=== PATIENT | female | born 1945 | race Caucasian/White ===

== ENCOUNTER → 2020-04-08 | Outpatient (CLI) | payer MEDICARE, OTHER ==
--- NOTE | 2020-04-08 15:13 | XR ---
EXAMINATION TYPE: XR chest 2V DATE OF EXAM: 04/08/2020 COMPARISON: None INDICATION: Wheezing TECHNIQUE: Frontal and lateral views of the chest are obtained. FINDINGS: The heart size is normal. The pulmonary vasculature is normal. The lungs are clear. There is elevation of the right diaphragm IMPRESSION: 1. No acute pulmonary process.
--- NOTE | 2020-04-27 11:04 | MM ---
Reason for exam: screening (asymptomatic). Last mammogram was performed 1 year and 1 month ago. Physical Findings: A clinical breast exam by your physician is recommended on an annual basis and results should be correlated with mammographic findings. MG 3D Screening Mammo W/Cad Bilateral CC and MLO view(s) were taken. Prior study comparison: February 23, 2019, mammogram, performed at [place]. The breast tissue is heterogeneously dense. This may lower the sensitivity of mammography. Stable benign calcifications. There is no discrete abnormality. No significant changes when compared with prior studies. ASSESSMENT: Benign, BI-RAD 2 RECOMMENDATION: Routine screening mammogram of both breasts in 1 year.
== END | disposition home or self-care (01) ==
LOC: RADMAMWWP 14:32
PROVIDERS: ATTEND Family Medicine
DX: Z12.31 Encounter for screening mammogram for malignant neoplasm of breast (principal); R06.2 Wheezing
CPT/HCPCS: 71046; 77063; 77067

== ENCOUNTER → 2020-04-27 | Outpatient (CLI) | payer MEDICARE, OTHER ==
[2020-04-27 09:23] LABS: Basophils % (A) 1 %; Eosinophils # (A) 0.2 k/uL (0-0.7); Eosinophils % (A) 4 %; HCT 35.7 % (34.0-46.0); HGB 11.8 gm/dL (11.4-16.0); Lymphocytes # (A) 1.7 k/uL (1.0-4.8); Lymphocytes % (A) 33 %; MCH 27.6 pg (25.0-35.0); MCHC 32.9 g/dL (31.0-37.0); MCV 83.9 fL (80.0-100.0); Mean Platelet Volume 6.7; Monocytes # (A) 0.5 k/uL (0-1.0); Monocytes % (A) 9 %; Neutrophils # (A) 2.6 k/uL (1.3-7.7); Neutrophils % (A) 51 %; Platelet Count 294 k/uL (150-450); RBC 4.26 m/uL (3.80-5.40); RDW 14.6 % (11.5-15.5); WBC 5.1 k/uL (3.8-10.6)
[2020-04-27 09:48] LABS: T4, Free (Free Thyroxine) 1.33 ng/dL (0.78-2.19)
== END | disposition home or self-care (01) ==
LOC: CPPFTMAIN 07:13
PROVIDERS: ATTEND Family Medicine
DX: R06.2 Wheezing (principal); E78.5 Hyperlipidemia, unspecified; E03.9 Hypothyroidism, unspecified; N18.30 Chronic kidney disease, stage 3 unspecified
CPT/HCPCS: 36415; 80061; 84439; 84443; 85025; 94060; 94726; 94729

== ENCOUNTER 2020-06-01 09:57 | Observation (INO) | payer MEDICARE, OTHER ==
[2020-06-01] MEDS ORDERED: METOCLOPRAMIDE 5 MG/ML 2 ML VIAL IVP STA (10:26)
[2020-06-01] MEDS ORDERED: MECLIZINE 12.5 MG TAB PO STA (10:26)
--- NOTE | 2020-06-01 10:29 | ED ---
General Adult HPI - General Chief complaint: Neuro Symptoms/Deficit Stated complaint: neuro issues Time Seen by Provider: 06/01/20 10:04 Source: patient, family, RN notes reviewed Mode of arrival: wheelchair Limitations: no limitations - History of Present Illness Initial comments: Patient is a pleasant 75-year-old female presenting to the emergency department with dizziness. Patient is on prevagen recently for memory. Patient started that on Saturday. Patient woke up Saturday morning and was sweaty. Patient also felt dizzy like vertigo. Patient states symptoms improved throughout the day yesterday and then are still present this morning. Patient has dizziness described as a spinning sensation. Symptoms worsen with upright position and head movement. Patient does have history of similar symptoms years ago associated with stroke. Patient is also concerned that she is falling towards the left side. No extremity weakness. No speech problems. No confusion. - Related Data Allergies Allergy/AdvReac Type Severity Reaction Status Date / Time Iodinated Contrast Media Allergy Rash/Hives Verified 06/01/20 10:11 Review of Systems ROS Statement: Those systems with pertinent positive or pertinent negative responses have been documented in the HPI. ROS Other: All systems not noted in ROS Statement are negative. Constitutional: Denies: fever Eyes: Denies: eye pain ENT: Denies: ear pain Respiratory: Denies: cough Cardiovascular: Denies: chest pain Endocrine: Denies: fatigue Gastrointestinal: Denies: abdominal pain Genitourinary: Denies: dysuria Musculoskeletal: Denies: back pain Skin: Denies: rash Neurological: Reports: as per HPI, vertigo. Denies: headache, weakness, confusion Past Medical History Past Medical History: CVA/TIA, Hypertension History of Any Multi-Drug Resistant Organisms: None Reported Past Surgical History: Appendectomy, Cholecystectomy, Hysterectomy Additional Past Surgical History / Comment(s): D&C, liver transplant Past Psychological History: No Psychological Hx Reported Smoking Status: Never smoker Past Alcohol Use History: None Reported Past Drug Use History: None Reported General Exam Limitations: no limitations General appearance: alert, in no apparent distress Head exam: Present: normocephalic Eye exam: Present: normal appearance, PERRL, EOMI. Absent: nystagmus ENT exam: Present: normal oropharynx Neck exam: Present: normal inspection Respiratory exam: Present: normal lung sounds bilaterally Cardiovascular Exam: Present: regular rate, normal rhythm GI/Abdominal exam: Present: soft. Absent: tenderness Extremities exam: Present: normal inspection Neurological exam: Present: alert, oriented X3, CN II-XII intact. Absent: motor sensory deficit Expanded Neurological exam: Present: protecting the airway Patient oriented to: Present: person, place, time Speech: Present: fluid speech Cranial nerves: EOM's Intact: Normal, Facial Sensation: Normal Cerebellar function: Finger to Nose: Normal Sensory exam: Upper Extremity Light Touch: Normal, Lower Extremity Light Touch: Normal Motor strength exam: RUE: 5, LUE: 5, RLE: 5, LLE: 5 Eye Response: (4) open spontaneously Motor Response: (6) obeys commands Verbal Response: (5) oriented Psychiatric exam: Present: normal affect, normal mood Skin exam: Present: normal color Course Vital Signs 06/01/20 10:03 Temperature 98.2 F Pulse Rate 67 Respiratory 18 Rate Blood Pressure 143/65 O2 Sat by Pulse 99 Oximetry - Reevaluation(s) Reevaluation #1: 06/01/20 10:27 Patient states she cannot have contrast. Patient states when she received last time her creatinine went to 11 and she needed dialysis. Patient states this is not an option. EKG Findings - EKG Comments: EKG Findings:: Normal sinus rhythm 68. ID 196. QRS 92. QT 402. QTC 427. Left axis. Normal QRS. Nonspecific ST-T. Medical Decision Making - Medical Decision Making Secondary to patient with history of similar symptoms associated with stroke and leaning towards left side I would like patient to be admitted with neurology evaluation. Case was discussed with Dr. garza, covering for Dr. Iqbal who is in agreement and will admit. Neurology will be placed on consult. She was reevaluated and updated. Patient states she is feeling somewhat better with medications. - Lab Data Result diagrams: 06/01/20 10:40 06/01/20 10:40 Lab Results 06/01/20 06/01/20 Range/Units 10:40 10:40 WBC 4.6 (3.8-10.6) k/uL RBC 4.13 (3.80-5.40) m/uL Hgb 11.6 (11.4-16.0) gm/dL Hct 33.9 L (34.0-46.0) % MCV 82.0 (80.0-100.0) fL MCH 28.0 (25.0-35.0) pg MCHC 34.2 (31.0-37.0) g/dL RDW 14.4 (11.5-15.5) % Plt Count 288 (150-450) k/uL MPV 6.9 Neutrophils % 59 % Lymphocytes % 28 % Monocytes % 8 % Eosinophils % 3 % Basophils % 0 % Neutrophils # 2.7 (1.3-7.7) k/uL Lymphocytes # 1.3 (1.0-4.8) k/uL Monocytes # 0.4 (0-1.0) k/uL Eosinophils # 0.1 (0-0.7) k/uL Basophils # 0.0 (0-0.2) k/uL Sodium 134 L (137-145) mmol/L Potassium 5.0 (3.5-5.1) mmol/L Chloride 102 (98-107) mmol/L Carbon Dioxide 25 (22-30) mmol/L Anion Gap 7 mmol/L BUN 27 H (7-17) mg/dL Creatinine 1.25 H (0.52-1.04) mg/dL Est GFR (CKD-EPI)AfAm 49 (>60 ml/min/1.73 sqM) Est GFR (CKD-EPI)NonAf 43 (>60 ml/min/1.73 sqM) Glucose 169 H (74-99) mg/dL Calcium 9.7 (8.4-10.2) mg/dL Total Bilirubin 0.6 (0.2-1.3) mg/dL AST 70 H (14-36) U/L ALT 77 H (4-34) U/L Alkaline Phosphatase 46 (38-126) U/L Total Protein 7.7 (6.3-8.2) g/dL Albumin 4.4 (3.5-5.0) g/dL - Radiology Data Radiology results: report reviewed (Computed tomography scan of the brain shows atrophy and chronic small vessel changes without acute process.), image reviewed (Chest x-ray shows chronic changes without acute process) Disposition Clinical Impression: Vertigo, Ataxia Disposition: ADMITTED IP TO THIS HOSP Is patient prescribed a controlled substance at d/c from ED?: No Referrals: Jamshid Iqbal MD [Primary Care Provider] - 1-2 days Decision Time: 11:19
[2020-06-01 11:03] LABS: Basophils % (A) 0 %; Eosinophils # (A) 0.1 k/uL (0-0.7); Eosinophils % (A) 3 %; HCT 33.9 % (34.0-46.0); HGB 11.6 gm/dL (11.4-16.0); Lymphocytes # (A) 1.3 k/uL (1.0-4.8); Lymphocytes % (A) 28 %; MCHC 34.2 g/dL (31.0-37.0); Mean Platelet Volume 6.9; Monocytes # (A) 0.4 k/uL (0-1.0); Monocytes % (A) 8 %; Neutrophils # (A) 2.7 k/uL (1.3-7.7); Neutrophils % (A) 59 %; Platelet Count 288 k/uL (150-450); RBC 4.13 m/uL (3.80-5.40); RDW 14.4 % (11.5-15.5); WBC 4.6 k/uL (3.8-10.6)
--- NOTE | 2020-06-01 11:03 | XR ---
EXAMINATION TYPE: XR chest 2V DATE OF EXAM: 06/01/2020 COMPARISON: 04/08/2020 HISTORY: 75 year-old female altered mental status, vertigo and syncope. TECHNIQUE: PA and lateral views FINDINGS: Heart normal size. Aorta and pulmonary vasculature within normal limits. Asymmetric elevation right h emidiaphragm. No consolidation or pleural effusion. Mild interstitial prominence is unchanged. IMPRESSION: Chronic changes without acute cardiopulmonary process.
--- NOTE | 2020-06-01 11:04 | CT ---
EXAMINATION TYPE: CT brain wo con for TPA DATE OF EXAM: 06/01/2020 COMPARISON: None HISTORY: vertigo, nausea CT DLP: 1100.[address] of the brain was performed. The ventricles, basal cisterns and sulci overlying the cerebral convexities demonstrate mild enlargem ent. There is no evidence for intracranial hemorrhage or sulcal effacement. There is decreased attenuation about the periventricular white matter and deep white matter of both c erebral hemispheres, compatible with chronic small vessel ischemia. Differential diagnosis does inclu de demyelination. No mass effects are seen.No midline shift. Osseous calvarium is intact. If symptoms persist consider MRI. IMPRESSION: 1. Age related atrophic and chronic small vessel ischemic change without acute intracranial process s een at this time.
[2020-06-01 11:15] LABS: Albumin 4.4 g/dL (3.5-5.0); Calcium 9.7 mg/dL (8.4-10.2); Total Bilirubin 0.6 mg/dL (0.2-1.3); Total Protein 7.7 g/dL (6.3-8.2)
[2020-06-01] MEDS ORDERED: NALOXONE 0.4 MG/ML 1 ML VIAL IV PRN (11:22)
[2020-06-01 11:27] LABS: Prothrombin Time 10.6 sec (9.0-12.0)
--- NOTE | 2020-06-01 13:37 | P.HPIM ---
History of Present Illness This is a pleasant 75 years old female with past medical history of CVA/TIA, liver transplant. She is a patient of Dr. Breen. Also she follows up with her news videographer at [facility] for her liver transplant. Also she has chronic kidney disease secondary to contrast she received during the liver transplant, at that time she needed temporal dialysis when her creatinine went up to 11. Also she developed stroke 2 years after the liver transplant. This time she Presents because of dizziness and vertigo of 2 days' duration, she says that the room is a spinning around her associated with some nausea yesterday but no vomiting. And so numbness. No recent history of upper respiratory tract infection, no chest pain or dyspnea, no change in urine or bowel habits. No fever. She denies smoking, alcohol or illicit drugs Vitals are stable. Labs including CBC and INR were unremarkable. Creatinine is slightly elevated at 1.25 and liver enzymes slightly up with AST 70 and ALT 77. Troponin is negative with less than 0.012. EKG showing normal sinus rhythm at [address]-T changes. QTC 427. CT of the brain showing cerebral atrophy with no acute process per Radiologist. Chest x-ray: No acute process Review of Systems CONSTITUTIONAL: No fever, no malaise, no fatigue. HEENT: No recent visual problems or hearing problems. Denied any sore throat. CARDIOVASCULAR: No orthopnea, PND, no palpitations, no syncope. PULMONARY: No shortness of breath, no cough, no hemoptysis. GASTROINTESTINAL: No diarrhea, no nausea, no vomiting, no abdominal pain. Normoactive bowel sounds. NEUROLOGICAL: No headaches, no weakness, no numbness. HEMATOLOGICAL: Denies any bleeding or petechiae. GENITOURINARY: Denies any burning micturition, frequency, or urgency. MUSCULOSKELETAL/RHEUMATOLOGICAL: Denies any joint pain, swelling, or any muscle pain. ENDOCRINE: Denies any polyuria or polydipsia. Past Medical History Past Medical History: CVA/TIA, Hypertension History of Any Multi-Drug Resistant Organisms: None Reported Past Surgical History: Appendectomy, Cholecystectomy, Hysterectomy Additional Past Surgical History / Comment(s): D&C, liver transplant Past Psychological History: No Psychological Hx Reported Smoking Status: Never smoker Past Alcohol Use History: None Reported Past Drug Use History: None Reported Medications and Allergies Home Medications Medication Instructions Recorded Confirmed Type Acetaminophen Tab [Tylenol Tab] 1,000 mg PO Q6HR PRN 06/01/20 06/01/20 History Atorvastatin [Lipitor] 40 mg PO HS 06/01/20 06/01/20 History Calcium Carbonate/Vitamin D3 1 tab PO DAILY 06/01/20 06/01/20 History [Calcium 500-Vit D3 200 Tablet] Cephalexin [Keflex] 250 mg PO DAILY 06/01/20 06/01/20 History Cholecalciferol [Vitamin D3] 400 unit PO DAILY 06/01/20 06/01/20 History Cinnamon Bark [Cinnamon] 2,000 mg PO DAILY 06/01/20 06/01/20 History Clopidogrel [Plavix] 75 mg PO DAILY 06/01/20 06/01/20 History Cranberry Fruit Extract [Cranberry] 500 mg PO DAILY 06/01/20 06/01/20 History Fenofibrate 54 mg PO DAILY 06/01/20 06/01/20 History Furosemide [Lasix] 20 mg PO DAILY PRN 06/01/20 06/01/20 History Garlique 1 tab PO DAILY 06/01/20 06/01/20 History Glucosamine/Chondr De La Garza A Sod [Osteo 2 tab PO DAILY 06/01/20 06/01/20 History Bi-Flex Caplet] Insulin Glargine [Lantus] 40 unit SQ DAILY 06/01/20 06/01/20 History Insulin Regular, Human [NovoLIN R] See Protocol SQ AC-TID 06/01/20 06/01/20 History Leg Cramps Sl 2 - 3 tab SL DAILY PRN 06/01/20 06/01/20 History Levothyroxine Sodium [Synthroid] 50 mcg PO DAILY 06/01/20 06/01/20 History Lisinopril [Prinivil] 10 mg PO DAILY 06/01/20 06/01/20 History Magnesium Oxide 400 mg PO DAILY 06/01/20 06/01/20 History Henrry Red 1 tab PO DAILY 06/01/20 06/01/20 History Metoprolol Tartrate [Lopressor] 50 mg PO BID 06/01/20 06/01/20 History Multivitamins, Thera [Multivitamin 1 tab PO DAILY 06/01/20 06/01/20 History (formulary)] Mycophenolate Sodium [Mycophenolic 360 mg PO BID 06/01/20 06/01/20 History Acid] Garrochales-3 Fatty Acids [Garrochales-3] 1,000 mg PO DAILY 06/01/20 06/01/20 History Pantoprazole Sodium [Protonix] 40 mg PO DAILY 06/01/20 06/01/20 History Vit C/E/Zn/Coppr/Lutein/Zeaxan 1 cap PO DAILY 06/01/20 06/01/20 History [Preservision Areds 2 Softgel] Vitamin E 1,000 unit PO DAILY 06/01/20 06/01/20 History Zinc Gluconate [Zinc] 50 mg PO DAILY 06/01/20 06/01/20 History cycloSPORINE [cycloSPORINE (GEQ 25 mg PO DAILY 06/01/20 06/01/20 History for SandIMMUNE)] cycloSPORINE [cycloSPORINE (GEQ 50 mg PO HS 06/01/20 06/01/20 History for SandIMMUNE)] sitaGLIPtin [Januvia] 100 mg PO DAILY 06/01/20 06/01/20 History Allergies Allergy/AdvReac Type Severity Reaction Status Date / Time Iodinated Contrast Media Allergy Rash/Hives Verified 06/01/20 11:30 pentazocine [From Talwin] Allergy Vomiting Verified 06/01/20 11:47 Physical Exam Vitals: Vital Signs Temp Pulse Resp BP Pulse Ox 06/01/20 12:54 61 16 120/65 98 06/01/20 10:03 98.2 F 67 18 143/65 99 Intake and Output 05/31/20 06/01/20 06/01/20 22:59 06:59 14:59 Other: Weight 65.771 kg GENERAL: The patient is alert and oriented x3, not in any acute distress. Well developed, well nourished. HEENT: Pupils are round and equally reacting to light. EOMI. No scleral icterus. No conjunctival pallor. Normocephalic, atraumatic. No pharyngeal erythema. No thyromegaly. CARDIOVASCULAR: S1 and S2 present. No murmurs, rubs, or gallops. PULMONARY: Chest is clear to auscultation, no wheezing or crackles. ABDOMEN: Soft, nontender, nondistended, normoactive bowel sounds. No palpable organomegaly. MUSCULOSKELETAL: No joint swelling or deformity. EXTREMITIES: No cyanosis, clubbing, or pedal edema. NEUROLOGICAL: Gross neurological examination did not reveal any focal deficits. SKIN: No rashes. No petechiae Results CBC & Chem 7: 06/01/20 10:40 06/01/20 10:40 Labs: Abnormal Lab Results - Last 24 Hours (Table) 06/01/20 06/01/20 Range/Units 10:40 10:40 Hct 33.9 L (34.0-46.0) % Sodium 134 L (137-145) mmol/L BUN 27 H (7-17) mg/dL Creatinine 1.25 H (0.52-1.04) mg/dL Glucose 169 H (74-99) mg/dL AST 70 H (14-36) U/L ALT 77 H (4-34) U/L Assessment and Plan Assessment: Vertigo, acute Mildly elevated liver enzymes. Chronic kidney disease History of CVA/TIA History of liver transplant Plan: A pleasant 75 years old female who presents with critical. Neurology consult. Continue with meclizine as needed Labs and medication were reviewed.. Continue same treatment. Continue with symptomatic treatment. Resume home medication. Monitor lytes and vitals. DVT and GI prophylaxis. Further recommendations depends on the clinical course of the patient DVT prophylaxis: Subcutaneous heparin GI Prophylaxis: Pepcid PT/OT: Pending Prognosis is guarded
--- NOTE | 2020-06-01 16:54 | P.CNNES ---
History of Present Illness Consult date: 06/01/20 Requesting physician: Neri Robert Reason for Consult: Vertigo, ataxia, evaluate for TIA History of Present Illness: Patient is a 75-year-old female came to the hospital today at 10 AM for dizziness. Patient is recently started on prevagen on Saturday, 3 days ago for memory. Patient took the dose on Saturday and Saturday, and yesterday on Saturday she woke up and was sweaty. She felt dizzy like vertigo. The symptoms improved throughout the day yesterday but when she woke up this morning, was still present. She describes as a spinning sensation. Symptoms worsened with upright position and head movement. She also felt nauseous, and kept on walking to the left and was unsteady on the feet. Patient is also concerned that she is falling towards the left side. No focal weakness, no speech difficulties or visual disturbance. Patient denies any recent upper respiratory infection, cold or head injury. Vital signs on arrival was blood pressure 143/65, pulse rate 67, temperature 98.2. CT head showed age-related atrophic and chronic small vessel ischemic changes without acute intracranial process. On my review, the paranasal sinuses and external auditory canal are clear. Chest x-ray showed chronic changes wi thout acute cardiopulmonary process. EKG shows normal sinus rhythm, nonspecific ST and T-wave abnormality. Patient states that for last 1 year she was having a pressure sensation behind her left eardrum. She would feel crackles all the time. She went to see ENT specialist Dr. Kinsey, who performed hearing test and it was a "flatline" on the left, whereas she states was normal on the right. Tympanostomy tube was placed in his office 2 weeks ago. Patient denies any tinnitus. Denies any h earing loss. Patient denies any use of tobacco, no hypertension. Patient has history of a questionable CVA 7 years ago when she fell, hit her head on the corner of the table. When director fixed income was called, she was confused and not able to answer simple questions. Patient does take Plavix 75 mg daily. Patient also has history of liver transplant due to [facility] on 05/13/2011. She has diabetes for last 24 years. Review of Systems As above in detail. All other review of systems unremarkable. Patient denies headache, problem with the vision, hoarseness, sore throat or dysphagia. He denies any chest pain shortness of breath, wheezing or cough. Denies abdominal pain nausea vomiting and diarrhea. Denies neck or back pain. All other review of systems unremarkable except as above. Past Medical History Past Medical History: CVA/TIA, Hypertension History of Any Multi-Drug Resistant Organisms: None Reported Past Surgical History: Appendectomy, Cholecystectomy, Hysterectomy Additional Past Surgical History / Comment(s): D&C, liver transplant Past Psychological History: No Psychological Hx Reported Smoking Status: Never smoker Past Alcohol Use History: None Reported Past Drug Use History: None Reported Medications and Allergies Home Medications Medication Instructions Recorded Confirmed Type Acetaminophen Tab [Tylenol Tab] 1,000 mg PO Q6HR PRN 06/01/20 06/01/20 History Atorvastatin [Lipitor] 40 mg PO HS 06/01/20 06/01/20 History Calcium Carbonate/Vitamin D3 1 tab PO DAILY 06/01/20 06/01/20 History [Calcium 500-Vit D3 200 Tablet] Cephalexin [Keflex] 250 mg PO DAILY 06/01/20 06/01/20 History Cholecalciferol [Vitamin D3] 400 unit PO DAILY 06/01/20 06/01/20 History Cinnamon Bark [Cinnamon] 2,000 mg PO DAILY 06/01/20 06/01/20 History Clopidogrel [Plavix] 75 mg PO DAILY 06/01/20 06/01/20 History Cranberry Fruit Extract [Cranberry] 500 mg PO DAILY 06/01/20 06/01/20 History Fenofibrate 54 mg PO DAILY 06/01/20 06/01/20 History Furosemide [Lasix] 20 mg PO DAILY PRN 06/01/20 06/01/20 History Garlique 1 tab PO DAILY 06/01/20 06/01/20 History Glucosamine/Chondr De La Garza A Sod [Osteo 2 tab PO DAILY 06/01/20 06/01/20 History Bi-Flex Caplet] Insulin Glargine [Lantus] 40 unit SQ DAILY 06/01/20 06/01/20 History Insulin Regular, Human [NovoLIN R] See Protocol SQ AC-TID 06/01/20 06/01/20 History Leg Cramps Sl 2 - 3 tab SL DAILY PRN 06/01/20 06/01/20 History Levothyroxine Sodium [Synthroid] 50 mcg PO DAILY 06/01/20 06/01/20 History Lisinopril [Prinivil] 10 mg PO DAILY 06/01/20 06/01/20 History Magnesium Oxide 400 mg PO DAILY 06/01/20 06/01/20 History Henrry Red 1 tab PO DAILY 06/01/20 06/01/20 History Metoprolol Tartrate [Lopressor] 50 mg PO BID 06/01/20 06/01/20 History Multivitamins, Thera [Multivitamin 1 tab PO DAILY 06/01/20 06/01/20 History (formulary)] Mycophenolate Sodium [Mycophenolic 360 mg PO BID 06/01/20 06/01/20 History Acid] Barrington-3 Fatty Acids [Barrington-3] 1,000 mg PO DAILY 06/01/20 06/01/20 History Pantoprazole Sodium [Protonix] 40 mg PO DAILY 06/01/20 06/01/20 History Vit C/E/Zn/Coppr/Lutein/Zeaxan 1 cap PO DAILY 06/01/20 06/01/20 History [Preservision Areds 2 Softgel] Vitamin E 1,000 unit PO DAILY 06/01/20 06/01/20 History Zinc Gluconate [Zinc] 50 mg PO DAILY 06/01/20 06/01/20 History cycloSPORINE [cycloSPORINE (GEQ 25 mg PO DAILY 06/01/20 06/01/20 History for SandIMMUNE)] cycloSPORINE [cycloSPORINE (GEQ 50 mg PO HS 06/01/20 06/01/20 History for SandIMMUNE)] sitaGLIPtin [Januvia] 100 mg PO DAILY 06/01/20 06/01/20 History Allergies Allergy/AdvReac Type Severity Reaction Status Date / Time Iodinated Contrast Media Allergy Rash/Hives Verified 06/01/20 11:30 pentazocine [From Talwin] Allergy Vomiting Verified 06/01/20 11:47 Physical Examination - Vital Signs Vital Signs: Vital Signs Temp Pulse Resp BP Pulse Ox 06/01/20 12:54 61 16 120/65 98 06/01/20 10:03 98.2 F 67 18 143/65 99 Intake and Output 05/31/20 06/01/20 06/01/20 22:59 06:59 14:59 Other: Weight 65.771 kg On examination patient is an elderly female, in no acute distress. Patient is alert and awake fully oriented. Speech and language functions are normal. Attention and concentration fund of knowledge is adequate. On cranial examination pupils are round and reactive to light, visual gee are full on confrontation, extraocular muscles are intact with no nystagmus. Face is symmetric, tongue protrudes to the midline. Palatal elevation and sensation normal hearing appears normal for conversation. Shoulder shrug normal, facial sensations normal. Otologic examination revealed somewhat retracted left eardrum. Evidence of recent placement of tympanostomy tube on the left side. The right eardrum appears normal. On muscle strength testing there is no pronator drift and the strength is normal in arms and legs distally and proximally. Reflexes are 1+ to 2, and plantars downgoing. Sensory touch is equal. No ataxia for [id number] or [id number] testing. Tone and bulk of muscles normal. Gait appears normal. No carotid bruit or murmur, peripheral pulses present. Results - Laboratory Findings CBC and BMP: 06/01/20 10:40 06/01/20 10:40 Abnormal Lab Findings: Abnormal Labs 06/01/20 06/01/20 10:40 10:40 Hct 33.9 L Sodium 134 L BUN 27 H Creatinine 1.25 H Glucose 169 H AST 70 H ALT 77 H Assessment and Plan Assessment: * New onset vertigo since yesterday morning, likely due to peripheral vestibular dysfunction. Patient had a one-year history of pressure and fluid behind the left eardrum, for which she underwent placement of tympanostomy tube 2 weeks ago. * History of liver transplant for Bowles. * Diabetes Plan: * Suggest patient follow-up with ENT specialist Dr. Landeros regarding this episode of persistent vertigo. * Antivert as needed. * Suggest Medrol Dosepak if no medical contra indications. * Neurologically clear.
[2020-06-01] MEDS ORDERED: FUROSEMIDE 20 MG TAB PO PRN (17:38)
[2020-06-01] MEDS ORDERED: ACETAMINOPHEN TAB 500 MG TAB PO PRN (17:38)
[2020-06-01] MEDS: SODIUM CHLORIDE 0.9% 1,000 ML IV SCH (19:19)
[2020-06-01] MEDS: MYCOPHENOLATE SODIUM DR 180 MG TABLET.DR PO SCH (20:17)
[2020-06-01] MEDS: METOPROLOL TARTRATE 50 MG TAB PO SCH (20:17)
[2020-06-01] MEDS ORDERED: ATORVASTATIN 40 MG TAB PO SCH (21:00)
[2020-06-01] MEDS ORDERED: cycloSPORINE 25 MG CAP PO SCH (21:00)
[2020-06-01] MEDS ORDERED: MECLIZINE 25 MG TAB PO PRN (21:22)
[2020-06-02] MEDS: SODIUM CHLORIDE 0.9% 1,000 ML IV SCH (00:47)
[2020-06-02 06:39] LABS: Glucose,Whole Blood 133 mg/dL (75-99)
[2020-06-02] MEDS ORDERED: INSULIN DETEMIR (LEVEMIR) 100 UNIT/ML SYR SQ SCH (07:00)
[2020-06-02] MEDS ORDERED: PANTOPRAZOLE 40 MG TABLET PO SCH (07:30)
[2020-06-02 07:59] VITALS: BP 146/73; PULSE 61; RESP 16; TEMP 98.5
--- NOTE | 2020-06-02 08:58 | P.DS ---
Providers Date of admission: 06/01/20 11:22 Attending physician: Markie Johnson MD Consults: 06/01/20 11:22 Consult Physician Urgent Consulting Provider: Yaquelin Davenport Consult Reason/Comments: Vertigo and ataxia, evaluate for TIA Do you want consulting provider notified?: Yes Primary care physician: Jamshid Iqbal MD Hospital Course: Acute vertigo, mostly related to her ear problem increased pressure and fluid behind the left eardrum, she is status post placement of tympanostomy tube [address] Landeros. Follow-up as an outpatient Mildly elevated liver enzymes. Follow-up as an outpatient Chronic kidney disease History of CVA/TIA History of liver transplant Hospital course: This is a pleasant 75 years old female with past medical history of CVA/TIA, liver transplant. She is a patient of Dr. Breen. 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 Also she has chronic kidney disease secondary to contrast she received during the liver tra nsplant, at that time she needed temporal dialysis when her creatinine went up to 11. Also she developed stroke 2 years after the liver transplant. This time she Presents because of dizziness and vertigo of 2 days' duration, she says that the room is a spinning around her associated with some nausea yesterday but no vomiting. Also patient is a status post tympanostomy about [address] Fuller secondary to fluid collection behind her left ear, because of this neurologist evaluated the patient and cleared her for discharge and follow-up with Dr. Fuller in 1-2 weeks and patient agrees. On the day of discharge patient dizziness and vertigo are completely resolved and patient is asymptomatic and she is back to normal states and she wants to go home today Patient denies any other symptoms, no chest pain or dyspnea, no coughing, no change in urine or bowel habits. No fever. Patient was cleared for discharge by neurologist Problems and management plan were discussed with the patient and he verbalized understanding and acceptance Patient was found stable and can be discharged home however he needs follow-up as an outpatient. Patient was instructed to follow up with PCP Dr. roman for within one week and patient agrees. Also patient was instructed to follow up with her ENT doctor Alina in one week and she agrees to call and make appointment further than to wait 6 months as previously recommended, she agrees to call in one week Gen: patient is a AAOx3, no distress CVS: S1-S2, RRR, no murmur Lungs: B/L CTA, no wheezing Abdomen: soft, no distention, no tenderness, positive bowel sounds Extremity: no leg edema or induration Time spent more than 35 minutes Plan - Discharge Summary Discharge Rx Participant: No New Discharge Prescriptions: No Action Orosi-3 Fatty Acids [Orosi-3] 1,000 mg PO DAILY Cinnamon Bark [Cinnamon] 2,000 mg PO DAILY Zinc Gluconate [Zinc] 50 mg PO DAILY Leg Cramps Sl 2 - 3 tab SL DAILY PRN PRN Reason: LEG CRAMPS Glucosamine/Chondr De La Garza A Sod [Osteo Bi-Flex Caplet] 2 tab PO DAILY Cranberry Fruit Extract [Cranberry] 500 mg PO DAILY Multivitamins, Thera [Multivitamin (formulary)] 1 tab PO DAILY Magnesium Oxide 400 mg PO DAILY Cholecalciferol [Vitamin D3] 400 unit PO DAILY Vitamin E 1,000 unit PO DAILY Vit C/E/Zn/Coppr/Lutein/Zeaxan [Preservision Areds 2 Softgel] 1 cap PO DAILY Henrry Red 1 tab PO DAILY Garlique 1 tab PO DAILY Metoprolol Tartrate [Lopressor] 50 mg PO BID Lisinopril [Prinivil] 10 mg PO DAILY Acetaminophen Tab [Tylenol Tab] 1,000 mg PO Q6HR PRN PRN Reason: Pain Pantoprazole Sodium [Protonix] 40 mg PO DAILY Levothyroxine Sodium [Synthroid] 50 mcg PO DAILY Clopidogrel [Plavix] 75 mg PO DAILY sitaGLIPtin [Januvia] 100 mg PO DAILY Insulin Regular, Human [NovoLIN R] See Protocol SQ AC-TID Insulin Glargine [Lantus] 40 unit SQ DAILY Furosemide [Lasix] 20 mg PO DAILY PRN PRN Reason: Edema Cephalexin [Keflex] 250 mg PO DAILY Atorvastatin [Lipitor] 40 mg PO HS Fenofibrate 54 mg PO DAILY Mycophenolate Sodium [Mycophenolic Acid] 360 mg PO BID cycloSPORINE [cycloSPORINE (GEQ for SandIMMUNE)] 50 mg PO HS cycloSPORINE [cycloSPORINE (GEQ for SandIMMUNE)] 25 mg PO DAILY Calcium Carbonate/Vitamin D3 [Calcium 500-Vit D3 200 Tablet] 1 tab PO DAILY Discharge Medication List Acetaminophen Tab [Tylenol Tab] 1,000 mg PO Q6HR PRN 06/01/20 [History] Atorvastatin [Lipitor] 40 mg PO HS 06/01/20 [History] Calcium Carbonate/Vitamin D3 [Calcium 500-Vit D3 200 Tablet] 1 tab PO DAILY 06/01/20 [History] Cephalexin [Keflex] 250 mg PO DAILY 06/01/20 [History] Cholecalciferol [Vitamin D3] 400 unit PO DAILY 06/01/20 [History] Cinnamon Bark [Cinnamon] 2,000 mg PO DAILY 06/01/20 [History] Clopidogrel [Plavix] 75 mg PO DAILY 06/01/20 [History] Cranberry Fruit Extract [Cranberry] 500 mg PO DAILY 06/01/20 [History] Fenofibrate 54 mg PO DAILY 06/01/20 [History] Furosemide [Lasix] 20 mg PO DAILY PRN 06/01/20 [History] Garlique 1 tab PO DAILY 06/01/20 [History] Glucosamine/Chondr De La Garza A Sod [Osteo Bi-Flex Caplet] 2 tab PO DAILY 06/01/20 [History] Insulin Glargine [Lantus] 40 unit SQ DAILY 06/01/20 [History] Insulin Regular, Human [NovoLIN R] See Protocol SQ AC-TID 06/01/20 [History] Leg Cramps Sl 2 - 3 tab SL DAILY PRN 06/01/20 [History] Levothyroxine Sodium [Synthroid] 50 mcg PO DAILY 06/01/20 [History] Lisinopril [Prinivil] 10 mg PO DAILY 06/01/20 [History] Magnesium Oxide 400 mg PO DAILY 06/01/20 [History] Henrry Red 1 tab PO DAILY 06/01/20 [History] Metoprolol Tartrate [Lopressor] 50 mg PO BID 06/01/20 [History] Multivitamins, Thera [Multivitamin (formulary)] 1 tab PO DAILY 06/01/20 [History] Mycophenolate Sodium [Mycophenolic Acid] 360 mg PO BID 06/01/20 [History] Orosi-3 Fatty Acids [Orosi-3] 1,000 mg PO DAILY 06/01/20 [History] Pantoprazole Sodium [Protonix] 40 mg PO DAILY 06/01/20 [History] Vit C/E/Zn/Coppr/Lutein/Zeaxan [Preservision Areds 2 Softgel] 1 cap PO DAILY 06/01/20 [History] Vitamin E 1,000 unit PO DAILY 06/01/20 [History] Zinc Gluconate [Zinc] 50 mg PO DAILY 06/01/20 [History] cycloSPORINE [cycloSPORINE (GEQ for SandIMMUNE)] 25 mg PO DAILY 06/01/20 [History] cycloSPORINE [cycloSPORINE (GEQ for SandIMMUNE)] 50 mg PO HS 06/01/20 [History] sitaGLIPtin [Januvia] 100 mg PO DAILY 06/01/20 [History] Follow up Appointment(s)/Referral(s): Jamshid Iqbal MD [Primary Care Provider] - 1-2 days
[2020-06-02] MEDS ORDERED: CALCIUM CARB-VIT D 500MG-200UN 1 EACH TAB PO SCH (09:00)
[2020-06-02] MEDS ORDERED: CLOPIDOGREL 75 MG TAB PO SCH (09:00)
[2020-06-02] MEDS ORDERED: FENOFIBRATE 54 MG TAB PO SCH (09:00)
[2020-06-02] MEDS ORDERED: lisinopriL 10 MG TAB PO SCH (09:00)
[2020-06-02] MEDS ORDERED: cycloSPORINE 25 MG CAP PO SCH (09:00)
[2020-06-02] MEDS ORDERED: MAGNESIUM OXIDE 400 MG TAB PO SCH (09:00)
[2020-06-02] MEDS: METOPROLOL TARTRATE 50 MG TAB PO SCH (09:24)
[2020-06-02] MEDS: MYCOPHENOLATE SODIUM DR 180 MG TABLET.DR PO SCH (09:24)
== END 2020-06-02 10:07 | disposition home or self-care (01) ==
LOC: EC 09:57 → 3NCARDOBS 11:22
PROVIDERS: ADMIT Internal Medicine; ATTEND Internal Medicine
DX: R42 Dizziness and giddiness (principal); Z96.29 Presence of other otological and audiological implants; R74.8 Abnormal levels of other serum enzymes; N18.9 Chronic kidney disease, unspecified; E11.22 Type 2 diabetes mellitus with diabetic chronic kidney disease; I12.9 Hypertensive chronic kidney disease with stage 1 through stage 4 chronic kidney disease, or unspecified chronic kidney disease; Z86.73 Personal history of transient ischemic attack (TIA), and cerebral infarction without residual deficits; Z94.4 Liver transplant status; R25.2 Cramp and spasm; Z90.49 Acquired absence of other specified parts of digestive tract; Z90.710 Acquired absence of both cervix and uterus; Z79.899 Other long term (current) drug therapy; Z79.02 Long term (current) use of antithrombotics/antiplatelets; Z79.4 Long term (current) use of insulin; Z79.890 Hormone replacement therapy; Z88.8 Allergy status to other drugs, medicaments and biological substances; Z91.041 Radiographic dye allergy status
CPT/HCPCS: 96374; 99285; 36415; 93005; 80053; 84484; 85025; 85610; 85730; 71046; 70450; G0378 ×2; J2765; J7518 ×2; J7515 ×2

== ENCOUNTER → 2020-08-17 | Outpatient (CLI) | payer MEDICARE, OTHER ==
[2020-08-17 16:47] LABS: Basophils # (A) 0.1 k/uL (0-0.2); Basophils % (A) 1 %; Eosinophils # (A) 0.1 k/uL (0-0.7); Eosinophils % (A) 2 %; HCT 34.8 % (34.0-46.0); HGB 11.7 gm/dL (11.4-16.0); Lymphocytes # (A) 1.5 k/uL (1.0-4.8); Lymphocytes % (A) 29 %; MCH 27.2 pg (25.0-35.0); MCHC 33.6 g/dL (31.0-37.0); Monocytes # (A) 0.4 k/uL (0-1.0); Monocytes % (A) 7 %; Neutrophils # (A) 2.9 k/uL (1.3-7.7); Neutrophils % (A) 58 %; Platelet Count 257 k/uL (150-450); RBC 4.29 m/uL (3.80-5.40); RDW 14.4 % (11.5-15.5); WBC 5.1 k/uL (3.8-10.6)
[2020-08-17 18:26] LABS: Creatinine,Urine Random 54.5 mg/dL; Protein/Creatinine Ratio,Urine 0.22
[2020-08-18 02:16] LABS: African American GFR (CKD) 39.4 (60.0-200.0); Albumin 4.8 g/dL (3.80-4.90); Anion Gap 10.3 mmol/L (4.00-12.00); Calcium 9.5 mg/dL (8.7-10.3); Carbon Dioxide 25.7 mmol/L (21.6-31.8); Phosphorus 3.8 mg/dL (2.4-5.1); Potassium 4.7 mmol/L (3.5-5.5)
== END | disposition home or self-care (01) ==
LOC: LABWHC1 15:58
PROVIDERS: ATTEND Internal Medicine Nephrology
DX: N18.30 Chronic kidney disease, stage 3 unspecified (principal)
CPT/HCPCS: 36415; 80069; 82306; 82570; 83970; 84156; 85025

== ENCOUNTER → 2020-10-07 | Outpatient (CLI) | payer MEDICARE, OTHER ==
--- NOTE | 2020-10-07 10:44 | XR ---
EXAMINATION TYPE: XR calcaneus 2V LT DATE OF EXAM: 10/07/2020 COMPARISON: NONE HISTORY: Pain. TECHNIQUE: 2 views left calcaneus. FINDINGS: No acute fracture or dislocation is seen. Bohler's angle is maintained. Some overlying nathalia rial vascular calcification. No calcaneal spurring. IMPRESSION: As above.
--- NOTE | 2020-10-07 13:01 | ECHOF ---
Referral Reason:R01.1 cardiac murmur MEASUREMENTS -------- HEIGHT: 152.4 cm WEIGHT: 65.8 kg BP: RVIDd: 3.0 cm (< 3.3) IVSd: 1.1 cm (0.6 - 1.1) LVIDd: 4.0 cm (3.9 - 5.3) LVPWd: 1.2 cm (0.6 - 1.1) IVSs: 1.3 cm LVIDs: 3.0 cm LVPWs: 1.4 cm LA Diam: 3.3 cm (2.7 - 3.8) LAESV Index (A-L): 25.07 ml/m Ao Diam: 3.2 cm (2.0 - 3.7) AV Cusp: 1.4 cm (1.5 - 2.6) LA Diam: 3.6 cm (2.7 - 3.8) MV EXCURSION: 13.883 mm (> 18.000) MV EF SLOPE: 55 mm/s (70 - 150) EPSS: 0.5 cm MV E Nate: 0.56 m/s MV DecT: 313 ms MV A Nate: 0.92 m/s MV E/A Ratio: 0.61 AV maxP.36 mmHg AV meanP.21 mmHg AR PHT: 632 ms RAP: 5.00 mmHg RVSP: 23.31 mmHg FINDINGS -------- Sinus rhythm. This was a technically good study. LV size, wall thickness and systolic function are normal, with an EF greater than 55%. The left sunday tricular size is normal. The right ventricle is normal in size. Normal LA size by volume 22+/-6 ml/m2. The right atrial size is normal. There is mild aortic regurgitation. There is mild aortic stenosis present. Peak/mean gradient acr oss the Aortic Valve is 22.36mmHg / 13.21mmHg. Mild mitral regurgitation is present. Mild tricuspid regurgitation present. Right ventricular systolic pressure is normal at < 35 mmHg. There is no pulmonic regurgitation present. The aortic root size is normal. There is no pericardial effusion. CONCLUSIONS -------- 1. LV size, wall thickness and systolic function are normal, with an EF greater than 55%. 2. The left ventricular size is normal. 3. The right ventricle is normal in size. 4. Normal LA size by volume 22+/-6 ml/m2. 5. The right atrial size is normal. 6. There is mild aortic regurgitation. 7. There is mild aortic stenosis present. 8. Peak/mean gradient across the Aortic Valve is 22.36mmHg / 13.21mmHg. 9. Mild mitral regurgitation is present. 10. Mild tricuspid regurgitation present. 11. There is no pulmonic regurgitation present. 12. The aortic root size is normal. 13. There is no pericardial effusion. SUBSTITUTE CROSSING GUARD: Alis Velazquez RDCS
== END ==
LOC: RADECHMAIN 07:40
PROVIDERS: ATTEND Family Medicine
DX: I08.3 Combined rheumatic disorders of mitral, aortic and tricuspid valves (principal); I35.0 Nonrheumatic aortic (valve) stenosis; I70.202 Unspecified atherosclerosis of native arteries of extremities, left leg
CPT/HCPCS: 93306

== ENCOUNTER → 2020-11-11 | Outpatient (CLI) | payer MEDICARE, OTHER ==
--- NOTE | 2020-11-16 08:56 | P.ARTDOP ---
Arterial Doppler LOWER EXTREMITY ARTERIAL DOPPLER: DATE OF SERVICE: 11/11/2020 Reason for study: Right heel pain. Doppler waveforms: Multiphasic bilaterally throughout. Pulse volume recording: []. Pressure gradients:none. Ankle-brachial indices:Greater than 1. Toe brachial indices: [] on the right, [] on the left Impression: Normal study.
== END | disposition home or self-care (01) ==
LOC: RADUSWWP 12:35
PROVIDERS: ATTEND Family Medicine
DX: M79.671 Pain in right foot (principal)
CPT/HCPCS: 93922

== ENCOUNTER → 2020-11-29 | Outpatient (CLI) | payer MEDICARE, OTHER ==
[2020-11-29 12:38] LABS: African American GFR (CKD) 46.8 (60.0-200.0); Chol/HDL Ratio 5.3; Non-African American GFR(CKD) 40.4 (60.0-200.0); Uric Acid 4.2 mg/dL (2.9-7.7)
[2020-11-29 16:23] LABS: Hemoglobin A1C 6.5 % (4.0-6.0)
[2020-12-01 09:28] LABS: Lipoprotein A 8 mg/dL (0-30)
== END | disposition home or self-care (01) ==
LOC: LABWHC1 07:16
PROVIDERS: ATTEND Internal Medicine
DX: E11.22 Type 2 diabetes mellitus with diabetic chronic kidney disease (principal); I12.9 Hypertensive chronic kidney disease with stage 1 through stage 4 chronic kidney disease, or unspecified chronic kidney disease; E03.9 Hypothyroidism, unspecified; E78.2 Mixed hyperlipidemia; N18.30 Chronic kidney disease, stage 3 unspecified
CPT/HCPCS: 36415; 80061; 82172; 82306; 82550; 82565; 82947; 83036; 83695; 83721; 84075; 84443; 84450; 84460; 84550

== ENCOUNTER → 2021-02-16 | Outpatient (CLI) | payer MEDICARE, OTHER ==
[2021-02-16 10:04] LABS: Creatinine,Urine Random 69.4 mg/dL; Protein/Creatinine Ratio,Urine 0.202
[2021-02-16 12:09] LABS: Basophils # (A) 0.02 X 10*3/uL (0.00-0.10); Basophils % (A) 0.5 %; Eosinophils # (A) 0.34 X 10*3/uL (0.04-0.35); Eosinophils % (A) 8.4 %; HCT 34.9 % (37.2-46.3); Lymphocytes # (A) 1.14 X 10*3/uL (0.90-5.00); MCH 26.2 pg (27.0-32.0); MCHC 31.5 g/dL (32.0-37.0); MCV 83.1 fL (80.0-97.0); Mean Platelet Volume 9.7 fL (9.5-12.2); Monocytes # (A) 0.42 X 10*3/uL (0.20-1.00); Monocytes % (A) 10.3 %; Neutrophils # (A) 2.14 X 10*3/uL (1.80-7.70); Neutrophils % (A) 52.6 %; Platelet Count 234 X 10*3/uL (140-440); RDW 14.8 % (11.5-14.5); WBC 4.07 X 10*3/uL (4.50-10.00)
[2021-02-16 21:14] LABS: Total Bilirubin 0.9 mg/dL (0.3-1.2); Uric Acid 6.9 mg/dL (2.9-7.7)
[2021-02-16 21:15] LABS: African American GFR (CKD) 57.3 (60.0-200.0); Albumin 4.4 g/dL (3.80-4.90); Anion Gap 13.8 mmol/L (4.00-12.00); BUN/Creat Ratio 21.82 Ratio (12.00-20.00); Bilirubin, Conjugated 0.2 mg/dL (0.20-0.40); Calcium 9.2 mg/dL (8.7-10.3); Carbon Dioxide 20.2 mmol/L (21.6-31.8); Chol/HDL Ratio 6.24; Non-African American GFR(CKD) 49.4 (60.0-200.0); Phosphorus 4.2 mg/dL (2.4-5.1); Potassium 4.9 mmol/L (3.5-5.5)
== END | disposition home or self-care (01) ==
LOC: LABWHC1 07:10
PROVIDERS: ATTEND Internal Medicine
DX: E78.2 Mixed hyperlipidemia (principal); I10 Essential (primary) hypertension; R73.01 Impaired fasting glucose; E03.9 Hypothyroidism, unspecified; R74.8 Abnormal levels of other serum enzymes; N18.30 Chronic kidney disease, stage 3 unspecified
CPT/HCPCS: 36415; 80061; 80069; 82172; 82247; 82306; 82550; 82570; 83721; 83970; 84075; 84156; 84443; 84450; 84460; 84550; 85025

== ENCOUNTER → 2021-04-27 | Outpatient (CLI) | payer MEDICARE, OTHER ==
--- NOTE | 2021-04-27 11:55 | US ---
EXAMINATION TYPE: US carotid duplex BILAT DATE OF EXAM: 04/27/2021 COMPARISON: NONE CLINICAL HISTORY: 76-year-old female Abnormal VAT R94.39. TECHNIQUE: Carotid duplex ultrasound examination. In direct Doppler criteria is utilized. FINDINGS: EXAM MEASUREMENTS: RIGHT: Peak Systolic Velocity (PSV) cm/sec ----- Right CCA: 61.8 ----- Right ICA: 87.9 ----- Right ECA: 87.3 ICA/CCA ratio: 1.4 RIGHT: End Diastole cm/sec ----- Right CCA: 13.7 ----- Right ICA: 24.9 ----- Right ECA: 10.7 LEFT: Peak Systolic Velocity (PSV) cm/sec ----- Left CCA: 65.9 ----- Left ICA: 75.4 ----- Left ECA: 86.7 ICA/CCA ratio: 1.1 LEFT: End Diastole cm/sec ----- Left CCA: 17.2 ----- Left ICA: 20.8 ----- Left ECA: 17.2 VERTEBRALS (direction of flow): Right Vertebral: Antegrade Left Vertebral: Antegrade Rhythm: Normal Delivery Lead notes: Small amount of plaque in bilateral bulbs No elevated velocities IMPRESSION: No hemodynamically significant internal carotid artery stenosis on either side. Criteria for Assigning % of Stenosis / Diameter reduction (Estimation based on the indirect measurements of the internal carotid artery velocities (ICA PSV). 1. Normal (no stenosis)=ICA PSV < 125 cm/s: ratio < 2.0: ICA EDV<40 cm/s. 2. Less than 50% stenosis=ICA PSV < 125 cm/s: ratio < 2.0: ICA EDV<40 cm/s. 3. 50 to 69% stenosis=ICA PSV of 125 to 230 cm/s: ration 2.0 ? 4.0: ICA EDV 40-100 cm/s. 4. Greater than 70% stenosis to near occlusion= ICA PSV > 230 cm/s: ratio > 4.0: ICA EDV > 100 cm/s. 5. Near occlusion= ICA PSV velocities may be low or undetectable: variable ratio and ICA EDV. 6. Total occlusion=unable to detect flow.
== END | disposition home or self-care (01) ==
LOC: RADUSWWP 07:36
PROVIDERS: ATTEND Psychiatry & Neurology Neurology
DX: I65.23 Occlusion and stenosis of bilateral carotid arteries (principal)
CPT/HCPCS: 93880

== ENCOUNTER → 2021-04-27 | Outpatient (CLI) | payer MEDICARE, OTHER ==
--- NOTE | 2021-04-28 11:33 | MM ---
Reason for exam: screening (asymptomatic). Last mammogram was performed 1 year and 1 month ago. History: Patient is postmenopausal and history of other cancer. Family history of breast cancer in paternal aunt and breast cancer in paternal grandmother. Physical Findings: A clinical breast exam by your physician is recommended on an annual basis and results should be correlated with mammographic findings. MG 3D Screening Mammo W/Cad Bilateral CC and MLO view(s) were taken. Prior study comparison: April 08, 2020, bilateral MG 3d screening mammo w/cad. February 23, 2019, mammogram, performed at [place]. The breast tissue is heterogeneously dense. This may lower the sensitivity of mammography. Finding #1: There is a 4 mm equal density (isodense) mass in the central position of the left breast. Finding #2: There are typically benign calcifications in both breasts. ASSESSMENT: Incomplete: need additional imaging evaluation, BI-RAD 0 RECOMMENDATION: Special view mammogram of the left breast. If lesion persists on supplemental views, image directed ultrasound is recommended. [facility] will attempt to contact patient to return for supplemental views and ultrasound if indicated.
== END | disposition home or self-care (01) ==
LOC: RADMAMWWP 07:34
PROVIDERS: ATTEND Family Medicine
DX: Z12.31 Encounter for screening mammogram for malignant neoplasm of breast (principal); Z80.3 Family history of malignant neoplasm of breast; Z78.0 Asymptomatic menopausal state
CPT/HCPCS: 77063; 77067

== ENCOUNTER → 2021-05-01 | Outpatient (CLI) | payer MEDICARE, OTHER ==
--- NOTE | 2021-05-02 13:31 | MM ---
Reason for exam: additional evaluation requested from abnormal screening. Last mammogram was performed less than 1 month ago. History: Patient is postmenopausal and history of other cancer. Family history of breast cancer in paternal aunt and breast cancer in paternal grandmother. Took estrogen beginning at age 46. Physical Findings: Nurse did not find any significant physical abnormalities on exam. MG 3D Work Up W/Cad LT Spot compression CC, spot compression MLO, and LM view(s) were taken of the left breast. Prior study comparison: April 27, 2021, bilateral MG 3d screening mammo w/cad. April 08, 2020, bilateral MG 3d screening mammo w/cad. There is no discrete abnormality. These results were verbally communicated with the patient and result sheet given to the patient on 05/01/21. ASSESSMENT: Benign, BI-RAD 2 RECOMMENDATION: Return to routine screening mammogram schedule for both breasts.
== END | disposition home or self-care (01) ==
LOC: RADMAMWWP 07:00
PROVIDERS: ATTEND Family Medicine
DX: R92.8 Other abnormal and inconclusive findings on diagnostic imaging of breast (principal); Z78.0 Asymptomatic menopausal state; Z80.3 Family history of malignant neoplasm of breast
CPT/HCPCS: 77065; G0279; 77061

== ENCOUNTER 2021-06-07 10:29 | Inpatient (IN) | payer MEDICARE, OTHER ==
[2021-06-07] MEDS ORDERED: ALBUTEROL HFA INHALER INHALATION STA (11:26)
[2021-06-07 12:10] LABS: Basophils % (A) 0 %; Eosinophils % (A) 0 %; HGB 10.5 gm/dL (11.4-16.0); Lymphocytes # (A) 0.5 k/uL (1.0-4.8); Lymphocytes % (A) 11 %; MCH 26.5 pg (25.0-35.0); MCHC 33.8 g/dL (31.0-37.0); MCV 78.5 fL (80.0-100.0); Mean Platelet Volume 7.2; Monocytes # (A) 0.1 k/uL (0-1.0); Monocytes % (A) 3 %; Neutrophils # (A) 3.8 k/uL (1.3-7.7); Neutrophils % (A) 85 %; Platelet Count 261 k/uL (150-450); Poikilocytosis Slight; RBC 3.94 m/uL (3.80-5.40); RDW 15.4 % (11.5-15.5); WBC 4.5 k/uL (3.8-10.6)
[2021-06-07 12:19] LABS: Partial Thromboplastin Time 25.7 sec (22.0-30.0)
--- NOTE | 2021-06-07 12:33 | XR ---
EXAMINATION TYPE: XR chest 2V DATE OF EXAM: 06/07/2021 COMPARISON: 06/01/2020 HISTORY: 76 year-old female shortness of breath, difficulty breathing TECHNIQUE: PA and lateral views FINDINGS: Heart normal size. Atherosclerotic arch calcifications. Interstitial prominence appears slightly more pronounced from prior exam. Asymmetric elevation right hemidiaphragm. No consolidation or pleural ef fusion. IMPRESSION: 1. Interstitial prominence has increased. Consider bronchitis, interstitial pneumonitis, or atypical pneumonias. 2. Continued asymmetric elevation right hemidiaphragm. If concern for hemidiaphragmatic paralysis, a fluoroscopic sniff test could be performed.
[2021-06-07 12:35] LABS: ALT 36 U/L (4-34); AST 83 U/L (14-36); African American GFR (CKD) >90 (>60 ml/min/1.73 sqM); Albumin 3.6 g/dL (3.5-5.0); Alkaline Phosphatase 101 U/L (38-126); Anion Gap 15 mmol/L; Blood Urea Nitrogen 18 mg/dL (7-17); Calcium 8.7 mg/dL (8.4-10.2); Carbon Dioxide 17 mmol/L (22-30); Chloride 103 mmol/L (98-107); Glucose 183 mg/dL (74-99); Magnesium 1.2 mg/dL (1.6-2.3); Non-African American GFR(CKD) 84 (>60 ml/min/1.73 sqM); Potassium 4.7 mmol/L (3.5-5.1); Sodium 135 mmol/L (137-145); Total Protein 6.7 g/dL (6.3-8.2)
[2021-06-07] MEDS ORDERED: NALOXONE 0.4 MG/ML 1 ML VIAL IV PRN (14:08)
--- NOTE | 2021-06-07 14:08 | ED ---
General Adult HPI - General Chief complaint: Shortness of Breath Stated complaint: sob/covid+ Time Seen by Provider: 06/07/21 11:05 Source: patient, family, RN notes reviewed Mode of arrival: wheelchair Limitations: no limitations - History of Present Illness Initial comments: This a 76-year-old female presents emergency from chief complaint of COVID-19. Patient states she recently tested positive at symptoms for proximal one week. Patient states is progressively getting worse she was seen at the [facility] urgent care who gave her antibiotics for pneumonia. Patient states symptoms worsened today increasing shortness of breath. Patient denies any GI symptoms. Patient states her symptoms are exertional. - Related Data Home Medications Medication Instructions Recorded Confirmed Acetaminophen Tab [Tylenol] 1,000 mg PO BID PRN 06/01/20 06/07/21 Calcium Carbonate/Vitamin D3 1 tab PO DAILY 06/01/20 06/07/21 [Calcium 500-Vit D3 5 Mcg (200 Iu)] Cephalexin [Keflex] 250 mg PO DAILY 06/01/20 06/07/21 Clopidogrel [Plavix] 75 mg PO DAILY 06/01/20 06/07/21 Furosemide [Lasix] 20 mg PO DAILY PRN 06/01/20 06/07/21 Glucosamine/Chondr De La Garza A Sod [Osteo 2 tab PO DAILY 06/01/20 06/07/21 Bi-Flex Caplet] Insulin Glargine [Lantus Vial] 40 unit SQ DAILY 06/01/20 06/07/21 Levothyroxine Sodium [Synthroid] 50 mcg PO DAILY 06/01/20 06/07/21 Lisinopril [Prinivil] 10 mg PO DAILY 06/01/20 06/07/21 Magnesium Oxide 400 mg PO DAILY 06/01/20 06/07/21 Metoprolol Tartrate [Lopressor] 50 mg PO BID 06/01/20 06/07/21 Multivitamins, Thera [Multivitamin 1 tab PO DAILY 06/01/20 06/07/21 (formulary)] Mycophenolate Sodium [Mycophenolic 360 mg PO BID 06/01/20 06/07/21 Acid] Pantoprazole Sodium [Protonix] 40 mg PO AC-BRKFST 06/01/20 06/07/21 Vit C/E/Zn/Coppr/Lutein/Zeaxan 1 cap PO DAILY 06/01/20 06/07/21 [Preservision Areds 2 Softgel] Zinc Gluconate [Zinc] 50 mg PO DAILY 06/01/20 06/07/21 cycloSPORINE [SandIMMUNE] 25 mg PO DAILY 06/01/20 06/07/21 cycloSPORINE [SandIMMUNE] 50 mg PO HS 06/01/20 06/07/21 sitaGLIPtin [Januvia] 100 mg PO DAILY 06/01/20 06/07/21 Amoxic-Pot Clav 875-125Mg 1 tab PO BID 06/07/21 06/07/21 [Augmentin 875-125] Amoxicillin 2,000 mg PO ONCE PRN 06/07/21 06/07/21 Famotidine [Pepcid] 20 mg PO BID 06/07/21 06/07/21 Fluoride (Sodium) [Sodium Fluoride 1 applic DENTAL BID 06/07/21 06/07/21 5000 Plus] Insulin Regular, Human [Novolin R See Protocol SQ AC-TID 06/07/21 06/07/21 Flexpen] Meclizine [Antivert] 25 mg PO BID 06/07/21 06/07/21 [place]-3 Acid Ethyl Esters [Lovaza] 2 gm PO BID 06/07/21 06/07/21 Rosuvastatin [Crestor] 10 mg PO HS 06/07/21 06/07/21 Allergies Allergy/AdvReac Type Severity Reaction Status Date / Time Iodinated Contrast Media Allergy Rash/Hives Verified 06/07/21 12:08 pioglitazone [From Actos] Allergy Rash/Hives Verified 06/07/21 12:08 pentazocine [From Talwin] AdvReac Vomiting Verified 06/07/21 12:08 Review of Systems ROS Statement: Those systems with pertinent positive or pertinent negative responses have been documented in the HPI. ROS Other: All systems not noted in ROS Statement are negative. Past Medical History Past Medical History: CVA/TIA, Hypertension History of Any Multi-Drug Resistant Organisms: None Reported Past Surgical History: Appendectomy, Cholecystectomy, Hysterectomy Additional Past Surgical History / Comment(s): D&C, liver transplant Past Psychological History: No Psychological Hx Reported Smoking Status: Never smoker Past Alcohol Use History: None Reported Past Drug Use History: None Reported General Exam Limitations: no limitations General appearance: alert, in no apparent distress Head exam: Present: atraumatic, normocephalic, normal inspection Eye exam: Present: normal appearance, PERRL, EOMI. Absent: scleral icterus, con junctival injection, periorbital swelling ENT exam: Present: normal exam, mucous membranes moist Neck exam: Present: normal inspection. Absent: tenderness, meningismus, lymphadenopathy Respiratory exam: Present: decreased breath sounds. Absent: normal lung sounds bilaterally, respiratory distress, wheezes, rales, rhonchi, stridor Cardiovascular Exam: Present: normal rhythm, tachycardia, normal heart sounds. Absent: systolic murmur, diastolic murmur, rubs, gallop, clicks GI/Abdominal exam: Present: soft, normal bowel sounds. Absent: distended, tenderness, guarding, rebound, rigid Course Vital Signs 06/07/21 06/07/21 06/07/21 10:58 11:17 12:02 Temperature 97.8 F Pulse Rate 89 80 Respiratory 20 22 18 Rate Blood Pressure 122/73 164/78 O2 Sat by Pulse 92 L 98 Oximetry 06/07/21 13:00 Temperature Pulse Rate 86 Respiratory 34 H Rate Blood Pressure 152/77 O2 Sat by Pulse 96 Oximetry EKG Findings - EKG Comments: EKG Findings:: EKG performed at length: 1154 sinus rhythm rate of 92 pr 154 qrs 84 qt / qtc 358/442 Medical Decision Making - Medical Decision Making Patient tested positive for COVID-19 outpatient patient has evidence of pn eumonia patient had hypoxia resting and with exertion dropped down to 83%. Patient will be admitted for COVID-19 pneumonia, hypoxia. - Lab Data Result diagrams: 06/07/21 11:46 06/07/21 11:46 Lab Results 06/07/21 06/07/21 06/07/21 Range/Units 11:46 11:46 11:46 WBC 4.5 (3.8-10.6) k/uL RBC 3.94 (3.80-5.40) m/uL Hgb 10.5 L (11.4-16.0) gm/dL Hct 31.0 L (34.0-46.0) % MCV 78.5 L (80.0-100.0) fL MCH 26.5 (25.0-35.0) pg MCHC 33.8 (31.0-37.0) g/dL RDW 15.4 (11.5-15.5) % Plt Count 261 (150-450) k/uL MPV 7.2 Neutrophils % 85 % Lymphocytes % 11 % Monocytes % 3 % Eosinophils % 0 % Basophils % 0 % Neutrophils # 3.8 (1.3-7.7) k/uL Lymphocytes # 0.5 L (1.0-4.8) k/uL Monocytes # 0.1 (0-1.0) k/uL Eosinophils # 0.0 (0-0.7) k/uL Basophils # 0.0 (0-0.2) k/uL Poikilocytosis Slight PT 11.0 (9.0-12.0) sec INR 1.0 (<1.2) APTT 25.7 (22.0-30.0) sec Sodium 135 L (137-145) mmol/L Potassium 4.7 (3.5-5.1) mmol/L Chloride 103 (98-107) mmol/L Carbon Dioxide 17 L (22-30) mmol/L Anion Gap 15 mmol/L BUN 18 H (7-17) mg/dL Creatinine 0.71 (0.52-1.04) mg/dL Est GFR (CKD-EPI)AfAm >90 (>60 ml/min/1.73 sqM) Est GFR (CKD-EPI)NonAf 84 (>60 ml/min/1.73 sqM) Glucose 183 H (74-99) mg/dL Calcium 8.7 (8.4-10.2) mg/dL Magnesium 1.2 L (1.6-2.3) mg/dL Total Bilirubin 1.0 (0.2-1.3) mg/dL AST 83 H (14-36) U/L ALT 36 H (4-34) U/L Alkaline Phosphatase 101 (38-126) U/L Troponin I (0.000-0.034) ng/mL NT-Pro-B Natriuret Pep pg/mL Total Protein 6.7 (6.3-8.2) g/dL Albumin 3.6 (3.5-5.0) g/dL 06/07/21 06/07/21 Range/Units 11:46 11:46 WBC (3.8-10.6) k/uL RBC (3.80-5.40) m/uL Hgb (11.4-16.0) gm/dL Hct (34.0-46.0) % MCV (80.0-100.0) fL MCH (25.0-35.0) pg MCHC (31.0-37.0) g/dL RDW (11.5-15.5) % Plt Count (150-450) k/uL MPV Neutrophils % % Lymphocytes % % Monocytes % % Eosinophils % % Basophils % % Neutrophils # (1.3-7.7) k/uL Lymphocytes # (1.0-4.8) k/uL Monocytes # (0-1.0) k/uL Eosinophils # (0-0.7) k/uL Basophils # (0-0.2) k/uL Poikilocytosis PT (9.0-12.0) sec INR (<1.2) APTT (22.0-30.0) sec Sodium (137-145) mmol/L Potassium (3.5-5.1) mmol/L Chloride (98-107) mmol/L Carbon Dioxide (22-30) mmol/L Anion Gap mmol/L BUN (7-17) mg/dL Creatinine (0.52-1.04) mg/dL Est GFR (CKD-EPI)AfAm (>60 ml/min/1.73 sqM) Est GFR (CKD-EPI)NonAf (>60 ml/min/1.73 sqM) Glucose (74-99) mg/dL Calcium (8.4-10.2) mg/dL Magnesium (1.6-2.3) mg/dL Total Bilirubin (0.2-1.3) mg/dL AST (14-36) U/L ALT (4-34) U/L Alkaline Phosphatase (38-126) U/L Troponin I 0.018 (0.000-0.034) ng/mL NT-Pro-B Natriuret Pep 1860 pg/mL Total Protein (6.3-8.2) g/dL Albumin (3.5-5.0) g/dL Disposition Clinical Impression: Hypoxia, COVID-19 Disposition: ADMITTED IP TO THIS HOSP Condition: Serious Referrals: Monica Page III, MD [Primary Care Provider] - 1-2 days
--- NOTE | 2021-06-07 15:02 | P.HPIM ---
History of Present Illness This is a pleasant 76 results female with past medical history of hypothyroidism, liver transplant, CVA/TIA, hypertension, diabetes mellitus, hyperlipidemia Patient presents because of difficulty breathing for about a week associated with cough and yellowish phlegm but no chest pain. She had diarrhea like 3 times this morning. She has diarrhea for 3 days. No abdominal pain or vomiting. She went to urgent care last Saturday about 3 days ago and they were diagnosed her with pneumonia, next day her Covid test came back positive she denies history of smoking, alcohol or illicit drugs. She does not have history of COPD. She is not on home oxygen She is hypoxic at 83% on room air and tachypneic with a breathing rate 30-40, ta chycardic 122. She is afebrile at 97.8. Labs unremarkable including CBC, INR, BMP. Liver enzymes slightly elevated with AST 83 and ALT 36. Bilirubin is normal 1.0. Chest x-ray: Bilateral infiltrate with interstitial prominence has increased Review of Systems CONSTITUTIONAL: No fever, no malaise, no fatigue. HEENT: No recent visual problems or hearing problems. Denied any sore throat. CARDIOVASCULAR: No orthopnea, PND, no palpitations, no syncope. PULMONARY: No used wall tenderness, no hemoptysis. GASTROINTESTINAL: No diarrhea, no nausea, no vomiting, no abdominal pain. Normoactive bowel sounds. NEUROLOGICAL: No headaches, no weakness, no numbness. HEMATOLOGICAL: Denies any bleeding or petechiae. GENITOURINARY: Denies any burning micturition, frequency, or urgency. MUSCULOSKELETAL/RHEUMATOLOGICAL: Denies any joint pain, swelling, or any muscle pain. ENDOCRINE: Denies any polyuria or polydipsia. Past Medical History Past Medical History: CVA/TIA, Hypertension History of Any Multi-Drug Resistant Organisms: None Reported Past Surgical History: Appendectomy, Cholecystectomy, Hysterectomy Additional Past Surgical History / Comment(s): D&C, liver transplant Past Psychological History: No Psychological Hx Reported Smoking Status: Never smoker Past Alcohol Use History: None Reported Past Drug Use History: None Reported Medications and Allergies Home Medications Medication Instructions Recorded Confirmed Type Acetaminophen Tab [Tylenol] 1,000 mg PO BID PRN 06/01/20 06/07/21 History Calcium Carbonate/Vitamin D3 1 tab PO DAILY 06/01/20 06/07/21 History [Calcium 500-Vit D3 5 Mcg (200 Iu)] Cephalexin [Keflex] 250 mg PO DAILY 06/01/20 06/07/21 History Clopidogrel [Plavix] 75 mg PO DAILY 06/01/20 06/07/21 History Furosemide [Lasix] 20 mg PO DAILY PRN 06/01/20 06/07/21 History Glucosamine/Chondr De [place] A Sod [Osteo 2 tab PO DAILY 06/01/20 06/07/21 History Bi-Flex Caplet] Insulin Glargine [Lantus Vial] 40 unit SQ DAILY 06/01/20 06/07/21 History Levothyroxine Sodium [Synthroid] 50 mcg PO DAILY 06/01/20 06/07/21 History Lisinopril [Prinivil] 10 mg PO DAILY 06/01/20 06/07/21 History Magnesium Oxide 400 mg PO DAILY 06/01/20 06/07/21 History Metoprolol Tartrate [Lopressor] 50 mg PO BID 06/01/20 06/07/21 History Multivitamins, Thera [Multivitamin 1 tab PO DAILY 06/01/20 06/07/21 History (formulary)] Mycophenolate Sodium [Mycophenolic 360 mg PO BID 06/01/20 06/07/21 History Acid] Pantoprazole Sodium [Protonix] 40 mg PO AC-BRKFST 06/01/20 06/07/21 History Vit C/E/Zn/Coppr/Lutein/Zeaxan 1 cap PO DAILY 06/01/20 06/07/21 History [Preservision Areds 2 Softgel] Zinc Gluconate [Zinc] 50 mg PO DAILY 06/01/20 06/07/21 History cycloSPORINE [SandIMMUNE] 25 mg PO DAILY 06/01/20 06/07/21 History cycloSPORINE [SandIMMUNE] 50 mg PO HS 06/01/20 06/07/21 History sitaGLIPtin [Januvia] 100 mg PO DAILY 06/01/20 06/07/21 History Amoxic-Pot Clav 875-125Mg 1 tab PO BID 06/07/21 06/07/21 History [Augmentin 875-125] Amoxicillin 2,000 mg PO ONCE PRN 06/07/21 06/07/21 History Famotidine [Pepcid] 20 mg PO BID 06/07/21 06/07/21 History Fluoride (Sodium) [Sodium Fluoride 1 applic DENTAL BID 06/07/21 06/07/21 History 5000 Plus] Insulin Regular, Human [Novolin R See Protocol SQ AC-TID 06/07/21 06/07/21 History Flexpen] Meclizine [Antivert] 25 mg PO BID 06/07/21 06/07/21 History [place]-3 Acid Ethyl Esters [Lovaza] 2 gm PO BID 06/07/21 06/07/21 History Rosuvastatin [Crestor] 10 mg PO HS 06/07/21 06/07/21 History Allergies Allergy/AdvReac Type Severity Reaction Status Date / Time Iodinated Contrast Media Allergy Rash/Hives Verified 06/07/21 12:08 pioglitazone [From Actos] Allergy Rash/Hives Verified 06/07/21 12:08 pentazocine [From Talwin] AdvReac Vomiting Verified 06/07/21 12:08 Physical Exam Vitals: Vital Signs Temp Pulse Resp BP Pulse Ox 06/07/21 13:50 122 H 40 H 83 L 06/07/21 13:45 30 H 92 L 06/07/21 13:00 86 34 H 152/77 96 06/07/21 12:02 80 18 164/78 98 06/07/21 11:17 22 06/07/21 10:58 97.8 F 89 20 122/73 92 L Intake and Output 06/06/21 06/07/21 06/07/21 22:59 06:59 14:59 Other: Weight 64.864 kg GENERAL: The patient is alert and oriented x3, not in any acute distress. Well developed, well nourished. HEENT: Pupils are round and equally reacting to light. EOMI. No scleral icterus. No conjunctival pallor. Normocephalic, atraumatic. No pharyngeal erythema. No thyromegaly. CARDIOVASCULAR: S1 and S2 present. No murmurs, rubs, or gallops. PULMONARY: Chest is clear to auscultation, no wheezing or crackles. ABDOMEN: Soft, nontender, nondistended, normoactive bowel sounds. No palpable organomegaly. MUSCULOSKELETAL: No joint swelling or deformity. EXTREMITIES: No cyanosis, clubbing, or pedal edema. NEUROLOGICAL: Gross neurological examination did not reveal any focal deficits. SKIN: No rashes. No petechiae Results CBC & Chem 7: 06/07/21 11:46 06/07/21 11:46 Labs: Abnormal Lab Results - Last 24 Hours (Table) 06/07/21 06/07/21 Range/Units 11:46 11:46 Hgb 10.5 L (11.4-16.0) gm/dL Hct 31.0 L (34.0-46.0) % MCV 78.5 L (80.0-100.0) fL Lymphocytes # 0.5 L (1.0-4.8) k/uL Sodium 135 L (137-145) mmol/L Carbon Dioxide 17 L (22-30) mmol/L BUN 18 H (7-17) mg/dL Glucose 183 H (74-99) mg/dL Magnesium 1.2 L (1.6-2.3) mg/dL AST 83 H (14-36) U/L ALT 36 H (4-34) U/L Assessment and Plan Assessment: Bilateral acute covid pneumonia Acute hypoxic respiratory failure Possible viral gastroenteritis secondary to Covid with mildly elevated liver enzymes Hypothyroidism History of liver transplant Hypertension History of CVA/TIA Hyperlipidemia Diabetes mellitus, on insulin Plan: This is a pleasant 76 years old female who presents with covid pneumonia Continue with dexamethasone Continue with vitamin C, D and zinc Pulmonary consult Labs and medication were reviewed.. Continue same treatment. Continue with symptomatic treatment. Resume home medication. Monitor lytes and vitals. DVT and GI prophylaxis. Further recommendations depends on the clinical course of the patient DVT prophylaxis: Subcutaneous Lovenox GI Prophylaxis: Pepcid Prognosis is guarded
[2021-06-07] MEDS: DEXAMETHASONE SOD PHOSPHATE 10 MG/ML 1 ML VIAL IVP SCH (16:04)
[2021-06-07] MEDS: ACETAMINOPHEN TAB 500 MG TAB PO PRN (16:10)
[2021-06-07] MEDS: METOPROLOL TARTRATE 50 MG TAB PO SCH (21:09)
[2021-06-07] MEDS: MECLIZINE 25 MG TAB PO SCH (21:09)
[2021-06-07] MEDS: FAMOTIDINE 20 MG TAB PO SCH (21:09)
[2021-06-07] MEDS: cycloSPORINE 25 MG CAP PO SCH (21:20)
[2021-06-07] MEDS: MYCOPHENOLATE SODIUM DR 180 MG TABLET.DR PO SCH (21:22)
[2021-06-07] MEDS: NON FORMULARY DRUG (Rosuvastatin 10 MG Tablet) PO SCH (21:25)
[2021-06-08] MEDS: LEVOTHYROXINE 50 MCG TAB PO SCH (06:09)
[2021-06-08 07:26] LABS: Glucose,Whole Blood 230 mg/dL (75-99)
[2021-06-08] MEDS ORDERED: FAMOTIDINE 20 MG TAB PO SCH (09:00)
[2021-06-08] MEDS: ENOXAPARIN 40 MG/0.4 ML SYRINGE SQ SCH (09:50)
[2021-06-08] MEDS: ZINC SULFATE 220 MG CAP PO SCH (09:51)
[2021-06-08] MEDS: MYCOPHENOLATE SODIUM DR 180 MG TABLET.DR PO SCH ×2 (09:51→21:33)
[2021-06-08] MEDS: METOPROLOL TARTRATE 50 MG TAB PO SCH ×2 (09:51→21:32)
[2021-06-08] MEDS: cycloSPORINE 25 MG CAP PO SCH ×2 (09:51→21:33)
[2021-06-08] MEDS: CHOLECALCIFEROL 25 MCG (1000 IU) TABLET PO SCH (09:52)
[2021-06-08] MEDS: MECLIZINE 25 MG TAB PO SCH ×2 (09:52→21:33)
[2021-06-08] MEDS: CLOPIDOGREL 75 MG TAB PO SCH (09:52)
[2021-06-08] MEDS: FAMOTIDINE 20 MG TAB PO SCH ×2 (09:52→21:33)
[2021-06-08] MEDS: lisinopriL 10 MG TAB PO SCH (09:53)
[2021-06-08] MEDS: CALCIUM CARB-VIT D 500 MG-5 MCG TAB PO SCH (09:53)
[2021-06-08] MEDS ORDERED: INSULIN REGULAR 100 UNIT/ML VIAL (IM/SQ) SQ ONE (09:58)
[2021-06-08] MEDS: DEXAMETHASONE SOD PHOSPHATE 10 MG/ML 1 ML VIAL IVP SCH (10:19)
[2021-06-08] MEDS ORDERED: INSULIN ASPART (NovoLOG) 100 UNIT/ML VIAL SQ ONE (10:20)
--- NOTE | 2021-06-08 11:32 | P.PN ---
Subjective This is a pleasant 76 results female with past medical history of hypothyroidism, liver transplant, CVA/TIA, hypertension, diabetes mellitus, hyperlipidemia Patient presents because of difficulty breathing for about a week associated with cough and yellowish phlegm but no chest pain. She had diarrhea like 3 times this morning. She has diarrhea for 3 days. No abdominal pain or vomiting. She went to urgent care last Saturday about 3 days ago and they were diagnosed her with pneumonia, next day her Covid test came back positive she denies history of smoking, alcohol or illicit drugs. She does not have history of COPD. She is not on home oxygen She is hypoxic at 83% on room air and tachypneic with a breathing rate 30-40, tachycardic 122. She is afebrile at 97.8. Labs unremarkable including CBC, INR, BMP. Liver enzymes slightly elevated with AST 83 and ALT 36. Bilirubin is normal 1.0. Chest x-ray: Bilateral infiltrate with interstitial prominence has increased 06/08/2021 Patient today is awake, she is slightly tachypneic while sitting in bed. No significant dyspnea. No significant coughing. She denies chest pain. She denies diarrhea. She is saturating low 90s on 4 L oxygen via nasal cannula which is similar to yesterday. Fever on admission 100.0. Sided yesterday. labs from today are still pending. Sugar this morning to 30 patient is on insulin sliding scale She remains on dexamethasone, and multiple vitamins. Objective - Vital Signs Vital signs: Vital Signs Temp 98.3 F 06/08/21 10:00 Pulse 60 06/08/21 10:00 Resp 18 06/08/21 10:00 BP 159/73 06/08/21 10:00 Pulse Ox 94 L 06/08/21 10:00 Intake & Output 06/07/21 06/08/21 06/08/21 18:59 06:59 18:59 Weight 64.864 kg Other: # Voids 1 - Exam GENERAL: The patient is alert and oriented x3, not in any acute distress. Well developed, well nourished. HEENT: Pupils are round and equally reacting to light. EOMI. No scleral icterus. No conjunctival pallor. Normocephalic, atraumatic. No pharyngeal erythema. No thyromegaly. CARDIOVASCULAR: S1 and S2 present. No murmurs, rubs, or gallops. PULMONARY: Chest is clear to auscultation, no wheezing or crackles. ABDOMEN: Soft, nontender, nondistended, normoactive bowel sounds. No palpable organomegaly. MUSCULOSKELETAL: No joint swelling or deformity. EXTREMITIES: No cyanosis, clubbing, or pedal edema. NEUROLOGICAL: Gross neurological examination did not reveal any focal deficits. SKIN: No rashes. No petechiae - Labs CBC & Chem 7: 06/07/21 11:46 06/07/21 11:46 Labs: Abnormal Lab Results - Last 24 Hours (Table) 06/07/21 06/07/21 06/08/21 Range/Units 11:46 11:46 05:57 Hgb 10.5 L (11.4-16.0) gm/dL Hct 31.0 L (34.0-46.0) % MCV 78.5 L (80.0-100.0) fL Lymphocytes # 0.5 L (1.0-4.8) k/uL D-Dimer 1.20 H (<0.60) mg/L FEU Sodium 135 L (137-145) mmol/L Carbon Dioxide 17 L (22-30) mmol/L BUN 18 H (7-17) mg/dL Glucose 183 H (74-99) mg/dL POC Glucose (mg/dL) (75-99) mg/dL Magnesium 1.2 L (1.6-2.3) mg/dL AST 83 H (14-36) U/L ALT 36 H (4-34) U/L 06/08/21 Range/Units 07:12 Hgb (11.4-16.0) gm/dL Hct (34.0-46.0) % MCV (80.0-100.0) fL Lymphocytes # (1.0-4.8) k/uL D-Dimer (<0.60) mg/L FEU Sodium (137-145) mmol/L Carbon Dioxide (22-30) mmol/L BUN (7-17) mg/dL Glucose (74-99) mg/dL POC Glucose (mg/dL) 230 H (75-99) mg/dL Magnesium (1.6-2.3) mg/dL AST (14-36) U/L ALT (4-34) U/L Assessment and Plan Assessment: Bilateral acute covid pneumonia Acute hypoxic respiratory failure Possible viral gastroenteritis secondary to Covid with mildly elevated liver enzymes Hypothyroidism History of liver transplant Hypertension History of CVA/TIA Hyperlipidemia Diabetes mellitus, on insulin Plan: This is a pleasant 76 years old female who presents with covid pneumonia Continue with dexamethasone. And insulin sliding scale Continue with vitamin C, D and zinc Pulmonary consult Labs and medication were reviewed.. Continue same treatment. Continue with symptomatic treatment. Resume home medication. Monitor lytes and vitals. DVT and GI prophylaxis. Further recommendations depends on the clinical course of the patient DVT prophylaxis: Subcutaneous Lovenox GI Prophylaxis: Pepcid Prognosis is guarded
[2021-06-08 11:34] LABS: Basophils # (A) 0.02 X 10*3/uL (0.00-0.10); Basophils % (A) 0.6 %; Eosinophils # (A) 0 X 10*3/uL (0.04-0.35); Eosinophils % (A) 0 %; HCT 30.2 % (37.2-46.3); HGB 9.8 g/dL (12.0-15.0); Lymphocytes # (A) 0.49 X 10*3/uL (0.90-5.00); Lymphocytes % (A) 15.9 %; MCH 26.1 pg (27.0-32.0); MCHC 32.5 g/dL (32.0-37.0); MCV 80.3 fL (80.0-97.0); Mean Platelet Volume 9.3 fL (9.5-12.2); Monocytes # (A) 0.22 X 10*3/uL (0.20-1.00); Monocytes % (A) 7.1 %; Neutrophils # (A) 2.21 X 10*3/uL (1.80-7.70); Neutrophils % (A) 71.9 %; Platelet Count 240 X 10*3/uL (140-440); RBC 3.76 X 10*6/uL (4.10-5.20); RDW 15.1 % (11.5-14.5); WBC 3.08 X 10*3/uL (4.50-10.00)
[2021-06-08 11:47] LABS: Glucose,Whole Blood 174 mg/dL (75-99)
[2021-06-08] MEDS: INSULIN ASPART (NovoLOG) 100 UNIT/ML VIAL SQ SCH ×3 (12:01→21:34)
--- NOTE | 2021-06-08 13:06 | P.CNPUL ---
History of Present Illness Consult date: 06/08/21 Requesting physician: Markie E Sheet Reason for consult: dyspnea, cough, hypoxemia, pneumonia Chief complaint: Dyspnea, cough, fever History of present illness: 76-year-old white female patient with past medical history of a potential, previous history of CVA 8 years ago without residual deficits, liver transplantation for history of nonalcoholic steatohepatitis (ALCAZAR) in [place], lifetime nonsmoker and nondrinker, who presented to the emergency department on 06/07/2021 with complaints of shortness of breath, fever, and cough. Patient tested positive for COVID 19 one week ago at an urgent care clinic in [place]. She was started on antibiotics for pneumonia the form of doxycycline. However her symptom onset was 2 weeks ago and initially started with fatigue and loss of appetite and progressed to shortness of breath, cough and fever. Patient is not vaccinated for COVID-19 related to patient's history of severe reaction to even oral contrast when she has to have a CT of the abdomen completed. She is on 4 L of oxygen her pulse ox of 90-92%, her chest x-ray in emergency department shows interstitial prominence, asymmetric elevation of the right hemidiaphragm, no consolidation or pleural effusion. Admission blood work shows white blood cell, 4.5, hemoglobin of 10.5, platelet count is 261, lymphocyte count is 0.5, d-dimer is 1.2, INR is 1.0, sodium is 135, potassium is 4.7, CO2 17, BUN is 18, creatinine 0.71, magnesium is 1.2, AST is 83, ALT is 36, alkaline phosphatase is 101, troponin is negative at 0.018, proBNP is 1860. Patient takes cyclosporine and mycophenilate for her history of liver transplant, she was started on Decadron 6 mg daily, she is on prophylactic dose Lovenox and COVID-19 vitamins. She is breathing comfortably, has a dry nonproductive cough, she is afebrile. She had a mild diarrhea and loss of appetite, but no vomiting or nausea. Review of Systems All systems: negative Constitutional: Reports fatigue, Reports fever, Reports weakness, Denies chills Eyes: denies blurred vision, denies pain Ears, nose, mouth and throat: Denies headache, Denies sore throat Cardiovascular: Denies chest pain, Denies shortness of breath Respiratory: Reports cough, Reports dyspnea Gastrointestinal: Reports diarrhea, Denies abdominal pain, Denies nausea, Denies vomiting Genitourinary: Denies dysuria, Denies hematuria Musculoskeletal: Denies myalgias Integumentary: Denies pruritus, Denies rash Neurological: Denies numbness, Denies weakness Psychiatric: Denies anxiety, Denies depression Endocrine: Denies fatigue, Denies weight change Past Medical History Past Medical History: CVA/TIA, Hypertension History of Any Multi-Drug Resistant Organisms: None Reported Past Surgical History: Appendectomy, Cholecystectomy, Hysterectomy Additional Past Surgical History / Comment(s): D&C, liver transplant Past Anesthesia/Blood Transfusion Reactions: No Reported Reaction Past Psychological History: No Psychological Hx Reported Smoking Status: Never smoker Past Alcohol Use History: None Reported Past Drug Use History: None Reported Medications and Allergies Home Medications Medication Instructions Recorded Confirmed Type Acetaminophen Tab [Tylenol] 1,000 mg PO BID PRN 06/01/20 06/07/21 History Calcium Carbonate/Vitamin D3 1 tab PO DAILY 06/01/20 06/07/21 History [Calcium 500-Vit D3 5 Mcg (200 Iu)] Cephalexin [Keflex] 250 mg PO DAILY 06/01/20 06/07/21 History Clopidogrel [Plavix] 75 mg PO DAILY 06/01/20 06/07/21 History Furosemide [Lasix] 20 mg PO DAILY PRN 06/01/20 06/07/21 History Glucosamine/Chondr De [place] A Sod [Osteo 2 tab PO DAILY 06/01/20 06/07/21 History Bi-Flex Caplet] Insulin Glargine [Lantus Vial] 40 unit SQ DAILY 06/01/20 06/07/21 History Levothyroxine Sodium [Synthroid] 50 mcg PO DAILY 06/01/20 06/07/21 History Lisinopril [Prinivil] 10 mg PO DAILY 06/01/20 06/07/21 History Magnesium Oxide 400 mg PO DAILY 06/01/20 06/07/21 History Metoprolol Tartrate [Lopressor] 50 mg PO BID 06/01/20 06/07/21 History Multivitamins, Thera [Multivitamin 1 tab PO DAILY 06/01/20 06/07/21 History (formulary)] Mycophenolate Sodium [Mycophenolic 360 mg PO BID 06/01/20 06/07/21 History Acid] Pantoprazole Sodium [Protonix] 40 mg PO AC-BRKFST 06/01/20 06/07/21 History Vit C/E/Zn/Coppr/Lutein/Zeaxan 1 cap PO DAILY 06/01/20 06/07/21 History [Preservision Areds 2 Softgel] Zinc Gluconate [Zinc] 50 mg PO DAILY 06/01/20 06/07/21 History cycloSPORINE [SandIMMUNE] 25 mg PO DAILY 06/01/20 06/07/21 History cycloSPORINE [SandIMMUNE] 50 mg PO HS 06/01/20 06/07/21 History sitaGLIPtin [Januvia] 100 mg PO DAILY 06/01/20 06/07/21 History Amoxic-Pot Clav 875-125Mg 1 tab PO BID 06/07/21 06/07/21 History [Augmentin 875-125] Amoxicillin 2,000 mg PO ONCE PRN 06/07/21 06/07/21 History Famotidine [Pepcid] 20 mg PO BID 06/07/21 06/07/21 History Fluoride (Sodium) [Sodium Fluoride 1 applic DENTAL BID 06/07/21 06/07/21 History 5000 Plus] Insulin Regular, Human [Novolin R See Protocol SQ AC-TID 06/07/21 06/07/21 History Flexpen] Meclizine [Antivert] 25 mg PO BID 06/07/21 06/07/21 History [place]-3 Acid Ethyl Esters [Lovaza] 2 gm PO BID 06/07/21 06/07/21 History Rosuvastatin [Crestor] 10 mg PO HS 06/07/21 06/07/21 History Allergies Allergy/AdvReac Type Severity Reaction Status Date / Time Iodinated Contrast Media Allergy Rash/Hives Verified 06/07/21 12:08 pioglitazone [From Actos] Allergy Rash/Hives Verified 06/07/21 12:08 pentazocine [From Talwin] AdvReac Vomiting Verified 06/07/21 12:08 Physical Exam Vitals: Vital Signs Temp Pulse Pulse Resp BP BP Pulse Ox 06/08/21 10:00 98.3 F 60 18 159/73 94 L 06/08/21 05:21 98.0 F 74 14 136/60 90 L 06/08/21 01:26 98.1 F 64 15 147/65 92 L 06/07/21 22:24 97.6 F 72 15 141/76 92 L 06/07/21 21:12 96 19 150/76 96 06/07/21 19:32 77 19 151/80 96 06/07/21 16:05 100.2 F H 89 36 H 165/84 97 06/07/21 13:50 122 H 40 H 83 L 06/07/21 13:45 30 H 92 L 06/07/21 13:00 86 34 H 152/77 96 Intake and Output 06/07/21 06/08/21 06/08/21 22:59 06:59 14:59 Other: # Voids 1 GENERAL EXAM: Alert, very pleasant, 76-year-old white female, on 4 L of oxygen with a pulse ox of 90-94% comfortable in no apparent distress. HEAD: Normocephalic/atraumatic. EYES: Normal reaction of pupils, equal size. Conjunctiva pink, sclera white. NOSE: Clear with pink turbinates. THROAT: No erythema or exudates. NECK: No masses, no JVD, no thyroid enlargement, no adenopathy. CHEST: No chest wall deformity. Symmetrical expansion. LUNGS: Equal air entry with mild bibasilar crackles CVS: Regular rate and rhythm, normal S1 and S2, no gallops, no murmurs, no rubs ABDOMEN: Soft, nontender. No hepatosplenomegaly, normal bowel sounds, no guarding or rigidity. EXTREMITIES: No clubbing, no edema, no cyanosis, 2+ pulses and upper and lower extremities. MUSCULOSKELETAL: Muscle strength and tone normal. SPINE: No scoliosis or deformity SKIN: No rashes CENTRAL NERVOUS SYSTEM: Alert and oriented -3. No focal deficits, tone is normal in all 4 extremities. PSYCHIATRIC: Alert and oriented -3. Appropriate affect. Intact judgment and insight. Results - Laboratory Findings CBC and BMP: 06/08/21 05:57 06/07/21 11:46 PT/INR, D-dimer PT 11.0 sec (9.0-12.0) 06/07/21 11:46 INR 1.0 (<1.2) 06/07/21 11:46 D-Dimer 1.20 mg/L FEU (<0.60) H 06/08/21 05:57 Abnormal lab findings: Abnormal Labs 06/07/21 06/07/2106/08/21 11:46 11:46 05:57 WBC 3.08 L RBC 3.76 L Hgb 10.5 L 9.8 L Hct 31.0 L 30.2 L MCV 78.5 L MCH 26.1 L RDW 15.1 H MPV 9.3 L Immature Gran # 0.14 H Lymphocytes # 0.5 L 0.49 L Eosinophils # 0 L D-Dimer Sodium 135 L Carbon Dioxide 17 L BUN 18 H Glucose 183 H POC Glucose (mg/dL) Magnesium 1.2 L AST 83 H ALT 36 H 06/08/21 06/08/21 06/08/21 05:57 07:12 11:40 WBC RBC Hgb Hct MCV MCH RDW MPV Immature Gran # Lymphocytes # Eosinophils # D-Dimer 1.20 H Sodium Carbon Dioxide BUN Glucose POC Glucose (mg/dL) 230 H 174 H Magnesium AST ALT - Diagnostic Findings Chest x-ray: report reviewed, image reviewed Assessment and Plan Plan: Assessment: #1. Acute hypoxic respiratory failure related to COVID-19 pneumonia with onset of symptoms 2 weeks ago, patient is outside the window for Remdesivir, she has not vaccinated #2. History of liver transplant by history of nonalcoholic steatohepatitis, she is on cyclosporine and Mycophenolate #3. Hypertension #4. Diabetes mellitus #5. Hyperlipidemia #6. Previous history of CVA with no residual neurologic deficits #7. Hypothyroidism #8. Lifetime nonsmoker Plan: Continue current medical treatment Continue steroids Continue Lovenox Continue COVID-19 vitamins We'll obtain d-dimer and inflammatory markers We'll obtain lower extremity Dopplers to rule out possibility of DVT Monitor for worsening dyspnea and hypoxia I performed a history & physical examination of the patient and discussed their management with my nurse practitioner, Aisha Bruce. I reviewed the nurse practitioner's note and agree with the documented findings and plan of care. Lung sounds are positive for diffuse crackles throughout the lung gee. The findings and the impression was discussed with the patient. I attest to the documentation by the nurse practitioner. Time with Patient: Greater than 30
[2021-06-08 13:17] LABS: African American GFR (CKD) 96.4 (60.0-200.0); Albumin 3.5 g/dL (3.8-4.9); Albumin/Globulin Ratio 1.34 (1.60-3.17); Anion Gap 15.9 mmol/L (4.00-12.00); BUN/Creat Ratio 25.74 Ratio (12.00-20.00); Bilirubin, Conjugated 0.23 mg/dL (0.20-0.40); Bilirubin,Unconjugated 0.32 mg/dL (0.20-1.00); Blood Urea Nitrogen 18.3 mg/dL (9.0-27.0); C Reactive Protein 7.1 mg/dL (0.00-0.80); Calcium 8.4 mg/dL (8.7-10.3); Carbon Dioxide 16.1 mmol/L (21.6-31.8); Globulin 2.6 g/dL (1.6-3.3); Non-African American GFR(CKD) 83.2 (60.0-200.0); Potassium 4.9 mmol/L (3.5-5.5); Total Bilirubin 0.5 mg/dL (0.30-1.20); Total Protein 6.1 g/dL (6.2-8.2)
[2021-06-08 17:27] LABS: Glucose,Whole Blood 315 mg/dL (75-99)
[2021-06-08] MEDS ORDERED: INSULIN DETEMIR (LEVEMIR) 100 UNIT/ML SYR SQ ONE (19:00)
[2021-06-08 20:48] LABS: Glucose,Whole Blood 306 mg/dL (75-99)
[2021-06-08] MEDS: NON FORMULARY DRUG (Rosuvastatin 10 MG Tablet) PO SCH (23:01)
[2021-06-09] MEDS: LEVOTHYROXINE 50 MCG TAB PO SCH (05:54)
[2021-06-09 06:54] LABS: Glucose,Whole Blood 151 mg/dL (75-99)
[2021-06-09] MEDS ORDERED: INSULIN DETEMIR (LEVEMIR) 100 UNIT/ML SYR SQ SCH (07:00)
--- NOTE | 2021-06-09 08:06 | US ---
EXAMINATION TYPE: US venous doppler duplex LE BI DATE OF EXAM: 06/09/2021 7:29 AM COMPARISON: NONE CLINICAL HISTORY: 76-year-old female elevated d-dimer. SOB, patient on blood thinners SIDE PERFORMED: Bilateral TECHNIQUE: The lower extremity deep venous system is examined utilizing real time linear array sonog josh with graded compression, doppler sonography and color-flow sonography. FINDINGS: VESSELS IMAGED: Common Femoral Vein Deep Femoral Vein Greater Saphenous Vein * Femoral Vein Popliteal Vein Small Saphenous Vein * Proximal Calf Veins (* superficial vessels) Right Leg: Appears negative for DVT Left Leg: Appears negative for DVT IMPRESSION: No evidence for DVT within the bilateral lower extremities imaged from the groin to the upper calf.
[2021-06-09] MEDS: MYCOPHENOLATE SODIUM DR 180 MG TABLET.DR PO SCH ×2 (10:02→20:26)
[2021-06-09] MEDS: cycloSPORINE 25 MG CAP PO SCH ×2 (10:02→20:26)
[2021-06-09] MEDS: DEXAMETHASONE SOD PHOSPHATE 10 MG/ML 1 ML VIAL IVP SCH (10:02)
[2021-06-09] MEDS: FAMOTIDINE 20 MG TAB PO SCH ×2 (10:03→20:26)
[2021-06-09] MEDS: CHOLECALCIFEROL 25 MCG (1000 IU) TABLET PO SCH (10:03)
[2021-06-09] MEDS: MECLIZINE 25 MG TAB PO SCH ×2 (10:03→20:27)
[2021-06-09] MEDS: ZINC SULFATE 220 MG CAP PO SCH (10:03)
[2021-06-09] MEDS: CALCIUM CARB-VIT D 500 MG-5 MCG TAB PO SCH (10:03)
[2021-06-09] MEDS: CLOPIDOGREL 75 MG TAB PO SCH (10:03)
[2021-06-09] MEDS: ENOXAPARIN 40 MG/0.4 ML SYRINGE SQ SCH (10:03)
[2021-06-09] MEDS: lisinopriL 10 MG TAB PO SCH (10:04)
[2021-06-09] MEDS: METOPROLOL TARTRATE 50 MG TAB PO SCH ×2 (10:04→20:27)
[2021-06-09] MEDS: INSULIN DETEMIR (LEVEMIR) 100 UNIT/ML SYR SQ SCH (10:05)
[2021-06-09] MEDS: INSULIN ASPART (NovoLOG) 100 UNIT/ML VIAL SQ SCH ×4 (10:05→20:27)
--- NOTE | 2021-06-09 11:14 | P.PN ---
Subjective Progress Note Date: 06/09/21 Principal diagnosis: COVID 19 76-year-old white female patient with past medical history of a potential, previous history of CVA 8 years ago without residual deficits, liver tr ansplantation for history of nonalcoholic steatohepatitis (ALCAZAR) in [place], lifetime nonsmoker and nondrinker, who presented to the emergency department on 06/07/2021 with complaints of shortness of breath, fever, and cough. Patient tested positive for COVID 19 one week ago at an urgent care clinic in [place]. She was started on antibiotics for pneumonia the form of doxycycline. However her symptom onset was 2 weeks ago and initially started with fatigue and loss of appetite and progressed to shortness of breath, cough and fever. Patient is not vaccinated for COVID-19 related to patient's history of severe reaction to even oral contrast when she has to have a CT of the abdomen comp leted. She is on 4 L of oxygen her pulse ox of 90-92%, her chest x-ray in emergency department shows interstitial prominence, asymmetric elevation of the right hemidiaphragm, no consolidation or pleural effusion. Admission blood work shows white blood cell, 4.5, hemoglobin of 10.5, platelet count is 261, lymphocyte count is 0.5, d-dimer is 1.2, INR is 1.0, sodium is 135, potassium is 4.7, CO2 17, BUN is 18, creatinine 0.71, magnesium is 1.2, AST is 83, ALT is 36, alkaline phosphatase is 101, troponin is negative at 0.018, proBNP is 1860. Patient takes cyclosporine and mycophenilate for her history of liver transplant, she was started on Decadron 6 mg daily, she is on prophylactic dose Lovenox and COVID-19 vitamins. She is breathing comfortably, has a dry nonproductive cough, she is afebrile. She had a mild diarrhea and loss of appetite, but no vomiting or nausea. On 06/09/2021 patient seen in follow-up on medical surgical floor, she is breathing comfortably, she is currently on 3 L of oxygen pulse ox is 90-95%, no acute events overnight, lower extremity Dopplers were negative for DVT in bilateral lower extremities, lung sounds reveal minimal crackles at the bases, no nausea vomiting no diarrhea, no acute events overnight, no fever or chills. Objective - Vital Signs Vital signs: Vital Signs Temp 98.5 F 06/09/21 08:00 Pulse 73 06/09/21 08:00 Resp 18 06/09/21 08:00 BP 115/61 06/09/21 08:00 Pulse Ox 79 L 06/09/21 10:17 - Exam GENERAL EXAM: Alert, very pleasant, 76-year-old white female, on 4 L of oxygen with a pulse ox of 90-94% comfortable in no apparent distress. HEAD: Normocephalic/atraumatic. EYES: Normal reaction of pupils, equal size. Conjunctiva pink, sclera white. NOSE: Clear with pink turbinates. THROAT: No erythema or exudates. NECK: No masses, no JVD, no thyroid enlargement, no adenopathy. CHEST: No chest wall deformity. Symmetrical expansion. LUNGS: Equal air entry with mild bibasilar crackles CVS: Regular rate and rhythm, normal S1 and S2, no gallops, no murmurs, no rubs ABDOMEN: Soft, nontender. No hepatosplenomegaly, normal bowel sounds, no guarding or rigidity. EXTREMITIES: No clubbing, no edema, no cyanosis, 2+ pulses and upper and lower extremities. MUSCULOSKELETAL: Muscle strength and tone normal. SPINE: No scoliosis or deformity SKIN: No rashes CENTRAL NERVOUS SYSTEM: Alert and oriented -3. No focal deficits, tone is normal in all 4 extremities. PSYCHIATRIC: Alert and oriented -3. Appropriate affect. Intact judgment and insight. - Labs CBC & Chem 7: 06/08/21 05:57 06/08/21 05:57 Labs: Abnormal Lab Results - Last 24 Hours (Table) 06/08/21 06/08/21 06/08/21 Range/Units 05:57 05:57 11:40 WBC 3.08 L (4.50-10.00) X 10*3/uL RBC 3.76 L (4.10-5.20) X 10*6/uL Hgb 9.8 L (12.0-15.0) g/dL Hct 30.2 L (37.2-46.3) % MCH 26.1 L (27.0-32.0) pg RDW 15.1 H (11.5-14.5) % MPV 9.3 L (9.5-12.2) fL Immature Gran # 0.14 H (0.00-0.04) X 10*3/uL Lymphocytes # 0.49 L (0.90-5.00) X 10*3/uL Eosinophils # 0 L (0.04-0.35) X 10*3/uL Sodium 132 L (135-145) mmol/L Carbon Dioxide 16.1 L (21.6-31.8) mmol/L Anion Gap 15.90 H (4.00-12.00) mmol/L BUN/Creatinine Ratio 25.74 H (12.00-20.00) Ratio Glucose 236 H (70-110) mg/dL POC Glucose (mg/dL) 174 H (75-99) mg/dL Calcium 8.4 L (8.7-10.3) mg/dL AST 62 H (13-35) U/L Lactate Dehydrogenase 358 H (120-246) U/L C-Reactive Protein 7.10 H (0.00-0.80) mg/dL Total Protein 6.1 L (6.2-8.2) g/dL Albumin 3.5 L (3.8-4.9) g/dL Albumin/Globulin Ratio 1.34 L (1.60-3.17) g/dL 06/08/21 06/08/21 06/09/21 Range/Units 17:25 20:46 06:52 WBC (4.50-10.00) X 10*3/uL RBC (4.10-5.20) X 10*6/uL Hgb (12.0-15.0) g/dL Hct (37.2-46.3) % MCH (27.0-32.0) pg RDW (11.5-14.5) % MPV (9.5-12.2) fL Immature Gran # (0.00-0.04) X 10*3/uL Lymphocytes # (0.90-5.00) X 10*3/uL Eosinophils # (0.04-0.35) X 10*3/uL Sodium (135-145) mmol/L Carbon Dioxide (21.6-31.8) mmol/L Anion Gap (4.00-12.00) mmol/L BUN/Creatinine Ratio (12.00-20.00) Ratio Glucose (70-110) mg/dL POC Glucose (mg/dL) 315 H 306 H 151 H (75-99) mg/dL Calcium (8.7-10.3) mg/dL AST (13-35) U/L Lactate Dehydrogenase (120-246) U/L C-Reactive Protein (0.00-0.80) mg/dL Total Protein (6.2-8.2) g/dL Albumin (3.8-4.9) g/dL Albumin/Globulin Ratio (1.60-3.17) g/dL Assessment and Plan Plan: Assessment: #1. Acute hypoxic respiratory failure related to COVID-19 pneumonia with onset of symptoms 2 weeks ago, patient is outside the window for Remdesivir, she has not vaccinated #2. History of liver transplant by history of nonalcoholic steatohepatitis, she is on cyclosporine and Mycophenolate #3. Hypertension #4. Diabetes mellitus #5. Hyperlipidemia #6. Previous history of CVA with no residual neurologic deficits #7. Hypothyroidism #8. Lifetime nonsmoker Plan: No worsening dyspnea or hypoxia Vital signs have been stable overnight, patient breathing comfortably Continue current medical treatment Continue steroids Continue Lovenox Continue COVID-19 vitamins If remains stable continues to improve may consider discharge home in the next 24 hours I performed a history & physical examination of the patient and discussed their management with my nurse practitioner, Aisha Bruce. I reviewed the nurse practitioner's note and agree with the documented findings and plan of care. Lung sounds are positive for diffuse crackles throughout the lung gee. The findings and the impression was discussed with the patient. I attest to the documentation by the nurse practitioner. Time with Patient: Less than 30
[2021-06-09 11:23] LABS: Glucose,Whole Blood 169 mg/dL (75-99)
[2021-06-09 16:35] LABS: Glucose,Whole Blood 224 mg/dL (75-99)
[2021-06-09 20:18] LABS: Glucose,Whole Blood 281 mg/dL (75-99)
--- NOTE | 2021-06-09 20:32 | P.PN ---
Subjective This is a pleasant 76 results female with past medical history of hypothyroidism, liver transplant, CVA/TIA, hypertension, diabetes mellitus, hyperlipidemia Patient presents because of difficulty breathing for about a week associated with cough and yellowish phlegm but no chest pain. She had diarrhea like 3 times this morning. She has diarrhea for 3 days. No abdominal pain or vomiting. She went to urgent care last Saturday about 3 days ago and they were diagnosed her with pneumonia, next day her Covid test came back positive she denies history of smoking, alcohol or illicit drugs. She does not have history of COPD. She is not on home oxygen She is hypoxic at 83% on room air and tachypneic with a breathing rate 30-40, tachycardic 122. She is afebrile at 97.8. Labs unremarkable including CBC, INR, BMP. Liver enzymes slightly elevated with AST 83 and ALT 36. Bilirubin is normal 1.0. Chest x-ray: Bilateral infiltrate with interstitial prominence has increased 06/08/2021 Patient today is awake, she is slightly tachypneic while sitting in bed. No significant dyspnea. No significant coughing. She denies chest pain. She denies diarrhea. She is saturating low 90s on 4 L oxygen via nasal cannula which is similar to yesterday. Fever on admission 100.0. Sided yesterday. labs from today are still pending. Sugar this morning to 30 patient is on insulin sliding scale She remains on dexamethasone, and multiple vitamins. 06/09/2021 Patient breathing is stable and she is on 4 L/m of oxygen with good oxygen saturation. Rest of vital signs stable, afebrile since admission when she had fever of 100.2. Labs are stable. Leg ultrasound was negative. She remains on dexamethasone vitamin C, D and zinc. Possible discharge in 24-48 hours if she keeps improvement Objective - Vital Signs Vital signs: Vital Signs Temp 98.5 F 06/09/21 17:46 Pulse 64 06/09/21 17:46 Resp 16 06/09/21 17:46 BP 132/72 06/09/21 17:46 Pulse Ox 95 06/09/21 18:06 Intake & Output 06/09/21 06/09/21 06/10/21 06:59 18:59 06:59 Other: # Voids 1 - Exam GENERAL: The patient is alert and oriented x3, not in any acute distress. Well developed, well nourished. HEENT: Pupils are round and equally reacting to light. EOMI. No scleral icterus. No conjunctival pallor. Normocephalic, atraumatic. No pharyngeal erythema. No thyromegaly. CARDIOVASCULAR: S1 and S2 present. No murmurs, rubs, or gallops. PULMONARY: Chest is clear to auscultation, no wheezing or crackles. ABDOMEN: Soft, nontender, nondistended, normoactive bowel sounds. No palpable organomegaly. MUSCULOSKELETAL: No joint swelling or deformity. EXTREMITIES: No cyanosis, clubbing, or pedal edema. NEUROLOGICAL: Gross neurological examination did not reveal any focal deficits. SKIN: No rashes. No petechiae - Labs CBC & Chem 7: 06/08/21 05:57 06/08/21 05:57 Labs: Abnormal Lab Results - Last 24 Hours (Table) 06/08/21 06/09/21 06/09/21 Range/Units 20:46 06:52 11:20 POC Glucose (mg/dL) 306 H 151 H 169 H (75-99) mg/dL 06/09/21 06/09/21 Range/Units 16:27 20:14 POC Glucose (mg/dL) 224 H 281 H (75-99) mg/dL Assessment and Plan Assessment: Bilateral acute covid pneumonia Acute hypoxic respiratory failure Possible viral gastroenteritis secondary to Covid with mildly elevated liver enzymes Hypothyroidism History of liver transplant Hypertension History of CVA/TIA Hyperlipidemia Diabetes mellitus, on insulin Plan: This is a pleasant 76 years old female who presents with covid pneumonia Continue with dexamethasone. And insulin sliding scale Continue with vitamin C, D and zinc Pulmonary consult Labs and medication were reviewed.. Continue same treatment. Continue with symptomatic treatment. Resume home medication. Monitor lytes and vitals. DVT and GI prophylaxis. Further recommendations depends on the clinical course of the patient DVT prophylaxis: Subcutaneous Lovenox GI Prophylaxis: Pepcid Prognosis is guarded
[2021-06-09] MEDS: NON FORMULARY DRUG (Rosuvastatin 10 MG Tablet) PO SCH (20:35)
[2021-06-10] MEDS: LEVOTHYROXINE 50 MCG TAB PO SCH (05:49)
[2021-06-10 07:02] LABS: Glucose,Whole Blood 108 mg/dL (75-99)
[2021-06-10] MEDS: INSULIN ASPART (NovoLOG) 100 UNIT/ML VIAL SQ SCH ×4 (07:40→21:43)
[2021-06-10] MEDS: ENOXAPARIN 40 MG/0.4 ML SYRINGE SQ SCH (08:50)
[2021-06-10] MEDS: MYCOPHENOLATE SODIUM DR 180 MG TABLET.DR PO SCH ×2 (08:50→21:43)
[2021-06-10] MEDS: METOPROLOL TARTRATE 50 MG TAB PO SCH ×2 (08:51→21:42)
[2021-06-10] MEDS: CALCIUM CARB-VIT D 500 MG-5 MCG TAB PO SCH (08:51)
[2021-06-10] MEDS: CLOPIDOGREL 75 MG TAB PO SCH (08:51)
[2021-06-10] MEDS: INSULIN DETEMIR (LEVEMIR) 100 UNIT/ML SYR SQ SCH (08:51)
[2021-06-10] MEDS: MECLIZINE 25 MG TAB PO SCH ×2 (08:51→21:42)
[2021-06-10] MEDS: FAMOTIDINE 20 MG TAB PO SCH ×2 (08:51→21:42)
[2021-06-10] MEDS: ZINC SULFATE 220 MG CAP PO SCH (08:51)
[2021-06-10] MEDS: cycloSPORINE 25 MG CAP PO SCH ×2 (08:51→21:43)
[2021-06-10] MEDS: CHOLECALCIFEROL 25 MCG (1000 IU) TABLET PO SCH (08:51)
[2021-06-10] MEDS: lisinopriL 10 MG TAB PO SCH (08:51)
[2021-06-10] MEDS: DEXAMETHASONE SOD PHOSPHATE 10 MG/ML 1 ML VIAL IVP SCH (08:51)
[2021-06-10 11:45] LABS: Glucose,Whole Blood 136 mg/dL (75-99)
--- NOTE | 2021-06-10 12:20 | P.PN ---
Subjective Progress Note Date: 06/10/21 76-year-old white female patient with past medical history of a potential, previous history of CVA 8 years ago without residual deficits, liver transplantation for history of nonalcoholic steatohepatitis (ALCAZAR) in [place], lifetime nonsmoker and nondrinker, who presented to the emergency department on 06/07/2021 with complaints of shortness of breath, fever, and cough. Patient tested positive for COVID 19 one week ago at an urgent care clinic in [place]. She was started on antibiotics for pneumonia the form of doxycycline. However her symptom onset was 2 weeks ago and initially started with fatigue and loss of appetite and progressed to shortness of breath, cough and fever. Patient is not vaccinated for COVID-19 related to patient's history of severe reaction to even oral contrast when she has to have a CT of the abdomen completed. She is on 4 L of oxygen her pulse ox of 90-92%, her chest x-ray in emergency department shows interstitial prominence, asymmetric elevation of the right hemidiaphragm, no consolidation or pleural effusion. Admission blood work shows white blood cell, 4.5, hemoglobin of 10.5, platelet count is 261, lymphocyte count is 0.5, d-dimer is 1.2, INR is 1.0, sodium is 135, potassium is 4.7, CO2 17, BUN is 18, creatinine 0.71, magnesium is 1.2, AST is 83, ALT is 36, alkaline phosphatase is 101, troponin is negative at 0.018, proBNP is 1860. Patient takes cyclosporine and mycophenilate for her history of liver transplant, she was started on Decadron 6 mg daily, she is on prophylactic dose Lovenox and COVID-19 vitamins. She is breathing comfortably, has a dry nonproductive cough, she is afebrile. She had a mild diarrhea and loss of appetite, but no vomiting or nausea. On 06/09/2021 patient seen in follow-up on medical surgical floor, she is br eathing comfortably, she is currently on 3 L of oxygen pulse ox is 90-95%, no acute events overnight, lower extremity Dopplers were negative for DVT in bilateral lower extremities, lung sounds reveal minimal crackles at the bases, no nausea vomiting no diarrhea, no acute events overnight, no fever or chills. The patient is seen today 06/10/2021 in follow-up on the regular medical floor. She is currently sitting up in chair at the bedside. Awake and alert in no acute distress. She has had increasing shortness of breath. She was 87% O2 saturations on 5 L nasal cannula. She's currently 95% on 6 L nasal cannula. She's been afebrile. Hemodynamically stable. Blood glucose 136. She remains on Decadron, Lovenox, vitamin supplements. Objective - Vital Signs Vital signs: Vital Signs Temp 98.4 F 06/10/21 10:46 Pulse 59 L 06/10/21 10:46 Resp 20 06/10/21 10:46 BP 164/73 06/10/21 10:46 Pulse Ox 95 06/10/21 10:46 Intake & Output 06/09/21 06/10/21 06/10/21 18:59 06:59 18:59 Other: # Voids 1 2 - Exam GENERAL EXAM: Alert, very pleasant 76-year-old female patient, on 6 L nasal cannula, fairly comfortable in no apparent distress. HEAD: Normocephalic. EYES: Normal reaction of pupils, equal size. NOSE: Clear with pink turbinates. THROAT: No erythema or exudates. NECK: No masses, no JVD. CHEST: No chest wall deformity. LUNGS: Equal air entry with coarse crackles in the bilateral bases. CVS: S1 and S2 normal with no audible murmur, regular rhythm. ABDOMEN: No hepatosplenomegaly, normal bowel sounds, no guarding or rigidity. SPINE: No scoliosis or deformity SKIN: No rashes CENTRAL NERVOUS SYSTEM: No focal deficits, tone is normal in all 4 extremities. EXTREMITIES: There is no peripheral edema. No clubbing, no cyanosis. Peripheral pulses are intact. - Labs CBC & Chem 7: 06/08/21 05:57 06/08/21 05:57 Labs: Abnormal Lab Results - Last 24 Hours (Table) 06/09/21 06/09/21 06/10/21 Range/Units 16:27 20:14 07:00 POC Glucose (mg/dL) 224 H 281 H 108 H (75-99) mg/dL 06/10/21 Range/Units 11:44 POC Glucose (mg/dL) 136 H (75-99) mg/dL Assessment and Plan Assessment: 1 Acute hypoxic respiratory failure related to COVID-19 pneumonia with onset of symptoms 2 weeks ago, patient is outside the window for Remdesivir, she has not been vaccinated 2 History of liver transplant by history of nonalcoholic steatohepatitis, she is on cyclosporine and Mycophenolate 3 Hypertension 4 Diabetes mellitus 5 Hyperlipidemia 6 Previous history of CVA with no residual neurologic deficits 7 Hypothyroidism 8 Lifetime nonsmoker Plan: The patient was seen and evaluated by Dr. Taveras Currently on 6 L nasal cannula Titrate the FiO2 as tolerated Chest x-ray and labs in a.m. We'll continue to follow I, the cosigning physician, performed a history & physical examination of the patient. Lungs sounds crackles in the posterior bases. Maintaining good O2 saturations in the 90s on 6 L/m per nasal cannula. I discussed the assessment and plan of care with my nurse practitioner, Angelina Abreu. I attest to the above note as dictated by her.t
[2021-06-10 16:55] LABS: Glucose,Whole Blood 365 mg/dL (75-99)
[2021-06-10 20:31] LABS: Glucose,Whole Blood 249 mg/dL (75-99)
[2021-06-10] MEDS: NON FORMULARY DRUG (Rosuvastatin 10 MG Tablet) PO SCH (21:40)
--- NOTE | 2021-06-10 23:51 | P.PN ---
Subjective This is a pleasant 76 results female with past medical history of hypothyroidism, liver transplant, CVA/TIA, hypertension, diabetes mellitus, hyperlipidemia Patient presents because of difficulty breathing for about a week associated with cough and yellowish phlegm but no chest pain. She had diarrhea like 3 times this morning. She has diarrhea for 3 days. No abdominal pain or vomiting. She went to urgent care last Saturday about 3 days ago and they were diagnosed her with pneumonia, next day her Covid test came back positive she denies history of smoking, alcohol or illicit drugs. She does not have history of COPD. She is not on home oxygen She is hypoxic at 83% on room air and tachypneic with a breathing rate 30-40, tachycardic 122. She is afebrile at 97.8. Labs unremarkable including CBC, INR, BMP. Liver enzymes slightly elevated with AST 83 and ALT 36. Bilirubin is normal 1.0. Chest x-ray: Bilateral infiltrate with interstitial prominence has increased 06/08/2021 Patient today is awake, she is slightly tachypneic while sitting in bed. No significant dyspnea. No significant coughing. She denies chest pain. She denies diarrhea. She is saturating low 90s on 4 L oxygen via nasal cannula which is similar to yesterday. Fever on admission 100.0. Sided yesterday. labs from today are still pending. Sugar this morning to 30 patient is on insulin sliding scale She remains on dexamethasone, and multiple vitamins. 06/09/2021 Patient breathing is stable and she is on 4 L/m of oxygen with good oxygen saturation. Rest of vital signs stable, afebrile since admission when she had fever of 100.2. Labs are stable. Leg ultrasound was negative. She remains on dexamethasone vitamin C, D and zinc. Possible discharge in 24-48 hours if she keeps improvement 06/10/2021 Patient today was L Keita tired although she says she looks the same. Her oxygen requirement went up to 6 L/m so we have to keep monitor the patient in the hospital Blood pressure is slightly elevated while she is on steroids. No more fevers since admission. She remains on dexamethasone and multiple vitamins and Lovenox Objective - Vital Signs Vital signs: Vital Signs Temp 98.3 F 06/10/21 14:00 Pulse 62 06/10/21 14:00 Resp 22 06/10/21 14:00 BP 132/67 11/20/21 14:00 Pulse Ox 90 L 06/10/21 14:00 Intake & Output 06/09/21 06/10/21 06/10/21 18:59 06:59 18:59 Other: # Voids 1 2 - Exam GENERAL: The patient is alert and oriented x3, not in any acute distress. Well developed, well nourished. HEENT: Pupils are round and equally reacting to light. EOMI. No scleral icterus. No conjunctival pallor. Normocephalic, atraumatic. No pharyngeal erythema. No thyromegaly. CARDIOVASCULAR: S1 and S2 present. No murmurs, rubs, or gallops. PULMONARY: Chest is clear to auscultation, no wheezing or crackles. ABDOMEN: Soft, nontender, nondistended, normoactive bowel sounds. No palpable organomegaly. MUSCULOSKELETAL: No joint swelling or deformity. EXTREMITIES: No cyanosis, clubbing, or pedal edema. NEUROLOGICAL: Gross neurological examination did not reveal any focal deficits. SKIN: No rashes. No petechiae - Labs CBC & Chem 7: 06/08/21 05:57 06/08/21 05:57 Labs: Abnormal Lab Results - Last 24 Hours (Table) 06/09/21 06/09/21 06/10/21 Range/Units 16:27 20:14 07:00 POC Glucose (mg/dL) 224 H 281 H 108 H (75-99) mg/dL 06/10/21 Range/Units 11:44 POC Glucose (mg/dL) 136 H (75-99) mg/dL Assessment and Plan Assessment: Bilateral acute covid pneumonia Acute hypoxic respiratory failure Possible viral gastroenteritis secondary to Covid with mildly elevated liver en zymes Hypothyroidism History of liver transplant Hypertension History of CVA/TIA Hyperlipidemia Diabetes mellitus, on insulin Plan: This is a pleasant 76 years old female who presents with covid pneumonia Continue with dexamethasone. And insulin sliding scale Continue with vitamin C, D and zinc Pulmonary consult Labs and medication were reviewed.. Continue same treatment. Continue with symptomatic treatment. Resume home medication. Monitor lytes and vitals. DVT and GI prophylaxis. Further recommendations depends on the clinical course of the patient DVT prophylaxis: Subcutaneous Lovenox GI Prophylaxis: Pepcid Prognosis is guarded
[2021-06-11] MEDS: LEVOTHYROXINE 50 MCG TAB PO SCH (05:53)
[2021-06-11 07:16] LABS: Glucose,Whole Blood 91 mg/dL (75-99)
[2021-06-11] MEDS: ENOXAPARIN 40 MG/0.4 ML SYRINGE SQ SCH (08:05)
[2021-06-11] MEDS: INSULIN ASPART (NovoLOG) 100 UNIT/ML VIAL SQ SCH ×4 (08:05→21:19)
[2021-06-11] MEDS: INSULIN DETEMIR (LEVEMIR) 100 UNIT/ML SYR SQ SCH (08:05)
[2021-06-11] MEDS: lisinopriL 10 MG TAB PO SCH (08:06)
[2021-06-11] MEDS: DEXAMETHASONE SOD PHOSPHATE 10 MG/ML 1 ML VIAL IVP SCH (08:06)
[2021-06-11] MEDS: MYCOPHENOLATE SODIUM DR 180 MG TABLET.DR PO SCH ×2 (08:06→21:19)
[2021-06-11] MEDS: MECLIZINE 25 MG TAB PO SCH ×2 (08:06→21:19)
[2021-06-11] MEDS: CALCIUM CARB-VIT D 500 MG-5 MCG TAB PO SCH (08:06)
[2021-06-11] MEDS: cycloSPORINE 25 MG CAP PO SCH ×2 (08:06→21:19)
[2021-06-11] MEDS: CLOPIDOGREL 75 MG TAB PO SCH (08:06)
[2021-06-11] MEDS: CHOLECALCIFEROL 25 MCG (1000 IU) TABLET PO SCH (08:07)
[2021-06-11] MEDS: ZINC SULFATE 220 MG CAP PO SCH (08:07)
[2021-06-11] MEDS: FAMOTIDINE 20 MG TAB PO SCH ×2 (08:07→21:19)
[2021-06-11] MEDS: METOPROLOL TARTRATE 50 MG TAB PO SCH ×2 (08:07→21:18)
--- NOTE | 2021-06-11 09:45 | XR ---
EXAMINATION TYPE: XR chest 1V portable DATE OF EXAM: 06/11/2021 COMPARISON: 06/07/2021 HISTORY: 76 years Female. STUDY INDICATION GIVEN: CoVID pneumonia . TECHNIQUE: AP chest radiograph IMPRESSION: Bilateral left greater than right interstitial and patchy opacities slightly increased in the interva l. No pneumothorax or large pleural effusion. Stable right hemidiaphragm eventration. Stable cardiomediastinal silhouette. Stable appearing osseous structures.
[2021-06-11 11:50] LABS: Glucose,Whole Blood 188 mg/dL (75-99)
[2021-06-11 12:27] LABS: Basophils # (A) 0.03 X 10*3/uL (0.00-0.10); Basophils % (A) 0.3 %; Eosinophils # (A) 0 X 10*3/uL (0.04-0.35); Eosinophils % (A) 0 %; HCT 30.8 % (37.2-46.3); HGB 10.3 g/dL (12.0-15.0); Lymphocytes # (A) 1.29 X 10*3/uL (0.90-5.00); MCH 26.3 pg (27.0-32.0); MCHC 33.4 g/dL (32.0-37.0); MCV 78.8 fL (80.0-97.0); Mean Platelet Volume 9.1 fL (9.5-12.2); Monocytes # (A) 0.86 X 10*3/uL (0.20-1.00); Monocytes % (A) 7.3 %; Neutrophils # (A) 9.35 X 10*3/uL (1.80-7.70); Neutrophils % (A) 79.4 %; Platelet Count 464 X 10*3/uL (140-440); RBC 3.91 X 10*6/uL (4.10-5.20); RDW 14.8 % (11.5-14.5); WBC 11.76 X 10*3/uL (4.50-10.00)
[2021-06-11 14:43] LABS: C Reactive Protein 2.2 mg/dL (0.00-0.80)
[2021-06-11 15:58] LABS: Albumin 3.7 g/dL (3.8-4.9); Albumin/Globulin Ratio 1.29 (1.60-3.17); Anion Gap 18.6 mmol/L (4.00-12.00); BUN/Creat Ratio 33.88 Ratio (12.00-20.00); Blood Urea Nitrogen 28.7 mg/dL (9.0-27.0); Calcium 8.8 mg/dL (8.7-10.3); Carbon Dioxide 16.9 mmol/L (21.6-31.8); Globulin 2.8 g/dL (1.6-3.3); Non-African American GFR(CKD) 67.3 (60.0-200.0); Potassium 4.2 mmol/L (3.5-5.5); Total Bilirubin 0.6 mg/dL (0.30-1.20); Total Protein 6.5 g/dL (6.2-8.2)
--- NOTE | 2021-06-11 16:10 | P.PN ---
Subjective Progress Note Date: 06/11/21 Principal diagnosis: COVID-19 pneumonia 76-year-old white female patient with past medical history of a potential, previous history of CVA 8 years ago without residual deficits, liver transplantation for history of nonalcoholic steatohepatitis (ALCAZAR) in [place], lifetime nonsmoker and nondrinker, who presented to the emergency department on 06/07/2021 with complaints of shortness of breath, fever, and cough. Patient tested positive for COVID 19 one week ago at an urgent care clinic in [place]. She was started on antibiotics for pneumonia the form of doxycycline. However her symptom onset was 2 weeks ago and initially started with fatigue and loss of appetite and progressed to shortness of breath, cough and fever. Patient is not vaccinated for COVID-19 related to patient's history of severe reaction to even oral contrast when she has to have a CT of the abdomen completed. She is on 4 L of oxygen her pulse ox of 90-92%, her chest x-ray in emergency department shows interstitial prominence, asymmetric elevation of the right hemidiaphragm, no consolidation or pleural effusion. Admission blood work shows white blood cell, 4.5, hemoglobin of 10.5, platelet count is 261, lymphocyte count is 0.5, d-dimer is 1.2, INR is 1.0, sodium is 135, potassium is 4.7, CO2 17, BUN is 18, creatinine 0.71, magnesium is 1.2, AST is 83, ALT is 36, alkaline phosphatase is 101, troponin is negative at 0.018, proBNP is 1860. Patient takes cyclosporine and mycophenilate for her history of liver transplant, she was started on Decadron 6 mg daily, she is on prophylactic dose Lovenox and COVID-19 vitamins. She is breathing comfortably, has a dry nonproductive cough, she is afebrile. She had a mild diarrhea and loss of appetite, but no vomiting or nausea. On 06/09/2021 patient seen in follow-up on medical surgical floor, she is breathing comfortably, she is currently on 3 L of oxygen pulse ox is 90-95%, no acute events overnight, lower extremity Dopplers were negative for DVT in bilateral lower extremities, lung sounds reveal minimal crackles at the bases, no nausea vomiting no diarrhea, no acute events overnight, no fever or chills. The patient is seen today 06/10/2021 in follow-up on the regular medical floor. She is currently sitting up in chair at the bedside. Awake and alert in no acute distress. She has had increasing shortness of breath. She was 87% O2 saturations on 5 L nasal cannula. She's currently 95% on 6 L nasal cannula. She's been afebrile. Hemodynamically stable. Blood glucose 136. She remains on Decadron, Lovenox, vitamin supplements. The patient is seen today 06/11/2021 in follow-up on the regular medical floor. She is currently sitting up at the bedside. Awake and alert in no acute distress. Doing a bit better today compared to yesterday. Her appetite is good. She is on 8 L high flow nasal cannula maintaining O2 saturations in the low 90s. She's been afebrile. Hemodynamically stable. Continues with coarse crackles in the posterior bases. Chest x-ray, but continues to revealed bilateral left greater than right interstitial and patchy opacities. White count 11.7. Hemoglobin 10.3. Lymphocytes 1.29. D-dimer 1.62. Sodium 1:30. Potassium 4.2. Creatinine 0.8. AST 88. ALT 81. LDH 343. C-reactive protein 2.2. She remains on Decadron, Lovenox, vitamin supplements. Objective - Vital Signs Vital signs: Vital Signs Temp 98.0 F 06/11/21 14:00 Pulse 70 06/11/21 14:00 Resp 17 06/11/21 14:00 BP 119/70 06/11/21 14:00 Pulse Ox 90 L 06/11/21 14:00 Intake & Output 06/10/21 06/11/21 06/11/21 18:59 06:59 18:59 Other: # Voids 4 3 # Bowel Movements 2 - Exam GENERAL EXAM: Alert, very pleasant 76-year-old female patient, on 8 L nasal cannula, fairly comfortable in no apparent distress. HEAD: Normocephalic. EYES: Normal reaction of pupils, equal size. NOSE: Clear with pink turbinates. THROAT: No erythema or exudates. NECK: No masses, no JVD. CHEST: No chest wall deformity. LUNGS: Equal air entry with coarse crackles in the bilateral bases. CVS: S1 and S2 normal with no audible murmur, regular rhythm. ABDOMEN: No hepatosplenomegaly, normal bowel sounds, no guarding or rigidity. SPINE: No scoliosis or deformity SKIN: No rashes CENTRAL NERVOUS SYSTEM: No focal deficits, tone is normal in all 4 extremities. EXTREMITIES: There is no peripheral edema. No clubbing, no cyanosis. Peripheral pulses are intact. - Labs CBC & Chem 7: 06/11/21 06:00 06/11/21 06:00 Labs: Abnormal Lab Results - Last 24 Hours (Table) 06/10/21 06/10/21 06/11/21 Range/Units 16:54 20:29 06:00 WBC 11.76 H (4.50-10.00) X 10*3/uL RBC 3.91 L (4.10-5.20) X 10*6/uL Hgb 10.3 L (12.0-15.0) g/dL Hct 30.8 L (37.2-46.3) % MCV 78.8 L (80.0-97.0) fL MCH 26.3 L (27.0-32.0) pg RDW 14.8 H (11.5-14.5) % Plt Count 464 H (140-440) X 10*3/uL MPV 9.1 L (9.5-12.2) fL Immature Gran # 0.23 H (0.00-0.04) X 10*3/uL Neutrophils # 9.35 H (1.80-7.70) X 10*3/uL Eosinophils # 0 L (0.04-0.35) X 10*3/uL D-Dimer (<0.60) mg/L FEU Sodium (135-145) mmol/L Chloride (96-109) mmol/L Carbon Dioxide (21.6-31.8) mmol/L Anion Gap (4.00-12.00) mmol/L BUN (9.0-27.0) mg/dL BUN/Creatinine Ratio (12.00-20.00) Ratio POC Glucose (mg/dL) 365 H 249 H (75-99) mg/dL AST (13-35) U/L ALT (8-44) U/L Lactate Dehydrogenase (120-246) U/L C-Reactive Protein (0.00-0.80) mg/dL Albumin (3.8-4.9) g/dL Albumin/Globulin Ratio (1.60-3.17) g/dL 06/11/21 06/11/21 06/11/21 Range/Units 06:00 06:00 11:49 WBC (4.50-10.00) X 10*3/uL RBC (4.10-5.20) X 10*6/uL Hgb (12.0-15.0) g/dL Hct (37.2-46.3) % MCV (80.0-97.0) fL MCH (27.0-32.0) pg RDW (11.5-14.5) % Plt Count (140-440) X 10*3/uL MPV (9.5-12.2) fL Immature Gran # (0.00-0.04) X 10*3/uL Neutrophils # (1.80-7.70) X 10*3/uL Eosinophils # (0.04-0.35) X 10*3/uL D-Dimer 1.62 H (<0.60) mg/L FEU Sodium 130 L (135-145) mmol/L Chloride 95 L (96-109) mmol/L Carbon Dioxide 16.9 L (21.6-31.8) mmol/L Anion Gap 18.60 H (4.00-12.00) mmol/L BUN 28.7 H (9.0-27.0) mg/dL BUN/Creatinine Ratio 33.88 H (12.00-20.00) Ratio POC Glucose (mg/dL) 188 H (75-99) mg/dL AST 88 H (13-35) U/L ALT 81 H (8-44) U/L Lactate Dehydrogenase 343 H (120-246) U/L C-Reactive Protein 2.20 H (0.00-0.80) mg/dL Albumin 3.7 L (3.8-4.9) g/dL Albumin/Globulin Ratio 1.29 L (1.60-3.17) g/dL Assessment and Plan Assessment: 1 Acute hypoxic respiratory failure related to COVID-19 pneumonia with onset of symptoms 2 weeks ago, patient is outside the window for Remdesivir, she has not been vaccinated 2 History of liver transplant by history of nonalcoholic steatohepatitis, she is on cyclosporine and Mycophenolate 3 Hypertension 4 Diabetes mellitus 5 Hyperlipidemia 6 Previous history of CVA with no residual neurologic deficits 7 Hypothyroidism 8 Lifetime nonsmoker Plan: The patient was seen and evaluated by Dr. Taveras Chest x-ray and labs reviewed Currently on 8 L nasal cannula Titrate the FiO2 as tolerated Increase her activity as tolerated We'll continue to follow I, the cosigning physician, performed a history & physical examination of the patient. Lungs sounds crackles in the posterior bases. Maintaining good O2 saturations in the 90s on 8 L/m per nasal cannula. I discussed the assessment and plan of care with my nurse practitioner, Angelina Abreu. I attest to the above n ote as dictated by her.t
[2021-06-11 17:03] LABS: Glucose,Whole Blood 310 mg/dL (75-99)
--- NOTE | 2021-06-11 20:36 | P.PN ---
Subjective This is a pleasant 76 results female with past medical history of hypothyroidism, liver transplant, CVA/TIA, hypertension, diabetes mellitus, hyperlipidemia Patient presents because of difficulty breathing for about a week associated with cough and yellowish phlegm but no chest pain. She had diarrhea like 3 times this morning. She has diarrhea for 3 days. No abdominal pain or vomiting. She went to urgent care last Saturday about 3 days ago and they were diagnosed her with pneumonia, next day her Covid test came back positive she denies history of smoking, alcohol or illicit drugs. She does not have history of COPD. She is not on home oxygen She is hypoxic at 83% on room air and tachypneic with a breathing rate 30-40, tachycardic 122. She is afebrile at 97.8. Labs unremarkable including CBC, INR, BMP. Liver enzymes slightly elevated with AST 83 and ALT 36. Bilirubin is normal 1.0. Chest x-ray: Bilateral infiltrate with interstitial prominence has increased 06/08/2021 Patient today is awake, she is slightly tachypneic while sitting in bed. No significant dyspnea. No significant coughing. She denies chest pain. She denies diarrhea. She is saturating low 90s on 4 L oxygen via nasal cannula which is similar to yesterday. Fever on admission 100.0. Sided yesterday. labs from today are still pending. Sugar this morning to 30 patient is on insulin sliding scale She remains on dexamethasone, and multiple vitamins. 06/09/2021 Patient breathing is stable and she is on 4 L/m of oxygen with good oxygen saturation. Rest of vital signs stable, afebrile since admission when she had fever of 100.2. Labs are stable. Leg ultrasound was negative. She remains on dexamethasone vitamin C, D and zinc. Possible discharge in 24-48 hours if she keeps improvement 06/10/2021 Patient today was L Keita tired although she says she looks the same. Her oxygen requirement went up to 6 L/m so we have to keep monitor the patient in the hospital Blood pressure is slightly elevated while she is on steroids. No more fevers since admission. She remains on dexamethasone and multiple vitamins and Lovenox 06/11/2021 Patient looks more tired, her breathing looks the same with dyspnea however her oxygen requirements increased to 8 L/m. She has mild lab abnormality like mild increased liver enzymes, mild leukocytosis, mild hyponatremia. Chest x-ray was showing slightly increased infiltrates She remains on dexamethasone, Lovenox and multiple vitamins. D-dimer is a stable 1.2-1.6 Objective - Vital Signs Vital signs: Vital Signs Temp 98.2 F 06/11/21 10:12 Pulse 69 06/11/21 10:12 Resp 18 06/11/21 10:12 BP 121/72 06/11/21 10:12 Pulse Ox 90 L 06/11/21 10:12 Intake & Output 06/10/21 06/11/21 06/11/21 18:59 06:59 18:59 Other: # Voids 4 3 # Bowel Movements 2 - Exam GENERAL: The patient is alert and oriented x3, not in any acute distress. Well developed, well nourished. HEENT: Pupils are round and equally reacting to light. EOMI. No scleral icterus. No conjunctival pallor. Normocephalic, atraumatic. No pharyngeal erythema. No thyromegaly. CARDIOVASCULAR: S1 and S2 present. No murmurs, rubs, or gallops. PULMONARY: Chest is clear to auscultation, no wheezing or crackles. ABDOMEN: Soft, nontender, nondistended, normoactive bowel sounds. No palpable organomegaly. MUSCULOSKELETAL: No joint swelling or deformity. EXTREMITIES: No cyanosis, clubbing, or pedal edema. NEUROLOGICAL: Gross neurological examination did not reveal any focal deficits. SKIN: No rashes. No petechiae - Labs CBC & Chem 7: 06/11/21 06:00 06/11/21 06:00 Labs: Abnormal Lab Results - Last 24 Hours (Table) 06/10/21 06/10/21 06/11/21 Range/Units 16:54 20:29 06:00 WBC 11.76 H (4.50-10.00) X 10*3/uL RBC 3.91 L (4.10-5.20) X 10*6/uL Hgb 10.3 L (12.0-15.0) g/dL Hct 30.8 L (37.2-46.3) % MCV 78.8 L (80.0-97.0) fL MCH 26.3 L (27.0-32.0) pg RDW 14.8 H (11.5-14.5) % Plt Count 464 H (140-440) X 10*3/uL MPV 9.1 L (9.5-12.2) fL Immature Gran # 0.23 H (0.00-0.04) X 10*3/uL Neutrophils # 9.35 H (1.80-7.70) X 10*3/uL Eosinophils # 0 L (0.04-0.35) X 10*3/uL D-Dimer (<0.60) mg/L FEU POC Glucose (mg/dL) 365 H 249 H (75-99) mg/dL Lactate Dehydrogenase (120-246) U/L 06/11/21 06/11/21 06/11/21 Range/Units 06:00 06:00 11:49 WBC (4.50-10.00) X 10*3/uL RBC (4.10-5.20) X 10*6/uL Hgb (12.0-15.0) g/dL Hct (37.2-46.3) % MCV (80.0-97.0) fL MCH (27.0-32.0) pg RDW (11.5-14.5) % Plt Count (140-440) X 10*3/uL MPV (9.5-12.2) fL Immature Gran # (0.00-0.04) X 10*3/uL Neutrophils # (1.80-7.70) X 10*3/uL Eosinophils # (0.04-0.35) X 10*3/uL D-Dimer 1.62 H (<0.60) mg/L FEU POC Glucose (mg/dL) 188 H (75-99) mg/dL Lactate Dehydrogenase 343 H (120-246) U/L Assessment and Plan Assessment: Bilateral acute covid pneumonia Acute hypoxic respiratory failure Possible viral gastroenteritis secondary to Covid with mildly elevated liver enzymes Hypothyroidism History of liver transplant Hypertension History of CVA/TIA Hyperlipidemia Diabetes mellitus, on insulin Plan: This is a pleasant 76 years old female who presents with covid pneumonia Continue with dexamethasone. And insulin sliding scale Continue with vitamin C, D and zinc Pulmonary consult Labs and medication were reviewed.. Continue same treatment. Continue with symptomatic treatment. Resume home medication. Monitor lytes and vitals. DVT and GI prophylaxis. Further recommendations depends on the clinical course of the patient DVT prophylaxis: Subcutaneous Lovenox GI Prophylaxis: Pepcid Prognosis is guarded
[2021-06-11 21:00] LABS: Glucose,Whole Blood 184 mg/dL (75-99)
[2021-06-11] MEDS: NON FORMULARY DRUG (Rosuvastatin 10 MG Tablet) PO SCH (21:19)
[2021-06-12] MEDS: LEVOTHYROXINE 50 MCG TAB PO SCH (05:30)
[2021-06-12 07:43] LABS: Glucose,Whole Blood 106 mg/dL (75-99)
[2021-06-12] MEDS: cycloSPORINE 25 MG CAP PO SCH ×2 (10:48→21:24)
[2021-06-12] MEDS: ENOXAPARIN 40 MG/0.4 ML SYRINGE SQ SCH (10:48)
[2021-06-12] MEDS: DEXAMETHASONE SOD PHOSPHATE 10 MG/ML 1 ML VIAL IVP SCH (10:48)
[2021-06-12] MEDS: ACETAMINOPHEN TAB 500 MG TAB PO PRN ×2 (10:48→21:00)
[2021-06-12] MEDS: CHOLECALCIFEROL 25 MCG (1000 IU) TABLET PO SCH (10:48)
[2021-06-12] MEDS: MYCOPHENOLATE SODIUM DR 180 MG TABLET.DR PO SCH ×2 (10:49→21:25)
[2021-06-12] MEDS: METOPROLOL TARTRATE 50 MG TAB PO SCH ×2 (10:49→21:24)
[2021-06-12] MEDS: MECLIZINE 25 MG TAB PO SCH ×2 (10:49→21:24)
[2021-06-12] MEDS: ZINC SULFATE 220 MG CAP PO SCH (10:49)
[2021-06-12] MEDS: CLOPIDOGREL 75 MG TAB PO SCH (10:49)
[2021-06-12] MEDS: CALCIUM CARB-VIT D 500 MG-5 MCG TAB PO SCH (10:49)
[2021-06-12] MEDS: FAMOTIDINE 20 MG TAB PO SCH ×2 (10:49→21:24)
[2021-06-12] MEDS: lisinopriL 10 MG TAB PO SCH (10:49)
[2021-06-12] MEDS: INSULIN DETEMIR (LEVEMIR) 100 UNIT/ML SYR SQ SCH (10:50)
[2021-06-12] MEDS: INSULIN ASPART (NovoLOG) 100 UNIT/ML VIAL SQ SCH ×4 (10:50→21:24)
[2021-06-12 11:22] LABS: Glucose,Whole Blood 194 mg/dL (75-99)
--- NOTE | 2021-06-12 14:46 | P.PN ---
Subjective Progress Note Date: 06/12/21 Principal diagnosis: COVID 19 76-year-old white female patient with past medical history of a potential, previous history of CVA 8 years ago without residual deficits, liver tr ansplantation for history of nonalcoholic steatohepatitis (ALCAZAR) in [place], lifetime nonsmoker and nondrinker, who presented to the emergency department on 06/07/2021 with complaints of shortness of breath, fever, and cough. Patient tested positive for COVID 19 one week ago at an urgent care clinic in [place]. She was started on antibiotics for pneumonia the form of doxycycline. However her symptom onset was 2 weeks ago and initially started with fatigue and loss of appetite and progressed to shortness of breath, cough and fever. Patient is not vaccinated for COVID-19 related to patient's history of severe reaction to even oral contrast when she has to have a CT of the abdomen comp leted. She is on 4 L of oxygen her pulse ox of 90-92%, her chest x-ray in emergency department shows interstitial prominence, asymmetric elevation of the right hemidiaphragm, no consolidation or pleural effusion. Admission blood work shows white blood cell, 4.5, hemoglobin of 10.5, platelet count is 261, lymphocyte count is 0.5, d-dimer is 1.2, INR is 1.0, sodium is 135, potassium is 4.7, CO2 17, BUN is 18, creatinine 0.71, magnesium is 1.2, AST is 83, ALT is 36, alkaline phosphatase is 101, troponin is negative at 0.018, proBNP is 1860. Patient takes cyclosporine and mycophenilate for her history of liver transplant, she was started on Decadron 6 mg daily, she is on prophylactic dose Lovenox and COVID-19 vitamins. She is breathing comfortably, has a dry nonproductive cough, she is afebrile. She had a mild diarrhea and loss of appetite, but no vomiting or nausea. On 06/09/2021 patient seen in follow-up on medical surgical floor, she is breathing comfortably, she is currently on 3 L of oxygen pulse ox is 90-95%, no acute events overnight, lower extremity Dopplers were negative for DVT in bilateral lower extremities, lung sounds reveal minimal crackles at the bases, no nausea vomiting no diarrhea, no acute events overnight, no fever or chills. On 06/12/2021 patient seen in follow-up on medical surgical floor, she seems to be breathing comfortably, she is sitting by the window, she is currently on 8 L of oxygen however nursing staff reports difficulty keeping the patient's oxygen on her and she frequently takes it off. When she is wearing it her pulse ox is 96-97% on 8 L, afebrile, hemodynamically she has been stable however neurologically patient seems more confused, inattentive, she is only oriented to self, disoriented to place, and time, she thought Primo George was the president. She is having difficulty concentrating, it takes repetition with questioning to get her to pay attention. From pulmonary perspective although she still requiring high concentration oxygen she does not appear to be in any distress, lung sounds reveal bibasilar crackles, no rhonchi or wheezing. She is currently on Decadron 6 mg daily, she is on prophylactic Lovenox, she is on vitamins. Yesterday's chest x-ray was showing bilateral left greater than right interstitial and patchy opacities slightly increased in the interval. Patient has been incontinent, she is wearing a brief, however she will not wear P and's, and last night nursing staff reports she got up unassisted and was ambulating down the [place] without her brief or oxygen. NO focal neurological deficits, howev er patient had a previous history of CVA in the past, will obtain brain CT and consult neurology Objective - Vital Signs Vital signs: Vital Signs Temp 98.4 F 06/12/21 10:00 Pulse 70 06/12/21 10:00 Resp 17 06/12/21 10:00 BP 119/56 06/12/21 10:00 Pulse Ox 97 06/12/21 10:00 Intake & Output 06/11/21 06/12/21 06/12/21 18:59 06:59 18:59 Other: # Voids 3 4 # Bowel Movements 2 - Exam GENERAL EXAM: Alert, but confused, 76-year-old white female, on 8 L of oxygen with a pulse ox of 97% comfortable in no apparent distress. Inattentive, takes several repetitions to get patient to answer questions HEAD: Normocephalic/atraumatic. EYES: Normal reaction of pupils, equal size. Conjunctiva pink, sclera white. NOSE: Clear with pink turbinates. THROAT: No erythema or exudates. NECK: No masses, no JVD, no thyroid enlargement, no adenopathy. CHEST: No chest wall deformity. Symmetrical expansion. LUNGS: Equal air entry with mild bibasilar crackles CVS: Regular rate and rhythm, normal S1 and S2, no gallops, no murmurs, no rubs ABDOMEN: Soft, nontender. No hepatosplenomegaly, normal bowel sounds, no guarding or rigidity. EXTREMITIES: No clubbing, no edema, no cyanosis, 2+ pulses and upper and lower extremities. MUSCULOSKELETAL: Muscle strength and tone normal. SPINE: No scoliosis or deformity SKIN: No rashes CENTRAL NERVOUS SYSTEM: Alert and oriented -1. No focal deficits, tone is normal in all 4 extremities. PSYCHIATRIC: Alert and oriented -1. Appropriate affect. Intact judgment and insight. - Labs CBC & Chem 7: 06/11/21 06:00 06/11/21 06:00 Labs: Abnormal Lab Results - Last 24 Hours (Table) 06/11/21 06/11/21 06/11/21 Range/Units 06:00 17:02 20:58 Sodium 130 L (135-145) mmol/L Chloride 95 L (96-109) mmol/L Carbon Dioxide 16.9 L (21.6-31.8) mmol/L Anion Gap 18.60 H (4.00-12.00) mmol/L BUN 28.7 H (9.0-27.0) mg/dL BUN/Creatinine Ratio 33.88 H (12.00-20.00) Ratio POC Glucose (mg/dL) 310 H 184 H (75-99) mg/dL AST 88 H (13-35) U/L ALT 81 H (8-44) U/L C-Reactive Protein 2.20 H (0.00-0.80) mg/dL Albumin 3.7 L (3.8-4.9) g/dL Albumin/Globulin Ratio 1.29 L (1.60-3.17) g/dL 06/12/21 06/12/21 Range/Units 07:32 11:20 Sodium (135-145) mmol/L Chloride (96-109) mmol/L Carbon Dioxide (21.6-31.8) mmol/L Anion Gap (4.00-12.00) mmol/L BUN (9.0-27.0) mg/dL BUN/Creatinine Ratio (12.00-20.00) Ratio POC Glucose (mg/dL) 106 H 194 H (75-99) mg/dL AST (13-35) U/L ALT (8-44) U/L C-Reactive Protein (0.00-0.80) mg/dL Albumin (3.8-4.9) g/dL Albumin/Globulin Ratio (1.60-3.17) g/dL Assessment and Plan Plan: Assessment: #1. Acute hypoxic respiratory failure related to COVID-19 pneumonia with onset of symptoms 2 weeks ago, patient is outside the window for Remdesivir, she has not vaccinated #2. Altered mental status, confusion, possibly delirium, CT brain is pending, we will consult neurology #3. History of liver transplant by history of nonalcoholic steatohepatitis, she is on cyclosporine and Mycophenolate #4. Hypertension #5. Diabetes mellitus #6. Hyperlipidemia #7. Previous history of CVA with no residual neurologic deficits #8. Hypothyroidism #9. Lifetime nonsmoker Plan: Weaning FiO2 to maintain O2 saturations at or above 90% Patient may need a manager environmental health and safety to keep her oxygen on Seems to be more confused on today's exam, Has a previous history of CVA, will obtain CT of the brain without Consult neurology Continue to follow her clinical course I performed a history & physical examination of the patient and discussed their management with my nurse practitioner, Aisha Bruce. I reviewed the nurse practitioner's note and agree with the documented findings and plan of care. Lung sounds are positive for diffuse crackles throughout the lung gee. The findings and the impression was discussed with the patient. I attest to the documentation by the nurse practitioner. Time with Patient: Less than 30
--- NOTE | 2021-06-12 15:49 | P.CNNES ---
History of Present Illness Consult date: 06/12/21 Requesting physician: Aisha Bruce Reason for Consult: altered mental status History of Present Illness: This is a 76-year-old woman with medical history of stroke without any residual deficit (about 8 years ago), diabetes mellitus, liver transplant for non- alcoholic steatoheaptitis (ALCAZAR), hypertension, hyperlipidemia, hypothyroidism, vertigo status post tympanostomy who presented emergency department on 2020 for shortness of breath fever and cough. Patient was tested for covert 19 a week ago at an urgent clinic in [place]. Neurologist consulted for altered mental status. Per the patient's the nurse he stated that the patient the mentation seems the normal him but he stated that she keeps on taking off her oxygen. During this hospital stay the patient's oxygen was as low as a 80% on 06/10/2021. Today it's 97% and she is on 8 L of nasal cannula. Patient denies of any focal deficit, headaches, any new visual disturbance. Just complaining of cough. Some other workup in the hospital consisted. Most recent vitals his blood pressure of 119/56, heart rate of the 70, temperature of 98.4 Fahrenheit oral, respiratory of 17, pulse ox of 97% at room air. Most recent white blood cell is 11.762 thousand and on initial presentation the patient white blood cell was 4.5 Hemoglobin is 7.3. Patient will see her glucose has been in the range of 100-310 in the last 24 hours. Sodium is 1:30, creatinine is 0.8, calcium is 8.8, AST of 88 and ALT of 81. Magnesium is 1.2 Most recent chest x-ray was reported as bilateral left greater than the right interstitial and patchy opacity slightly increased in the interval. Patient is supposed of lower extremities is negative for DVTs. Review of Systems Review of system: The 12 point system was reviewed and apparent positive and negative per HPI. Past Medical History Past Medical History: CVA/TIA, Hypertension History of Any Multi-Drug Resistant Organisms: None Reported Past Surgical History: Appendectomy, Cholecystectomy, Hysterectomy Additional Past Surgical History / Comment(s): D&C, liver transplant Past Anesthesia/Blood Transfusion Reactions: No Reported Reaction Past Psychological History: No Psychological Hx Reported Smoking Status: Never smoker Past Alcohol Use History: None Reported Past Drug Use History: None Reported Medications and Allergies Home Medications Medication Instructions Recorded Confirmed Type Acetaminophen Tab [Tylenol] 1,000 mg PO BID PRN 06/01/20 06/07/21 History Calcium Carbonate/Vitamin D3 1 tab PO DAILY 06/01/20 06/07/21 History [Calcium 500-Vit D3 5 Mcg (200 Iu)] Cephalexin [Keflex] 250 mg PO DAILY 06/01/20 06/07/21 History Clopidogrel [Plavix] 75 mg PO DAILY 06/01/20 06/07/21 History Furosemide [Lasix] 20 mg PO DAILY PRN 06/01/20 06/07/21 History Glucosamine/Chondr [place] A Sod [Osteo 2 tab PO DAILY 06/01/20 06/07/21 History Bi-Flex Caplet] Insulin Glargine [Lantus Vial] 40 unit SQ DAILY 06/01/20 06/07/21 History Levothyroxine Sodium [Synthroid] 50 mcg PO DAILY 06/01/20 06/07/21 History Lisinopril [Prinivil] 10 mg PO DAILY 06/01/20 06/07/21 History Magnesium Oxide 400 mg PO DAILY 06/01/20 06/07/21 History Metoprolol Tartrate [Lopressor] 50 mg PO BID 06/01/20 06/07/21 History Multivitamins, Thera [Multivitamin 1 tab PO DAILY 06/01/20 06/07/21 History (formulary)] Mycophenolate Sodium [Mycophenolic 360 mg PO BID 06/01/20 06/07/21 History Acid] Pantoprazole Sodium [Protonix] 40 mg PO AC-BRKFST 06/01/20 06/07/21 History Vit C/E/Zn/Coppr/Lutein/Zeaxan 1 cap PO DAILY 06/01/20 06/07/21 History [Preservision Areds 2 Softgel] Zinc Gluconate [Zinc] 50 mg PO DAILY 06/01/20 06/07/21 History cycloSPORINE [SandIMMUNE] 25 mg PO DAILY 06/01/20 06/07/21 History cycloSPORINE [SandIMMUNE] 50 mg PO HS 06/01/20 06/07/21 History sitaGLIPtin [Januvia] 100 mg PO DAILY 06/01/20 06/07/21 History Amoxic-Pot Clav 875-125Mg 1 tab PO BID 06/07/21 06/07/21 History [Augmentin 875-125] Amoxicillin 2,000 mg PO ONCE PRN 06/07/21 06/07/21 History Famotidine [Pepcid] 20 mg PO BID 06/07/21 06/07/21 History Fluoride (Sodium) [Sodium Fluoride 1 applic DENTAL BID 06/07/21 06/07/21 History 5000 Plus] Insulin Regular, Human [Novolin R See Protocol SQ AC-TID 06/07/21 06/07/21 History Flexpen] Meclizine [Antivert] 25 mg PO BID 06/07/21 06/07/21 History [place]-3 Acid Ethyl Esters [Lovaza] 2 gm PO BID 06/07/21 06/07/21 History Rosuvastatin [Crestor] 10 mg PO HS 06/07/21 06/07/21 History Allergies Allergy/AdvReac Type Severity Reaction Status Date / Time Iodinated Contrast Media Allergy Rash/Hives Verified 06/07/21 12:08 pioglitazone [From Actos] Allergy Rash/Hives Verified 06/07/21 12:08 pentazocine [From Talwin] AdvReac Vomiting Verified 06/07/21 12:08 Physical Examination - Vital Signs Vital Signs: Vital Signs Temp Pulse Resp BP Pulse Ox 06/12/21 10:00 98.4 F 70 17 119/56 97 06/12/21 06:19 98.1 F 65 19 150/62 96 06/12/21 01:45 97.8 F 53 L 19 171/73 98 06/11/21 20:58 97.4 F L 58 L 17 152/77 94 L 06/11/21 20:00 70 17 Intake and Output 06/11/21 06/12/21 06/12/21 22:59 06:59 14:59 Other: # Voids 3 4 # Bowel Movements 2 GENERAL: The patient is lying in bed and is not in acute distress. CHEST: The heart rate is regular rate rhythm. No murmurs to auscultation. No carotid bruit bilaterally. LUNG: Clear to auscultation bilaterally no wheezing noted throughout. Not labored breathing. ABDOMEN/GI: Bowel sounds present in all 4 quadrants. No tenderness to palpation throughout. NEUROLOGICAL: Higher mental function: The patient is awake, alert, oriented to self and place. With options she correctly chose the right month but said the year is 19 gio ething. Is able to identify objects (pen, foset, telephone). Patient is following simple commands. No aphasia and no neglect. Cranial nerves: The pupils are round, equal and reactive to light and a ccommodation. Visual gee are full to confrontation throughout. Extraocular movement is intact no nystagmus is noted. Facial sensation is normal to touch throughout. The facial strength is normal throughout. Hearing is moderately decreased bilaterally to hand rub. Tongue is midline and moved [id number] without any difficulty. No dysarthria is noted. Patient had frequent episodes of cough. Shoulder shrug is normal bilaterally. Motor: The strength is 5 over 5 throughout. Normal tone and bulk. Cerebellum: Normal finger to nose bilaterally. Sensation: Sensation is normal to touch throughout. Plantars are mute bilaterally. Results - Laboratory Findings CBC and BMP: 06/11/21 06:00 06/11/21 06:00 Abnormal Lab Findings: Abnormal Labs 06/07/21 06/07/21 06/08/21 11:46 11:46 05:57 WBC 3.08 L RBC 3.76 L Hgb 10.5 L 9.8 L Hct 31.0 L 30.2 L MCV 78.5 L MCH 26.1 L RDW 15.1 H Plt Count MPV 9.3 L Immature Gran # 0.14 H Neutrophils # Lymphocytes # 0.5 L 0.49 L Eosinophils # 0 L D-Dimer Sodium 135 L Chloride Carbon Dioxide 17 L Anion Gap BUN 18 H BUN/Creatinine Ratio Glucose 183 H POC Glucose (mg/dL) Calcium Magnesium 1.2 L AST 83 H ALT 36 H Lactate Dehydrogenase C-Reactive Protein Total Protein Albumin Albumin/Globulin Ratio 06/08/21 06/08/21 06/08/21 05:57 05:57 07:12 WBC RBC Hgb Hct MCV MCH RDW Plt Count MPV Immature Gran # Neutrophils # Lymphocytes # Eosinophils # D-Dimer 1.20 H Sodium 132 L Chloride Carbon Dioxide 16.1 L Anion Gap 15.90 H BUN BUN/Creatinine Ratio 25.74 H Glucose 236 H POC Glucose (mg/dL) 230 H Calcium 8.4 L Magnesium AST 62 H ALT Lactate Dehydrogenase 358 H C-Reactive Protein 7.10 H Total Protein 6.1 L Albumin 3.5 L Albumin/Globulin Ratio 1.34 L 1106/08/21 06/08/21 11:40 17:25 20:46 WBC RBC Hgb Hct MCV MCH RDW Plt Count MPV Immature Gran # Neutrophils # Lymphocytes # Eosinophils # D-Dimer Sodium Chloride Carbon Dioxide Anion Gap BUN BUN/Creatinine Ratio Glucose POC Glucose (mg/dL) 174 H 315 H 306 H Calcium Magnesium AST ALT Lactate Dehydrogenase C-Reactive Protein Total Protein Albumin Albumin/Globulin Ratio 06/09/21 06/09/21 06/09/21 06:52 11:20 16:27 WBC RBC Hgb Hct MCV MCH RDW Plt Count MPV Immature Gran # Neutrophils # Lymphocytes # Eosinophils # D-Dimer Sodium Chloride Carbon Dioxide Anion Gap BUN BUN/Creatinine Ratio Glucose POC Glucose (mg/dL) 151 H 169 H 224 H Calcium Magnesium AST ALT Lactate Dehydrogenase C-Reactive Protein Total Protein Albumin Albumin/Globulin Ratio 06/09/21 06/10/21 06/10/21 20:14 07:00 11:44 WBC RBC Hgb Hct MCV MCH RDW Plt Count MPV Immature Gran # Neutrophils # Lymphocytes # Eosinophils # D-Dimer Sodium Chloride Carbon Dioxide Anion Gap BUN BUN/Creatinine Ratio Glucose POC Glucose (mg/dL) 281 H 108 H 136 H Calcium Magnesium AST ALT Lactate Dehydrogenase C-Reactive Protein Total Protein Albumin Albumin/Globulin Ratio 06/10/21 06/10/21 06/11/21 16:54 20:29 06:00 WBC 11.76 H RBC 3.91 L Hgb 10.3 L Hct 30.8 L MCV 78.8 L MCH 26.3 L RDW 14.8 H Plt Count 464 H MPV 9.1 L Immature Gran # 0.23 H Neutrophils # 9.35 H Lymphocytes # Eosinophils # 0 L D-Dimer Sodium Chloride Carbon Dioxide Anion Gap BUN BUN/Creatinine Ratio Glucose POC Glucose (mg/dL) 365 H 249 H Calcium Magnesium AST ALT Lactate Dehydrogenase C-Reactive Protein Total Protein Albumin Albumin/Globulin Ratio 06/11/21 06/11/21 06/11/21 06:00 06:00 11:49 WBC RBC Hgb Hct MCV MCH RDW Plt Count MPV Immature Gran # Neutrophils # Lymphocytes # Eosinophils # D-Dimer 1.62 H Sodium 130 L Chloride 95 L Carbon Dioxide 16.9 L Anion Gap 18.60 H BUN 28.7 H BUN/Creatinine Ratio 33.88 H Glucose POC Glucose (mg/dL) 188 H Calcium Magnesium AST 88 H ALT 81 H Lactate Dehydrogenase 343 H C-Reactive Protein 2.20 H Total Protein Albumin 3.7 L Albumin/Globulin Ratio 1.29 L 06/11/21 06/11/21 06/12/21 17:02 20:58 07:32 WBC RBC Hgb Hct MCV MCH RDW Plt Count MPV Immature Gran # Neutrophils # Lymphocytes # Eosinophils # D-Dimer Sodium Chloride Carbon Dioxide Anion Gap BUN BUN/Creatinine Ratio Glucose POC Glucose (mg/dL) 310 H 184 H 106 H Calcium Magnesium AST ALT Lactate Dehydrogenase C-Reactive Protein Total Protein Albumin Albumin/Globulin Ratio 06/12/21 11:20 WBC RBC Hgb Hct MCV MCH RDW Plt Count MPV Immature Gran # Neutrophils # Lymphocytes # Eosinophils # D-Dimer Sodium Chloride Carbon Dioxide Anion Gap BUN BUN/Creatinine Ratio Glucose POC Glucose (mg/dL) 194 H Calcium Magnesium AST ALT Lactate Dehydrogenase C-Reactive Protein Total Protein Albumin Albumin/Globulin Ratio Assessment and Plan Assessment: Altered mental status due to multifactorial: Acute hypoxic encephalopathy and component of metabolic encephalopathy (sugar is range of 100-300) with mild elevated LFT's---No focality on examination. Acute hypoxic respiratory failure related to COVID-19 pneumonia is on cylcosporine and Mycophenolate Labile sugar Mild hepatitis History of stroke about 8 years ago without any residual deficit vertigo status post tympanostomy Hypertension Diabetes mellitus Hyperlipidemia Hypothyroidism History of liver transplant for non-alcoholic steatoheaptitis (ALCAZAR) Plan: CT of the brain without contrast is ordered by pulmonary team. If the patient continues to be altered then will get a routine EEG. Ordered vitamin B12, folate and ammonia level. Her last TSH level was on 02/16/2021 and it was 1.170 and a free T4 was 1.33 therefore I would not repeat the test Patient last hemoglobin A1c was 6.5 on 11/29/2020. Placed on every 4 hours neuro checks Pulmonary team is on board Defer the rest of medical management to primary team The plan is discussed with the patient's nurse. Thank you for the consultation. Thien Nascimento MD Neuro-Hospitalist Time with Patient: Greater than 30
--- NOTE | 2021-06-12 17:02 | CT ---
EXAMINATION TYPE: CT brain wo con DATE OF EXAM: 06/12/2021 COMPARISON: 06/01/2020 HISTORY: Weakness CT DLP: 1159.4 mGycm Automated exposure control for dose reduction was used. There is cerebral cortical atrophy. There is no mass effect nor midline shift. There is no evidence o f intracranial hemorrhage. Calvarium is intact. Skull base is intact. There is mucosal thickening in the left mastoid sinuses. IMPRESSION: Cerebral atrophy. No acute intracranial abnormality. Left-sided mastoiditis. No change compared to ol d exam.
[2021-06-12 17:19] LABS: Glucose,Whole Blood 360 mg/dL (75-99)
--- NOTE | 2021-06-12 20:55 | P.PN ---
Subjective This is a pleasant 76 results female with past medical history of hypothyroidism, liver transplant, CVA/TIA, hypertension, diabetes mellitus, hyperlipidemia Patient presents because of difficulty breathing for about a week associated with cough and yellowish phlegm but no chest pain. She had diarrhea like 3 times this morning. She has diarrhea for 3 days. No abdominal pain or vomiting. She went to urgent care last Saturday about 3 days ago and they were diagnosed her with pneumonia, next day her Covid test came back positive she denies history of smoking, alcohol or illicit drugs. She does not have history of COPD. She is not on home oxygen She is hypoxic at 83% on room air and tachypneic with a breathing rate 30-40, tachycardic 122. She is afebrile at 97.8. Labs unremarkable including CBC, INR, BMP. Liver enzymes slightly elevated with AST 83 and ALT 36. Bilirubin is normal 1.0. Chest x-ray: Bilateral infiltrate with interstitial prominence has increased 06/08/2021 Patient today is awake, she is slightly tachypneic while sitting in bed. No significant dyspnea. No significant coughing. She denies chest pain. She denies diarrhea. She is saturating low 90s on 4 L oxygen via nasal cannula which is similar to yesterday. Fever on admission 100.0. Sided yesterday. labs from today are still pending. Sugar this morning to 30 patient is on insulin sliding scale She remains on dexamethasone, and multiple vitamins. 06/09/2021 Patient breathing is stable and she is on 4 L/m of oxygen with good oxygen saturation. Rest of vital signs stable, afebrile since admission when she had fever of 100.2. Labs are stable. Leg ultrasound was negative. She remains on dexamethasone vitamin C, D and zinc. Possible discharge in 24-48 hours if she keeps improvement 06/10/2021 Patient today was L Keita tired although she says she looks the same. Her oxygen requirement went up to 6 L/m so we have to keep monitor the patient in the hospital Blood pressure is slightly elevated while she is on steroids. No more fevers since admission. She remains on dexamethasone and multiple vitamins and Lovenox 06/11/2021 Patient looks more tired, her breathing looks the same with dyspnea however her oxygen requirements increased to 8 L/m. She has mild lab abnormality like mild increased liver enzymes, mild leukocytosis, mild hyponatremia. Chest x-ray was showing slightly increased infiltrates She remains on dexamethasone, Lovenox and multiple vitamins. D-dimer is a stable 1.2-1.6 06/12/2021 Patient today was sensitive, children in bed while oxygen off, she wasn't as questions readily as of yesterday, altered mental status is suspected, CT of the brain is requested as well as nephrology consult Her oxygen requirement went up to 8 L/m. She is afebrile and vitals are stable. She still on dexamethasone, vitamin C, vitamin D and zinc. Also she is on insulin and her Plavix. Objective - Vital Signs Vital signs: Vital Signs Temp 98.4 F 06/12/21 10:00 Pulse 70 06/12/21 10:00 Resp 17 06/12/21 10:00 BP 119/56 06/12/21 10:00 Pulse Ox 97 06/12/21 10:00 Intake & Output 06/11/21 06/12/21 06/12/21 18:59 06:59 18:59 Other: # Voids 3 4 # Bowel Movements 2 - Exam GENERAL: The patient is alert and oriented x3, not in any acute distress. Well developed, well nourished. HEENT: Pupils are round and equally reacting to light. EOMI. No scleral icterus. No conjunctival pallor. Normocephalic, atraumatic. No pharyngeal erythema. No thyromegaly. CARDIOVASCULAR: S1 and S2 present. No murmurs, rubs, or gallops. PULMONARY: Chest is clear to auscultation, no wheezing or crackles. ABDOMEN: Soft, nontender, nondistended, normoactive bowel sounds. No palpable organomegaly. MUSCULOSKELETAL: No joint swelling or deformity. EXTREMITIES: No cyanosis, clubbing, or pedal edema. NEUROLOGICAL: Gross neurological examination did not reveal any focal deficits. SKIN: No rashes. No petechiae - Labs CBC & Chem 7: 06/11/21 06:00 06/11/21 06:00 Labs: Abnormal Lab Results - Last 24 Hours (Table) 06/11/21 06/11/21 06/11/21 Range/Units 06:00 06:00 17:02 WBC 11.76 H (4.50-10.00) X 10*3/uL RBC 3.91 L (4.10-5.20) X 10*6/uL Hgb 10.3 L (12.0-15.0) g/dL Hct 30.8 L (37.2-46.3) % MCV 78.8 L (80.0-97.0) fL MCH 26.3 L (27.0-32.0) pg RDW 14.8 H (11.5-14.5) % Plt Count 464 H (140-440) X 10*3/uL MPV 9.1 L (9.5-12.2) fL Immature Gran # 0.23 H (0.00-0.04) X 10*3/uL Neutrophils # 9.35 H (1.80-7.70) X 10*3/uL Eosinophils # 0 L (0.04-0.35) X 10*3/uL Sodium 130 L (135-145) mmol/L Chloride 95 L (96-109) mmol/L Carbon Dioxide 16.9 L (21.6-31.8) mmol/L Anion Gap 18.60 H (4.00-12.00) mmol/L BUN 28.7 H (9.0-27.0) mg/dL BUN/Creatinine Ratio 33.88 H (12.00-20.00) Ratio POC Glucose (mg/dL) 310 H (75-99) mg/dL AST 88 H (13-35) U/L ALT 81 H (8-44) U/L Lactate Dehydrogenase 343 H (120-246) U/L C-Reactive Protein 2.20 H (0.00-0.80) mg/dL Albumin 3.7 L (3.8-4.9) g/dL Albumin/Globulin Ratio 1.29 L (1.60-3.17) g/dL 06/11/21 06/12/21 06/12/21 Range/Units 20:58 07:32 11:20 WBC (4.50-10.00) X 10*3/uL RBC (4.10-5.20) X 10*6/uL Hgb (12.0-15.0) g/dL Hct (37.2-46.3) % MCV (80.0-97.0) fL MCH (27.0-32.0) pg RDW (11.5-14.5) % Plt Count (140-440) X 10*3/uL MPV (9.5-12.2) fL Immature Gran # (0.00-0.04) X 10*3/uL Neutrophils # (1.80-7.70) X 10*3/uL Eosinophils # (0.04-0.35) X 10*3/uL Sodium (135-145) mmol/L Chloride (96-109) mmol/L Carbon Dioxide (21.6-31.8) mmol/L Anion Gap (4.00-12.00) mmol/L BUN (9.0-27.0) mg/dL BUN/Creatinine Ratio (12.00-20.00) Ratio POC Glucose (mg/dL) 184 H 106 H 194 H (75-99) mg/dL AST (13-35) U/L ALT (8-44) U/L Lactate Dehydrogenase (120-246) U/L C-Reactive Protein (0.00-0.80) mg/dL Albumin (3.8-4.9) g/dL Albumin/Globulin Ratio (1.60-3.17) g/dL Assessment and Plan Assessment: Bilateral acute covid pneumonia Acute hypoxic respiratory failure Altered mental status, metabolic encephalopathy. Ruled out intracranial lesion Possible viral gastroenteritis secondary to Covid with mildly elevated liver enzymes Hypothyroidism History of liver transplant Hypertension History of CVA/TIA Hyperlipidemia Diabetes mellitus, on insulin Plan: This is a pleasant 76 years old female who presents with covid pneumonia Continue with dexamethasone. And insulin sliding scale Continue with vitamin C, D and zinc Pulmonary consult Follow-up CT of the brain and neurology consult Labs and medication were reviewed.. Continue same treatment. Continue with symptomatic treatment. Resume home medication. Monitor lytes and vitals. DVT and GI prophylaxis. Further recommendations depends on the clinical course of the patient DVT prophylaxis: Subcutaneous Lovenox GI Prophylaxis: Pepcid Prognosis is guarded
[2021-06-12 21:02] LABS: Glucose,Whole Blood 318 mg/dL (75-99)
[2021-06-12] MEDS: NON FORMULARY DRUG (Rosuvastatin 10 MG Tablet) PO SCH (21:33)
[2021-06-13] MEDS: LEVOTHYROXINE 50 MCG TAB PO SCH (05:37)
[2021-06-13 07:13] LABS: Glucose,Whole Blood 166 mg/dL (75-99)
[2021-06-13] MEDS: INSULIN DETEMIR (LEVEMIR) 100 UNIT/ML SYR SQ SCH (07:26)
[2021-06-13] MEDS: ENOXAPARIN 40 MG/0.4 ML SYRINGE SQ SCH (07:26)
[2021-06-13] MEDS: CALCIUM CARB-VIT D 500 MG-5 MCG TAB PO SCH (07:26)
[2021-06-13] MEDS: INSULIN ASPART (NovoLOG) 100 UNIT/ML VIAL SQ SCH ×4 (07:26→21:38)
[2021-06-13] MEDS: METOPROLOL TARTRATE 50 MG TAB PO SCH ×2 (07:26→21:39)
[2021-06-13] MEDS: CLOPIDOGREL 75 MG TAB PO SCH (07:26)
[2021-06-13] MEDS: lisinopriL 10 MG TAB PO SCH (07:26)
[2021-06-13] MEDS: ZINC SULFATE 220 MG CAP PO SCH (07:27)
[2021-06-13] MEDS: FAMOTIDINE 20 MG TAB PO SCH ×2 (07:27→21:38)
[2021-06-13] MEDS: MECLIZINE 25 MG TAB PO SCH ×2 (07:27→21:39)
[2021-06-13] MEDS: CHOLECALCIFEROL 25 MCG (1000 IU) TABLET PO SCH (07:27)
[2021-06-13 09:19] LABS: Basophils # (A) 0.01 X 10*3/uL (0.00-0.10); Basophils % (A) 0.1 %; Eosinophils # (A) 0.01 X 10*3/uL (0.04-0.35); Eosinophils % (A) 0.1 %; HCT 35.6 % (37.2-46.3); HGB 11.4 g/dL (12.0-15.0); Lymphocytes # (A) 1.07 X 10*3/uL (0.90-5.00); Lymphocytes % (A) 10.3 %; MCH 25.2 pg (27.0-32.0); MCV 78.6 fL (80.0-97.0); Mean Platelet Volume 9.3 fL (9.5-12.2); Monocytes # (A) 0.79 X 10*3/uL (0.20-1.00); Monocytes % (A) 7.6 %; Neutrophils # (A) 8.35 X 10*3/uL (1.80-7.70); Neutrophils % (A) 80.1 %; Platelet Count 611 X 10*3/uL (140-440); RBC 4.53 X 10*6/uL (4.10-5.20); RDW 14.8 % (11.5-14.5); WBC 10.42 X 10*3/uL (4.50-10.00)
[2021-06-13 09:58] LABS: C Reactive Protein 7.9 mg/dL (0.00-0.80); Folate, Serum 19.7 ng/mL (4.40-31.00); Magnesium 1.8 mg/dL (1.5-2.4)
[2021-06-13] MEDS: MYCOPHENOLATE SODIUM DR 180 MG TABLET.DR PO SCH ×2 (10:03→21:39)
[2021-06-13] MEDS: cycloSPORINE 25 MG CAP PO SCH ×2 (10:03→21:38)
[2021-06-13 10:18] LABS: African American GFR (CKD) 72.5 (60.0-200.0); Albumin 3.8 g/dL (3.8-4.9); Albumin/Globulin Ratio 1.19 (1.60-3.17); Anion Gap 18.8 mmol/L (4.00-12.00); BUN/Creat Ratio 34.11 Ratio (12.00-20.00); Blood Urea Nitrogen 30.7 mg/dL (9.0-27.0); Calcium 9.4 mg/dL (8.7-10.3); Carbon Dioxide 18.2 mmol/L (21.6-31.8); Globulin 3.2 g/dL (1.6-3.3); Non-African American GFR(CKD) 62.5 (60.0-200.0); Potassium 4.8 mmol/L (3.5-5.5); Total Bilirubin 0.8 mg/dL (0.30-1.20)
[2021-06-13 11:40] LABS: Glucose,Whole Blood 141 mg/dL (75-99)
[2021-06-13] MEDS: DEXAMETHASONE SOD PHOSPHATE 10 MG/ML 1 ML VIAL IVP SCH (12:47)
--- NOTE | 2021-06-13 13:08 | P.PN ---
Subjective This is a pleasant 76 results female with past medical history of hypothyroidism, liver transplant, CVA/TIA, hypertension, diabetes mellitus, hyperlipidemia Patient presents because of difficulty breathing for about a week associated with cough and yellowish phlegm but no chest pain. She had diarrhea like 3 times this morning. She has diarrhea for 3 days. No abdominal pain or vomiting. She went to urgent care last Saturday about 3 days ago and they were diagnosed her with pneumonia, next day her Covid test came back positive she denies history of smoking, alcohol or illicit drugs. She does not have history of COPD. She is not on home oxygen She is hypoxic at 83% on room air and tachypneic with a breathing rate 30-40, tachycardic 122. She is afebrile at 97.8. Labs unremarkable including CBC, INR, BMP. Liver enzymes slightly elevated with AST 83 and ALT 36. Bilirubin is normal 1.0. Chest x-ray: Bilateral infiltrate with interstitial prominence has increased 06/08/2021 Patient today is awake, she is slightly tachypneic while sitting in bed. No significant dyspnea. No significant coughing. She denies chest pain. She denies diarrhea. She is saturating low 90s on 4 L oxygen via nasal cannula which is similar to yesterday. Fever on admission 100.0. Sided yesterday. labs from today are still pending. Sugar this morning to 30 patient is on insulin sliding scale She remains on dexamethasone, and multiple vitamins. 06/09/2021 Patient breathing is stable and she is on 4 L/m of oxygen with good oxygen saturation. Rest of vital signs stable, afebrile since admission when she had fever of 100.2. Labs are stable. Leg ultrasound was negative. She remains on dexamethasone vitamin C, D and zinc. Possible discharge in 24-48 hours if she keeps improvement 06/10/2021 Patient today was L Keita tired although she says she looks the same. Her oxygen requirement went up to 6 L/m so we have to keep monitor the patient in the hospital Blood pressure is slightly elevated while she is on steroids. No more fevers since admission. She remains on dexamethasone and multiple vitamins and Lovenox 06/11/2021 Patient looks more tired, her breathing looks the same with dyspnea however her oxygen requirements increased to 8 L/m. She has mild lab abnormality like mild increased liver enzymes, mild leukocytosis, mild hyponatremia. Chest x-ray was showing slightly increased infiltrates She remains on dexamethasone, Lovenox and multiple vitamins. D-dimer is a stable 1.2-1.6 06/12/2021 Patient today was sensitive, children in bed while oxygen off, she wasn't as questions readily as of yesterday, altered mental status is suspected, CT of the brain is requested as well as nephrology consult Her oxygen requirement went up to 8 L/m. She is afebrile and vitals are stable. She still on dexamethasone, vitamin C, vitamin D and zinc. Also she is on insulin and her Plavix. 06/13/2021 Patient still Confused at time, when I talked the patient should've very appropriate and oriented however better on per staff she started taking her oxygen off again. Suggest saturation and requirements went up to 8 L/m again today. She is mildly tachypneic but denies any specific symptoms like no chest pain. No dizziness. No abdominal pain or diarrhea or vomiting. No headache or difficulty moving extremities. She is hemodynamically stable other than the hypoxia. No more fever. Her exam is only mildly elevated but ammonia is negative with less than 9. WBC normal and stable around 10+. Sodium stable 1:30-131. LDH slightly elevated at 366 and subjective 14 7.9. She remains on dexamethasone, vitamin C, D and zinc. Also her sugar is controlled on home dose of Levemir 40 units at bedtime. She is also on Pepcid and Lovenox Objective - Vital Signs Vital signs: Vital Signs Temp 97.9 F 06/13/21 08:00 Pulse 65 06/13/21 08:00 Resp 22 06/13/21 08:00 BP 135/78 06/13/21 08:00 Pulse Ox 91 L 06/13/21 08:00 Intake & Output 06/12/21 06/13/21 06/13/21 18:59 06:59 18:59 Intake Total 160 Balance 160 Intake: Oral 160 Other: Voiding Method Toilet # Voids 1 2 # Bowel Movements 1 - Exam GENERAL: The patient is alert and oriented x3, not in any acute distress. Well developed, well nourished. HEENT: Pupils are round and equally reacting to light. EOMI. No scleral icterus. No conjunctival pallor. Normocephalic, atraumatic. No pharyngeal erythema. No thyromegaly. CARDIOVASCULAR: S1 and S2 present. No murmurs, rubs, or gallops. PULMONARY: Chest is clear to auscultation, no wheezing or crackles. ABDOMEN: Soft, nontender, nondistended, normoactive bowel sounds. No palpable organomegaly. MUSCULOSKELETAL: No joint swelling or deformity. EXTREMITIES: No cyanosis, clubbing, or pedal edema. NEUROLOGICAL: Gross neurological examination did not reveal any focal deficits. SKIN: No rashes. No petechiae - Labs CBC & Chem 7: 06/13/21 06:12 06/13/21 06:12 Labs: Abnormal Lab Results - Last 24 Hours (Table) 06/12/21 06/12/21 06/13/21 Range/Units 17:07 20:57 06:12 WBC (4.50-10.00) X 10*3/uL Hgb (12.0-15.0) g/dL Hct (37.2-46.3) % MCV (80.0-97.0) fL MCH (27.0-32.0) pg RDW (11.5-14.5) % Plt Count (140-440) X 10*3/uL MPV (9.5-12.2) fL Immature Gran # (0.00-0.04) X 10*3/uL Neutrophils # (1.80-7.70) X 10*3/uL Eosinophils # (0.04-0.35) X 10*3/uL Sodium (135-145) mmol/L Chloride (96-109) mmol/L Carbon Dioxide (21.6-31.8) mmol/L Anion Gap (4.00-12.00) mmol/L BUN (9.0-27.0) mg/dL BUN/Creatinine Ratio (12.00-20.00) Ratio Glucose (70-110) mg/dL POC Glucose (mg/dL) 360 H 318 H (75-99) mg/dL AST (13-35) U/L ALT (8-44) U/L Lactate Dehydrogenase (120-246) U/L C-Reactive Protein (0.00-0.80) mg/dL Albumin/Globulin Ratio (1.60-3.17) g/dL Procalcitonin 0.11 H (0.02-0.09) ng/mL 06/13/21 06/13/21 06/13/21 Range/Units 06:12 06:12 07:11 WBC 10.42 H (4.50-10.00) X 10*3/uL Hgb 11.4 L (12.0-15.0) g/dL Hct 35.6 L (37.2-46.3) % MCV 78.6 L (80.0-97.0) fL MCH 25.2 L (27.0-32.0) pg RDW 14.8 H (11.5-14.5) % Plt Count 611 H (140-440) X 10*3/uL MPV 9.3 L (9.5-12.2) fL Immature Gran # 0.19 H (0.00-0.04) X 10*3/uL Neutrophils # 8.35 H (1.80-7.70) X 10*3/uL Eosinophils # 0.01 L (0.04-0.35) X 10*3/uL Sodium 131 L (135-145) mmol/L Chloride 94 L (96-109) mmol/L Carbon Dioxide 18.2 L (21.6-31.8) mmol/L Anion Gap 18.80 H (4.00-12.00) mmol/L BUN 30.7 H (9.0-27.0) mg/dL BUN/Creatinine Ratio 34.11 H (12.00-20.00) Ratio Glucose 158 H (70-110) mg/dL POC Glucose (mg/dL) 166 H (75-99) mg/dL AST 48 H (13-35) U/L ALT 68 H (8-44) U/L Lactate Dehydrogenase 366 H (120-246) U/L C-Reactive Protein 7.90 H (0.00-0.80) mg/dL Albumin/Globulin Ratio 1.19 L (1.60-3.17) g/dL Procalcitonin (0.02-0.09) ng/mL 06/13/21 Range/Units 11:39 WBC (4.50-10.00) X 10*3/uL Hgb (12.0-15.0) g/dL Hct (37.2-46.3) % MCV (80.0-97.0) fL MCH (27.0-32.0) pg RDW (11.5-14.5) % Plt Count (140-440) X 10*3/uL MPV (9.5-12.2) fL Immature Gran # (0.00-0.04) X 10*3/uL Neutrophils # (1.80-7.70) X 10*3/uL Eosinophils # (0.04-0.35) X 10*3/uL Sodium (135-145) mmol/L Chloride (96-109) mmol/L Carbon Dioxide (21.6-31.8) mmol/L Anion Gap (4.00-12.00) mmol/L BUN (9.0-27.0) mg/dL BUN/Creatinine Ratio (12.00-20.00) Ratio Glucose (70-110) mg/dL POC Glucose (mg/dL) 141 H (75-99) mg/dL AST (13-35) U/L ALT (8-44) U/L Lactate Dehydrogenase (120-246) U/L C-Reactive Protein (0.00-0.80) mg/dL Albumin/Globulin Ratio (1.60-3.17) g/dL Procalcitonin (0.02-0.09) ng/mL Assessment and Plan Assessment: Bilateral acute covid pneumonia Acute hypoxic respiratory failure Altered mental status, metabolic encephalopathy. Ruled out intracranial lesion Possible viral gastroenteritis secondary to Covid with mildly elevated liver enzymes Hypothyroidism History of liver transplant Hypertension History of CVA/TIA Hyperlipidemia Diabetes mellitus, on insulin Plan: This is a pleasant 76 years old female who presents with covid pneumonia Continue with dexamethasone. And insulin sliding scale Continue with vitamin C, D and zinc Pulmonary consult Follow-up CT of the brain and neurology consult Labs and medication were reviewed.. Continue same treatment. Continue with symptomatic treatment. Resume home medication. Monitor lytes and vitals. DVT and GI prophylaxis. Further recommendations depends on the clinical course of the patient DVT prophylaxis: Subcutaneous Lovenox GI Prophylaxis: Pepcid Prognosis is guarded
--- NOTE | 2021-06-13 15:41 | P.PN ---
Subjective Progress Note Date: 06/13/21 The patient is seen at bedside and doing better. Per patient nurse, she is confused and pulling her oxygen nasal canuli. Her oxygen is as low as 83% at 5:30am. Upon seeing the patient she was sitting at side of couch and had her oxygen on the floor and was coughing. Objective - Vital Signs Vital signs: Vital Signs Temp 98.0 F 06/13/21 14:00 Pulse 67 06/13/21 14:00 Resp 18 06/13/21 14:00 BP 138/81 06/13/21 14:00 Pulse Ox 91 L 06/13/21 14:00 Intake & Output 06/12/21 06/13/21 06/13/21 18:59 06:59 18:59 Intake Total 160 Balance 160 Intake: Oral 160 Other: Voiding Method Toilet # Voids 1 2 # Bowel Movements 1 - Exam GENERAL: The patient is lying in bed and does not seem in not in acute distress. Respiratory: She kept on coughing. NEUROLOGICAL: Higher mental function: The patient is awake, alert, oriented to self and states she in the hospital but does not which. She could not tell me year. Is able to identify objects (pen, telephone and cup). Patient is following simple commands. No aphasia and no neglect. Cranial nerves: The pupils are round, equal and reactive to light and accommodation. Visual gee are full to confrontation throughout. Extraocular movement is intact no nystagmus is noted. Facial sensation is normal to touch throughout. The facial strength is normal throughout. Hearing is moderately decreased bilaterally to hand rub. Tongue is midline and moved [id number] without any difficulty. No dysarthria is noted. Patient had frequent episodes of cough. Shoulder shrug is normal bilaterally. Motor: The strength is moving all extremities above gravity without focality. Normal tone and bulk. Cerebellum: Normal finger to nose bilaterally. Sensation: Sensation is normal to touch throughout. Plantars are mute bilaterally. WORK-UP: Vitamin B-12 is 900, serum folate is 197. AST is a 48 and ALT 68 Ammonia is less than 9. CT HEAD: Reported as cerebral atrophy. No acute intracranial abnormality. Left-sided massive diabetes mellitus. No change compared to old exam. - Labs CBC & Chem 7: 06/13/21 06:12 06/13/21 06:12 Labs: Abnormal Lab Results - Last 24 Hours (Table) 06/12/21 06/12/21 06/13/21 Range/Units 17:07 20:57 06:12 WBC (4.50-10.00) X 10*3/uL Hgb (12.0-15.0) g/dL Hct (37.2-46.3) % MCV (80.0-97.0) fL MCH (27.0-32.0) pg RDW (11.5-14.5) % Plt Count (140-440) X 10*3/uL MPV (9.5-12.2) fL Immature Gran # (0.00-0.04) X 10*3/uL Neutrophils # (1.80-7.70) X 10*3/uL Eosinophils # (0.04-0.35) X 10*3/uL Sodium (135-145) mmol/L Chloride (96-109) mmol/L Carbon Dioxide (21.6-31.8) mmol/L Anion Gap (4.00-12.00) mmol/L BUN (9.0-27.0) mg/dL BUN/Creatinine Ratio (12.00-20.00) Ratio Glucose (70-110) mg/dL POC Glucose (mg/dL) 360 H 318 H (75-99) mg/dL AST (13-35) U/L ALT (8-44) U/L Lactate Dehydrogenase (120-246) U/L C-Reactive Protein (0.00-0.80) mg/dL Albumin/Globulin Ratio (1.60-3.17) g/dL Procalcitonin 0.11 H (0.02-0.09) ng/mL 06/13/21 06/13/21 06/13/21 Range/Units 06:12 06:12 07:11 WBC 10.42 H (4.50-10.00) X 10*3/uL Hgb 11.4 L (12.0-15.0) g/dL Hct 35.6 L (37.2-46.3) % MCV 78.6 L (80.0-97.0) fL MCH 25.2 L (27.0-32.0) pg RDW 14.8 H (11.5-14.5) % Plt Count 611 H (140-440) X 10*3/uL MPV 9.3 L (9.5-12.2) fL Immature Gran # 0.19 H (0.00-0.04) X 10*3/uL Neutrophils # 8.35 H (1.80-7.70) X 10*3/uL Eosinophils # 0.01 L (0.04-0.35) X 10*3/uL Sodium 131 L (135-145) mmol/L Chloride 94 L (96-109) mmol/L Carbon Dioxide 18.2 L (21.6-31.8) mmol/L Anion Gap 18.80 H (4.00-12.00) mmol/L BUN 30.7 H (9.0-27.0) mg/dL BUN/Creatinine Ratio 34.11 H (12.00-20.00) Ratio Glucose 158 H (70-110) mg/dL POC Glucose (mg/dL) 166 H (75-99) mg/dL AST 48 H (13-35) U/L ALT 68 H (8-44) U/L Lactate Dehydrogenase 366 H (120-246) U/L C-Reactive Protein 7.90 H (0.00-0.80) mg/dL Albumin/Globulin Ratio 1.19 L (1.60-3.17) g/dL Procalcitonin (0.02-0.09) ng/mL 06/13/21 Range/Units 11:39 WBC (4.50-10.00) X 10*3/uL Hgb (12.0-15.0) g/dL Hct (37.2-46.3) % MCV (80.0-97.0) fL MCH (27.0-32.0) pg RDW (11.5-14.5) % Plt Count (140-440) X 10*3/uL MPV (9.5-12.2) fL Immature Gran # (0.00-0.04) X 10*3/uL Neutrophils # (1.80-7.70) X 10*3/uL Eosinophils # (0.04-0.35) X 10*3/uL Sodium (135-145) mmol/L Chloride (96-109) mmol/L Carbon Dioxide (21.6-31.8) mmol/L Anion Gap (4.00-12.00) mmol/L BUN (9.0-27.0) mg/dL BUN/Creatinine Ratio (12.00-20.00) Ratio Glucose (70-110) mg/dL POC Glucose (mg/dL) 141 H (75-99) mg/dL AST (13-35) U/L ALT (8-44) U/L Lactate Dehydrogenase (120-246) U/L C-Reactive Protein (0.00-0.80) mg/dL Albumin/Globulin Ratio (1.60-3.17) g/dL Procalcitonin (0.02-0.09) ng/mL Assessment and Plan Assessment: * Altered mental status due to multifactorial: Acute hypoxic encephalopathy (keeps on taking her oxygen off) and component of metabolic encephalopathy (sugar is range of 100-300) with mild elevated LFT's, hyponatremia and medication effect (on steroids)---No focality on examination. * Acute hypoxic respiratory failure related to COVID-19 pneumonia is on cylcosporine and Mycophenolate and steroids * Labile sugar * Mild hepatitis * History of stroke about 8 years ago without any residual deficit * History of vertigo status post tympanostomy * Hypertension * Diabetes mellitus * Hyperlipidemia * Hypothyroidism * History of liver transplant for non-alcoholic steatoheaptitis (ALCAZAR) Plan: Ordered routine EEG. I'll not start the patient on an antiepileptic drug unless there is epileptiform discharges or seizure on the EEG. Her last TSH level was on 02/16/2021 and it was 1.170 and a free T4 was 1.33 therefore I would not repeat the test Patient last hemoglobin A1c was 6.5 on 11/29/2020. Continue every 4 hours neuro checks Recommend a sitter since patient keep on taking her oxygen off if possible. Pulmonary team is on board Defer the rest of medical management to primary team The plan is discussed with the patient's nurse. Thien Nascimento MD Neuro-Hospitalist Time with Patient: Less than 30
[2021-06-13 15:47] VITALS: BMI 27.0
--- NOTE | 2021-06-13 15:47 | P.PN ---
Subjective Progress Note Date: 06/13/21 Principal diagnosis: COVID 19 76-year-old white female patient with past medical history of a potential, previous history of CVA 8 years ago without residual deficits, liver tr ansplantation for history of nonalcoholic steatohepatitis (ALCAZAR) in [place], lifetime nonsmoker and nondrinker, who presented to the emergency department on 06/07/2021 with complaints of shortness of breath, fever, and cough. Patient tested positive for COVID 19 one week ago at an urgent care clinic in [place]. She was started on antibiotics for pneumonia the form of doxycycline. However her symptom onset was 2 weeks ago and initially started with fatigue and loss of appetite and progressed to shortness of breath, cough and fever. Patient is not vaccinated for COVID-19 related to patient's history of severe reaction to even oral contrast when she has to have a CT of the abdomen comp leted. She is on 4 L of oxygen her pulse ox of 90-92%, her chest x-ray in emergency department shows interstitial prominence, asymmetric elevation of the right hemidiaphragm, no consolidation or pleural effusion. Admission blood work shows white blood cell, 4.5, hemoglobin of 10.5, platelet count is 261, lymphocyte count is 0.5, d-dimer is 1.2, INR is 1.0, sodium is 135, potassium is 4.7, CO2 17, BUN is 18, creatinine 0.71, magnesium is 1.2, AST is 83, ALT is 36, alkaline phosphatase is 101, troponin is negative at 0.018, proBNP is 1860. Patient takes cyclosporine and mycophenilate for her history of liver transplant, she was started on Decadron 6 mg daily, she is on prophylactic dose Lovenox and COVID-19 vitamins. She is breathing comfortably, has a dry nonproductive cough, she is afebrile. She had a mild diarrhea and loss of appetite, but no vomiting or nausea. On 06/09/2021 patient seen in follow-up on medical surgical floor, she is breathing comfortably, she is currently on 3 L of oxygen pulse ox is 90-95%, no acute events overnight, lower extremity Dopplers were negative for DVT in bilateral lower extremities, lung sounds reveal minimal crackles at the bases, no nausea vomiting no diarrhea, no acute events overnight, no fever or chills. On 06/12/2021 patient seen in follow-up on medical surgical floor, she seems to be breathing comfortably, she is sitting by the window, she is currently on 8 L of oxygen however nursing staff reports difficulty keeping the patient's oxygen on her and she frequently takes it off. When she is wearing it her pulse ox is 96-97% on 8 afebrile, hemodynamically she has been stable however neurologically patient seems more confused, inattentive, she is only oriented to self, disoriented to place, and time, she thought Primo George was the president. She is having difficulty concentrating, it takes repetition with questioning to get her to pay attention. From pulmonary perspective although she still requiring high concentration oxygen she does not appear to be in any distress, lung sounds reveal bibasilar crackles, no rhonchi or wheezing. She is currently on Decadron 6 mg daily, she is on prophylactic Lovenox, she is on vitamins. Yesterday's chest x-ray was showing bilateral left greater than right interstitial and patc hy opacities slightly increased in the interval. Patient has been incontinent, she is wearing a brief, however she will not wear P and's, and last night nursing staff reports she got up unassisted and was ambulating down the [place] without her brief or oxygen. NO focal neurological deficits, however patient had a previous history of CVA in the past, will obtain brain CT and consult neurology On 06/13/2021 patient seen in follow-up on the surgical floor, she remains very confused, cannot keep her oxygen on, takes it off, and nursing staff needs to check on her to make sure the oxygen is on. She was attempting to eat the earpieces on the nasal cannula. Brain CT showed no acute intracranial a bnormality. She was seen by neurology please refer to the consultation. She has been moved closer to the desk for closer monitoring. On sounds reveal minimal crackles at the bases, no worsening dyspnea, she is currently on 8 L of oxygen and her pulse ox is 91%. Procalcitonin negative. Blood sugars have been elevated and ranging from 140-318. Patient on sliding scale insulin. Objective - Vital Signs Vital signs: Vital Signs Temp 98.0 F 06/13/21 14:00 Pulse 67 06/13/21 14:00 Resp 18 06/13/21 14:00 BP 138/81 06/13/21 14:00 Pulse Ox 91 L 06/13/21 14:00 Intake & Output 06/12/21 06/13/21 06/13/21 18:59 06:59 18:59 Intake Total 160 Balance 160 Intake: Oral 160 Other: Voiding Method Toilet # Voids 1 2 # Bowel Movements 1 - Exam GENERAL EXAM: Alert, but confused, 76-year-old white female, on 6 L of oxygen with a pulse ox of 91% comfortable in no apparent distress. Inattentive, takes several repetitions to get patient to answer questions HEAD: Normocephalic/atraumatic. EYES: Normal reaction of pupils, equal size. Conjunctiva pink, sclera white. NOSE: Clear with pink turbinates. THROAT: No erythema or exudates. NECK: No masses, no JVD, no thyroid enlargement, no adenopathy. CHEST: No chest wall deformity. Symmetrical expansion. LUNGS: Equal air entry with mild bibasilar crackles CVS: Regular rate and rhythm, normal S1 and S2, no gallops, no murmurs, no rubs ABDOMEN: Soft, nontender. No hepatosplenomegaly, normal bowel sounds, no guarding or rigidity. EXTREMITIES: No clubbing, no edema, no cyanosis, 2+ pulses and upper and lower extremities. MUSCULOSKELETAL: Muscle strength and tone normal. SPINE: No scoliosis or deformity SKIN: No rashes CENTRAL NERVOUS SYSTEM: Alert and oriented -1. No focal deficits, tone is normal in all 4 extremities. PSYCHIATRIC: Alert and oriented -1. Appropriate affect. Intact judgment and insight. - Labs CBC & Chem 7: 06/13/21 06:12 06/13/21 06:12 Labs: Abnormal Lab Results - Last 24 Hours (Table) 06/12/21 06/12/21 06/13/21 Range/Units 17:07 20:57 06:12 WBC (4.50-10.00) X 10*3/uL Hgb (12.0-15.0) g/dL Hct (37.2-46.3) % MCV (80.0-97.0) fL MCH (27.0-32.0) pg RDW (11.5-14.5) % Plt Count (140-440) X 10*3/uL MPV (9.5-12.2) fL Immature Gran # (0.00-0.04) X 10*3/uL Neutrophils # (1.80-7.70) X 10*3/uL Eosinophils # (0.04-0.35) X 10*3/uL Sodium (135-145) mmol/L Chloride (96-109) mmol/L Carbon Dioxide (21.6-31.8) mmol/L Anion Gap (4.00-12.00) mmol/L BUN (9.0-27.0) mg/dL BUN/Creatinine Ratio (12.00-20.00) Ratio Glucose (70-110) mg/dL POC Glucose (mg/dL) 360 H 318 H (75-99) mg/dL AST (13-35) U/L ALT (8-44) U/L Lactate Dehydrogenase (120-246) U/L C-Reactive Protein (0.00-0.80) mg/dL Albumin/Globulin Ratio (1.60-3.17) g/dL Procalcitonin 0.11 H (0.02-0.09) ng/mL 06/13/21 06/13/21 06/13/21 Range/Units 06:12 06:12 07:11 WBC 10.42 H (4.50-10.00) X 10*3/uL Hgb 11.4 L (12.0-15.0) g/dL Hct 35.6 L (37.2-46.3) % MCV 78.6 L (80.0-97.0) fL MCH 25.2 L (27.0-32.0) pg RDW 14.8 H (11.5-14.5) % Plt Count 611 H (140-440) X 10*3/uL MPV 9.3 L (9.5-12.2) fL Immature Gran # 0.19 H (0.00-0.04) X 10*3/uL Neutrophils # 8.35 H (1.80-7.70) X 10*3/uL Eosinophils # 0.01 L (0.04-0.35) X 10*3/uL Sodium 131 L (135-145) mmol/L Chloride 94 L (96-109) mmol/L Carbon Dioxide 18.2 L (21.6-31.8) mmol/L Anion Gap 18.80 H (4.00-12.00) mmol/L BUN 30.7 H (9.0-27.0) mg/dL BUN/Creatinine Ratio 34.11 H (12.00-20.00) Ratio Glucose 158 H (70-110) mg/dL POC Glucose (mg/dL) 166 H (75-99) mg/dL AST 48 H (13-35) U/L ALT 68 H (8-44) U/L Lactate Dehydrogenase 366 H (120-246) U/L C-Reactive Protein 7.90 H (0.00-0.80) mg/dL Albumin/Globulin Ratio 1.19 L (1.60-3.17) g/dL Procalcitonin (0.02-0.09) ng/mL 06/13/21 Range/Units 11:39 WBC (4.50-10.00) X 10*3/uL Hgb (12.0-15.0) g/dL Hct (37.2-46.3) % MCV (80.0-97.0) fL MCH (27.0-32.0) pg RDW (11.5-14.5) % Plt Count (140-440) X 10*3/uL MPV (9.5-12.2) fL Immature Gran # (0.00-0.04) X 10*3/uL Neutrophils # (1.80-7.70) X 10*3/uL Eosinophils # (0.04-0.35) X 10*3/uL Sodium (135-145) mmol/L Chloride (96-109) mmol/L Carbon Dioxide (21.6-31.8) mmol/L Anion Gap (4.00-12.00) mmol/L BUN (9.0-27.0) mg/dL BUN/Creatinine Ratio (12.00-20.00) Ratio Glucose (70-110) mg/dL POC Glucose (mg/dL) 141 H (75-99) mg/dL AST (13-35) U/L ALT (8-44) U/L Lactate Dehydrogenase (120-246) U/L C-Reactive Protein (0.00-0.80) mg/dL Albumin/Globulin Ratio (1.60-3.17) g/dL Procalcitonin (0.02-0.09) ng/mL Assessment and Plan Plan: Assessment: #1. Acute hypoxic respiratory failure related to COVID-19 pneumonia with onset of symptoms 2 weeks ago, patient is outside the window for Remdesivir, she has not vaccinated #2. Altered mental status, confusion, brain CT was negative, related to metabolic and hypoxic encephalopathy, neurology is following #3. History of liver transplant by history of nonalcoholic steatohepatitis, she is on cyclosporine and Mycophenolate #4. Hypertension #5. Diabetes mellitus #6. Hyperlipidemia #7. Previous history of CVA with no residual neurologic deficits #8. Hypothyroidism #9. Lifetime nonsmoker Plan: Continues to be confused Frequently removes oxygen CT brain has been noted Neurology consultation was appreciated May need a fire safety inspector Titrate FiO2 to keep O2 sats saturations at 90% and above Continue Lovenox, we'll switch IV Decadron to oral continue to follow her clinical course I performed a history & physical examination of the patient and discussed their management with my nurse practitioner, Aisha Bruce. I reviewed the nurse practitioner's note and agree with the documented findings and plan of care. Lung sounds are positive for diffuse crackles throughout the lung gee. The findings and the impression was discussed with the patient. I attest to the documentation by the nurse practitioner. Time with Patient: Less than 30
[2021-06-13] MEDS: ACETAMINOPHEN TAB 500 MG TAB PO PRN (16:15)
[2021-06-13 16:47] LABS: Glucose,Whole Blood 199 mg/dL (75-99)
[2021-06-13 20:02] LABS: Glucose,Whole Blood 130 mg/dL (75-99)
[2021-06-13] MEDS: NON FORMULARY DRUG (Rosuvastatin 10 MG Tablet) PO SCH (21:39)
[2021-06-14] MEDS: LEVOTHYROXINE 50 MCG TAB PO SCH (05:44)
[2021-06-14 07:13] LABS: Glucose,Whole Blood 109 mg/dL (75-99)
[2021-06-14] MEDS: INSULIN ASPART (NovoLOG) 100 UNIT/ML VIAL SQ SCH ×4 (07:41→20:10)
[2021-06-14] MEDS: cycloSPORINE 25 MG CAP PO SCH ×2 (07:42→20:10)
[2021-06-14] MEDS: ENOXAPARIN 40 MG/0.4 ML SYRINGE SQ SCH (07:42)
[2021-06-14] MEDS: dexAMETHasone 2 MG TAB PO SCH (07:42)
[2021-06-14] MEDS: INSULIN DETEMIR (LEVEMIR) 100 UNIT/ML SYR SQ SCH (07:42)
[2021-06-14] MEDS: MECLIZINE 25 MG TAB PO SCH ×2 (07:43→20:10)
[2021-06-14] MEDS: lisinopriL 10 MG TAB PO SCH (07:43)
[2021-06-14] MEDS: FAMOTIDINE 20 MG TAB PO SCH ×2 (07:43→20:10)
[2021-06-14] MEDS: CHOLECALCIFEROL 25 MCG (1000 IU) TABLET PO SCH (07:43)
[2021-06-14] MEDS: CALCIUM CARB-VIT D 500 MG-5 MCG TAB PO SCH (07:43)
[2021-06-14] MEDS: METOPROLOL TARTRATE 50 MG TAB PO SCH ×2 (07:43→20:10)
[2021-06-14] MEDS: CLOPIDOGREL 75 MG TAB PO SCH (07:43)
[2021-06-14] MEDS: ZINC SULFATE 220 MG CAP PO SCH (07:43)
[2021-06-14 12:15] LABS: Glucose,Whole Blood 224 mg/dL (75-99)
--- NOTE | 2021-06-14 12:27 | CT ---
EXAMINATION TYPE: CT brain wo con DATE OF EXAM: 06/14/2021 COMPARISON: 06/12/2021 HISTORY: Confusion CT DLP: 1159.[address] of the brain was performed. The ventricles, basal cisterns and sulci overlying the cerebral convexities demonstrate mild enlargem ent. There is no evidence for intracranial hemorrhage or sulcal effacement. There is decreased attenuation about the periventricular white matter and deep white matter of both c erebral hemispheres, compatible with chronic small vessel ischemia. Differential diagnosis does inclu de demyelination. No mass effects are seen.No midline shift. Osseous calvarium is intact. If symptoms persist consider MRI. IMPRESSION: 1. Age related atrophic and chronic small vessel ischemic change without acute intracranial process s een at this time.
[2021-06-14] MEDS: MYCOPHENOLATE SODIUM DR 180 MG TABLET.DR PO SCH ×2 (12:28→21:40)
--- NOTE | 2021-06-14 13:23 | P.PN ---
Subjective Progress Note Date: 06/14/21 The patient's nurse the patient continues to be confused and having staring episode and nonresponding but jerking of extremities. Upon seeing her she was lying on her bed and coughing and felt she was about the same. Today her pulse oxygen was low as 84% Objective - Vital Signs Vital signs: Vital Signs Temp 97.9 F 06/14/21 10:13 Pulse 73 06/14/21 10:13 Resp 19 06/14/21 10:13 BP 136/79 06/14/21 10:13 Pulse Ox 95 06/14/21 10:13 Intake & Output 06/13/21 06/14/21 06/14/21 18:59 06:59 18:59 Intake Total 260 Balance 260 Weight 64.864 kg Intake: Oral 260 Other: Voiding Method Toilet Toilet # Voids 2 - Exam GENERAL: The patient is lying in bed and seems somewhat in respiratory distress. Respiratory: She continues to cough. She is not in labored breathing. NEUROLOGICAL: Higher mental function: The patient is awake, alert, oriented to self. With options she correctly stated she was in the hospital but could not tell me name. She correctly stated the month but said the year is 1999. She is able to name objects correctly (phone, cup and gloves). Patient is following simple commands. No aphasia and no neglect. Cranial nerves: The pupils are round, equal and reactive to light. Visual gee are full to confrontation throughout. Extraocular movement is intact no nystagmus is noted. The facial strength is normal throughout. Hearing is moderately decreased bilaterally to hand rub. Tongue is midline and moved [id number] without any difficulty. No dysarthria is noted. Patient had frequent episodes of cough. Motor: The strength is moving all extremities above gravity without focality. Normal tone and bulk. Cerebellum: Normal finger to nose bilaterally. Sensation: Sensation is normal to touch throughout. Plantars are mute bilaterally. WORK-UP: Vitamin B-12 is 900, serum folate is 19.70. AST is a 48 and ALT 68 Ammonia is less than 9. CT HEAD: Reported as cerebral atrophy. No acute intracranial abnormality. Left-sided massive diabetes mellitus. No change compared to old exam. - Labs CBC & Chem 7: 06/13/21 06:12 06/13/21 06:12 Labs: Abnormal Lab Results - Last 24 Hours (Table) 06/13/21 06/13/21 06/14/21 Range/Units 16:45 20:00 07:01 POC Glucose (mg/dL) 199 H 130 H 109 H (75-99) mg/dL 06/14/21 Range/Units 12:13 POC Glucose (mg/dL) 224 H (75-99) mg/dL Assessment and Plan Assessment: * Altered mental status due to multifactorial: Acute hypoxic encephalopathy (keeps on taking her oxygen off) and component of metabolic encephalopathy (labile sugar, with hyponatremia and medication effect (on steroids)---No focality on examination. * Acute hypoxic respiratory failure related to COVID-19 pneumonia is on cylcospo rine and Mycophenolate and steroids * Labile sugar * Mild hepatitis * History of stroke about 8 years ago without any residual deficit * History of vertigo status post tympanostomy * Hypertension * Diabetes mellitus * Hyperlipidemia * Hypothyroidism * History of liver transplant for non-alcoholic steatoheaptitis (ALCAZAR) Plan: * Ordered routine EEG. But patient could not cooperate for the EEG so the EEG was discontinued. Patient does not have any clinical seizure-like activity and my suspicion for seizures is extremely low. * I got a repeat CT of the head that today and it's reported as age-related atrophy and chronic small vessel ischemic change without acute intracranial process at this time. I personally could not review the CT of the head because there is no images attached to the patient's file that can be reviewed. * I ordered MRI of the brain to rule out any underlying acute ischemic stroke not picked up on CT of the head. My suspicion for stroke is also extremely low. * Her last TSH level was on 02/16/2021 and it was 1.170 and a free T4 was 1.33 therefore I would not repeat the test * Patient last hemoglobin A1c was 6.5 on 11/29/2020. * Continue every 4 hours neuro checks * Recommend a sitter since patient keep on taking her oxygen off if possible. * Pulmonary team is on board * Defer the rest of medical management to primary team The plan is discussed with the patient's nurse. UPDATE: MR the brain is reported as no MRI evidence for recent infarct. Mild diffuse age-related cerebral atrophy and mild to moderate chronic small vessel ischemic changes. Personally reviewed the MRI the brain and I agree there is no acute or subacute ischemia. There is no further neurological workup. Neurology will sign off. Please reconsult if needed. Thien Nascimento MD Neuro-Hospitalist Time with Patient: Less than 30
--- NOTE | 2021-06-14 15:57 | MR ---
EXAMINATION TYPE: MR brain wo con DATE OF EXAM: 06/14/2021 COMPARISON: CT brain from earlier today and older studies HISTORY: AMS, Covid 19, Hypoxia. TECHNIQUE: Multiplanar, multisequence imaging of the brain and brainstem is performed without IV cont rast. FINDINGS: Exam suboptimal as patient unable to hold still. Significant motion artifact on T2 coronal images in particular Diffusion weighted images demonstrate no evidence of a recent infarct or other diffusion abnormality. There is mild ventricular and sulcal prominence. Confluent areas of T2 hyperintensity in the perivent ricular white matter are present. There are some small scattered foci of T2 hyperintensity in the mila p white matter bilaterally. Findings likely combination of products of chronic small vessel ischemic change and transependymal flow of CSF. Midline structures demonstrate normal morphology. The craniocervical junction appears within normal limits. Normal vascular flow voids are present. Dominant left vertebral artery is present. Abnormal f luid signal in the left mastoid air cells is redemonstrated. [id number]-[id number] mucosal thickening in t he inferior left maxillary sinus and mild mucosal thickening in ethmoid sinuses bilaterally. The glob es are intact bilaterally. IMPRESSION: No MRI evidence for a recent infarct. Mild diffuse age-related cerebral atrophy and mild to moderate chronic small vessel ischemic changes thought present.
--- NOTE | 2021-06-14 16:15 | P.PN ---
Subjective Progress Note Date: 06/14/21 Principal diagnosis: COVID-19 pneumonia 76-year-old white female patient with past medical history of a potential, previous history of CVA 8 years ago without residual deficits, liver transplantation for history of nonalcoholic steatohepatitis (ALCAZAR) in [place], lifetime nonsmoker and nondrinker, who presented to the emergency department on 06/07/2021 with complaints of shortness of breath, fever, and cough. Patient tested positive for COVID 19 one week ago at an urgent care clinic in [place]. She was started on antibiotics for pneumonia the form of doxycycline. However her symptom onset was 2 weeks ago and initially started with fatigue and loss of appetite and progressed to shortness of breath, cough and fever. Patient is not vaccinated for COVID-19 related to patient's history of severe reaction to even oral contrast when she has to have a CT of the abdomen completed. She is on 4 L of oxygen her pulse ox of 90-92%, her chest x-ray in emergency department shows interstitial prominence, asymmetric elevation of the right hemidiaphragm, no consolidation or pleural effusion. Admission blood work shows white blood cell, 4.5, hemoglobin of 10.5, platelet count is 261, lymphocyte count is 0.5, d-dimer is 1.2, INR is 1.0, sodium is 135, potassium is 4.7, CO2 17, BUN is 18, creatinine 0.71, magnesium is 1.2, AST is 83, ALT is 36, alkaline phosphatase is 101, troponin is negative at 0.018, proBNP is 1860. Patient takes cyclosporine and mycophenilate for her history of liver transplant, she was started on Decadron 6 mg daily, she is on prophylactic dose Lovenox and COVID-19 vitamins. She is breathing comfortably, has a dry nonproductive cough, she is afebrile. She had a mild diarrhea and loss of appetite, but no vomiting or nausea. On 06/09/2021 patient seen in follow-up on medical surgical floor, she is breathing comfortably, she is currently on 3 L of oxygen pulse ox is 90-95%, no acute events overnight, lower extremity Dopplers were negative for DVT in bilateral lower extremities, lung sounds reveal minimal crackles at the bases, no nausea vomiting no diarrhea, no acute events overnight, no fever or chills. The patient is seen today 06/10/2021 in follow-up on the regular medical floor. She is currently sitting up in chair at the bedside. Awake and alert in no acute distress. She has had increasing shortness of breath. She was 87% O2 saturations on 5 L nasal cannula. She's currently 95% on 6 L nasal cannula. She's been afebrile. Hemodynamically stable. Blood glucose 136. She remains on Decadron, Lovenox, vitamin supplements. The patient is seen today 06/11/2021 in follow-up on the regular medical floor. She is currently sitting up at the bedside. Awake and alert in no acute distress. Doing a bit better today compared to yesterday. Her appetite is good. She is on 8 L high flow nasal cannula maintaining O2 saturations in the low 90s. She's been afebrile. Hemodynamically stable. Continues with coarse crackles in the posterior bases. Chest x-ray, but continues to revealed bilateral left greater than right interstitial and patchy opacities. White count 11.7. Hemoglobin 10.3. Lymphocytes 1.29. D-dimer 1.62. Sodium 1:30. Potassium 4.2. Creatinine 0.8. AST 88. ALT 81. LDH 343. C-reactive protein 2.2. She remains on Decadron, Lovenox, vitamin supplements. The patient is seen today 06/12/2021 in follow-up on the regular medical floor. She is currently sitting up in a chair at the bedside. Awake and alert in no acute distress. She is currently on 8 L high flow nasal cannula to maintain O2 saturations in the low 90s. She is 84% on room air. She has had some altered mental status and confusion. Computed tomography scan of the brain reveals age- related atrophic and chronic small vessel ischemic changes without acute intracranial process. MRI of the brain revealed no evidence of recent infarct. There is mild diffuse age-related cerebral atrophy and mild to moderate chronic small vessel ischemic changes. Glucose 224. She remains on Lovenox, Decadron, vitamin supplements. Objective - Vital Signs Vital signs: Vital Signs Temp 97.9 F 06/14/21 10:13 Pulse 73 06/14/21 10:13 Resp 19 06/14/21 10:13 BP 136/79 06/14/21 10:13 Pulse Ox 95 11/24/21 10:13 Intake & Output 06/13/21 06/14/21 06/14/21 18:59 06:59 18:59 Intake Total 260 Balance 260 Weight 64.864 kg Intake: Oral 260 Other: Voiding Method Toilet Toilet # Voids 2 2 - Exam GENERAL EXAM: Alert, slightly confused 76-year-old female patient, on 8 L nasal cannula, fairly comfortable in no apparent distress. HEAD: Normocephalic. EYES: Normal reaction of pupils, equal size. NOSE: Clear with pink turbinates. THROAT: No erythema or exudates. NECK: No masses, no JVD. CHEST: No chest wall deformity. LUNGS: Equal air entry with coarse crackles in the bilateral bases. CVS: S1 and S2 normal with no audible murmur, regular rhythm. ABDOMEN: No hepatosplenomegaly, normal bowel sounds, no guarding or rigidity. SPINE: No scoliosis or deformity SKIN: No rashes CENTRAL NERVOUS SYSTEM: No focal deficits, tone is normal in all 4 extremities. EXTREMITIES: There is no peripheral edema. No clubbing, no cyanosis. Peripheral pulses are intact. - Labs CBC & Chem 7: 06/13/21 06:12 06/13/21 06:12 Labs: Abnormal Lab Results - Last 24 Hours (Table) 06/13/21 06/13/21 06/14/21 Range/Units 16:45 20:00 07:01 POC Glucose (mg/dL) 199 H 130 H 109 H (75-99) mg/dL 06/14/21 Range/Units 12:13 POC Glucose (mg/dL) 224 H (75-99) mg/dL Assessment and Plan Assessment: 1 Acute hypoxic respiratory failure related to COVID-19 pneumonia with onset of symptoms 2 weeks ago, patient is outside the window for Remdesivir, she has not been vaccinated 2 History of liver transplant by history of nonalcoholic steatohepatitis, she is on cyclosporine and Mycophenolate 3 Hypertension 4 Diabetes mellitus 5 Hyperlipidemia 6 Previous history of CVA with no residual neurologic deficits 7 Hypothyroidism 8 Lifetime nonsmoker 9 Episodes of confusion and altered mental status. CT scans of the brain revealed no acute process. MRI of the brain revealed no acute recent infarct. Plan: The patient was seen and evaluated by Dr. Nascimento Currently on 8 L nasal cannula Titrate the FiO2 as tolerated Follow-up chest x-ray in the a.m. We'll continue to follow I, the cosigning physician, performed a history & physical examination of the patient. Lungs sounds crackles in the posterior bases. Maintaining good O2 saturations in the 90s on 8 L/m per nasal cannula. I discussed the assessment and plan of care with my nurse practitioner, Angelina Abreu. I attest to the above note as dictated by her.t
[2021-06-14 16:48] LABS: Glucose,Whole Blood 258 mg/dL (75-99)
--- NOTE | 2021-06-14 19:13 | P.PN ---
Subjective This is a pleasant 76 results female with past medical history of hypothyroidism, liver transplant, CVA/TIA, hypertension, diabetes mellitus, hyperlipidemia Patient presents because of difficulty breathing for about a week associated with cough and yellowish phlegm but no chest pain. She had diarrhea like 3 times this morning. She has diarrhea for 3 days. No abdominal pain or vomiting. She went to urgent care last Saturday about 3 days ago and they were diagnosed her with pneumonia, next day her Covid test came back positive she denies history of smoking, alcohol or illicit drugs. She does not have history of COPD. She is not on home oxygen She is hypoxic at 83% on room air and tachypneic with a breathing rate 30-40, tachycardic 122. She is afebrile at 97.8. Labs unremarkable including CBC, INR, BMP. Liver enzymes slightly elevated with AST 83 and ALT 36. Bilirubin is normal 1.0. Chest x-ray: Bilateral infiltrate with interstitial prominence has increased 06/08/2021 Patient today is awake, she is slightly tachypneic while sitting in bed. No significant dyspnea. No significant coughing. She denies chest pain. She denies diarrhea. She is saturating low 90s on 4 L oxygen via nasal cannula which is similar to yesterday. Fever on admission 100.0. Sided yesterday. labs from today are still pending. Sugar this morning to 30 patient is on insulin sliding scale She remains on dexamethasone, and multiple vitamins. 06/09/2021 Patient breathing is stable and she is on 4 L/m of oxygen with good oxygen saturation. Rest of vital signs stable, afebrile since admission when she had fever of 100.2. Labs are stable. Leg ultrasound was negative. She remains on dexamethasone vitamin C, D and zinc. Possible discharge in 24-48 hours if she keeps improvement 06/10/2021 Patient today was L Keita tired although she says she looks the same. Her oxygen requirement went up to 6 L/m so we have to keep monitor the patient in the hospital Blood pressure is slightly elevated while she is on steroids. No more fevers since admission. She remains on dexamethasone and multiple vitamins and Lovenox 06/11/2021 Patient looks more tired, her breathing looks the same with dyspnea however her oxygen requirements increased to 8 L/m. She has mild lab abnormality like mild increased liver enzymes, mild leukocytosis, mild hyponatremia. Chest x-ray was showing slightly increased infiltrates She remains on dexamethasone, Lovenox and multiple vitamins. D-dimer is a stable 1.2-1.6 06/12/2021 Patient today was sensitive, children in bed while oxygen off, she wasn't as questions readily as of yesterday, altered mental status is suspected, CT of the brain is requested as well as nephrology consult Her oxygen requirement went up to 8 L/m. She is afebrile and vitals are stable. She still on dexamethasone, vitamin C, vitamin D and zinc. Also she is on insulin and her Plavix. 06/13/2021 Patient still Confused at time, when I talked the patient should've very appropriate and oriented however better on per staff she started taking her oxygen off again. Suggest saturation and requirements went up to 8 L/m again today. She is mildly tachypneic but denies any specific symptoms like no chest pain. No dizziness. No abdominal pain or diarrhea or vomiting. No headache or difficulty moving extremities. She is hemodynamically stable other than the hypoxia. No more fever. Her exam is only mildly elevated but ammonia is negative with less than 9. WBC normal and stable around 10+. Sodium stable 1:30-131. LDH slightly elevated at 366 and subjective 14 7.9. She remains on dexamethasone, vitamin C, D and zinc. Also her sugar is controlled on home dose of Levemir 40 units at bedtime. She is also on Pepcid and Lovenox 06/14/2021 Patient still feels generally weak, no specific complaint. She is awake and alert, she is lethargic. He was not complaining much from dyspnea while she is at rest. She was on 8 L/m of oxygen today but her oxygen saturation was more than 95%-98% MRI of the brain today came back with no infarct. And patient actually looks fully awake and oriented she is just tired Other than that she remains on the same treatment of dexamethasone and vitamins Objective - Vital Signs Vital signs: Vital Signs Temp 97.9 F 06/14/21 10:13 Pulse 73 06/14/21 10:13 Resp 19 06/14/21 10:13 BP 136/79 06/14/21 10:13 Pulse Ox 95 06/14/21 10:13 Intake & Output 11/06/14/21 06/14/21 18:59 06:59 18:59 Intake Total 260 Balance 260 Weight 64.864 kg Intake: Oral 260 Other: Voiding Method Toilet Toilet # Voids 2 2 - Exam GENERAL: The patient is alert and oriented x3, not in any acute distress. Well developed, well nourished. HEENT: Pupils are round and equally reacting to light. EOMI. No scleral icterus. No conjunctival pallor. Normocephalic, atraumatic. No pharyngeal erythema. No thyromegaly. CARDIOVASCULAR: S1 and S2 present. No murmurs, rubs, or gallops. PULMONARY: Chest is clear to auscultation, no wheezing or crackles. ABDOMEN: Soft, nontender, nondistended, normoactive bowel sounds. No palpable organomegaly. MUSCULOSKELETAL: No joint swelling or deformity. EXTREMITIES: No cyanosis, clubbing, or pedal edema. NEUROLOGICAL: Gross neurological examination did not reveal any focal deficits. SKIN: No rashes. No petechiae - Labs CBC & Chem 7: 06/13/21 06:12 06/13/21 06:12 Labs: Abnormal Lab Results - Last 24 Hours (Table) 06/13/21 06/13/21 06/14/21 Range/Units 16:45 20:00 07:01 POC Glucose (mg/dL) 199 H 130 H 109 H (75-99) mg/dL 06/14/21 Range/Units 12:13 POC Glucose (mg/dL) 224 H (75-99) mg/dL Assessment and Plan Assessment: Bilateral acute covid pneumonia Acute hypoxic respiratory failure Possible viral gastroenteritis secondary to Covid with mildly elevated liver enzymes, improved Hypothyroidism History of liver transplant Hypertension History of CVA/TIA Hyperlipidemia Diabetes mellitus, on insulin Plan: This is a pleasant 76 years old female who presents with covid pneumonia Continue with dexamethasone. And insulin sliding scale Continue with vitamin C, D and zinc Pulmonary consult Labs and medication were reviewed.. Continue same treatment. Continue with symptomatic treatment. Resume home medication. Monitor lytes and vitals. DVT and GI prophylaxis. Further recommendations depends on the clinical course of the patient DVT prophylaxis: Subcutaneous Lovenox GI Prophylaxis: Pepcid Prognosis is guarded
[2021-06-14 20:05] LABS: Glucose,Whole Blood 317 mg/dL (75-99)
[2021-06-14] MEDS: NON FORMULARY DRUG (Rosuvastatin 10 MG Tablet) PO SCH (20:08)
[2021-06-15] MEDS: LEVOTHYROXINE 50 MCG TAB PO SCH (05:52)
[2021-06-15 07:26] LABS: Glucose,Whole Blood 93 mg/dL (75-99)
[2021-06-15] MEDS: INSULIN ASPART (NovoLOG) 100 UNIT/ML VIAL SQ SCH ×4 (07:56→21:44)
[2021-06-15] MEDS: CALCIUM CARB-VIT D 500 MG-5 MCG TAB PO SCH (08:00)
[2021-06-15] MEDS: MECLIZINE 25 MG TAB PO SCH ×2 (08:00→21:44)
[2021-06-15] MEDS: cycloSPORINE 25 MG CAP PO SCH ×2 (08:00→21:44)
[2021-06-15] MEDS: ZINC SULFATE 220 MG CAP PO SCH (08:00)
[2021-06-15] MEDS: CLOPIDOGREL 75 MG TAB PO SCH (08:00)
[2021-06-15] MEDS: METOPROLOL TARTRATE 50 MG TAB PO SCH ×2 (08:00→21:44)
[2021-06-15] MEDS: lisinopriL 10 MG TAB PO SCH (08:00)
[2021-06-15] MEDS: FAMOTIDINE 20 MG TAB PO SCH ×2 (08:00→21:44)
[2021-06-15] MEDS: ENOXAPARIN 40 MG/0.4 ML SYRINGE SQ SCH (08:00)
[2021-06-15] MEDS: dexAMETHasone 2 MG TAB PO SCH (08:00)
[2021-06-15] MEDS: CHOLECALCIFEROL 25 MCG (1000 IU) TABLET PO SCH (08:00)
[2021-06-15] MEDS: INSULIN DETEMIR (LEVEMIR) 100 UNIT/ML SYR SQ SCH (08:00)
[2021-06-15] MEDS: MYCOPHENOLATE SODIUM DR 180 MG TABLET.DR PO SCH ×2 (08:00→21:44)
--- NOTE | 2021-06-15 09:01 | XR ---
EXAMINATION TYPE: XR chest 1V portable DATE OF EXAM: 06/15/2021 CLINICAL HISTORY: Difficulty breathing and covid pneumonia progress study. TECHNIQUE: Single AP portable upright view of the chest is obtained. COMPARISON: Chest x-ray from 4 days earlier. FINDINGS: Diminished inspiration with elevated right hemidiaphragm. Worsening bilateral multifocal o pacities greatest in the periphery. Cardiac silhouette size stable and upper limits of normal. Osseou s structures are intact. IMPRESSION: Diminished inspiration with worsening bilateral multifocal opacities greatest in the alex phery suggesting worsening covid-19 infection progression.
[2021-06-15 12:08] LABS: Glucose,Whole Blood 174 mg/dL (75-99)
--- NOTE | 2021-06-15 12:56 | P.PN ---
Subjective This is a pleasant 76 results female with past medical history of hypothyroidism, liver transplant, CVA/TIA, hypertension, diabetes mellitus, hyperlipidemia Patient presents because of difficulty breathing for about a week associated with cough and yellowish phlegm but no chest pain. She had diarrhea like 3 times this morning. She has diarrhea for 3 days. No abdominal pain or vomiting. She went to urgent care last Saturday about 3 days ago and they were diagnosed her with pneumonia, next day her Covid test came back positive she denies history of smoking, alcohol or illicit drugs. She does not have history of COPD. She is not on home oxygen She is hypoxic at 83% on room air and tachypneic with a breathing rate 30-40, tachycardic 122. She is afebrile at 97.8. Labs unremarkable including CBC, INR, BMP. Liver enzymes slightly elevated with AST 83 and ALT 36. Bilirubin is normal 1.0. Chest x-ray: Bilateral infiltrate with interstitial prominence has increased 06/08/2021 Patient today is awake, she is slightly tachypneic while sitting in bed. No significant dyspnea. No significant coughing. She denies chest pain. She denies diarrhea. She is saturating low 90s on 4 L oxygen via nasal cannula which is similar to yesterday. Fever on admission 100.0. Sided yesterday. labs from today are still pending. Sugar this morning to 30 patient is on insulin sliding scale She remains on dexamethasone, and multiple vitamins. 06/09/2021 Patient breathing is stable and she is on 4 L/m of oxygen with good oxygen saturation. Rest of vital signs stable, afebrile since admission when she had fever of 100.2. Labs are stable. Leg ultrasound was negative. She remains on dexamethasone vitamin C, D and zinc. Possible discharge in 24-48 hours if she keeps improvement 06/10/2021 Patient today was L Keita tired although she says she looks the same. Her oxygen requirement went up to 6 L/m so we have to keep monitor the patient in the hospital Blood pressure is slightly elevated while she is on steroids. No more fevers since admission. She remains on dexamethasone and multiple vitamins and Lovenox 06/11/2021 Patient looks more tired, her breathing looks the same with dyspnea however her oxygen requirements increased to 8 L/m. She has mild lab abnormality like mild increased liver enzymes, mild leukocytosis, mild hyponatremia. Chest x-ray was showing slightly increased infiltrates She remains on dexamethasone, Lovenox and multiple vitamins. D-dimer is a stable 1.2-1.6 06/12/2021 Patient today was sensitive, children in bed while oxygen off, she wasn't as questions readily as of yesterday, altered mental status is suspected, CT of the brain is requested as well as nephrology consult Her oxygen requirement went up to 8 L/m. She is afebrile and vitals are stable. She still on dexamethasone, vitamin C, vitamin D and zinc. Also she is on insulin and her Plavix. 06/13/2021 Patient still Confused at time, when I talked the patient should've very appropriate and oriented however better on per staff she started taking her oxygen off again. Suggest saturation and requirements went up to 8 L/m again today. She is mildly tachypneic but denies any specific symptoms like no chest pain. No dizziness. No abdominal pain or diarrhea or vomiting. No headache or difficulty moving extremities. She is hemodynamically stable other than the hypoxia. No more fever. Her exam is only mildly elevated but ammonia is negative with less than 9. WBC normal and stable around 10+. Sodium stable 1:30-131. LDH slightly elevated at 366 and subjective 14 7.9. She remains on dexamethasone, vitamin C, D and zinc. Also her sugar is controlled on home dose of Levemir 40 units at bedtime. She is also on Pepcid and Lovenox 06/14/2021 Patient still feels generally weak, no specific complaint. She is awake and alert, she is lethargic. He was not complaining much from dyspnea while she is at rest. She was on 8 L/m of oxygen today but her oxygen saturation was more than 95%-98% MRI of the brain today came back with no infarct. And patient actually looks fully awake and oriented she is just tired Other than that she remains on the same treatment of dexamethasone and vitamins 06/15/2021 Patient is more up in bed today awake and alert, denies headache or weakness. An MRI of the brain came back negative and I discussed the case with neurology service. Patient looks like does not have any altered mental status she has some mild metabolic encephalopathy probably from hypoxia and her Covid infection but that's improving. Also she is lethargic She is on 6 L oxygen per minute today. Repeat chest x-ray showed worsening bilateral opacity in the peripherally indicating worsening Covid pneumonia. Remains on the same treatment of steroids, multiple vitamins, she is on dexamethasone 6 mg. Repeat labs tomorrow morning Objective - Vital Signs Vital signs: Vital Signs Temp 98.2 F 06/15/21 10:20 Pulse 60 06/15/21 10:20 Resp 22 06/15/21 10:20 BP 144/77 06/15/21 10:20 Pulse Ox 98 06/15/21 10:20 Intake & Output 06/14/21 06/15/21 06/15/21 18:59 06:59 18:59 Other: Voiding Method Toilet # Voids 2 2 - Exam GENERAL: The patient is alert and oriented x3, not in any acute distress. Well developed, well nourished. HEENT: Pupils are round and equally reacting to light. EOMI. No scleral icterus. No conjunctival pallor. Normocephalic, atraumatic. No pharyngeal erythema. No thyromegaly. CARDIOVASCULAR: S1 and S2 present. No murmurs, rubs, or gallops. PULMONARY: Chest is clear to auscultation, no wheezing or crackles. ABDOMEN: Soft, nontender, nondistended, normoactive bowel sounds. No palpable organomegaly. MUSCULOSKELETAL: No joint swelling or deformity. EXTREMITIES: No cyanosis, clubbing, or pedal edema. NEUROLOGICAL: Gross neurological examination did not reveal any focal deficits. SKIN: No rashes. No petechiae - Labs CBC & Chem 7: 06/13/21 06:12 06/13/21 06:12 Labs: Abnormal Lab Results - Last 24 Hours (Table) 06/14/21 06/14/21 06/15/21 Range/Units 16:43 20:04 12:06 POC Glucose (mg/dL) 258 H 317 H 174 H (75-99) mg/dL Assessment and Plan Assessment: Bilateral acute covid pneumonia Acute hypoxic respiratory failure Possible viral gastroenteritis secondary to Covid with mildly elevated liver enzymes, improved Hypothyroidism History of liver transplant Hypertension History of CVA/TIA Hyperlipidemia Diabetes mellitus, on insulin Plan: This is a pleasant 76 years old female who presents with covid pneumonia Continue with dexamethasone. And insulin sliding scale Continue with vitamin C, D and zinc Pulmonary consult Labs and medication were reviewed.. Continue same treatment. Continue with symptomatic treatment. Resume home medication. Monitor lytes and vitals. DVT and GI prophylaxis. Further recommendations depends on the clinical course of the patient DVT prophylaxis: Subcutaneous Lovenox GI Prophylaxis: Pepcid Prognosis is guarded
--- NOTE | 2021-06-15 15:16 | P.PN ---
Subjective Progress Note Date: 06/15/21 Principal diagnosis: COVID-19 pneumonia 76-year-old white female patient with past medical history of a potential, previous history of CVA 8 years ago without residual deficits, liver transplantation for history of nonalcoholic steatohepatitis (ALCAZAR) in [place], lifetime nonsmoker and nondrinker, who presented to the emergency department on 06/07/2021 with complaints of shortness of breath, fever, and cough. Patient tested positive for COVID 19 one week ago at an urgent care clinic in [place]. She was started on antibiotics for pneumonia the form of doxycycline. However her symptom onset was 2 weeks ago and initially started with fatigue and loss of appetite and progressed to shortness of breath, cough and fever. Patient is not vaccinated for COVID-19 related to patient's history of severe reaction to even oral contrast when she has to have a CT of the abdomen completed. She is on 4 L of oxygen her pulse ox of 90-92%, her chest x-ray in emergency department shows interstitial prominence, asymmetric elevation of the right hemidiaphragm, no consolidation or pleural effusion. Admission blood work shows white blood cell, 4.5, hemoglobin of 10.5, platelet count is 261, lymphocyte count is 0.5, d-dimer is 1.2, INR is 1.0, sodium is 135, potassium is 4.7, CO2 17, BUN is 18, creatinine 0.71, magnesium is 1.2, AST is 83, ALT is 36, alkaline phosphatase is 101, troponin is negative at 0.018, proBNP is 1860. Patient takes cyclosporine and mycophenilate for her history of liver transplant, she was started on Decadron 6 mg daily, she is on prophylactic dose Lovenox and COVID-19 vitamins. She is breathing comfortably, has a dry nonproductive cough, she is afebrile. She had a mild diarrhea and loss of appetite, but no vomiting or nausea. On 06/09/2021 patient seen in follow-up on medical surgical floor, she is breathing comfortably, she is currently on 3 L of oxygen pulse ox is 90-95%, no acute events overnight, lower extremity Dopplers were negative for DVT in bilateral lower extremities, lung sounds reveal minimal crackles at the bases, no nausea vomiting no diarrhea, no acute events overnight, no fever or chills. The patient is seen today 06/10/2021 in follow-up on the regular medical floor. She is currently sitting up in chair at the bedside. Awake and alert in no acute distress. She has had increasing shortness of breath. She was 87% O2 saturations on 5 L nasal cannula. She's currently 95% on 6 L nasal cannula. She's been afebrile. Hemodynamically stable. Blood glucose 136. She remains on Decadron, Lovenox, vitamin supplements. The patient is seen today 06/11/2021 in follow-up on the regular medical floor. She is currently sitting up at the bedside. Awake and alert in no acute distress. Doing a bit better today compared to yesterday. Her appetite is good. She is on 8 L high flow nasal cannula maintaining O2 saturations in the low 90s. She's been afebrile. Hemodynamically stable. Continues with coarse crackles in the posterior bases. Chest x-ray, but continues to revealed bilateral left greater than right interstitial and patchy opacities. White count 11.7. Hemoglobin 10.3. Lymphocytes 1.29. D-dimer 1.62. Sodium 1:30. Potassium 4.2. Creatinine 0.8. AST 88. ALT 81. LDH 343. C-reactive protein 2.2. She remains on Decadron, Lovenox, vitamin supplements. The patient is seen today 06/14/2021 in follow-up on the regular medical floor. She is currently sitting up in a chair at the bedside. Awake and alert in no acute distress. She is currently on 8 L high flow nasal cannula to maintain O2 saturations in the low 90s. She is 84% on room air. She has had some altered mental status and confusion. Computed tomography scan of the brain reveals age- related atrophic and chronic small vessel ischemic changes without acute intracranial process. MRI of the brain revealed no evidence of recent infarct. There is mild diffuse age-related cerebral atrophy and mild to moderate chronic small vessel ischemic changes. Glucose 224. She remains on Lovenox, Decadron, vitamin supplements. The patient is seen today 06/15/2021 in follow-up on the regular medical floor. She is currently resting comfortably in bed. Awake and alert in no acute distress. Currently maintaining good O2 saturations in the upper 90s on 6 L high flow nasal cannula. Chest x-ray continues to show bilateral multifocal opacities. She's afebrile. Hemodynamically stable. Glucose 174. She remains on Lovenox, Decadron, vitamin supplements. Objective - Vital Signs Vital signs: Vital Signs Temp 98.1 F 06/15/21 14:00 Pulse 65 06/15/21 14:00 Resp 18 06/15/21 14:00 BP 132/71 06/15/21 14:00 Pulse Ox 98 06/15/21 14:00 Intake & Output 06/14/21 06/15/21 06/15/21 18:59 06:59 18:59 Other: Voiding Method Toilet # Voids 2 2 - Exam GENERAL EXAM: Alert, slightly confused 76-year-old female patient, on 6 L nasal cannula, fairly comfortable in no apparent distress. HEAD: Normocephalic. EYES: Normal reaction of pupils, equal size. NOSE: Clear with pink turbinates. THROAT: No erythema or exudates. NECK: No masses, no JVD. CHEST: No chest wall deformity. LUNGS: Equal air entry with coarse crackles in the bilateral bases. CVS: S1 and S2 normal with no audible murmur, regular rhythm. ABDOMEN: No hepatosplenomegaly, normal bowel sounds, no guarding or rigidity. SPINE: No scoliosis or deformity SKIN: No rashes CENTRAL NERVOUS SYSTEM: No focal deficits, tone is normal in all 4 extremities. EXTREMITIES: There is no peripheral edema. No clubbing, no cyanosis. Peripheral pulses are intact. - Labs CBC & Chem 7: 06/13/21 06:12 06/13/21 06:12 Labs: Abnormal Lab Results - Last 24 Hours (Table) 06/14/21 06/14/21 06/15/21 Range/Units 16:43 20:04 12:06 POC Glucose (mg/dL) 258 H 317 H 174 H (75-99) mg/dL Assessment and Plan Assessment: 1 Acute hypoxic respiratory failure related to COVID-19 pneumonia with onset of symptoms 2 weeks ago, patient is outside the window for Remdesivir, she has not been vaccinated 2 History of liver transplant by history of nonalcoholic steatohepatitis, she is on cyclosporine and Mycophenolate 3 Hypertension 4 Diabetes mellitus 5 Hyperlipidemia 6 Previous history of CVA with no residual neurologic deficits 7 Hypothyroidism 8 Lifetime nonsmoker 9 Episodes of confusion and altered mental status. CT scans of the brain revealed no acute process. MRI of the brain revealed no acute recent infarct. Plan: The patient was seen and evaluated by Dr. Nascimento Chest x-ray reviewed Currently on 6 L nasal cannula Titrate the FiO2 as tolerated We'll continue to follow I, the cosigning physician, performed a history & physical examination of the patient. Lungs sounds crackles in the posterior bases. Maintaining good O2 saturations in the 90s on 6 L/m per nasal cannula. I discussed the assessment and plan of care with my nurse practitioner, Angelina Abreu. I attest to the above note as dictated by her.t
[2021-06-15 16:53] LABS: Glucose,Whole Blood 435 mg/dL (75-99)
[2021-06-15 20:38] LABS: Glucose,Whole Blood 260 mg/dL (75-99)
[2021-06-15] MEDS: NON FORMULARY DRUG (Rosuvastatin 10 MG Tablet) PO SCH (21:43)
[2021-06-16] MEDS: LEVOTHYROXINE 50 MCG TAB PO SCH (05:33)
[2021-06-16 07:15] LABS: Glucose,Whole Blood 76 mg/dL (75-99)
[2021-06-16] MEDS: INSULIN DETEMIR (LEVEMIR) 100 UNIT/ML SYR SQ SCH (07:28)
[2021-06-16] MEDS: INSULIN ASPART (NovoLOG) 100 UNIT/ML VIAL SQ SCH ×4 (07:29→21:41)
[2021-06-16] MEDS: CALCIUM CARB-VIT D 500 MG-5 MCG TAB PO SCH (08:27)
[2021-06-16] MEDS: CLOPIDOGREL 75 MG TAB PO SCH (08:27)
[2021-06-16] MEDS: lisinopriL 10 MG TAB PO SCH (08:27)
[2021-06-16] MEDS: FAMOTIDINE 20 MG TAB PO SCH ×2 (08:27→21:40)
[2021-06-16] MEDS: MECLIZINE 25 MG TAB PO SCH ×2 (08:27→21:41)
[2021-06-16] MEDS: METOPROLOL TARTRATE 50 MG TAB PO SCH ×2 (08:27→21:41)
[2021-06-16] MEDS: ZINC SULFATE 220 MG CAP PO SCH (08:27)
[2021-06-16] MEDS: CHOLECALCIFEROL 25 MCG (1000 IU) TABLET PO SCH (08:27)
[2021-06-16] MEDS: dexAMETHasone 2 MG TAB PO SCH (08:27)
[2021-06-16] MEDS: ENOXAPARIN 40 MG/0.4 ML SYRINGE SQ SCH (08:27)
[2021-06-16] MEDS: MYCOPHENOLATE SODIUM DR 180 MG TABLET.DR PO SCH ×2 (08:28→21:40)
[2021-06-16] MEDS: cycloSPORINE 25 MG CAP PO SCH ×2 (08:29→21:40)
[2021-06-16 09:00] LABS: Basophils # (A) 0.01 X 10*3/uL (0.00-0.10); Basophils % (A) 0.1 %; Eosinophils # (A) 0.03 X 10*3/uL (0.04-0.35); Eosinophils % (A) 0.3 %; HCT 32.5 % (37.2-46.3); HGB 10.3 g/dL (12.0-15.0); Lymphocytes # (A) 1.11 X 10*3/uL (0.90-5.00); Lymphocytes % (A) 10.8 %; MCH 25.1 pg (27.0-32.0); MCHC 31.7 g/dL (32.0-37.0); MCV 79.3 fL (80.0-97.0); Mean Platelet Volume 8.9 fL (9.5-12.2); Monocytes # (A) 1.21 X 10*3/uL (0.20-1.00); Monocytes % (A) 11.7 %; Neutrophils # (A) 7.77 X 10*3/uL (1.80-7.70); Neutrophils % (A) 75.4 %; Platelet Count 602 X 10*3/uL (140-440); RDW 14.6 % (11.5-14.5); WBC 10.31 X 10*3/uL (4.50-10.00)
[2021-06-16 10:59] LABS: African American GFR (CKD) 76.9 (60.0-200.0); Albumin 3.2 g/dL (3.8-4.9); Albumin/Globulin Ratio 1.11 (1.60-3.17); Anion Gap 13.9 mmol/L (10.00-18.00); BUN/Creat Ratio 26.14 Ratio (12.00-20.00); Blood Urea Nitrogen 22.4 mg/dL (9.0-27.0); Calcium 8.9 mg/dL (8.7-10.3); Carbon Dioxide 21.7 mmol/L (20.0-27.5); Globulin 2.9 g/dL (1.6-3.3); Non-African American GFR(CKD) 66.4 (60.0-200.0); Potassium 4.4 mmol/L (3.5-5.5); Total Bilirubin 0.5 mg/dL (0.30-1.20); Total Protein 6.1 g/dL (6.2-8.2)
[2021-06-16 11:58] LABS: Glucose,Whole Blood 193 mg/dL (75-99)
--- NOTE | 2021-06-16 14:07 | P.PN ---
Subjective This is a pleasant 76 results female with past medical history of hypothyroidism, liver transplant, CVA/TIA, hypertension, diabetes mellitus, hyperlipidemia Patient presents because of difficulty breathing for about a week associated with cough and yellowish phlegm but no chest pain. She had diarrhea like 3 times this morning. She has diarrhea for 3 days. No abdominal pain or vomiting. She went to urgent care last Saturday about 3 days ago and they were diagnosed her with pneumonia, next day her Covid test came back positive she denies history of smoking, alcohol or illicit drugs. She does not have history of COPD. She is not on home oxygen She is hypoxic at 83% on room air and tachypneic with a breathing rate 30-40, tachycardic 122. She is afebrile at 97.8. Labs unremarkable including CBC, INR, BMP. Liver enzymes slightly elevated with AST 83 and ALT 36. Bilirubin is normal 1.0. Chest x-ray: Bilateral infiltrate with interstitial prominence has increased 06/08/2021 Patient today is awake, she is slightly tachypneic while sitting in bed. No significant dyspnea. No significant coughing. She denies chest pain. She denies diarrhea. She is saturating low 90s on 4 L oxygen via nasal cannula which is similar to yesterday. Fever on admission 100.0. Sided yesterday. labs from today are still pending. Sugar this morning to 30 patient is on insulin sliding scale She remains on dexamethasone, and multiple vitamins. 06/09/2021 Patient breathing is stable and she is on 4 L/m of oxygen with good oxygen saturation. Rest of vital signs stable, afebrile since admission when she had fever of 100.2. Labs are stable. Leg ultrasound was negative. She remains on dexamethasone vitamin C, D and zinc. Possible discharge in 24-48 hours if she keeps improvement 06/10/2021 Patient today was L Keita tired although she says she looks the same. Her oxygen requirement went up to 6 L/m so we have to keep monitor the patient in the hospital Blood pressure is slightly elevated while she is on steroids. No more fevers since admission. She remains on dexamethasone and multiple vitamins and Lovenox 06/11/2021 Patient looks more tired, her breathing looks the same with dyspnea however her oxygen requirements increased to 8 L/m. She has mild lab abnormality like mild increased liver enzymes, mild leukocytosis, mild hyponatremia. Chest x-ray was showing slightly increased infiltrates She remains on dexamethasone, Lovenox and multiple vitamins. D-dimer is a stable 1.2-1.6 06/12/2021 Patient today was sensitive, children in bed while oxygen off, she wasn't as questions readily as of yesterday, altered mental status is suspected, CT of the brain is requested as well as nephrology consult Her oxygen requirement went up to 8 L/m. She is afebrile and vitals are stable. She still on dexamethasone, vitamin C, vitamin D and zinc. Also she is on insulin and her Plavix. 06/13/2021 Patient still Confused at time, when I talked the patient should've very appropriate and oriented however better on per staff she started taking her oxygen off again. Suggest saturation and requirements went up to 8 L/m again today. She is mildly tachypneic but denies any specific symptoms like no chest pain. No dizziness. No abdominal pain or diarrhea or vomiting. No headache or difficulty moving extremities. She is hemodynamically stable other than the hypoxia. No more fever. Her exam is only mildly elevated but ammonia is negative with less than 9. WBC normal and stable around 10+. Sodium stable 1:30-131. LDH slightly elevated at 366 and subjective 14 7.9. She remains on dexamethasone, vitamin C, D and zinc. Also her sugar is controlled on home dose of Levemir 40 units at bedtime. She is also on Pepcid and Lovenox 06/14/2021 Patient still feels generally weak, no specific complaint. She is awake and alert, she is lethargic. He was not complaining much from dyspnea while she is at rest. She was on 8 L/m of oxygen today but her oxygen saturation was more than 95%-98% MRI of the brain today came back with no infarct. And patient actually looks fully awake and oriented she is just tired Other than that she remains on the same treatment of dexamethasone and vitamins 06/15/2021 Patient is more up in bed today awake and alert, denies headache or weakness. An MRI of the brain came back negative and I discussed the case with neurology service. Patient looks like does not have any altered mental status she has some mild metabolic encephalopathy probably from hypoxia and her Covid infection but that's improving. Also she is lethargic She is on 6 L oxygen per minute today. Repeat chest x-ray showed worsening bilateral opacity in the peripherally indicating worsening Covid pneumonia. Remains on the same treatment of steroids, multiple vitamins, she is on dexamethasone 6 mg. Repeat labs tomorrow morning 06/16/2021 Patient awake and alert, no confusion. Patient is back to her normal mentation. No significant tachypnea or dyspnea but she still on 60 to per minute of oxygen with saturation of 98% Blood pressure is controlled. Afebrile Her WBC is 10 K, sodium 131. Other labs are unremarkable. She still on dexamethasone and multiple vitamins Patient is doing well generally and we might discharge are sewn once her oxygen requirements improved and pulmonary team cleared the patient Objective - Vital Signs Vital signs: Vital Signs Temp 98.1 F 06/16/21 10:04 Pulse 57 L 06/16/21 10:04 Resp 18 06/16/21 10:04 BP 135/74 06/16/21 10:04 Pulse Ox 98 06/16/21 10:04 Intake & Output 06/15/21 06/16/21 06/16/21 18:59 06:59 18:59 Other: Voiding Method Toilet Toilet # Voids 2 1 - Exam GENERAL: The patient is alert and oriented x3, not in any acute distress. Well developed, well nourished. HEENT: Pupils are round and equally reacting to light. EOMI. No scleral icterus. No conjunctival pallor. Normocephalic, atraumatic. No pharyngeal erythema. No thyromegaly. CARDIOVASCULAR: S1 and S2 present. No murmurs, rubs, or gallops. PULMONARY: Chest is clear to auscultation, no wheezing or crackles. ABDOMEN: Soft, nontender, nondistended, normoactive bowel sounds. No palpable organomegaly. MUSCULOSKELETAL: No joint swelling or deformity. EXTREMITIES: No cyanosis, clubbing, or pedal edema. NEUROLOGICAL: Gross neurological examination did not reveal any focal deficits. SKIN: No rashes. No petechiae - Labs CBC & Chem 7: 06/16/21 06:46 06/16/21 06:46 Labs: Abnormal Lab Results - Last 24 Hours (Table) 06/15/21 06/15/21 06/16/21 Range/Units 16:51 20:36 06:46 WBC 10.31 H (4.50-10.00) X 10*3/uL Hgb 10.3 L (12.0-15.0) g/dL Hct 32.5 L (37.2-46.3) % MCV 79.3 L (80.0-97.0) fL MCH 25.1 L (27.0-32.0) pg MCHC 31.7 L (32.0-37.0) g/dL RDW 14.6 H (11.5-14.5) % Plt Count 602 H (140-440) X 10*3/uL MPV 8.9 L (9.5-12.2) fL Immature Gran # 0.18 H (0.00-0.04) X 10*3/uL Neutrophils # 7.77 H (1.80-7.70) X 10*3/uL Monocytes # 1.21 H (0.20-1.00) X 10*3/uL Eosinophils # 0.03 L (0.04-0.35) X 10*3/uL D-Dimer (<0.60) mg/L FEU Sodium (135-145) mmol/L Chloride (96-109) mmol/L BUN/Creatinine Ratio (12.00-20.00) Ratio Glucose (70-110) mg/dL POC Glucose (mg/dL) 435 H 260 H (75-99) mg/dL ALT (8-44) U/L Total Protein (6.2-8.2) g/dL Albumin (3.8-4.9) g/dL Albumin/Globulin Ratio (1.60-3.17) g/dL 06/16/21 06/16/21 06/16/21 Range/Units 06:46 06:46 11:56 WBC (4.50-10.00) X 10*3/uL Hgb (12.0-15.0) g/dL Hct (37.2-46.3) % MCV (80.0-97.0) fL MCH (27.0-32.0) pg MCHC (32.0-37.0) g/dL RDW (11.5-14.5) % Plt Count (140-440) X 10*3/uL MPV (9.5-12.2) fL Immature Gran # (0.00-0.04) X 10*3/uL Neutrophils # (1.80-7.70) X 10*3/uL Monocytes # (0.20-1.00) X 10*3/uL Eosinophils # (0.04-0.35) X 10*3/uL D-Dimer 1.22 H (<0.60) mg/L FEU Sodium 131 L (135-145) mmol/L Chloride 95 L (96-109) mmol/L BUN/Creatinine Ratio 26.14 H (12.00-20.00) Ratio Glucose 69 L (70-110) mg/dL POC Glucose (mg/dL) 193 H (75-99) mg/dL ALT 50 H (8-44) U/L Total Protein 6.1 L (6.2-8.2) g/dL Albumin 3.2 L (3.8-4.9) g/dL Albumin/Globulin Ratio 1.11 L (1.60-3.17) g/dL Assessment and Plan Assessment: Bilateral acute covid pneumonia Acute hypoxic respiratory failure Possible viral gastroenteritis secondary to Covid with mildly elevated liver enzymes, improved Hypothyroidism History of liver transplant Hypertension History of CVA/TIA Hyperlipidemia Diabetes mellitus, on insulin Plan: This is a pleasant 76 years old female who presents with covid pneumonia Continue with dexamethasone. And insulin sliding scale Continue with vitamin C, D and zinc Pulmonary consult Labs and medication were reviewed.. Continue same treatment. Continue with symptomatic treatment. Resume home medication. Monitor lytes and vitals. DVT and GI prophylaxis. Further recommendations depends on the clinical course of the patient DVT prophylaxis: Subcutaneous Lovenox GI Prophylaxis: Pepcid Prognosis is guarded
[2021-06-16 16:53] LABS: Glucose,Whole Blood 363 mg/dL (75-99)
[2021-06-16 17:27] LABS: C Reactive Protein 2.8 mg/dL (0.00-0.80)
--- NOTE | 2021-06-16 19:10 | P.PN ---
Subjective Progress Note Date: 06/16/21 Principal diagnosis: COVID-19 pneumonia 76-year-old white female patient with past medical history of a potential, previous history of CVA 8 years ago without residual deficits, liver transplantation for history of nonalcoholic steatohepatitis (ALCAZAR) in [place], lifetime nonsmoker and nondrinker, who presented to the emergency department on 06/07/2021 with complaints of shortness of breath, fever, and cough. Patient tested positive for COVID 19 one week ago at an urgent care clinic in [place]. She was started on antibiotics for pneumonia the form of doxycycline. However her symptom onset was 2 weeks ago and initially started with fatigue and loss of appetite and progressed to shortness of breath, cough and fever. Patient is not vaccinated for COVID-19 related to patient's history of severe reaction to even oral contrast when she has to have a CT of the abdomen completed. She is on 4 L of oxygen her pulse ox of 90-92%, her chest x-ray in emergency department shows interstitial prominence, asymmetric elevation of the right hemidiaphragm, no consolidation or pleural effusion. Admission blood work shows white blood cell, 4.5, hemoglobin of 10.5, platelet count is 261, lymphocyte count is 0.5, d-dimer is 1.2, INR is 1.0, sodium is 135, potassium is 4.7, CO2 17, BUN is 18, creatinine 0.71, magnesium is 1.2, AST is 83, ALT is 36, alkaline phosphatase is 101, troponin is negative at 0.018, proBNP is 1860. Patient takes cyclosporine and mycophenilate for her history of liver transplant, she was started on Decadron 6 mg daily, she is on prophylactic dose Lovenox and COVID-19 vitamins. She is breathing comfortably, has a dry nonproductive cough, she is afebrile. She had a mild diarrhea and loss of appetite, but no vomiting or nausea. On 06/09/2021 patient seen in follow-up on medical surgical floor, she is breathing comfortably, she is currently on 3 L of oxygen pulse ox is 90-95%, no acute events overnight, lower extremity Dopplers were negative for DVT in bilateral lower extremities, lung sounds reveal minimal crackles at the bases, no nausea vomiting no diarrhea, no acute events overnight, no fever or chills. The patient is seen today 06/10/2021 in follow-up on the regular medical floor. She is currently sitting up in chair at the bedside. Awake and alert in no acute distress. She has had increasing shortness of breath. She was 87% O2 saturations on 5 L nasal cannula. She's currently 95% on 6 L nasal cannula. She's been afebrile. Hemodynamically stable. Blood glucose 136. She remains on Decadron, Lovenox, vitamin supplements. The patient is seen today 06/11/2021 in follow-up on the regular medical floor. She is currently sitting up at the bedside. Awake and alert in no acute distress. Doing a bit better today compared to yesterday. Her appetite is good. She is on 8 L high flow nasal cannula maintaining O2 saturations in the low 90s. She's been afebrile. Hemodynamically stable. Continues with coarse crackles in the posterior bases. Chest x-ray, but continues to revealed bilateral left greater than right interstitial and patchy opacities. White count 11.7. Hemoglobin 10.3. Lymphocytes 1.29. D-dimer 1.62. Sodium 1:30. Potassium 4.2. Creatinine 0.8. AST 88. ALT 81. LDH 343. C-reactive protein 2.2. She remains on Decadron, Lovenox, vitamin supplements. The patient is seen today 06/14/2021 in follow-up on the regular medical floor. She is currently sitting up in a chair at the bedside. Awake and alert in no acute distress. She is currently on 8 L high flow nasal cannula to maintain O2 saturations in the low 90s. She is 84% on room air. She has had some altered mental status and confusion. Computed tomography scan of the brain reveals age- related atrophic and chronic small vessel ischemic changes without acute intracranial process. MRI of the brain revealed no evidence of recent infarct. There is mild diffuse age-related cerebral atrophy and mild to moderate chronic small vessel ischemic changes. Glucose 224. She remains on Lovenox, Decadron, vitamin supplements. The patient is seen today 06/15/2021 in follow-up on the regular medical floor. She is currently resting comfortably in bed. Awake and alert in no acute distress. Currently maintaining good O2 saturations in the upper 90s on 6 L high flow nasal cannula. Chest x-ray continues to show bilateral multifocal opacities. She's afebrile. Hemodynamically stable. Glucose 174. She remains on Lovenox, Decadron, vitamin supplements. The patient is seen today 06/16/2021 in follow-up on the regular medical floor. She is more awake and alert today. More cooperative. Maintaining O2 saturatio ns in the 90s on 4 L/m per nasal cannula. White count 10.3. Hemoglobin 10.3. Leukocytes 1.11. D-dimer 122. Sodium 131. Potassium 4.4. Creatinine 0.9. LDH 189. C-reactive protein 2.8. Pro-calcitonin 0.08. She remains on Lovenox, Decadron, vitamin supplements. Objective - Vital Signs Vital signs: Vital Signs Temp 98.5 F 06/16/21 17:05 Pulse 66 06/16/21 17:05 Resp 17 06/16/21 17:05 BP 124/79 06/16/21 17:05 Pulse Ox 97 06/16/21 17:05 Intake & Output 06/16/21 06/16/21 06/17/21 06:59 18:59 06:59 Intake Total 540 Balance 540 Intake: Oral 540 Other: Voiding Method Toilet Toilet # Voids 1 2 - Exam GENERAL EXAM: Alert, cooperative 76-year-old female patient, on 4 L nasal cannula, fairly comfortable in no apparent distress. HEAD: Normocephalic. EYES: Normal reaction of pupils, equal size. NOSE: Clear with pink turbinates. THROAT: No erythema or exudates. NECK: No masses, no JVD. CHEST: No chest wall deformity. LUNGS: Equal air entry with coarse crackles in the bilateral bases. CVS: S1 and S2 normal with no audible murmur, regular rhythm. ABDOMEN: No hepatosplenomegaly, normal bowel sounds, no guarding or rigidity. SPINE: No scoliosis or deformity SKIN: No rashes CENTRAL NERVOUS SYSTEM: No focal deficits, tone is normal in all 4 extremities. EXTREMITIES: There is no peripheral edema. No clubbing, no cyanosis. P eripheral pulses are intact. - Labs CBC & Chem 7: 06/16/21 06:46 06/16/21 06:46 Labs: Abnormal Lab Results - Last 24 Hours (Table) 06/15/21 06/16/21 06/16/21 Range/Units 20:36 06:46 06:46 WBC 10.31 H (4.50-10.00) X 10*3/uL Hgb 10.3 L (12.0-15.0) g/dL Hct 32.5 L (37.2-46.3) % MCV 79.3 L (80.0-97.0) fL MCH 25.1 L (27.0-32.0) pg MCHC 31.7 L (32.0-37.0) g/dL RDW 14.6 H (11.5-14.5) % Plt Count 602 H (140-440) X 10*3/uL MPV 8.9 L (9.5-12.2) fL Immature Gran # 0.18 H (0.00-0.04) X 10*3/uL Neutrophils # 7.77 H (1.80-7.70) X 10*3/uL Monocytes # 1.21 H (0.20-1.00) X 10*3/uL Eosinophils # 0.03 L (0.04-0.35) X 10*3/uL D-Dimer 1.22 H (<0.60) mg/L FEU Sodium (135-145) mmol/L Chloride (96-109) mmol/L BUN/Creatinine Ratio (12.00-20.00) Ratio Glucose (70-110) mg/dL POC Glucose (mg/dL) 260 H (75-99) mg/dL ALT (8-44) U/L C-Reactive Protein (0.00-0.80) mg/dL Total Protein (6.2-8.2) g/dL Albumin (3.8-4.9) g/dL Albumin/Globulin Ratio (1.60-3.17) g/dL 06/16/21 06/16/21 06/16/21 Range/Units 06:46 11:56 16:49 WBC (4.50-10.00) X 10*3/uL Hgb (12.0-15.0) g/dL Hct (37.2-46.3) % MCV (80.0-97.0) fL MCH (27.0-32.0) pg MCHC (32.0-37.0) g/dL RDW (11.5-14.5) % Plt Count (140-440) X 10*3/uL MPV (9.5-12.2) fL Immature Gran # (0.00-0.04) X 10*3/uL Neutrophils # (1.80-7.70) X 10*3/uL Monocytes # (0.20-1.00) X 10*3/uL Eosinophils # (0.04-0.35) X 10*3/uL D-Dimer (<0.60) mg/L FEU Sodium 131 L (135-145) mmol/L Chloride 95 L (96-109) mmol/L BUN/Creatinine Ratio 26.14 H (12.00-20.00) Ratio Glucose 69 L (70-110) mg/dL POC Glucose (mg/dL) 193 H 363 H (75-99) mg/dL ALT 50 H (8-44) U/L C-Reactive Protein 2.80 H (0.00-0.80) mg/dL Total Protein 6.1 L (6.2-8.2) g/dL Albumin 3.2 L (3.8-4.9) g/dL Albumin/Globulin Ratio 1.11 L (1.60-3.17) g/dL Assessment and Plan Assessment: 1 Acute hypoxic respiratory failure related to COVID-19 pneumonia with onset of symptoms 2 weeks ago, patient is outside the window for Remdesivir, she has not been vaccinated 2 History of liver transplant by history of nonalcoholic steatohepatitis, she is on cyclosporine and Mycophenolate 3 Hypertension 4 Diabetes mellitus 5 Hyperlipidemia 6 Previous history of CVA with no residual neurologic deficits 7 Hypothyroidism 8 Lifetime nonsmoker 9 Episodes of confusion and altered mental status. CT scans of the brain revealed no acute process. MRI of the brain revealed no acute recent infarct. Plan: The patient was seen and evaluated by Dr. Nascimento Currently on 4 L nasal cannula Titrate the FiO2 as tolerated Possibly home in the a.m. with oxygen We'll continue to follow I, the cosigning physician, performed a history & physical examination of the patient. Lungs sounds crackles in the posterior bases. Maintaining good O2 saturations in the 90s on 4 L/m per nasal cannula. I discussed the assessment and plan of care with my nurse practitioner, Angelina Abreu. I attest to the above note as dictated by her.t
[2021-06-16 20:16] LABS: Glucose,Whole Blood 284 mg/dL (75-99)
[2021-06-16] MEDS: NON FORMULARY DRUG (Rosuvastatin 10 MG Tablet) PO SCH (21:39)
[2021-06-17] MEDS: LEVOTHYROXINE 50 MCG TAB PO SCH (06:11)
[2021-06-17 07:12] LABS: Glucose,Whole Blood 148 mg/dL (75-99)
[2021-06-17] MEDS: INSULIN ASPART (NovoLOG) 100 UNIT/ML VIAL SQ SCH ×4 (07:40→21:39)
[2021-06-17] MEDS: INSULIN DETEMIR (LEVEMIR) 100 UNIT/ML SYR SQ SCH (07:40)
[2021-06-17] MEDS: ENOXAPARIN 40 MG/0.4 ML SYRINGE SQ SCH (10:56)
[2021-06-17] MEDS: ZINC SULFATE 220 MG CAP PO SCH (10:56)
[2021-06-17] MEDS: METOPROLOL TARTRATE 50 MG TAB PO SCH ×2 (10:56→19:51)
[2021-06-17] MEDS: lisinopriL 10 MG TAB PO SCH (10:56)
[2021-06-17] MEDS: CALCIUM CARB-VIT D 500 MG-5 MCG TAB PO SCH (10:57)
[2021-06-17] MEDS: CHOLECALCIFEROL 25 MCG (1000 IU) TABLET PO SCH (10:57)
[2021-06-17] MEDS: cycloSPORINE 25 MG CAP PO SCH ×2 (10:57→19:50)
[2021-06-17] MEDS: FAMOTIDINE 20 MG TAB PO SCH ×2 (10:57→19:51)
[2021-06-17] MEDS: MYCOPHENOLATE SODIUM DR 180 MG TABLET.DR PO SCH ×2 (10:57→19:51)
[2021-06-17] MEDS: dexAMETHasone 2 MG TAB PO SCH (10:58)
[2021-06-17] MEDS: CLOPIDOGREL 75 MG TAB PO SCH (10:58)
[2021-06-17] MEDS: MECLIZINE 25 MG TAB PO SCH ×2 (10:59→19:51)
[2021-06-17 11:52] LABS: Glucose,Whole Blood 134 mg/dL (75-99)
[2021-06-17 16:33] LABS: Glucose,Whole Blood 316 mg/dL (75-99)
--- NOTE | 2021-06-17 17:34 | P.PN ---
Subjective Progress Note Date: 06/17/21 Principal diagnosis: COVID 19 76-year-old white female patient with past medical history of a potential, previous history of CVA 8 years ago without residual deficits, liver tr ansplantation for history of nonalcoholic steatohepatitis (ALCAZAR) in [place], lifetime nonsmoker and nondrinker, who presented to the emergency department on 06/07/2021 with complaints of shortness of breath, fever, and cough. Patient tested positive for COVID 19 one week ago at an urgent care clinic in [place]. She was started on antibiotics for pneumonia the form of doxycycline. However her symptom onset was 2 weeks ago and initially started with fatigue and loss of appetite and progressed to shortness of breath, cough and fever. Patient is not vaccinated for COVID-19 related to patient's history of severe reaction to even oral contrast when she has to have a CT of the abdomen comp leted. She is on 4 L of oxygen her pulse ox of 90-92%, her chest x-ray in emergency department shows interstitial prominence, asymmetric elevation of the right hemidiaphragm, no consolidation or pleural effusion. Admission blood work shows white blood cell, 4.5, hemoglobin of 10.5, platelet count is 261, lymphocyte count is 0.5, d-dimer is 1.2, INR is 1.0, sodium is 135, potassium is 4.7, CO2 17, BUN is 18, creatinine 0.71, magnesium is 1.2, AST is 83, ALT is 36, alkaline phosphatase is 101, troponin is negative at 0.018, proBNP is 1860. Patient takes cyclosporine and mycophenilate for her history of liver transplant, she was started on Decadron 6 mg daily, she is on prophylactic dose Lovenox and COVID-19 vitamins. She is breathing comfortably, has a dry nonproductive cough, she is afebrile. She had a mild diarrhea and loss of appetite, but no vomiting or nausea. On 06/09/2021 patient seen in follow-up on medical surgical floor, she is breathing comfortably, she is currently on 3 L of oxygen pulse ox is 90-95%, no acute events overnight, lower extremity Dopplers were negative for DVT in bilateral lower extremities, lung sounds reveal minimal crackles at the bases, no nausea vomiting no diarrhea, no acute events overnight, no fever or chills. On 06/12/2021 patient seen in follow-up on medical surgical floor, she seems to be breathing comfortably, she is sitting by the window, she is currently on 8 L of oxygen however nursing staff reports difficulty keeping the patient's oxygen on her and she frequently takes it off. When she is wearing it her pulse ox is 96-97% on 8 afebrile, hemodynamically she has been stable however neurologically patient seems more confused, inattentive, she is only oriented to self, disoriented to place, and time, she thought Primo George was the president. She is having difficulty concentrating, it takes repetition with questioning to get her to pay attention. From pulmonary perspective although she still requiring high concentration oxygen she does not appear to be in any distress, lung sounds reveal bibasilar crackles, no rhonchi or wheezing. She is currently on Decadron 6 mg daily, she is on prophylactic Lovenox, she is on vitamins. Yesterday's chest x-ray was showing bilateral left greater than right interstitial and patc hy opacities slightly increased in the interval. Patient has been incontinent, she is wearing a brief, however she will not wear P and's, and last night nursing staff reports she got up unassisted and was ambulating down the [place] without her brief or oxygen. NO focal neurological deficits, however patient had a previous history of CVA in the past, will obtain brain CT and consult neurology On 06/13/2021 patient seen in follow-up on the surgical floor, she remains very confused, cannot keep her oxygen on, takes it off, and nursing staff needs to check on her to make sure the oxygen is on. She was attempting to eat the earpieces on the nasal cannula. Brain CT showed no acute intracranial a bnormality. She was seen by neurology please refer to the consultation. She has been moved closer to the desk for closer monitoring. On sounds reveal minimal crackles at the bases, no worsening dyspnea, she is currently on 8 L of oxygen and her pulse ox is 91%. Procalcitonin negative. Blood sugars have been elevated and ranging from 140-318. Patient on sliding scale insulin. On 06/17/2021 patient is seen in follow-up on medical surgical floor, she is currently down to 4 L of oxygen, and her pulse ox was 97%, and FiO2 was subsequently turned out to 3 L, she is feeling better, mentation has improved, she is oriented 3, no worsening dyspnea, no fever or chills, no combines of chest discomfort, lung sounds reveal diminished breath sounds with minimal basilar crackles, no acute events overnight. She remains on Decadron 6 mg daily, prophylactic Lovenox, and COVID-19 vitamins. Her chest x-ray from 06/15/2021 showed diminished inspiration with elevated right hemidiaphragm, and worsened bilateral multifocal opacities greatest in the periphery. Clinically patient has improved. No new labs today, d-dimer is 1.22. White blood cell count is 10.3, hemoglobin is 10.3, potassium is 4.4, chloride is 95, BUN of 22 creatinine 0.9, LDH is improving and is down to 189, and CRP is down to 2.8, pro calcitonin level was negative at 0.08. Objective - Vital Signs Vital signs: Vital Signs Temp 97.9 F 06/17/21 14:42 Pulse 68 06/17/21 14:42 Resp 17 06/17/21 14:42 BP 117/68 06/17/21 14:42 Pulse Ox 83 L 06/17/21 15:29 Intake & Output 06/16/21 06/17/21 06/17/21 18:59 06:59 18:59 Intake Total 540 Balance 540 Intake: Oral 540 Other: Voiding Method Toilet Toilet Toilet # Voids 2 2 - Exam GENERAL EXAM: Alert, 76-year-old white female, on 3 L of oxygen with a pulse ox of 96% comfortable in no apparent distress. Inattentive, takes several repetitions to get patient to answer questions HEAD: Normocephalic/atraumatic. EYES: Normal reaction of pupils, equal size. Conjunctiva pink, sclera white. NOSE: Clear with pink turbinates. THROAT: No erythema or exudates. NECK: No masses, no JVD, no thyroid enlargement, no adenopathy. CHEST: No chest wall deformity. Symmetrical expansion. LUNGS: Equal air entry with mild bibasilar crackles CVS: Regular rate and rhythm, normal S1 and S2, no gallops, no murmurs, no rubs ABDOMEN: Soft, nontender. No hepatosplenomegaly, normal bowel sounds, no guarding or rigidity. EXTREMITIES: No clubbing, no edema, no cyanosis, 2+ pulses and upper and lower extremities. MUSCULOSKELETAL: Muscle strength and tone normal. SPINE: No scoliosis or deformity SKIN: No rashes CENTRAL NERVOUS SYSTEM: Alert and oriented -3. No focal deficits, tone is normal in all 4 extremities. PSYCHIATRIC: Alert and oriented -3. Appropriate affect. Intact judgment and insight. - Labs CBC & Chem 7: 06/16/21 06:46 06/16/21 06:46 Labs: Abnormal Lab Results - Last 24 Hours (Table) 06/16/21 06/17/21 06/17/21 Range/Units 20:14 07:09 11:45 POC Glucose (mg/dL) 284 H 148 H 134 H (75-99) mg/dL 06/17/21 Range/Units 16:31 POC Glucose (mg/dL) 316 H (75-99) mg/dL Assessment and Plan Plan: Assessment: #1. Acute hypoxic respiratory failure related to COVID-19 pneumonia with onset of symptoms 2 weeks ago, patient is outside the window for Remdesivir, she has not vaccinated #2. Altered mental status, confusion, brain CT was negative, related to metabolic and hypoxic encephalopathy, neurology is following. Improving #3. History of liver transplant by history of nonalcoholic steatohepatitis, she is on cyclosporine and Mycophenolate #4. Hypertension #5. Diabetes mellitus #6. Hyperlipidemia #7. Previous history of CVA with no residual neurologic deficits #8. Hypothyroidism #9. Lifetime nonsmoker Plan: Oxygenation has improved, and FiO2 is currently down to 3 L Inflammatory markers are improving Patient awake and alert, oriented 3 Increase activity as tolerated She can be considered for discharge home today or in the morning Obtain home oxygen assessment Taking continue on Decadron for a total of 10 day course COVID-19 vitamins Outpatient follow-up with Dr. Nascimento in the office in 2 weeks I performed a history & physical examination of the patient and discussed their management with my nurse practitioner, Aisha Bruce. I reviewed the nurse practitioner's note and agree with the documented findings and plan of care. Lung sounds are positive for diffuse crackles throughout the lung gee. The findings and the impression was discussed with the patient. I attest to the documentation by the nurse practitioner. Time with Patient: Less than 30
--- NOTE | 2021-06-17 18:56 | P.PN ---
Subjective This is a pleasant 76 results female with past medical history of hypothyroidism, liver transplant, CVA/TIA, hypertension, diabetes mellitus, hyperlipidemia Patient presents because of difficulty breathing for about a week associated with cough and yellowish phlegm but no chest pain. She had diarrhea like 3 times this morning. She has diarrhea for 3 days. No abdominal pain or vomiting. She went to urgent care last Saturday about 3 days ago and they were diagnosed her with pneumonia, next day her Covid test came back positive she denies history of smoking, alcohol or illicit drugs. She does not have history of COPD. She is not on home oxygen She is hypoxic at 83% on room air and tachypneic with a breathing rate 30-40, tachycardic 122. She is afebrile at 97.8. Labs unremarkable including CBC, INR, BMP. Liver enzymes slightly elevated with AST 83 and ALT 36. Bilirubin is normal 1.0. Chest x-ray: Bilateral infiltrate with interstitial prominence has increased 06/08/2021 Patient today is awake, she is slightly tachypneic while sitting in bed. No significant dyspnea. No significant coughing. She denies chest pain. She denies diarrhea. She is saturating low 90s on 4 L oxygen via nasal cannula which is similar to yesterday. Fever on admission 100.0. Sided yesterday. labs from today are still pending. Sugar this morning to 30 patient is on insulin sliding scale She remains on dexamethasone, and multiple vitamins. 06/09/2021 Patient breathing is stable and she is on 4 L/m of oxygen with good oxygen saturation. Rest of vital signs stable, afebrile since admission when she had fever of 100.2. Labs are stable. Leg ultrasound was negative. She remains on dexamethasone vitamin C, D and zinc. Possible discharge in 24-48 hours if she keeps improvement 06/10/2021 Patient today was L Keita tired although she says she looks the same. Her oxygen requirement went up to 6 L/m so we have to keep monitor the patient in the hospital Blood pressure is slightly elevated while she is on steroids. No more fevers since admission. She remains on dexamethasone and multiple vitamins and Lovenox 06/11/2021 Patient looks more tired, her breathing looks the same with dyspnea however her oxygen requirements increased to 8 L/m. She has mild lab abnormality like mild increased liver enzymes, mild leukocytosis, mild hyponatremia. Chest x-ray was showing slightly increased infiltrates She remains on dexamethasone, Lovenox and multiple vitamins. D-dimer is a stable 1.2-1.6 06/12/2021 Patient today was sensitive, children in bed while oxygen off, she wasn't as questions readily as of yesterday, altered mental status is suspected, CT of the brain is requested as well as nephrology consult Her oxygen requirement went up to 8 L/m. She is afebrile and vitals are stable. She still on dexamethasone, vitamin C, vitamin D and zinc. Also she is on insulin and her Plavix. 06/13/2021 Patient still Confused at time, when I talked the patient should've very appropriate and oriented however better on per staff she started taking her oxygen off again. Suggest saturation and requirements went up to 8 L/m again today. She is mildly tachypneic but denies any specific symptoms like no chest pain. No dizziness. No abdominal pain or diarrhea or vomiting. No headache or difficulty moving extremities. She is hemodynamically stable other than the hypoxia. No more fever. Her exam is only mildly elevated but ammonia is negative with less than 9. WBC normal and stable around 10+. Sodium stable 1:30-131. LDH slightly elevated at 366 and subjective 14 7.9. She remains on dexamethasone, vitamin C, D and zinc. Also her sugar is controlled on home dose of Levemir 40 units at bedtime. She is also on Pepcid and Lovenox 06/14/2021 Patient still feels generally weak, no specific complaint. She is awake and alert, she is lethargic. He was not complaining much from dyspnea while she is at rest. She was on 8 L/m of oxygen today but her oxygen saturation was more than 95%-98% MRI of the brain today came back with no infarct. And patient actually looks fully awake and oriented she is just tired Other than that she remains on the same treatment of dexamethasone and vitamins 06/15/2021 Patient is more up in bed today awake and alert, denies headache or weakness. An MRI of the brain came back negative and I discussed the case with neurology service. Patient looks like does not have any altered mental status she has some mild metabolic encephalopathy probably from hypoxia and her Covid infection but that's improving. Also she is lethargic She is on 6 L oxygen per minute today. Repeat chest x-ray showed worsening bilateral opacity in the peripherally indicating worsening Covid pneumonia. Remains on the same treatment of steroids, multiple vitamins, she is on dexamethasone 6 mg. Repeat labs tomorrow morning 06/16/2021 Patient awake and alert, no confusion. Patient is back to her normal mentation. No significant tachypnea or dyspnea but she still on 60 to per minute of oxygen with saturation of 98% Blood pressure is controlled. Afebrile Her WBC is 10 K, sodium 131. Other labs are unremarkable. She still on dexamethasone and multiple vitamins Patient is doing well generally and we might discharge are sewn once her oxygen requirements improved and pulmonary team cleared the patient 06/17/2021 Patient today is doing great, she is fully awake and oriented, she is saturating mid 90s on 4 L oxygen via nasal cannula, later on her oxygen requirement went down to 3 L/m with saturation of 99%. Rest of vital signs stable. No labs today. Patient is doing very well and almost back to normal status. Possible discharge in 24-48 hours Objective - Vital Signs Vital signs: Vital Signs Temp 98.3 F 06/17/21 09:57 Pulse 75 06/17/21 09:57 Resp 17 06/17/21 09:57 BP 128/75 06/17/21 09:57 Pulse Ox 90 L 06/17/21 09:57 Intake & Output 06/16/21 06/17/21 06/17/21 18:59 06:59 18:59 Intake Total 540 Balance 540 Intake: Oral 540 Other: Voiding Method Toilet Toilet Toilet # Voids 2 2 - Exam GENERAL: The patient is alert and oriented x3, not in any acute distress. Well developed, well nourished. HEENT: Pupils are round and equally reacting to light. EOMI. No scleral icterus. No conjunctival pallor. Normocephalic, atraumatic. No pharyngeal erythema. No thyromegaly. CARDIOVASCULAR: S1 and S2 present. No murmurs, rubs, or gallops. PULMONARY: Chest is clear to auscultation, no wheezing or crackles. ABDOMEN: Soft, nontender, nondistended, normoactive bowel sounds. No palpable organomegaly. MUSCULOSKELETAL: No joint swelling or deformity. EXTREMITIES: No cyanosis, clubbing, or pedal edema. NEUROLOGICAL: Gross neurological examination did not reveal any focal deficits. SKIN: No rashes. No petechiae - Labs CBC & Chem 7: 06/16/21 06:46 06/16/21 06:46 Labs: Abnormal Lab Results - Last 24 Hours (Table) 06/16/21 06/16/21 06/16/21 Range/Units 06:46 16:49 20:14 POC Glucose (mg/dL) 363 H 284 H (75-99) mg/dL C-Reactive Protein 2.80 H (0.00-0.80) mg/dL 06/17/21 06/17/21 Range/Units 07:09 11:45 POC Glucose (mg/dL) 148 H 134 H (75-99) mg/dL C-Reactive Protein (0.00-0.80) mg/dL Assessment and Plan Assessment: Bilateral acute covid pneumonia Acute hypoxic respiratory failure Possible viral gastroenteritis secondary to Covid with mildly elevated liver enzymes, improved Hypothyroidism History of liver transplant Hypertension History of CVA/TIA Hyperlipidemia Diabetes mellitus, on insulin Plan: This is a pleasant 76 years old female who presents with covid pneumonia Continue with dexamethasone. And insulin sliding scale Continue with vitamin C, D and zinc Pulmonary consult Labs and medication were reviewed.. Continue same treatment. Continue with symptomatic treatment. Resume home medication. Monitor lytes and vitals. DVT and GI prophylaxis. Further recommendations depends on the clinical course of the patient DVT prophylaxis: Subcutaneous Lovenox GI Prophylaxis: Pepcid Prognosis is guarded
[2021-06-17] MEDS: NON FORMULARY DRUG (Rosuvastatin 10 MG Tablet) PO SCH (19:52)
[2021-06-17 21:33] LABS: Glucose,Whole Blood 232 mg/dL (75-99)
[2021-06-18] MEDS: LEVOTHYROXINE 50 MCG TAB PO SCH (05:46)
[2021-06-18 06:04] VITALS: TEMP 98.5
[2021-06-18 07:06] LABS: Glucose,Whole Blood 118 mg/dL (75-99)
[2021-06-18] MEDS: INSULIN DETEMIR (LEVEMIR) 100 UNIT/ML SYR SQ SCH (07:16)
[2021-06-18] MEDS: INSULIN ASPART (NovoLOG) 100 UNIT/ML VIAL SQ SCH ×2 (07:31→12:24)
[2021-06-18] MEDS: lisinopriL 10 MG TAB PO SCH (09:12)
[2021-06-18] MEDS: ENOXAPARIN 40 MG/0.4 ML SYRINGE SQ SCH (09:12)
[2021-06-18] MEDS: cycloSPORINE 25 MG CAP PO SCH (09:12)
[2021-06-18] MEDS: MYCOPHENOLATE SODIUM DR 180 MG TABLET.DR PO SCH (09:13)
[2021-06-18] MEDS: FAMOTIDINE 20 MG TAB PO SCH (09:13)
[2021-06-18] MEDS: dexAMETHasone 2 MG TAB PO SCH (09:13)
[2021-06-18] MEDS: METOPROLOL TARTRATE 50 MG TAB PO SCH (09:13)
[2021-06-18] MEDS: CHOLECALCIFEROL 25 MCG (1000 IU) TABLET PO SCH (09:13)
[2021-06-18] MEDS: ZINC SULFATE 220 MG CAP PO SCH (09:13)
[2021-06-18] MEDS: CALCIUM CARB-VIT D 500 MG-5 MCG TAB PO SCH (09:14)
[2021-06-18] MEDS: MECLIZINE 25 MG TAB PO SCH (09:14)
[2021-06-18] MEDS: CLOPIDOGREL 75 MG TAB PO SCH (09:15)
[2021-06-18 10:46] VITALS: BP 128/82; PULSE 62; RESP 17
[2021-06-18] MEDS ORDERED: ASCORBIC ACID 500 MG TAB PO SCH (11:45)
[2021-06-18 11:56] LABS: Glucose,Whole Blood 162 mg/dL (75-99)
--- NOTE | 2021-06-18 23:29 | P.DS ---
Providers Date of admission: 06/07/21 14:19 Attending physician: Markie Johnson MD Consults: 06/07/21 14:08 Consult Physician Urgent Consulting Provider: Naye Taveras Consult Reason/Comments: COVID-19 hypoxia Do you want consulting provider notified?: Yes 06/12/21 12:38 Consult Physician Routine Consulting Provider: Thien Nascimento Consult Reason/Comments: altered mental status Do you want consulting provider notified?: Yes Primary care physician: Monica Page Hospital Course: Diagnoses: Bilateral acute covid pneumonia Acute hypoxic respiratory failure Possible viral gastroenteritis secondary to Covid with mildly elevated liver enzymes, improved Hypothyroidism History of liver transplant Hypertension History of CVA/TIA Hyperlipidemia Diabetes mellitus, on insulin Hospital course: This is a pleasant 76 results female with past medical history of hypothyroidism, liver transplant, CVA/TIA, hypertension, diabetes mellitus, hyperlipidemia Patient presents because of difficulty breathing for about a week associated with cough and yellowish phlegm but no chest pain. Patient found to have bilateral Covid pneumonia with hypoxia and she was placed on 4 L/m of oxygen and her requirements went up to 8 L permanents. She has been evaluated by pulmonary team will follow her very closely and she was treated with dexamethasone, vitamin C, vitamin D and zinc as well as Lovenox and Pepcid. With a close monitoring patient showed interval improvement and today she is fully awake oriented she is saturating well 92-93% arthritic oxygen via nasal cannula, she qualifies for home oxygen and it was delivered per staff to home at at bedside. Today she denies any dyspnea, no coughing, no chest pain, no abdominal pain. No change in urine or bowel habits. No fever Patient was so eager to go home today. She was cleared for discharge by pulmonary team Problems and management plan were discussed with the patient and he verbalized understanding and acceptance Patient was found stable and can be discharged home however he needs follow-up as an outpatient. Patient was instructed to follow up with PCP Dr. Page within one week and patient agrees Patient also was instructed to follow up with celery tier Dr. Ruiz in 2 weeks and she agrees to call and make her own appointments Physical exam Gen: patient is a AAOx3, no distress CVS: S1-S2, RRR, no murmur Lungs: B/L CTA, no wheezing Abdomen: soft, no distention, no tenderness, positive bowel sounds Extremity: no leg edema or induration Time spent more than 35 minutes Patient Condition at Discharge: Serious Plan - Discharge Summary Discharge Rx Participant: No New Discharge Prescriptions: New Dexamethasone [Decadron] 6 mg PO DAILY 5 Days #5 tablet Famotidine [Pepcid] 20 mg PO BID #30 tab Cholecalciferol [Vitamin D3 (25 Mcg = 1000 Iu)] 50 mcg PO DAILY #60 tablet Zinc Sulfate [Orazinc] 220 mg PO DAILY #30 cap Continue Glucosamine/Chondr De [place] Garza A Sod [Osteo Bi-Flex Caplet] 2 tab PO DAILY Magnesium Oxide 400 mg PO DAILY Vit C/E/Zn/Coppr/Lutein/Zeaxan [Preservision Areds 2 Softgel] 1 cap PO DAILY Metoprolol Tartrate [Lopressor] 50 mg PO BID Lisinopril [Prinivil] 10 mg PO DAILY Acetaminophen Tab [Tylenol] 1,000 mg PO BID PRN PRN Reason: Pain Pantoprazole Sodium [Protonix] 40 mg PO AC-BRKFST Levothyroxine Sodium [Synthroid] 50 mcg PO DAILY Clopidogrel [Plavix] 75 mg PO DAILY sitaGLIPtin [Januvia] 100 mg PO DAILY Insulin Glargine [Lantus Vial] 40 unit SQ DAILY Mycophenolate Sodium [Mycophenolic Acid] 360 mg PO BID cycloSPORINE [SandIMMUNE] 50 mg PO HS cycloSPORINE [SandIMMUNE] 25 mg PO DAILY Calcium Carbonate/Vitamin D3 [Calcium 500-Vit D3 5 Mcg (200 Iu)] 1 tab PO DAILY Famotidine [Pepcid] 20 mg PO BID Insulin Regular, Human [Novolin R Flexpen] See Protocol SQ AC-TID [place]-3 Acid Ethyl Esters [Lovaza] 2 gm PO BID Fluoride (Sodium) [Sodium Fluoride 5000 Plus] 1 applic DENTAL BID Meclizine [Antivert] 25 mg PO BID Rosuvastatin [Crestor] 10 mg PO HS Discontinued Zinc Gluconate [Zinc] 50 mg PO DAILY Multivitamins, Thera [Multivitamin (formulary)] 1 tab PO DAILY Furosemide [Lasix] 20 mg PO DAILY PRN PRN Reason: swelling Cephalexin [Keflex] 250 mg PO DAILY Amoxic-Pot Clav 875-125Mg [Augmentin 875-125] 1 tab PO BID Amoxicillin 2,000 mg PO ONCE PRN PRN Reason: 1 hour prior to dental appt Discharge Medication List Acetaminophen Tab [Tylenol] 1,000 mg PO BID PRN 06/01/20 [History] Calcium Carbonate/Vitamin D3 [Calcium 500-Vit D3 5 Mcg (200 Iu)] 1 tab PO DAILY 06/01/20 [History] Clopidogrel [Plavix] 75 mg PO DAILY 06/01/20 [History] Glucosamine/Chondr De [place]za A Sod [Osteo Bi-Flex Caplet] 2 tab PO DAILY 06/01/20 [History] Insulin Glargine [Lantus Vial] 40 unit SQ DAILY 06/01/20 [History] Levothyroxine Sodium [Synthroid] 50 mcg PO DAILY 06/01/20 [History] Lisinopril [Prinivil] 10 mg PO DAILY 06/01/20 [History] Magnesium Oxide 400 mg PO DAILY 06/01/20 [History] Metoprolol Tartrate [Lopressor] 50 mg PO BID 06/01/20 [History] Mycophenolate Sodium [Mycophenolic Acid] 360 mg PO BID 06/01/20 [History] Pantoprazole Sodium [Protonix] 40 mg PO AC-BRKFST 06/01/20 [History] Vit C/E/Zn/Coppr/Lutein/Zeaxan [Preservision Areds 2 Softgel] 1 cap PO DAILY 1 08/01/19 [History] cycloSPORINE [SandIMMUNE] 25 mg PO DAILY 06/01/20 [History] cycloSPORINE [SandIMMUNE] 50 mg PO HS 06/01/20 [History] sitaGLIPtin [Januvia] 100 mg PO DAILY 06/01/20 [History] Famotidine [Pepcid] 20 mg PO BID 06/07/21 [History] Fluoride (Sodium) [Sodium Fluoride 5000 Plus] 1 applic DENTAL BID 06/07/21 [History] Insulin Regular, Human [Novolin R Flexpen] See Protocol SQ AC-TID 06/07/21 [History] Meclizine [Antivert] 25 mg PO BID 06/07/21 [History] [place]-3 Acid Ethyl Esters [Lovaza] 2 gm PO BID 06/07/21 [History] Rosuvastatin [Crestor] 10 mg PO HS 06/07/21 [History] Cholecalciferol [Vitamin D3 (25 Mcg = 1000 Iu)] 50 mcg PO DAILY #60 tablet 06/18/21 [Rx] Dexamethasone [Decadron] 6 mg PO DAILY 5 Days #5 tablet 06/18/21 [Rx] Famotidine [Pepcid] 20 mg PO BID #30 tab 06/18/21 [Rx] Zinc Sulfate [Orazinc] 220 mg PO DAILY #30 cap 06/18/21 [Rx] Follow up Appointment(s)/Referral(s): Monica Page III, MD [Primary Care Provider] - 1-2 days (office closed Please call to schedule appointment ) John Nascimento DO [Doctor of Osteopathic Medicine] - 2 Weeks (office closed Please call to scheudle appointment ) Patient Instructions/Handouts: Coronavirus Disease 2019 (COVID-19) Activity/Diet/Wound Care/Special Instructions: Heart healthy low carbohydrate 1600 kcal per day Activity is restricted till you see your doctors Discharge Disposition: HOME SELF-CARE Care Plan Goals (MU): [facility] phone [phone]. Will deliver portable to hospital and concentrator for home. Any questions please call agency.
== END 2021-06-18 14:00 | disposition home or self-care (01) | DRG 177 ==
LOC: EC 10:29 → 4SSUR 14:19
PROVIDERS: ADMIT Internal Medicine; ATTEND Internal Medicine
DX: U07.1 COVID-19 (principal); G93.41 Metabolic encephalopathy; J12.82 Pneumonia due to coronavirus disease 2019; J96.01 Acute respiratory failure with hypoxia; E87.1 Hypo-osmolality and hyponatremia; K75.9 Inflammatory liver disease, unspecified; G93.1 Anoxic brain damage, not elsewhere classified; Z94.4 Liver transplant status; A08.39 Other viral enteritis; E03.9 Hypothyroidism, unspecified; E11.9 Type 2 diabetes mellitus without complications; E78.5 Hyperlipidemia, unspecified; I10 Essential (primary) hypertension; Z79.02 Long term (current) use of antithrombotics/antiplatelets; Z79.4 Long term (current) use of insulin; Z79.84 Long term (current) use of oral hypoglycemic drugs; Z79.890 Hormone replacement therapy; Z79.899 Other long term (current) drug therapy; Z86.73 Personal history of transient ischemic attack (TIA), and cerebral infarction without residual deficits; Z90.710 Acquired absence of both cervix and uterus; Z90.49 Acquired absence of other specified parts of digestive tract; Z88.8 Allergy status to other drugs, medicaments and biological substances; Z91.041 Radiographic dye allergy status
CPT/HCPCS: 36415; 70450; 70551; 71045; 71046; 80048; 80053; 80076; 82140; 82607; 82746; 83615; 83735; 83880; 84145; 84484; 85025; 85379; 85610; 85730; 86140; 93005; 93970; 94640; 94760; 99285

== ENCOUNTER → 2021-07-25 | Outpatient (CLI) | payer MEDICARE, OTHER ==
--- NOTE | 2021-07-25 08:52 | CT ---
EXAMINATION TYPE: CT chest wo con DATE OF EXAM: 07/25/2021 COMPARISON: Chest x-ray July 11, 2021 and older studies. HISTORY: pulmonary fibrosis, history of covid pneumonia [address] DLP: 516.3 mGycm. Automated Exposure Control for Dose Reduction was Utilized. TECHNIQUE: CT scan of the thorax is performed without IV contrast. High-resolution protocol with 1 m m sequences obtained at 10 mm intervals in supine and prone technique. FINDINGS: LUNGS: Elevated right hemidiaphragm redemonstrated. This has been present back through April 08, 2020 chest x-ray. There is bilateral reticulation and intralobular septal thickening seen diffusely b ut greatest in the lower lungs with some areas of groundglass opacity remain present bilaterally. No pleural effusion or pneumothorax seen bilaterally. MEDIASTINUM: Lack of IV contrast and technique are noted to limit evaluation for mediastinal and winsome cially hilar adenopathy. There are no definitive greater than 1 cm mediastinal lymph nodes. No card iomegaly or pericardial effusion is seen. Moderate to severe three-vessel coronary artery calcificati on. Ectatic ascending aorta up to 3.8 cm axial image 16 series 7. OTHER: Cholecystectomy clips. IMPRESSION: Fairly moderate bilateral chronic parenchymal changes now present. Some areas of residual acute infiltrate not excluded. Chronic elevated right hemidiaphragm.
--- NOTE | 2021-07-25 09:03 | FL ---
EXAMINATION TYPE: FL sniff test without CXR DATE OF EXAM: 07/25/2021 COMPARISON: Chest CT today. Chest x-ray July 11, 2021 and older x-rays April 08, 2020. HISTORY: Abnormal x-ray with elevated right hemidiaphragm. Pulmonary fibrosis per order. Recent covid infection in May 2021 TECHNIQUE: Fluoroscopic guidance was provided during sniff test procedure performed by myself. A tot al of 51 seconds of fluoroscopic time was utilized during the procedure and 102 spot images are acqui red. FINDINGS: Elevated right hemidiaphragm is seen. Patient has suboptimal deep inspiration and expirati on. There is overall diminished inferior displacement on inspiration and superior displacement and ex piration of the right hemidiaphragm relative to left side during rapid and deep breathing movements. No paradoxical motion noted. Review of x-rays shows chronic elevated right hemidiaphragm back through April 08, 2020. IMPRESSION: As Above.
== END | disposition home or self-care (01) ==
LOC: RADCTMAIN 08:04
PROVIDERS: ATTEND Internal Medicine Critical Care Medicine
DX: J84.10 Pulmonary fibrosis, unspecified (principal); J98.6 Disorders of diaphragm
CPT/HCPCS: 71250; 76000

== ENCOUNTER → 2021-12-22 | Outpatient (CLI) | payer MEDICARE, OTHER ==
[2021-12-22 09:42] LABS: Creatinine,Urine Random 61.1 mg/dL
[2021-12-22 10:14] LABS: Protein/Creatinine Ratio,Urine 4.894
[2021-12-22 11:30] LABS: Basophils # (A) 0.02 X 10*3/uL (0.00-0.10); Basophils % (A) 0.2 %; Eosinophils # (A) 0 X 10*3/uL (0.04-0.35); Eosinophils % (A) 0 %; HGB 11.9 g/dL (12.0-15.0); Immature Grans, Automated 1.1 %; Lymphocytes # (A) 2.36 X 10*3/uL (0.90-5.00); Lymphocytes % (A) 20.5 %; MCH 26.3 pg (27.0-32.0); MCHC 32.2 g/dL (32.0-37.0); MCV 81.7 fL (80.0-97.0); Mean Platelet Volume 9.9 fL (9.5-12.2); Monocytes # (A) 0.43 X 10*3/uL (0.20-1.00); Monocytes % (A) 3.7 %; NRBC Per 100 WBC 0 /100 WBCS (0.0-0.0); Neutrophils # (A) 8.57 X 10*3/uL (1.80-7.70); Neutrophils % (A) 74.5 %; Platelet Count 390 X 10*3/uL (140-440); RBC 4.53 X 10*6/uL (4.10-5.20); RDW 14.5 % (11.5-14.5); WBC 11.51 X 10*3/uL (4.50-10.00)
[2021-12-22 11:39] LABS: African American GFR (CKD) 51.2 (60.0-200.0); Albumin 4.5 g/dL (3.8-4.9); Albumin/Globulin Ratio 1.25 (1.60-3.17); BUN/Creat Ratio 15.08 Ratio (12.00-20.00); Blood Urea Nitrogen 18.1 mg/dL (9.0-27.0); Calcium 9.4 mg/dL (8.7-10.3); Globulin 3.6 g/dL (1.6-3.3); Non-African American GFR(CKD) 44.2 (60.0-200.0); Potassium 3.7 mmol/L (3.5-5.5); Total Bilirubin 0.9 mg/dL (0.30-1.20); Total Protein 8.1 g/dL (6.2-8.2)
== END | disposition home or self-care (01) ==
LOC: LABWHC1 07:22
PROVIDERS: ATTEND Internal Medicine Nephrology
DX: N18.31 Chronic kidney disease, stage 3a (principal); Z94.4 Liver transplant status
CPT/HCPCS: 36415; 80053; 80158; 82570; 84156; 85025

== ENCOUNTER 2021-12-26 21:18 | Observation (INO) | payer MEDICARE, OTHER ==
[2021-12-26] MEDS ORDERED: ONDANSETRON 4 MG/2 ML VIAL IVP STA (21:42)
--- NOTE | 2021-12-26 21:43 | ED ---
General Adult HPI - General Chief complaint: Syncope Stated complaint: Syncope Time Seen by Provider: 12/26/21 21:33 Source: patient, EMS Mode of arrival: EMS - History of Present Illness Initial comments: Dictation was produced using [employer] dictation software. please excuse any grammatical, word or spelling errors. Chief Complaint: 76-year-old female past medical history diabetes, dyslipidemia and liver transplant presents to the emergency department for episode of dizziness History of Present Illness: Is a 76-year-old female she is been her usual state of health most of the day. They went to a pizza place for dinner. She states she had a wonderful dinner when she got home she all of a sudden felt an episode of dizziness. Denies sensation of the room spinning. States that she has history of vertigo and takes Antivert. Patient has no other symptoms. Denies any shortness of breath, chest pain or abdominal pain. No nausea or vomiting. Patient states that since being in emergency department her symptoms improved greatly. Patient has a history of hypertension. The ROS documented in this emergency department record has been reviewed and confirmed by me. Those systems with pertinent positive or negative responses have been documented in the HPI. All other systems are other negative and/or noncontributory. PHYSICAL EXAM: General Impression: Alert and oriented x3, not in acute distress HEENT: Normocephalic atraumatic, extra-ocular movements intact, pupils equal and reactive to light bilaterally, mucous membranes moist. Cardiovascular: Heart regular rate and rhythm Chest: Able to complete full sentences, no retractions, no tachypnea Abdomen: abdomen soft, non-tender, non-distended, no organomegaly Musculoskeletal: Pulses present and equal in all extremities, no peripheral edema Motor: no focal deficits noted Neurological: CN II-XII grossly intact, no focal motor or sensory deficits noted Skin: Intact with no visualized rashes Psych: Normal affect and mood ED course: 76-year-old female presents emergency department for chief complaint of dizziness. Her dizziness started acutely after dinner. He had pizza. Patient states that since being in emergency department her symptoms significantly improved. She does still feel some lightheadedness. Denies any vertigo. She has no neurologic deficits. Vital signs upon arrival shows blood pressure 203/90, rest of vital signs within acceptable limits. Patient's is at bedside provides a completely different history from what patient provided. reports that he came into the house and found her lying down the floor. He states that she had approximately 15-20 minutes episode of aphasia. EMS was called. Patient was found to be aphasic by EMS. Leonel villalta the bedside reports that patient looks significantly improved. He states that her blood pressure is not usually this high. Review blood pressure is 180/88. Patient reevaluated bedside at 10:50 PM found to be stable medical condition. Patient does not have any focal neurologic deficits. Patient clinical presentation concerning for transient ischemic attack given that reports that patient had an episode of aphasia similar to a previous episode where she received thrombolytics. Computed tomography scan shows no acute processes. Patient given aspirin. She is not having active neurologic symptoms upon reevaluation. Electrolytes replaced with oral replacement. EKG interpretation: Ventricular rate 70, sinus rhythm,. Interval 189, QS 105, QTc 448. No NM prolongation, no QTC prolongation, no ST or T-wave changes noted. EKG compared to 06/07/2021 showing no changes. Overall, this EKG is unremarkable - Related Data Home Medications Medication Instructions Recorded Confirmed Acetaminophen Tab [Tylenol] 1,000 mg PO BID PRN 06/01/20 06/07/21 Calcium Carbonate/Vitamin D3 1 tab PO DAILY 06/01/20 06/07/21 [Calcium 500-Vit D3 5 Mcg (200 Iu)] Clopidogrel [Plavix] 75 mg PO DAILY 06/01/20 06/07/21 Glucosamine/Chondr De La Garza A Sod [Osteo 2 tab PO DAILY 06/01/20 06/07/21 Bi-Flex Caplet] Insulin Glargine [Lantus Vial] 40 unit SQ DAILY 06/01/20 06/07/21 Levothyroxine Sodium [Synthroid] 50 mcg PO DAILY 06/01/20 06/07/21 Lisinopril [Prinivil] 10 mg PO DAILY 06/01/20 06/07/21 Magnesium Oxide 400 mg PO DAILY 06/01/20 06/07/21 Metoprolol Tartrate [Lopressor] 50 mg PO BID 06/01/20 06/07/21 Mycophenolate Sodium [Mycophenolic 360 mg PO BID 06/01/20 06/07/21 Acid] Pantoprazole Sodium [Protonix] 40 mg PO AC-BRKFST 06/01/20 06/07/21 Vit C/E/Zn/Coppr/Lutein/Zeaxan 1 cap PO DAILY 06/01/20 06/07/21 [Preservision Areds 2 Softgel] cycloSPORINE [SandIMMUNE] 25 mg PO DAILY 06/01/20 06/07/21 cycloSPORINE [SandIMMUNE] 50 mg PO HS 06/01/20 06/07/21 sitaGLIPtin [Januvia] 100 mg PO DAILY 06/01/20 06/07/21 Famotidine [Pepcid] 20 mg PO BID 06/07/21 06/07/21 Fluoride (Sodium) [Sodium Fluoride 1 applic DENTAL BID 06/07/21 06/07/21 5000 Plus] Insulin Regular, Human [Novolin R See Protocol SQ AC-TID 06/07/21 06/07/21 Flexpen] Meclizine [Antivert] 25 mg PO BID 06/07/21 06/07/21 [place]-3 Acid Ethyl Esters [Lovaza] 2 gm PO BID 06/07/21 06/07/21 Rosuvastatin [Crestor] 10 mg PO HS 06/07/21 06/07/21 Previous Rx's Medication Instructions Recorded Cholecalciferol [Vitamin D3 (25 50 mcg PO DAILY #60 tablet 06/18/21 Mcg = 1000 Iu)] Dexamethasone [Decadron] 6 mg PO DAILY 5 Days #5 tablet 06/18/21 Famotidine [Pepcid] 20 mg PO BID #30 tab 06/18/21 Zinc Sulfate [Orazinc] 220 mg PO DAILY #30 cap 06/18/21 Allergies Allergy/AdvReac Type Severity Reaction Status Date / Time Iodinated Contrast Media Allergy Rash/Hives Verified 06/07/21 12:08 pioglitazone [From Actos] Allergy Rash/Hives Verified 06/07/21 12:08 pentazocine [From Talwin] AdvReac Vomiting Verified 06/07/21 12:08 Review of Systems ROS Statement: Those systems with pertinent positive or pertinent negative responses have been documented in the HPI. ROS Other: All systems not noted in ROS Statement are negative. Past Medical History Past Medical History: CVA/TIA, Hypertension History of Any Multi-Drug Resistant Organisms: None Reported Past Surgical History: Appendectomy, Cholecystectomy, Hysterectomy Additional Past Surgical History / Comment(s): D&C, liver transplant Past Anesthesia/Blood Transfusion Reactions: No Reported Reaction Past Psychological History: No Psychological Hx Reported Smoking Status: Never smoker Past Alcohol Use History: None Reported Past Drug Use History: None Reported Course Vital Signs 12/26/21 12/26/21 12/26/21 21:23 21:28 22:47 Temperature 98 F Pulse Rate 70 69 69 Respiratory 18 18 18 Rate Blood Pressure 203/90 180/88 O2 Sat by Pulse 96 96 96 Oximetry Medical Decision Making - Lab Data Result diagrams: 12/26/21 21:46 12/26/21 21:46 Lab Results 12/26/21 12/26/21 Range/Units 21:46 21:46 WBC 7.9 (3.8-10.6) k/uL RBC 4.49 (3.80-5.40) m/uL Hgb 11.7 (11.4-16.0) gm/dL Hct 37.1 (34.0-46.0) % MCV 82.8 (80.0-100.0) fL MCH 26.1 (25.0-35.0) pg MCHC 31.5 (31.0-37.0) g/dL RDW 14.6 (11.5-15.5) % Plt Count 281 (150-450) k/uL MPV 7.4 Neutrophils % 53 % Lymphocytes % 36 % Monocytes % 6 % Eosinophils % 1 % Basophils % 1 % Neutrophils # 4.2 (1.3-7.7) k/uL Lymphocytes # 2.9 (1.0-4.8) k/uL Monocytes # 0.5 (0-1.0) k/uL Eosinophils # 0.1 (0-0.7) k/uL Basophils # 0.1 (0-0.2) k/uL Poikilocytosis Slight Sodium 131 L (137-145) mmol/L Potassium 3.2 L (3.5-5.1) mmol/L Chloride 92 L (98-107) mmol/L Carbon Dioxide 29 (22-30) mmol/L Anion Gap 10 mmol/L BUN 18 H (7-17) mg/dL Creatinine 0.86 (0.52-1.04) mg/dL Est GFR (CKD-EPI)AfAm 77 (>60 ml/min/1.73 sqM) Est GFR (CKD-EPI)NonAf 67 (>60 ml/min/1.73 sqM) Glucose 250 H (74-99) mg/dL Calcium 8.8 (8.4-10.2) mg/dL Magnesium 1.1 L (1.6-2.3) mg/dL Total Bilirubin 0.9 (0.2-1.3) mg/dL AST 107 H (14-36) U/L ALT 91 H (4-34) U/L Alkaline Phosphatase 65 (38-126) U/L Total Protein 7.4 (6.3-8.2) g/dL Albumin 4.2 (3.5-5.0) g/dL Disposition Clinical Impression: Altered mental status Disposition: ADMITTED IP TO THIS [facility] Condition: Fair Referrals: Monica Page III, MD [Primary Care Provider] - 1-2 days Decision Time: 22:56
[2021-12-26 21:50] LABS: Basophils # (A) 0.1 k/uL (0-0.2); Basophils % (A) 1 %; Eosinophils # (A) 0.1 k/uL (0-0.7); Eosinophils % (A) 1 %; HCT 37.1 % (34.0-46.0); HGB 11.7 gm/dL (11.4-16.0); Lymphocytes # (A) 2.9 k/uL (1.0-4.8); Lymphocytes % (A) 36 %; MCH 26.1 pg (25.0-35.0); MCHC 31.5 g/dL (31.0-37.0); MCV 82.8 fL (80.0-100.0); Mean Platelet Volume 7.4; Monocytes # (A) 0.5 k/uL (0-1.0); Monocytes % (A) 6 %; Neutrophils # (A) 4.2 k/uL (1.3-7.7); Neutrophils % (A) 53 %; Platelet Count 281 k/uL (150-450); Poikilocytosis Slight; RBC 4.49 m/uL (3.80-5.40); RDW 14.6 % (11.5-15.5); WBC 7.9 k/uL (3.8-10.6)
[2021-12-26 22:01] LABS: Albumin 4.2 g/dL (3.5-5.0); Calcium 8.8 mg/dL (8.4-10.2); Magnesium 1.1 mg/dL (1.6-2.3); Potassium 3.2 mmol/L (3.5-5.1); Total Bilirubin 0.9 mg/dL (0.2-1.3); Total Protein 7.4 g/dL (6.3-8.2)
[2021-12-26] MEDS ORDERED: POTASSIUM CHLORIDE ER 20 MEQ TAB.ER PO STA (22:14)
[2021-12-26] MEDS ORDERED: MAGNESIUM OXIDE 400 MG TAB PO STA (22:14)
[2021-12-26] MEDS ORDERED: ASPIRIN 81 MG PO STA (22:26)
[2021-12-26] MEDS ORDERED: SODIUM CHLORIDE 0.9% 1,000 ML IV STA (22:27)
[2021-12-26] MEDS ORDERED: NALOXONE 0.4 MG/ML 1 ML VIAL IV PRN (22:48)
--- NOTE | 2021-12-26 22:52 | CT ---
EXAMINATION TYPE: CT brain wo con DATE OF EXAM: 12/26/2021 COMPARISON: 06/14/2021 HISTORY: altered mental status CT DLP: 1243.4 mGycm Automated exposure control for dose reduction was used. There is cerebral cortical atrophy. There is no mass effect or midline shift. No sign of intracranial hemorrhage. The calvarium is intact. There is normal aeration of the mastoid sinuses. Skull base is intact. IMPRESSION: Cerebral atrophy. No acute intracranial abnormality. No change.
[2021-12-27] MEDS: SODIUM CHLORIDE 0.9% 1,000 ML IV SCH ×2 (01:03→21:40)
--- NOTE | 2021-12-27 03:18 | P.HPIM ---
History of Present Illness H&P Date: 12/27/21 The patient is 76-year-old female with a PMH of liver transplant, BPPV, type II DM, and history of CVA, with no residual deficits presents to the emergency room after an episode of lightheadedness and confusion. The patient reports that she was in her usual state of health until about 6 PM tonight as she was returning home after having dinner out with her . As she was walking through her dining room, she suddenly became lightheaded and vertiginous and slowly laid down on the ground. The patient's at the bedside reports that she then became confused, not being able to state the year and not knowing where she was. He subsequently activated EMS upon arrival also noted that she was confused, and subsequently brought her to the emergency room. The patient did not lose consciousness, and denied experiencing weakness, numbness, or tingling. She reports that her symptoms gradually improved after arrival at the emergency room. She denied experiencing chest discomfort, shortness of breath, palpitations, nausea, or vomiting. Reports that her oral intake has been at her baseline. Reports that her symptoms are similar to when she previously had CVA. CT brain in the emergency room was unremarkable. EKG revealed sinus rhythm with PVCs and an incomplete right bundle branch block at 70 bpm. Laboratory evaluation was remarkable for a potassium of 3.2, and magnesium 1.1, AST 107, and ALT 91. NIH score 0 in the emergency room. Review of systems: Pertinent positives and negatives as discussed in HPI, a complete review of systems was performed and all other systems are negative. Physical examination: General: non toxic, no distress, appears at stated age, overweight Derm: no unusual rashes/lesions no unusual ecchymoses, warm, dry Head: atraumatic, normocephalic, symmetric Eyes: EOMI, no lid lag, anicteric sclera, pupils equal round reactive to light ENT: Nose and ears atraumatic, no thrush, no pharyngeal erythema Neck: No thyromegaly, no cervical lymphadenopathy, trachea midline, supple Mouth: no lip lesion, mucus membranes moist Cardiovascular: S1S2 reg, no murmur, positive posterior tibial pulse bilateral, no edema, capillary refill less than 2 seconds Lungs: CTA bilateral, no rhonchi, no rales , no accessory muscle use Abdominal: soft, nontender to palpation, no guarding, no appreciable organomegaly, normal bowel sounds Ext: no gross muscle atrophy, muscle strength 5 out of 5 in all 4 extremities grossly, no contractures, Neuro: CN II-XI grossly intact, light touch intact all 4 extremities, finger to nose within normal limits, Psych: Alert, oriented, appropriate affect Assessment/plan Near syncope, confusion, unclear etiology -Cardiac monitoring -Echocardiogram -Neurology consulted for possible TIA -Fall precautions -Obtain orthostatics Hypokalemia, hypomagnesemia -Replace and monitor Chronic conditions: Type II DM, status post liver transplant -Insulin sliding scale blood glucose monitoring -Continue with home meds DVT prophylaxis -Heparin subcu The patient is admitted with an anticipated less than 2 midnight stay for ev aluation of near syncope. CODE STATUS: Full code Discussed with: Patient Anticipated discharge date: In a.m. Anticipated discharge place: Home Past Medical History Past Medical History: CVA/TIA, Hypertension History of Any Multi-Drug Resistant Organisms: None Reported Past Surgical History: Appendectomy, Cholecystectomy, Hysterectomy Additional Past Surgical History / Comment(s): D&C, liver transplant Past Anesthesia/Blood Transfusion Reactions: No Reported Reaction Past Psychological History: No Psychological Hx Reported Smoking Status: Never smoker Past Alcohol Use History: None Reported Past Drug Use History: None Reported - Past Family History Mother Family Medical History: Liver Disease Medications and Allergies Home Medications Medication Instructions Recorded Confirmed Type Acetaminophen Tab [Tylenol] 1,000 mg PO BID PRN 06/01/20 12/26/21 History Calcium Carbonate/Vitamin D3 1 tab PO BID 06/01/20 12/26/21 History [Calcium 500-Vit D3 5 Mcg (200 Iu)] Clopidogrel [Plavix] 75 mg PO DAILY 06/01/20 12/26/21 History Glucosamine/Chondr De La Garza A Sod [Osteo 2 tab PO DAILY 06/01/20 12/26/21 History Bi-Flex Caplet] Insulin Glargine [Lantus Vial] 40 unit SQ DAILY 06/01/20 12/26/21 History Levothyroxine Sodium [Synthroid] 50 mcg PO DAILY 06/01/20 12/26/21 History Lisinopril [Prinivil] 10 mg PO DAILY 06/01/20 12/26/21 History Magnesium Oxide 400 mg PO DAILY 06/01/20 12/26/21 History Metoprolol Tartrate [Lopressor] 50 mg PO BID 06/01/20 12/26/21 History Mycophenolate Sodium [Mycophenolic 360 mg PO BID 06/01/20 12/26/21 History Acid] Pantoprazole Sodium [Protonix] 40 mg PO AC-BRKFST 06/01/20 12/26/21 History Vit C/E/Zn/Coppr/Lutein/Zeaxan 1 cap PO DAILY 06/01/20 12/26/21 History [Preservision Areds 2 Softgel] cycloSPORINE [SandIMMUNE] 25 mg PO DAILY 06/01/20 12/26/21 History cycloSPORINE [SandIMMUNE] 50 mg PO HS 06/01/20 12/26/21 History sitaGLIPtin [Januvia] 100 mg PO DAILY 06/01/20 12/26/21 History Insulin Regular, Human [Novolin R See Protocol SQ AC-TID 06/07/21 12/26/21 History Flexpen] Meclizine [Antivert] 25 mg PO BID 06/07/21 12/26/21 History Amoxicillin 2,000 mg PO ONCE PRN 12/26/21 12/26/21 History Atorvastatin [Lipitor] 40 mg PO HS 12/26/21 12/26/21 History Cephalexin [Keflex] 250 mg PO DAILY 12/26/21 12/26/21 History Fenofibrate [Lofibra] 54 mg PO DAILY 12/26/21 12/26/21 History Furosemide [Lasix] 20 mg PO DAILY PRN 12/26/21 12/26/21 History Multivitamins, Thera [Multivitamin 1 tab PO DAILY 12/26/21 12/26/21 History (formulary)] Zinc Gluconate [Zinc] 50 mg PO DAILY 12/26/21 12/26/21 History Allergies Allergy/AdvReac Type Severity Reaction Status Date / Time Iodinated Contrast Media Allergy Rash/Hives Verified 06/07/21 12:08 pioglitazone [From Actos] Allergy Rash/Hives Verified 06/07/21 12:08 pentazocine [From Talwin] AdvReac Vomiting Verified 06/07/21 12:08 Physical Exam Vitals: Vital Signs Temp Pulse Resp BP Pulse Ox 12/27/21 01:05 67 14 171/85 97 12/26/21 22:47 69 18 180/88 96 12/26/21 21:28 98 F 69 18 96 12/26/21 21:23 70 18 203/90 96 Intake and Output 12/26/21 12/26/21 12/27/21 14:59 22:59 06:59 Other: Weight 68.039 kg Results CBC & Chem 7: 12/26/21 21:46 12/26/21 21:46 Labs: Abnormal Lab Results - Last 24 Hours (Table) 12/26/21 Range/Units 21:46 Sodium 131 L (137-145) mmol/L Potassium 3.2 L (3.5-5.1) mmol/L Chloride 92 L (98-107) mmol/L BUN 18 H (7-17) mg/dL Glucose 250 H (74-99) mg/dL Magnesium 1.1 L (1.6-2.3) mg/dL AST 107 H (14-36) U/L ALT 91 H (4-34) U/L
[2021-12-27] MEDS: MAGNESIUM SULFATE-D5W PMX 1 GM in DEXTROSE/WATER 1 100ML.BAG IVPB SCH ×2 (04:06→05:03)
[2021-12-27 04:12] LABS: Glucose,Whole Blood 264 mg/dL (75-99)
[2021-12-27 07:42] LABS: Glucose,Whole Blood 293 mg/dL (75-99)
[2021-12-27] MEDS: HEPARIN SODIUM,PORCINE/PF 5,000 UNIT/0.5 ML SYRINGE SQ SCH ×2 (08:00→16:32)
[2021-12-27] MEDS: INSULIN ASPART (NovoLOG) 100 UNIT/ML VIAL SQ SCH ×4 (08:00→21:36)
[2021-12-27] MEDS ORDERED: FUROSEMIDE 20 MG TAB PO PRN (08:17)
[2021-12-27] MEDS ORDERED: NON FORMULARY DRUG (Glucosamine/Chondr Su A Sod [Osteo Bi-Flex Caplet] 1 EACH Tablet) PO SCH (09:00)
[2021-12-27] MEDS ORDERED: FENOFIBRATE 54 MG TAB PO SCH (09:00)
[2021-12-27] MEDS ORDERED: cycloSPORINE 25 MG CAP PO SCH (09:00)
[2021-12-27 09:28] LABS: African American GFR (CKD) >90 (>60 ml/min/1.73 sqM); Anion Gap 12 mmol/L; Blood Urea Nitrogen 15 mg/dL (7-17); Calcium 8.9 mg/dL (8.4-10.2); Carbon Dioxide 24 mmol/L (22-30); Chloride 96 mmol/L (98-107); Glucose 272 mg/dL (74-99); Non-African American GFR(CKD) 87 (>60 ml/min/1.73 sqM); Potassium 3.7 mmol/L (3.5-5.1); Sodium 132 mmol/L (137-145)
--- NOTE | 2021-12-27 09:40 | P.CNNES ---
History of Present Illness Consult date: 12/27/21 Requesting physician: Josse Burton Reason for Consult: suspect TIA History of Present Illness: This is a 76-year-old woman medical history of CVA s/p IV tpa (8 years ago), hypertension diabetes, dyslipidemia, ALCAZAR s/p liver transplant in 2010, COVID-19 pneumonia 05/2021, vertigo, hypothyroidism who presented emergency department on 12/26/2021 because of the sudden onset of dizziness and difficulty getting her words out. Patient stated that yesterday she was doing well then she went out for dinner and then when she got home around 8pm she had an episode of dizziness and felt the room is spinning. She also had difficulty getting her words out. She denies of any nausea, vomiting, visual disturbance, focal weakness or numbness. She states her symptoms has resolved and is back to baseline. Some the patient will medication consist of Plavix 75 mg daily, Lipitor 40 mg daily at bedtime. Patient stated that the she is been on prednisone last prednisone was used about 3 weeks ago because of her COVID-19 pneumonia to alleviate the scar. She was also in the past on prednisone for her left eye issue. She did state that her blood sugar has been elevated as well as her blood pressure has been elevated and uncontrolled and she's not on any medication for blood pressure Of note patient is on cyclosporine and mycophenolate for her liver transplant. She was notified that by her wood calker to consume 2-3 cups of coffee a day to help with the liver transplant which she has. Some of the workup during this hospital visit consisted of: Initial vital signs is blood pressure of 203/90, heart rate of 70, respiratory of 18, temperature of 98.0 Fahrenheit oral and pulse ox of 96% room air. Repeated blood pressure is 180/88 CBC with differential is unremarkable Chemistry panel is initial serum glucose is 250. Highest POC glucose is 293. AST of 107 ALT of 91. Sodium is 131. CT of the head is reported as cerebral atrophy. No acute intracranial abnormality. No change I personally reviewed the CT of the head and there is no acute subacute ischemia seems the patient has a small vessel disease that seems old. Review of Systems Review of system: The 12 point system was reviewed and apparent positive and negative per HPI. Past Medical History Past Medical History: CVA/TIA, Diabetes Mellitus, Hypertension, Thyroid Disorder History of Any Multi-Drug Resistant Organisms: None Reported Past Surgical History: Appendectomy, Cholecystectomy, Hysterectomy Additional Past Surgical History / Comment(s): D&C, liver transplant Past Anesthesia/Blood Transfusion Reactions: No Reported Reaction Past Psychological History: No Psychological Hx Reported Smoking Status: Never smoker Past Alcohol Use History: None Reported Past Drug Use History: None Reported - Past Family History Mother Family Medical History: Liver Disease Medications and Allergies Home Medications Medication Instructions Recorded Confirmed Type Acetaminophen Tab [Tylenol] 1,000 mg PO BID PRN 06/01/20 12/26/21 History Calcium Carbonate/Vitamin D3 1 tab PO BID 06/01/20 12/26/21 History [Calcium 500-Vit D3 5 Mcg (200 Iu)] Clopidogrel [Plavix] 75 mg PO DAILY 06/01/20 12/26/21 History Glucosamine/Chondr De La Garza A Sod [Osteo 2 tab PO DAILY 06/01/20 12/26/21 History Bi-Flex Caplet] Insulin Glargine [Lantus Vial] 40 unit SQ DAILY 06/01/20 12/26/21 History Levothyroxine Sodium [Synthroid] 50 mcg PO DAILY 06/01/20 12/26/21 History Lisinopril [Prinivil] 10 mg PO DAILY 06/01/20 12/26/21 History Magnesium Oxide 400 mg PO DAILY 06/01/20 12/26/21 History Metoprolol Tartrate [Lopressor] 50 mg PO BID 06/01/20 12/26/21 History Mycophenolate Sodium [Mycophenolic 360 mg PO BID 06/01/20 12/26/21 History Acid] Pantoprazole Sodium [Protonix] 40 mg PO AC-BRKFST 06/01/20 12/26/21 History Vit C/E/Zn/Coppr/Lutein/Zeaxan 1 cap PO DAILY 06/01/20 12/26/21 History [Preservision Areds 2 Softgel] sitaGLIPtin [Januvia] 100 mg PO DAILY 06/01/20 12/26/21 History Insulin Regular, Human [Novolin R See Protocol SQ AC-TID 06/07/21 12/26/21 History Flexpen] Meclizine [Antivert] 25 mg PO BID 06/07/21 12/26/21 History Amoxicillin 2,000 mg PO ONCE PRN 12/26/21 12/26/21 History Atorvastatin [Lipitor] 40 mg PO HS 12/26/21 12/26/21 History Cephalexin [Keflex] 250 mg PO DAILY 12/26/21 12/26/21 History Fenofibrate [Lofibra] 54 mg PO DAILY 12/26/21 12/26/21 History Furosemide [Lasix] 20 mg PO DAILY PRN 12/26/21 12/26/21 History Multivitamins, Thera [Multivitamin 1 tab PO DAILY 12/26/21 12/26/21 History (formulary)] Zinc Gluconate [Zinc] 50 mg PO DAILY 12/26/21 12/26/21 History Cyclosporine, Modified [Gengraf] 25 mg PO DAILY 12/27/21 12/27/21 History cycloSPORINE, MODIFIED [Neoral] 50 mg PO HS 12/27/21 12/27/21 History Allergies Allergy/AdvReac Type Severity Reaction Status Date / Time Iodinated Contrast Media Allergy Rash/Hives Verified 06/07/21 12:08 pioglitazone [From Actos] Allergy Rash/Hives Verified 06/07/21 12:08 pentazocine [From Talwin] AdvReac Vomiting Verified 06/07/21 12:08 Physical Examination - Vital Signs Vital Signs: Vital Signs Temp Pulse Resp BP Pulse Ox 12/27/21 06:11 64 18 185/86 96 12/27/21 04:13 65 18 185/88 97 12/27/21 01:05 67 14 171/85 97 12/26/21 22:47 69 18 180/88 96 12/26/21 21:28 98 F 69 18 96 12/26/21 21:23 70 18 203/90 96 Intake and Output 12/26/21 12/27/21 12/27/21 22:59 06:59 14:59 Other: Weight 68.039 kg 68.039 kg GENERAL: The patient is lying in bed and is not in acute distress. CHEST: The heart rate is regular rate rhythm. No murmurs to auscultation. LUNG: Clear to auscultation bilaterally no wheezing noted throughout. Not labored breathing. ABDOMEN/GI: Bowel sounds present in all 4 quadrants. No tenderness to palpation throughout. NEUROLOGICAL: Higher mental function: The patient is awake, alert, oriented to self, place and time. Patient is following commands. No aphasia and no neglect. Cranial nerves: The pupils are round, equal and reactive to light and accommodation. Visual gee are full to confrontation throughout. Extraocular movement is intact no nystagmus is noted. Facial sensation is normal to touch throughout. The facial strength is normal throughout. Hearing is normal bilaterally to hand rub. Tongue is midline and moved [id number] without any difficulty. No dysarthria is noted. Shoulder shrug is normal bilaterally. Motor: Gait is normal. The strength is 5 over 5 throughout. Normal tone and bulk. Cerebellum: Normal finger to nose heel to wilburn bilaterally. Sensation: Sensation is normal to touch throughout. Reflexes (right/left): 2+ throughout. Plantars are downgoing bilaterally. Results - Laboratory Findings CBC and BMP: 12/26/21 21:46 12/27/21 07:27 Abnormal Lab Findings: Abnormal Labs 12/26/21 12/27/21 12/27/21 21:46 04:10 07:40 Sodium 131 L Potassium 3.2 L Chloride 92 L BUN 18 H Glucose 250 H POC Glucose (mg/dL) 264 H 293 H Magnesium 1.1 L AST 107 H ALT 91 H Assessment and Plan Assessment: Hypertensive emergency Acute transient Vertigo and her expressive aphasia likely due to uncontrolled hypertension. Cannot rule out TIA. Diabetes mellitus and on presentation it seems uncontrolled as high as 290's (was on Prednisone for COVID-19 pneumonia last used was 3 weeks ago) History of [facility] s/p tpa about 8 years ago Dyslipidemia History of hypertension ALCAZAR s/p Liver transplant in 2010 Hypothyroidism Plan: I ordered carotid duplex, lipid panel, hemoglobin A1c, TSH. I ordered alcohol level. I ordered MRI of the brain to rule outs any acute ischemic stroke/or PRES as result of her uncontrolled hypertension ans since on cylcospoine. 2-D echo is ordered and is pending Patient is continued on her home dose of Plavix 75 mg daily in addition primary team added aspirin 81 mg daily and resumed her home dose of Lipitor 40 mg daily at bedtime. Every 4 hours neuro checks On cardiac monitoring Recommend slowly tapering down the blood pressure to avoid any stroke. We'll defer the rest of medical management to primary team For DVT prophylaxis the patient is on subcu heparin 5000 units every 8 hours. Patient to continue to follow-up with her neurologist team (Dr. West). The plan is discussed with patient and her nurse. Thank you for the consultation. Thien Nascimento M.D. Neuro-hospital Time with Patient: Greater than 30
[2021-12-27] MEDS: METOPROLOL TARTRATE 50 MG TAB PO SCH ×2 (10:09→21:35)
[2021-12-27] MEDS: ASPIRIN 81 MG PO SCH (10:09)
[2021-12-27] MEDS: lisinopriL 10 MG TAB PO SCH (10:09)
[2021-12-27] MEDS: ZINC SULFATE 220 MG CAP PO SCH (10:09)
[2021-12-27] MEDS: CLOPIDOGREL 75 MG TAB PO SCH (10:09)
[2021-12-27] MEDS: MULTIVITAMINS, THERA 1 EACH TAB PO SCH (10:09)
[2021-12-27] MEDS: MECLIZINE 25 MG TAB PO SCH ×2 (10:09→21:35)
[2021-12-27] MEDS: LEVOTHYROXINE 50 MCG TAB PO SCH (10:19)
[2021-12-27] MEDS: MAGNESIUM OXIDE 400 MG TAB PO SCH (10:19)
[2021-12-27] MEDS: INSULIN DETEMIR (LEVEMIR) 100 UNIT/ML SYR SQ SCH (10:19)
[2021-12-27] MEDS: PANTOPRAZOLE 40 MG TABLET PO SCH (10:19)
--- NOTE | 2021-12-27 10:37 | US ---
EXAMINATION TYPE: US carotid duplex BILAT DATE OF EXAM: 12/27/2021 COMPARISON: NONE CLINICAL HISTORY: stroke. TIA, h/o 2 strokes prior EXAM MEASUREMENTS: RIGHT: Peak Systolic Velocity (PSV) cm/sec ----- Right CCA: 73.4 ----- Right ICA: 74.4 ----- Right ECA: 85.5 ICA/CCA ratio: 1.0 RIGHT: End Diastole cm/sec ----- Right CCA: 8.5 ----- Right ICA: 12.4 ----- Right ECA: 0.0 LEFT: Peak Systolic Velocity (PSV) cm/sec ----- Left CCA: 58.6 ----- Left ICA: 83.2 ----- Left ECA: 98.7 ICA/CCA ratio: 1.4 LEFT: End Diastole cm/sec ----- Left CCA: 7.7 ----- Left ICA: 10.8 ----- Left ECA: 0.0 VERTEBRALS (direction of flow): Right Vertebral: Antegrade Left Vertebral: Antegrade Rhythm: Normal IMPRESSION: Mild homogeneous plaque with no significant stenosis seen Criteria for Assigning % of Stenosis / Diameter reduction (Estimation based on the indirect measurements of the internal carotid artery velocities (ICA PSV). 1. Normal (no stenosis)=ICA PSV < 125 cm/s: ratio < 2.0: ICA EDV<40 cm/s. 2. Less than 50% stenosis=ICA PSV < 125 cm/s: ratio < 2.0: ICA EDV<40 cm/s. 3. 50 to 69% stenosis=ICA PSV of 125 to 230 cm/s: ration 2.0 ? 4.0: ICA EDV 40-100 cm/s. 4. Greater than 70% stenosis to near occlusion= ICA PSV > 230 cm/s: ratio > 4.0: ICA EDV > 100 cm/s. 5. Near occlusion= ICA PSV velocities may be low or undetectable: variable ratio and ICA EDV. 6. Total occlusion=unable to detect flow.
--- NOTE | 2021-12-27 11:00 | CA ---
Transthoracic Echo Report Name: Salina Vazquez Age: 76 Gender: F : 1945 Exam Date: 12/27/2021 09:27 Exam Location: [facility] Ht (in): 61 Wt (lb): 150 Ordering Physician: Ross Urias MD Attending/Referring Phys: Black Pickler Bela Dee RDCS Procedure CPT: Indications: Suspected TIA Cardiac Hx: Technical Quality: Fair Contrast 1: Total Dose (mL): Contrast 2: Total Dose (mL): MEASUREMENTS (Male / Female) Normal Values 2D ECHO LV Diastolic Diameter PLAX 3.9 cm 4.2 - 5.9 / 3.9 - 5.3 cm LV Systolic Diameter PLAX 1.9 cm IVS Diastolic Thickness 1.3 cm 0.6 - 1.0 / 0.6 - 0.9 cm LVPW Diastolic Thickness 1.4 cm 0.6 - 1.0 / 0.6 - 0.9 cm LV Relative Wall Thickness 0.7 RV Internal Dim ED PLAX 2.3 cm LA Volume 46.7 cm??? 18 - 58 / 22 - 52 cm??? M-MODE Aortic Root Diameter MM 2.5 cm LA Systolic Diameter MM 4.5 cm LA Ao Ratio MM 1.8 AV Cusp Separation MM 1.3 cm DOPPLER AV Peak Velocity 229.8 cm/s AV Peak Gradient 21.1 mmHg AV Mean Velocity 192.6 cm/s AV Mean Gradient 15.7 mmHg AV Velocity Time Integral 54.3 cm LVOT Peak Velocity 135.8 cm/s LVOT Peak Gradient 7.4 mmHg MV Area PHT 3.4 cm??? Mitral E Point Velocity 90.9 cm/s Mitral A Point Velocity 112.4 cm/s Mitral E to A Ratio 0.8 MV Deceleration Time 221.9 ms TR Peak Velocity 260.9 cm/s TR Peak Gradient 27.2 mmHg Right Ventricular Systolic Press 32.0 mmHg FINDINGS Left Ventricle Mildly increased left ventricular wall thickness. Normal left ventricular systolic function with no obvious regional wall motion abnormalities. Normal left ventricular diastolic filling pattern. Left ventricular ejection fraction is estimated at 55-60 %. Right Ventricle Normal right ventricular size and function. Right ventricular systolic pressure within normal limits. Right Atrium Normal right atrial size. Left Atrium Normal left atrial size. No evidence for an atrial septal defect. Mitral Valve Structurally normal mitral valve. No mitral stenosis, regurgitation or prolapse. Aortic Valve Aortic valve sclerosis. Mild aortic stenosis with a peak gradient of 21 mmHg and a mean gradient of 16 mmHg. No aortic regurgitation. Tricuspid Valve Structurally normal tricuspid valve. Mild tricuspid regurgitation. Pulmonic Valve Structurally normal pulmonic valve. Trace pulmonic regurgitation. Pericardium No pericardial effusion. Aorta Normal size aortic root and proximal ascending aorta. CONCLUSIONS #1. Normal left in because size and function. Mild concentric hypertrophy. #2. Sclerosis of the leaflets with reduced opening excursion and mild gradient consistent with mild aortic stenosis Previewed by: Dr. Gregorio Bolanos MD (Electronically Signed) Final Date: 27 December 2021 10:59
[2021-12-27] MEDS: MYCOPHENOLATE SODIUM DR 180 MG TABLET.DR PO SCH ×2 (11:01→21:35)
[2021-12-27 11:41] LABS: Alcohol <10 mg/dL
[2021-12-27 12:21] LABS: Glucose,Whole Blood 312 mg/dL (75-99)
--- NOTE | 2021-12-27 15:48 | P.PN ---
Subjective Progress Note Date: 12/27/21 Hospital Course: The patient is 76-year-old female with a PMH of liver transplant, BPPV, type II DM, and history of CVA, with no residual deficits presents to the emergency room after an episode of lightheadedness and confusion. The patient reports that she was in her usual state of health until about 6 PM tonight as she was returning home after having dinner out with her . As she was walking through her dining room, she suddenly became lightheaded and vertiginous and slowly laid down on the ground. The patient's at the bedside reports that she then became confused, not being able to state the year and not knowing where she was. He subsequently activated EMS upon arrival also noted that she was confused, and subsequently brought her to the emergency room. The patient did not lose consciousness, and denied experiencing weakness, numbness, or tingling. She reports that her symptoms gradually improved after arrival at the emergency room. She denied experiencing chest discomfort, shortness of breath, palpitations, nausea, or vomiting. Reports that her oral intake has been at her baseline. Reports that her symptoms are similar to when she previously had CVA. CT brain in the emergency room was unremarkable. EKG revealed sinus rhythm with PVCs and an incomplete right bundle branch block at 70 bpm. Laboratory evaluation was remarkable for a potassium of 3.2, and magnesium 1.1, AST 107, and ALT 91. NIH score 0 in the emergency room. Physical examination: Patient seen and fully evaluated at bedside this morning. She is doing well. She is sitting up at edge of bed, she denies having any complaints. Patient reports yesterday she just became very dizzy and laid herself down. Patient denied ever losing any consciousness. She reports these symptoms have fully resolved. Repeat magnesium and potassium levels are normal. General: non toxic, no distress, appears at stated age Derm: warm, dry Head: atraumatic, normocephalic, symmetric Eyes: EOMI, no lid lag, anicteric sclera Mouth: no lip lesion, mucus membranes moist Cardiovascular: S1S2 reg, no murmur, positive posterior tibial pulse bilateral, Lungs: CTA bilateral, no rhonchi, no rales , no accessory muscle use Abdominal: soft, nontender to palpation, no guarding, no appreciable organomegaly Ext: no gross muscle atrophy, no edema, no contractures Neuro: CN II-XI grossly intact, no focal neuro deficits Psych: Alert, oriented, appropriate affect Assessment and plan of care: Near syncope, confusion, unclear etiology -Cardiac monitoring -Echocardiogram revealing normal EF with mild concentric hypertrophy and sclerosis of the leaflet with reduced opening asked conversion and mild gradient consistent with mild aortic stenosis. -Neurology consulted, ordered MRI -Fall precautions -Obtain orthostatics Hypokalemia, hypomagnesemia -Replace and monitor Chronic conditions: Type II DM, status post liver transplant -Insulin sliding scale blood glucose monitoring -Continue with home meds DVT prophylaxis -Heparin subcu CODE STATUS: Full code Discussed with: Patient and RN Anticipated discharge date: likely tomorrow. Anticipated discharge place: Home A total of 35 minutes was spent on the care of this complex patient more than 50% of the time was spent in counseling and care coordination.. Ananth Summers NP rendered care for this patient independently, reviewed the findings and plan as documented in the note above. I did not physically speak with or examine the patient on this date. Objective - Vital Signs Vital signs: Vital Signs Temp 98.7 F 12/27/21 14:14 Pulse 70 12/27/21 14:14 Resp 20 12/27/21 14:14 BP 150/80 12/27/21 14:14 Pulse Ox 94 L 12/27/21 14:14 FiO2 Intake & Output 12/26/21 12/27/21 12/27/21 18:59 06:59 18:59 Weight 68.039 kg 68.039 kg Other: # Voids 3 - Labs CBC & Chem 7: 12/26/21 21:46 12/27/21 07:27 Labs: Abnormal Lab Results - Last 24 Hours (Table) 12/26/21 12/27/21 12/27/21 Range/Units 21:46 04:10 07:27 Sodium 131 L 132 L (137-145) mmol/L Potassium 3.2 L (3.5-5.1) mmol/L Chloride 92 L 96 L (98-107) mmol/L BUN 18 H (7-17) mg/dL Glucose 250 H 272 H (74-99) mg/dL POC Glucose (mg/dL) 264 H (75-99) mg/dL Hemoglobin A1c (0.0-6.0) % Magnesium 1.1 L (1.6-2.3) mg/dL AST 107 H (14-36) U/L ALT 91 H (4-34) U/L 12/27/21 12/27/21 12/27/21 Range/Units 07:40 10:54 12:19 Sodium (137-145) mmol/L Potassium (3.5-5.1) mmol/L Chloride (98-107) mmol/L BUN (7-17) mg/dL Glucose (74-99) mg/dL POC Glucose (mg/dL) 293 H 312 H (75-99) mg/dL Hemoglobin A1c 10.6 H (0.0-6.0) % Magnesium (1.6-2.3) mg/dL AST (14-36) U/L ALT (4-34) U/L
[2021-12-27 16:12] LABS: Chol/HDL Ratio 6.71 Ratio
[2021-12-27 17:29] LABS: Glucose,Whole Blood 341 mg/dL (75-99)
[2021-12-27] MEDS ORDERED: INSULIN ASPART (NovoLOG) 100 UNIT/ML VIAL SQ ONE (19:15)
[2021-12-27] MEDS ORDERED: ACETAMINOPHEN TAB 325 MG TAB PO STA (19:58)
[2021-12-27 20:03] LABS: Glucose,Whole Blood 346 mg/dL (75-99)
[2021-12-27] MEDS ORDERED: ATORVASTATIN 40 MG TAB PO SCH (21:00)
[2021-12-28] MEDS: HEPARIN SODIUM,PORCINE/PF 5,000 UNIT/0.5 ML SYRINGE SQ SCH ×3 (00:10→15:16)
[2021-12-28] MEDS: LEVOTHYROXINE 50 MCG TAB PO SCH (06:04)
[2021-12-28 07:41] LABS: Glucose,Whole Blood 292 mg/dL (75-99)
[2021-12-28] MEDS: MULTIVITAMINS, THERA 1 EACH TAB PO SCH (07:53)
[2021-12-28] MEDS: ZINC SULFATE 220 MG CAP PO SCH (07:53)
[2021-12-28] MEDS: METOPROLOL TARTRATE 50 MG TAB PO SCH (07:53)
[2021-12-28] MEDS: INSULIN DETEMIR (LEVEMIR) 100 UNIT/ML SYR SQ SCH (07:53)
[2021-12-28] MEDS: INSULIN ASPART (NovoLOG) 100 UNIT/ML VIAL SQ SCH ×2 (07:53→12:37)
[2021-12-28] MEDS: ASPIRIN 81 MG PO SCH (07:53)
[2021-12-28] MEDS: PANTOPRAZOLE 40 MG TABLET PO SCH (07:53)
[2021-12-28] MEDS: MECLIZINE 25 MG TAB PO SCH (07:54)
[2021-12-28] MEDS: CLOPIDOGREL 75 MG TAB PO SCH (07:54)
[2021-12-28] MEDS: lisinopriL 10 MG TAB PO SCH (07:54)
[2021-12-28] MEDS: MAGNESIUM OXIDE 400 MG TAB PO SCH (07:54)
[2021-12-28] MEDS: MYCOPHENOLATE SODIUM DR 180 MG TABLET.DR PO SCH (08:57)
[2021-12-28] MEDS ORDERED: FENOFIBRATE 160 MG TAB PO SCH (09:00)
[2021-12-28 10:38] LABS: HCT 37.8 % (37.2-46.3); HGB 12.2 g/dL (12.0-15.0); MCH 26.5 pg (27.0-32.0); MCHC 32.3 g/dL (32.0-37.0); MCV 82.2 fL (80.0-97.0); Mean Platelet Volume 9.6 fL (9.5-12.2); NRBC Per 100 WBC 0 /100 WBCS (0.0-0.0); Platelet Count 275 X 10*3/uL (140-440); RDW 14.4 % (11.5-14.5); WBC 6.18 X 10*3/uL (4.50-10.00)
[2021-12-28 10:56] LABS: African American GFR (CKD) 72.5 (60.0-200.0); Albumin 4.1 g/dL (3.8-4.9); Albumin/Globulin Ratio 1.46 (1.60-3.17); Anion Gap 13.9 mmol/L (10.00-18.00); BUN/Creat Ratio 16.89 Ratio (12.00-20.00); Blood Urea Nitrogen 15.2 mg/dL (9.0-27.0); Calcium 9.3 mg/dL (8.7-10.3); Carbon Dioxide 25.1 mmol/L (20.0-27.5); Globulin 2.8 g/dL (1.6-3.3); Magnesium 1.9 mg/dL (1.5-2.4); Non-African American GFR(CKD) 62.5 (60.0-200.0); Total Bilirubin 0.7 mg/dL (0.30-1.20); Total Protein 6.9 g/dL (6.2-8.2)
[2021-12-28 11:52] LABS: Glucose,Whole Blood 299 mg/dL (75-99)
--- NOTE | 2021-12-28 13:04 | P.PN ---
Subjective Progress Note Date: 12/28/21 The patient is seen at bedside and stated is doing well. Denies of any new neurological issues. Objective - Vital Signs Vital signs: Vital Signs Temp 98.5 F 12/28/21 07:58 Pulse 71 12/28/21 07:58 Resp 16 12/28/21 07:58 BP 145/85 12/28/21 07:58 Pulse Ox 94 L 12/28/21 07:58 FiO2 Intake & Output 12/27/21 12/28/21 12/28/21 18:59 06:59 18:59 Weight 68.039 kg Other: # Voids 3 1 - Exam GENERAL: The patient is lying in bed and is not in acute distress. NEUROLOGICAL: Higher mental function: The patient is awake, alert, oriented to self, place and time. Patient is following commands. No aphasia and no neglect. Cranial nerves: The pupils are round, equal and reactive to light and accommodation. Visual gee are full to confrontation throughout. Extraocular movement is intact no nystagmus is noted. Facial sensation is normal to touch throughout. The facial strength is normal throughout. Hearing is normal bilaterally to hand rub. Tongue is midline and moved [id number] without any difficulty. No dysarthria is noted. Shoulder shrug is normal bilaterally. Motor: Gait is normal. The strength is 5 over 5 throughout. Normal tone and bulk. Cerebellum: Normal finger to nose heel to wilburn bilaterally. Sensation: Sensation is normal to touch throughout. Reflexes (right/left): 2+ throughout. Plantars are downgoing bilaterally. Some of the workup during this hospital visit consisted of: Lipid panel is triglyceride of 687, cholesterol 159, LDLs 55, HDL is 23 TSH is 3.040 Hemoglobin A1c is 10.6 Serum alcohol was less than 10 CT of the head is reported as cerebral atrophy. No acute intracranial abnorm ality. No change I personally reviewed the CT of the head and there is no acute subacute ischemia seems the patient has a small vessel disease that seems old. Carotid duplex is reported as mild homogeneous plaque with no significant stenosis seen. 2-D echo was reported as normal left ventricular size and function. Mild concentric left ventricular hypertrophy. Sclerosis of the leaflets with reduced opening the excursion and mild gradient consistent with mild aortic stenosis. Normal left atrial size. No evidence for atrial septal defect. - Labs CBC & Chem 7: 12/28/21 06:54 12/28/21 06:54 Labs: Abnormal Lab Results - Last 24 Hours (Table) 12/27/21 12/27/21 12/27/21 Range/Units 10:54 10:54 17:27 MCH (27.0-32.0) pg Sodium (135-145) mmol/L Chloride (96-109) mmol/L Glucose (70-110) mg/dL POC Glucose (mg/dL) 341 H (75-99) mg/dL Hemoglobin A1c 10.6 H (0.0-6.0) % AST (13-35) U/L ALT (8-44) U/L Albumin/Globulin Ratio (1.60-3.17) g/dL Triglycerides 687.00 H (0.00-149.00) mg/dL HDL Cholesterol 23.70 L (40.00-60.00) mg/dL 12/27/21 12/28/21 12/28/21 Range/Units 20:01 06:54 06:54 MCH 26.5 L (27.0-32.0) pg Sodium 131 L (135-145) mmol/L Chloride 92 L (96-109) mmol/L Glucose 287 H (70-110) mg/dL POC Glucose (mg/dL) 346 H (75-99) mg/dL Hemoglobin A1c (0.0-6.0) % AST 87 H (13-35) U/L ALT 85 H (8-44) U/L Albumin/Globulin Ratio 1.46 L (1.60-3.17) g/dL Triglycerides (0.00-149.00) mg/dL HDL Cholesterol (40.00-60.00) mg/dL 12/28/21 12/28/21 Range/Units 07:40 11:51 MCH (27.0-32.0) pg Sodium (135-145) mmol/L Chloride (96-109) mmol/L Glucose (70-110) mg/dL POC Glucose (mg/dL) 292 H 299 H (75-99) mg/dL Hemoglobin A1c (0.0-6.0) % AST (13-35) U/L ALT (8-44) U/L Albumin/Globulin Ratio (1.60-3.17) g/dL Triglycerides (0.00-149.00) mg/dL HDL Cholesterol (40.00-60.00) mg/dL Assessment and Plan Assessment: Hypertensive emergency Acute transient Vertigo and her expressive aphasia likely due to uncontrolled hypertension. Cannot rule out TIA. Uncontrolled Diabetes mellitus (HbA1c: 10.6). (was on Prednisone for COVID-19 pneumonia last used was 3 weeks ago) Hypertriglyceridemia History of CVA s/p tpa about 8 years ago History of Dyslipidemia History of hypertension ALCZAAR s/p Liver transplant in 2010 Hypothyroidism Plan: I ordered MRI of the brain to rule outs any acute ischemic stroke/or PRES as result of her uncontrolled hypertension ans since on cylcospoine. Patient is continued on her home dose of Plavix 75 mg daily in addition primary team added aspirin 81 mg daily and resumed her home dose of Lipitor 40 mg daily at bedtime. 4 hypertriglyceridemia the patient was started on the phenol fiber 160 mg daily by the primary team Every 4 hours neuro checks On cardiac monitoring Recommend slowly tapering down the blood pressure to avoid any stroke. We'll defer the rest of medical management to primary team For DVT prophylaxis the patient is on subcu heparin 5000 units every 8 hours. Patient to continue to follow-up with her neurologist team (Dr. West). The plan is discussed with patient and her nurse. Thien Nascimento M.D. Neuro-hospital Time with Patient: Less than 30
[2021-12-28 14:05] VITALS: BMI 28.3
[2021-12-28 14:19] VITALS: BP 169/98; PULSE 78; RESP 18; TEMP 97.8
--- NOTE | 2021-12-28 16:53 | P.DS ---
Providers Date of admission: 12/26/21 22:48 Expected date of discharge: 12/28/21 Attending physician: Ross Urias MD Consults: 12/26/21 22:48 Consult Physician Routine Consulting Provider: Thien Nascimento Consult Reason/Comments: suspect TIA Do you want consulting provider notified?: Yes Primary care physician: [facility] Course: Discharge Diagnosis: Near syncope, confusion, unclear etiology. Neurology evaluating diagnosing with acute transient vertigo with expressive aphasia likely secondary to uncontrolled hypertension, unable to rule out TIA. Patient discharged home on aspirin in addition to continuation of daily Plavix. Fenofibrate also increased secondary to significant hypertriglyceridemia with triglycerides of 687.00. Patient to follow up outpatient with neurologist as discussed. Hypertension, monitor vital signs and continue daily medication regimen with metoprolol 50 mg twice daily, lisinopril 10 mg daily. Hypokalemia, resolved Hypomagnesemia, resolved Status post liver transplant 2019, continue mycophenolate sodium and cyclosporine Insulin-dependent diabetes mellitus type II. Continue daily medication regimen with Januvia, Novolin 3 times daily with meals and Lantus to 40 units daily. Hypothyroidism, continue daily medication regimen with levothyroxine. Hospital Course: The patient is 76-year-old female with a PMH of liver transplant, BPPV, type II DM, and history of CVA, with no residual deficits presents to the emergency room after an episode of lightheadedness and confusion. The patient reports that she was in her usual state of health until about 6 PM tonight as she was returning home after having dinner out with her . As she was walking through her dining room, she suddenly became lightheaded and vertiginous and slowly laid down on the ground. The patient's at the bedside reports that she then became confused, not being able to state the year and not knowing where she was. He subsequently activated EMS upon arrival also noted that she was confused, and subsequently brought her to the emergency room. The patient did not lose consciousness, and denied experiencing weakness, numbness, or tingling. She reports that her symptoms gradually improved after arrival at the emergency room. She denied experiencing chest discomfort, shortness of breath, palpitations, nausea, or vomiting. Reports that her oral intake has been at her baseline. Reports that her symptoms are similar to when she previously had CVA. CT brain in the emergency room was unremarkable. EKG revealed sinus rhythm with PVCs and an incomplete right bundle branch block at 70 bpm. Laboratory evaluation was remarkable for a potassium of 3.2, and magnesium 1.1, AST 107, and ALT 91. NIH score 0 in the emergency room. Patient was admitted under the services was consulted to neurology. Echocardiogram was completed revealing normal EF with mild concentric hypertrophy and sclerosis of the leaflet with reduced opening asked conversion and mild gradient consistent with mild aortic stenosis. MRI also completed, reviewed by neurologist Dr. Nascimento stating patient clear for discharge and recommended outpatient follow-up with neurologist. Patient is medically stable at this time as all symptoms continued to remain resolved. Physical examination: General: non toxic, no distress, appears at stated age Derm: warm, dry Head: atraumatic, normocephalic, symmetric Eyes: EOMI, no lid lag, anicteric sclera Mouth: no lip lesion, mucus membranes moist Cardiovascular: S1S2 reg, no murmur, positive posterior tibial pulse bilateral, Lungs: CTA bilateral, no rhonchi, no rales , no accessory muscle use Abdominal: soft, nontender to palpation, no guarding, no appreciable organomegaly Ext: no gross muscle atrophy, no edema, no contractures Neuro: CN II-XI grossly intact, no focal neuro deficits Psych: Alert, oriented, appropriate affect A total of 35 minutes of time were spent preparing this complex discharge summary. Pt was discharged on 01/07/22 at 4:46 PM I reviewed the documentation as provided by the DAMIEN above, who is the original author of this note. I agree with the documented assessment and plan, with the following changes: none Patient Condition at Discharge: Stable Plan - Discharge Summary Discharge Rx Participant: No New Discharge Prescriptions: New Aspirin 81 mg PO DAILY 30 Days #30 tab Fenofibrate [Lofibra] 160 mg PO DAILY 30 Days #30 tab Continue Glucosamine/Chondr De La Garza A Sod [Osteo Bi-Flex Caplet] 2 tab PO DAILY Magnesium Oxide 400 mg PO DAILY Vit C/E/Zn/Coppr/Lutein/Zeaxan [Preservision Areds 2 Softgel] 1 cap PO DAILY Metoprolol Tartrate [Lopressor] 50 mg PO BID Lisinopril [Prinivil] 10 mg PO DAILY Acetaminophen Tab [Tylenol] 1,000 mg PO BID PRN PRN Reason: Pain Pantoprazole Sodium [Protonix] 40 mg PO AC-BRKFST Levothyroxine Sodium [Synthroid] 50 mcg PO DAILY Clopidogrel [Plavix] 75 mg PO DAILY sitaGLIPtin [Januvia] 100 mg PO DAILY Insulin Glargine [Lantus Vial] 40 unit SQ DAILY Mycophenolate Sodium [Mycophenolic Acid] 360 mg PO BID Calcium Carbonate/Vitamin D3 [Calcium 500-Vit D3 5 Mcg (200 Iu)] 1 tab PO BID Insulin Regular, Human [Novolin R Flexpen] See Protocol SQ AC-TID Furosemide [Lasix] 20 mg PO DAILY PRN PRN Reason: Edema cycloSPORINE, MODIFIED [Neoral] 50 mg PO HS Meclizine [Antivert] 25 mg PO BID Atorvastatin [Lipitor] 40 mg PO HS Multivitamins, Thera [Multivitamin (formulary)] 1 tab PO DAILY Zinc Gluconate [Zinc] 50 mg PO DAILY Cyclosporine, Modified [Gengraf] 25 mg PO DAILY Discontinued Fenofibrate [Lofibra] 54 mg PO DAILY Amoxicillin 2,000 mg PO ONCE PRN PRN Reason: dental appt Cephalexin [Keflex] 250 mg PO DAILY Discharge Medication List Acetaminophen Tab [Tylenol] 1,000 mg PO BID PRN 06/01/20 [History] Calcium Carbonate/Vitamin D3 [Calcium 500-Vit D3 5 Mcg (200 Iu)] 1 tab PO BID 06/01/20 [History] Clopidogrel [Plavix] 75 mg PO DAILY 06/01/20 [History] Glucosamine/Chondr De La Garza A Sod [Osteo Bi-Flex Caplet] 2 tab PO DAILY 06/01/20 [History] Insulin Glargine [Lantus Vial] 40 unit SQ DAILY 06/01/20 [History] Levothyroxine Sodium [Synthroid] 50 mcg PO DAILY 06/01/20 [History] Lisinopril [Prinivil] 10 mg PO DAILY 06/01/20 [History] Magnesium Oxide 400 mg PO DAILY 06/01/20 [History] Metoprolol Tartrate [Lopressor] 50 mg PO BID 06/01/20 [History] Mycophenolate Sodium [Mycophenolic Acid] 360 mg PO BID 06/01/20 [History] Pantoprazole Sodium [Protonix] 40 mg PO AC-BRKFST 06/01/20 [History] Vit C/E/Zn/Coppr/Lutein/Zeaxan [Preservision Areds 2 Softgel] 1 cap PO DAILY 06/01/20 [History] sitaGLIPtin [Januvia] 100 mg PO DAILY 06/01/20 [History] Insulin Regular, Human [Novolin R Flexpen] See Protocol SQ AC-TID 06/07/21 [History] Meclizine [Antivert] 25 mg PO BID 06/07/21 [History] Atorvastatin [Lipitor] 40 mg PO HS 12/26/21 [History] Furosemide [Lasix] 20 mg PO DAILY PRN 12/26/21 [History] Multivitamins, Thera [Multivitamin (formulary)] 1 tab PO DAILY 12/26/21 [History] Zinc Gluconate [Zinc] 50 mg PO DAILY 12/26/21 [History] Cyclosporine, Modified [Gengraf] 25 mg PO DAILY 12/27/21 [History] cycloSPORINE, MODIFIED [Neoral] 50 mg PO HS 12/27/21 [History] Aspirin 81 mg PO DAILY 30 Days #30 tab 12/28/21 [Rx] Fenofibrate [Lofibra] 160 mg PO DAILY 30 Days #30 tab 12/28/21 [Rx] Follow up Appointment(s)/Referral(s): Monica Page III, MD [Primary Care Provider] - 1-2 days Harjeet West MD [Medical Doctor] - 1 Week Activity/Diet/Wound Care/Special Instructions: Activity: As tolerated. Take breaks as needed. Diet: Heart healthy and carb consistent diet. Avoid salts, or foods with hidden salts such as canned or boxed foods and frozen dinners. Extra salt makes your heart work harder and traps the fluid in your body for longer. Special Instructions: Take all of your medications as directed and remember to keep all of your doctor's appointments and follow-up as needed. We will add on blood pressure medications at this time as her systolic pressures have maintained between 140s and 160s. However it is important to check your blood pressure daily and document these findings and a journal to bring with you to your next doctor's appointment. If you continue to run high with elevated systolic pressures 150s and above, you will likely need additional blood pressure medication added to your daily medication regimen. Thank you for allowing us to participate in your care, it was truly a pleasure having you for our patient!!! Discharge Disposition: HOME SELF-CARE
--- NOTE | 2021-12-29 04:05 | MR ---
EXAMINATION TYPE: MR brain wo con DATE OF EXAM: 12/28/2021 COMPARISON: 06/14/2021 HISTORY: Vertigo. stroke Multiplanar multiecho imaging of the brain without contrast. Diffusion images show no sign of an acute infarct. On the T2 and FLAIR images there are coalescent ar eas of increased signal adjacent to the lateral ventricles. There are discrete foci of increased sign al at the chilel-white matter junction posterior vertebral hemispheres that measure up to 7 mm. Total n umber is approximately 10. The brainstem shows multiple tiny white matter high signal foci measuring up to 3 mm. The cerebellum is intact. There is thinning of the corpus callosum. Sella turcica is intact. There is no evidence of orbital mass. IMPRESSION: Cerebral atrophy. White matter changes consistent with microvascular ischemia. Demyelinating disease not excluded. There is not a significant change compared to old exam. There is improvement in the eth moid sinusitis compared to old exam. No acute intracranial abnormality.
== END 2021-12-28 16:54 | disposition home or self-care (01) ==
LOC: EC 21:18 → 6NMEDSUR 22:48
PROVIDERS: ADMIT Internal Medicine; ATTEND Internal Medicine
DX: R55 Syncope and collapse (principal); R47.01 Aphasia; R41.0 Disorientation, unspecified; I16.1 Hypertensive emergency; E11.65 Type 2 diabetes mellitus with hyperglycemia; H81.10 Benign paroxysmal vertigo, unspecified ear; E78.1 Pure hyperglyceridemia; E87.6 Hypokalemia; E83.42 Hypomagnesemia; I45.10 Unspecified right bundle-branch block; E78.5 Hyperlipidemia, unspecified; I10 Essential (primary) hypertension; E03.9 Hypothyroidism, unspecified; I08.2 Rheumatic disorders of both aortic and tricuspid valves; Z79.02 Long term (current) use of antithrombotics/antiplatelets; Z79.4 Long term (current) use of insulin; Z79.890 Hormone replacement therapy; Z79.84 Long term (current) use of oral hypoglycemic drugs; Z79.899 Other long term (current) drug therapy; Z88.5 Allergy status to narcotic agent; Z88.8 Allergy status to other drugs, medicaments and biological substances; Z91.041 Radiographic dye allergy status; Z86.73 Personal history of transient ischemic attack (TIA), and cerebral infarction without residual deficits; Z94.4 Liver transplant status; Z90.49 Acquired absence of other specified parts of digestive tract; Z90.710 Acquired absence of both cervix and uterus; Z86.16 Personal history of COVID-19; Z87.01 Personal history of pneumonia (recurrent); Z98.890 Other specified postprocedural states; Z83.79 Family history of other diseases of the digestive system
CPT/HCPCS: 96372 ×2; 96374; 99285; 36415; 93005; 93306; 80061; 80053 ×2; 80048; 84443; 83735 ×3; 85025; 85027; 83721; 83036; 93880; 70450; 70551; G0378 ×3; G0480; J3475; J7518 ×2; J7515 ×2; J1644 ×2; 80320

== ENCOUNTER → 2022-05-01 | Outpatient (CLI) | payer MEDICARE, OTHER ==
--- NOTE | 2022-05-02 08:26 | MM ---
Reason for Exam: Screening (asymptomatic). Last screening mammogram was performed 12 month(s) ago. Patient History: Menarche at age 13. First Full-Term at age 22. Left ovary removed at age 46. Right ovary removed at age 46. Hysterectomy at age 46. Postmenopausal. Patient has history of breast feeding. Other cancer. Estrogen, from age 46 until age 48. Paternal grandmother had breast cancer. Paternal aunt had breast cancer. Risk Values: Shavonne 5 year model risk: 1.6%. NCI Lifetime model risk: 3.2%. Prior Study Comparison: 04/08/2020 Bilateral Screening Mammogram, [facility]. 04/27/2021 Bilateral Screening Mammogram, [facility]. 05/01/2021 Left Diagnostic Mammogram, [facility]. Tissue Density: The breast tissue is heterogeneously dense. This may lower the sensitivity of mammography. Findings: Analyzed By CAD. There is no suspicious group of microcalcifications or new suspicious mass in either breast. Benign calcifications bilaterally. Overall Assessment: Benign, BI-RAD 2 Management: Screening Mammogram of both breasts in 1 year. A clinical breast exam by your physician is recommended on an annual basis and results should be correlated with mammographic findings. Electronically signed and approved by: Dinesh Yoder M.D. Radiologis
== END | disposition home or self-care (01) ==
LOC: RADMAMWWP 07:17
PROVIDERS: ATTEND Family Medicine
DX: Z12.31 Encounter for screening mammogram for malignant neoplasm of breast (principal); Z78.0 Asymptomatic menopausal state; Z80.3 Family history of malignant neoplasm of breast; Z85.89 Personal history of malignant neoplasm of other organs and systems
CPT/HCPCS: 77063; 77067

== ENCOUNTER → 2022-08-09 | Outpatient (CLI) | payer MEDICARE, OTHER ==
[2022-08-09 14:50] LABS: Basophils # (A) 0.02 X 10*3/uL (0.00-0.10); Basophils % (A) 0.3 %; Eosinophils # (A) 0.09 X 10*3/uL (0.04-0.35); Eosinophils % (A) 1.4 %; HCT 38.2 % (37.2-46.3); Immature Grans, Automated 0.3 %; Lymphocytes # (A) 2.78 X 10*3/uL (0.90-5.00); Lymphocytes % (A) 41.7 %; MCHC 31.4 g/dL (32.0-37.0); MCV 82.7 fL (80.0-97.0); Mean Platelet Volume 9.8 fL (9.5-12.2); Monocytes # (A) 0.63 X 10*3/uL (0.20-1.00); Monocytes % (A) 9.5 %; NRBC Per 100 WBC 0 /100 WBCS (0.0-0.0); Neutrophils # (A) 3.12 X 10*3/uL (1.80-7.70); Neutrophils % (A) 46.8 %; Platelet Count 283 X 10*3/uL (140-440); RBC 4.62 X 10*6/uL (4.10-5.20); RDW 16.3 % (11.5-14.5); WBC 6.66 X 10*3/uL (4.50-10.00)
[2022-08-09 16:29] LABS: African American GFR (CKD) 27.6 (60.0-200.0); Albumin 4.5 g/dL (3.8-4.9); Albumin/Globulin Ratio 1.46 (1.60-3.17); Anion Gap 16.6 mmol/L (10.00-18.00); BUN/Creat Ratio 15.33 Ratio (12.00-20.00); Blood Urea Nitrogen 30.5 mg/dL (9.0-27.0); Carbon Dioxide 20.6 mmol/L (20.0-27.5); Globulin 3.1 g/dL (1.6-3.3); Non-African American GFR(CKD) 23.8 (60.0-200.0); Potassium 4.8 mmol/L (3.5-5.5); Total Bilirubin 0.7 mg/dL (0.30-1.20); Total Protein 7.6 g/dL (6.2-8.2)
== END | disposition home or self-care (01) ==
LOC: LABWHC1 09:42
PROVIDERS: ATTEND Internal Medicine
DX: Z94.4 Liver transplant status (principal); E11.65 Type 2 diabetes mellitus with hyperglycemia; I10 Essential (primary) hypertension; R30.0 Dysuria
CPT/HCPCS: 36415; 80053; 80158; 83036; 85025; 87086

== ENCOUNTER → 2023-01-31 | Outpatient (CLI) | payer MEDICARE, OTHER ==
--- NOTE | 2023-01-31 16:21 | US ---
EXAMINATION TYPE: US kidneys/renal and bladder DATE OF EXAM: 01/31/2023 COMPARISON: NONE CLINICAL INDICATION: Female, 77 years old with history of N39.9DISORDER OF URINARY SYSTEM, UNSPECIFIE D; EXAM MEASUREMENTS: Right Kidney: 10.6 x 4.1 x 4.6 cm Left Kidney: 10.4 x 4.9 x 4.5 cm Right Kidney: No hydronephrosis or masses seen Left Kidney: No hydronephrosis or masses seen Bladder: wnl Bilateral Jets seen: Yes There is no evidence for hydronephrosis at this point in time. No nephrolithiasis is seen. No holley s are identified. The urinary bladder is anechoic. Bilateral ureteral jets are seen. IMPRESSION: Negative study
== END | disposition home or self-care (01) ==
LOC: RADUSWWP 13:27
PROVIDERS: ATTEND Urology
DX: N39.9 Disorder of urinary system, unspecified (principal)
CPT/HCPCS: 76770

== ENCOUNTER → 2023-02-05 | Outpatient (CLI) | payer MEDICARE, OTHER | END | disposition home or self-care (01) | LOC: LABWHC1 08:14 | PROVIDERS: ATTEND Internal Medicine | DX: Z94.4 Liver transplant status (principal) | CPT/HCPCS: 36415; 80158 ==

== ENCOUNTER → 2023-02-21 | Outpatient (CLI) | payer MEDICARE, OTHER ==
[2023-02-21 12:15] LABS: Basophils # (A) 0.03 X 10*3/uL (0.00-0.10); Basophils % (A) 0.5 %; Eosinophils % (A) 1.7 %; HCT 39.3 % (37.2-46.3); HGB 12.7 d/dL (12.0-15.0); Lymphocytes # (A) 1.95 X 10*3/uL (0.90-5.00); MCH 26.5 pg (27.0-32.0); MCHC 32.3 d/dL (32.0-37.0); Mean Platelet Volume 9.6 FL (9.5-12.2); Monocytes # (A) 0.43 X 10*3/uL (0.20-1.00); Monocytes % (A) 7.5 %; NRBC Per 100 WBC 0 X 10*3/uL (0.00-0.01); Neutrophils # (A) 3.16 X 10*3/uL (1.80-7.70); Neutrophils % (A) 55.3 %; Platelet Count 376 X 10*3/uL (140-440); RBC 4.79 X 10*6/uL (4.10-5.20); RDW 14.2 % (11.5-14.5); WBC 5.73 X 10*3/uL (4.50-10.00)
[2023-02-21 12:20] LABS: BUN/Creat Ratio 17.86 Ratio (12.00-20.00); Calcium 9.9 mg/dL (8.7-10.3); Carbon Dioxide 22.2 mmol/L (21.6-31.8); Chloride 98 mmol/L (96-109); Glucose 70 mg/dL (70-110); Phosphorus 3.4 mg/dL (2.4-5.1); Potassium 5.2 mmol/L (3.5-5.5); Sodium 134 mmol/L (135-145)
[2023-02-21 15:52] LABS: Creatinine,Urine Random 93.7 mg/dL; Protein/Creatinine Ratio,Urine 0.192
== END | disposition home or self-care (01) ==
LOC: LABWHC1 07:03
PROVIDERS: ATTEND Internal Medicine Nephrology
DX: E83.9 Disorder of mineral metabolism, unspecified (principal); M89.9 Disorder of bone, unspecified; N18.32 Chronic kidney disease, stage 3b
CPT/HCPCS: 36415; 80069; 82570; 83970; 84156; 85025

== ENCOUNTER → 2023-03-12 | Outpatient (CLI) | payer MEDICARE, OTHER | END | disposition home or self-care (01) | LOC: LABWHC1 09:00 | PROVIDERS: ATTEND Internal Medicine | DX: Z94.4 Liver transplant status (principal) | CPT/HCPCS: 36415; 80158 ==

== ENCOUNTER → 2023-04-02 | Outpatient (CLI) | payer MEDICARE, OTHER ==
--- NOTE | 2023-04-02 21:33 | US ---
EXAMINATION TYPE: US abdomen limited DATE OF EXAM: 04/02/2023 COMPARISON: None CLINICAL INDICATION: Female, 77 years old with history of Z94.4 LIVER TRANSPLANT STATUS; Pt states li asya transplant 12-14 years ago/ pt states "nodule" visualized on prior US at outside facility in [facility] fornia/ GB surgically absent TECHNIQUE: Multiple sonographic images of the right upper quadrant are obtained. FINDINGS: EXAM MEASUREMENTS: Liver Length: 16.3 cm CBD: 0.5 cm Right Kidney: 10.2 x 3.8 x 4.2 cm Pancreas: Obscured by bowel gas Liver: Heterogeneous and echogenic especially left lobe Gallbladder: Surgically absent Evidence for sonographic Fung's sign: No CBD: wnl Right Kidney: wnl IMPRESSION: 1. Echogenic liver parenchyma suggesting underlying fatty infiltration. No focal lesion is identified . 2. Status post cholecystectomy. No biliary ductal dilatation.
== END | disposition home or self-care (01) ==
LOC: RADUSWWP 06:50
PROVIDERS: ATTEND Student in an Organized Health Care Education/Training Program
DX: Z94.4 Liver transplant status (principal); Z90.49 Acquired absence of other specified parts of digestive tract
CPT/HCPCS: 76705

== ENCOUNTER → 2023-05-20 | Outpatient (CLI) | payer MEDICARE, OTHER ==
[2023-05-20 11:14] LABS: ALT 41 U/L (8-44); AST 46 U/L (13-35); Albumin 4.5 d/dL (3.8-4.9); Albumin/Globulin Ratio 1.61 Ratio (1.60-3.17); Alkaline Phosphatase 37 U/L (41-126); BUN/Creat Ratio 16.23 Ratio (12.00-20.00); Blood Urea Nitrogen 21.1 mg/dL (9.0-27.0); Calcium 9.3 mg/dL (8.7-10.3); Carbon Dioxide 23.8 mmol/L (21.6-31.8); Chloride 102 mmol/L (96-109); Chol/HDL Ratio 7.74 Ratio; Globulin 2.8 d/dL (1.6-3.3); Glucose 149 mg/dL (70-110); Potassium 4.6 mmol/L (3.5-5.5); Sodium 139 mmol/L (135-145); T4, Free (Free Thyroxine) 1.32 ng/dL (0.80-1.80); Total Bilirubin 0.4 mg/dL (0.3-1.2); Total Protein 7.3 d/dL (6.2-8.2)
[2023-05-20 13:08] LABS: Urine Creatinine 55.5 mg/dL (28.0-217.0)
== END | disposition home or self-care (01) ==
LOC: LABWHC1 06:57
PROVIDERS: ATTEND Internal Medicine
DX: E03.9 Hypothyroidism, unspecified (principal); E11.65 Type 2 diabetes mellitus with hyperglycemia; Z94.4 Liver transplant status
CPT/HCPCS: 36415; 80053; 80061; 80158; 82043; 82570; 83036; 83721; 84439; 84443

== ENCOUNTER → 2023-05-27 | Outpatient (CLI) | payer MEDICARE, OTHER ==
--- NOTE | 2023-05-27 09:34 | MM ---
Reason for Exam: Screening (asymptomatic). Last mammogram was performed 1 year(s) and 1 month(s) ago. Patient History: Menarche at age 13. First Full-Term at age 22. Left ovary removed at age 46. Right ovary removed at age 46. Hysterectomy at age 46. Postmenopausal. Patient has history of breast feeding. Other cancer. Estrogen, from age 46 until age 48. Paternal grandmother had breast cancer. Paternal aunt had breast cancer. Maternal grandmother had ovarian cancer, age 34. Mother had ovarian cancer at or over age 50. Risk Values: Shavonne 5 year model risk: 1.6%. NCI Lifetime model risk: 3.0%. Prior Study Comparison: 02/23/2019 Screening Mammogram, [place]. 04/08/2020 Bilateral Screening Mammogram, [facility]. 04/27/2021 Bilateral Screening Mammogram, [facility]. 05/01/2021 Left Diagnostic Mammogram, [facility]. 05/01/2022 Bilateral MG 3D screening mammo w/cad, [facility]. Tissue Density: The breast tissue is heterogeneously dense. This may lower the sensitivity of mammography. Findings: Analyzed By CAD. There is no suspicious group of microcalcifications or new suspicious mass. Benign-appearing calcifications bilaterally. Overall Assessment: Benign, BI-RAD 2 Management: Screening Mammogram of both breasts in [address] [facility] will attempt to contact patient to return for supplemental views and ultrasound if indicated. Patient should continue monthly self-breast exams. A clinical breast exam by your physician is recommended on an annual basis. This exam should not preclude additional follow-up of suspicious palpable abnormalities. Note on Shavonne scores and lifetime risk: 1. A Shavonne score greater than 3% is considered moderate risk. If this is the case, consider specialist referral to assess eligibility for a risk reducing agent. 2. If overall lifetime risk for the development of breast cancer is 20% or higher, the patient may qualify for future screening with alternating mammogram and breast MRI. Electronically signed and approved by: John Elias DO
== END | disposition home or self-care (01) ==
LOC: RADMAMWWP 06:49
PROVIDERS: ATTEND Internal Medicine Geriatric Medicine
DX: Z12.31 Encounter for screening mammogram for malignant neoplasm of breast (principal); Z78.0 Asymptomatic menopausal state; Z80.3 Family history of malignant neoplasm of breast
CPT/HCPCS: 77063; 77067

== ENCOUNTER → 2023-06-18 | Outpatient (CLI) | payer MEDICARE, OTHER ==
--- NOTE | 2023-06-19 07:29 | CA ---
Transthoracic Echo Report Name: Salina Vazquez Age: 78 Gender: F : 1945 Exam Date: 06/18/2023 14:12 Exam Location: [place] [facility] Ht (in): 61 Wt (lb): 140 Ordering Physician: Dinesh Leal MD Attending/Referring Phys: Recreation Programmer Roberta Santos [facility] Procedure CPT: Indications: I34.0 NONRHEUMATIC MITRAL (VALVE) INSUFFICIENCY Cardiac Hx: Technical Quality: Technically difficult study Contrast 1: Total Dose (mL): Contrast 2: Total Dose (mL): MEASUREMENTS (Male / Female) Normal Values 2D ECHO LV Diastolic Diameter PLAX 4.3 cm 4.2 - 5.9 / 3.9 - 5.3 cm LV Systolic Diameter PLAX 2.8 cm IVS Diastolic Thickness 1.0 cm 0.6 - 1.0 / 0.6 - 0.9 cm LVPW Diastolic Thickness 1.0 cm 0.6 - 1.0 / 0.6 - 0.9 cm LV Relative Wall Thickness 0.5 LVOT Diameter 2.0 cm Ascending Aorta Diameter 3.9 cm M-MODE Aortic Root Diameter MM 2.6 cm LA Systolic Diameter MM 3.9 cm LA Ao Ratio MM 1.5 AV Cusp Separation MM 1.0 cm DOPPLER AV Peak Velocity 252.1 cm/s AV Peak Gradient 25.4 mmHg AV Mean Velocity 192.8 cm/s AV Mean Gradient 16.3 mmHg AV Velocity Time Integral 60.5 cm AI Peak Velocity 371.4 cm/s AI Peak Gradient 55.2 mmHg AI Pressure Half Time 512.5 ms LVOT Peak Velocity 80.8 cm/s LVOT Peak Gradient 2.6 mmHg LVOT Velocity Time Integral 21.2 cm LVOT Stroke Volume 64.5 cm??? LVOT Stroke Volume Index 39.8 ml/m??? LVOT Cardiac Index 2628.3 cm???/min???m??? AV Area Cont Eq vti 1.1 cm??? AV Area Cont Eq pk 1.0 cm??? Mitral E Point Velocity 58.9 cm/s Mitral A Point Velocity 77.8 cm/s Mitral E to A Ratio 0.8 MV Deceleration Time 301.3 ms LV E' Lateral Velocity 5.6 cm/s Mitral E to LV E' Lateral Ratio 10.5 LV E' Septal Velocity 5.8 cm/s Mitral E to LV E' Septal Ratio 10.2 TR Peak Velocity 222.2 cm/s TR Peak Gradient 19.8 mmHg Right Atrial Pressure 8.0 mmHg Pulmonary Artery Systolic Pressu 27.8 mmHg Right Ventricular Systolic Press 27.8 mmHg FINDINGS Left Ventricle Mildly increased left ventricular wall thickness. Left ventricular cavity size normal. Low normal left ventricular systolic function with no obvious regional wall motion abnormalities. Left ventricular ejection fraction is estimated at 50-55%. Right Ventricle Normal right ventricular size. Right Atrium Normal right atrial size. Left Atrium Normal left atrial size. Mitral Valve Structurally normal mitral valve. Mitral annular calcification. Mild mitral regurgitation. Aortic Valve Trileaflet aortic valve. Diffuse thickening of the aortic valve cusps with reduced excursion. Mild aortic stenosis with a peak gradient of 25.43 mmHg and a mean gradient of 16.27 mmHg. Mild aortic regurgitation. Tricuspid Valve Structurally normal tricuspid valve. Trace tricuspid regurgitation. Pulmonic Valve Structurally normal pulmonic valve. Trace pulmonic regurgitation. Pericardium No pericardial effusion. Aorta Normal size aortic root and mildly dilated proximal ascending aorta. CONCLUSIONS Normal LV systolic function Mild aortic stenosis Mild mitral and aortic regurgitation Previewed by: Dr. Oj Kilgore MD (Electronically Signed) Final Date: 19 June 2023 07:29
== END | disposition home or self-care (01) ==
LOC: RADECHMAIN 13:59
PROVIDERS: ATTEND Internal Medicine Geriatric Medicine
DX: I34.0 Nonrheumatic mitral (valve) insufficiency (principal); I35.0 Nonrheumatic aortic (valve) stenosis
CPT/HCPCS: 93306

== ENCOUNTER 2024-02-15 11:04 | Inpatient (IN) | payer MEDICARE, OTHER ==
--- NOTE | 2024-02-15 11:31 | ED ---
Female Urogenital HPI - General Chief complaint: Urogenital Stated complaint: Abn Labs/UTI Time Seen by Provider: 02/15/24 11:20 Source: patient, RN notes reviewed Mode of arrival: ambulatory Limitations: no limitations - History of Present Illness Initial comments: This is a 78-year-old female with a past medical history of liver transplant, on cyclosporin, who presents to the emergency department chief complaint of urinary tract infection. Patient states that she was evaluated at urgent care on Saturday where she was diagnosed with a urinary tract infection and sent home with cefuroxime pending urinary culture. Patient contacted urgent care this morning where they instructed her her urine culture was positive for Pseudomonas and to report to the emergency department due to worsening urinary tract infection symptoms. She states that she has been using the bathroom more frequently, increase in urgency, dysuria. She denies hematuria. Patient denies symptoms of fevers, chills, nausea, vomiting, diarrhea. Denies recent antibiotic use. - Related Data Home Medications Medication Instructions Recorded Confirmed Acetaminophen Tab [Tylenol] 1,000 mg PO BID PRN 06/01/20 12/26/21 Calcium Carbonate/Vitamin D3 1 tab PO BID 06/01/20 12/26/21 [Calcium 500-Vit D3 5 Mcg (200 Iu)] Clopidogrel [Plavix] 75 mg PO DAILY 06/01/20 12/26/21 Glucosamine/Chondr De La Garza A Sod [Osteo 2 tab PO DAILY 06/01/20 12/26/21 Bi-Flex Caplet] Insulin Glargine [Lantus Vial] 40 unit SQ DAILY 06/01/20 12/26/21 Levothyroxine Sodium [Synthroid] 50 mcg PO DAILY 06/01/20 12/26/21 Magnesium Oxide 400 mg PO DAILY 06/01/20 12/26/21 Metoprolol Tartrate [Lopressor] 50 mg PO BID 06/01/20 12/26/21 Mycophenolate Sodium [Mycophenolic 360 mg PO BID 06/01/20 12/26/21 Acid] Pantoprazole Sodium [Protonix] 40 mg PO AC-BRKFST 06/01/20 12/26/21 Vit C/E/Zn/Coppr/Lutein/Zeaxan 1 cap PO DAILY 06/01/20 12/26/21 [Preservision Areds 2 Softgel] lisinopriL [Prinivil] 10 mg PO DAILY 06/01/20 12/26/21 sitaGLIPtin [Januvia] 100 mg PO DAILY 06/01/20 12/26/21 Insulin Regular, Human [NovoLIN R See Protocol SQ AC-TID 06/07/21 12/26/21 Flexpen] Meclizine [Antivert] 25 mg PO BID 06/07/21 12/26/21 Atorvastatin [Lipitor] 40 mg PO HS 12/26/21 12/26/21 Furosemide [Lasix] 20 mg PO DAILY PRN 12/26/21 12/26/21 Multivitamins, Thera [Multivitamin 1 tab PO DAILY 12/26/21 12/26/21 (formulary)] Zinc Gluconate [Zinc] 50 mg PO DAILY 12/26/21 12/26/21 Cyclosporine, Modified [Gengraf] 25 mg PO DAILY 12/27/21 12/27/21 cycloSPORINE, MODIFIED [Neoral] 50 mg PO HS 12/27/21 12/27/21 Previous Rx's Medication Instructions Recorded Aspirin 81 mg PO DAILY 30 Days #30 tab 12/28/21 Fenofibrate [Lofibra] 160 mg PO DAILY 30 Days #30 tab 12/28/21 Allergies Allergy/AdvReac Type Severity Reaction Status Date / Time Iodinated Contrast Media Allergy Rash/Hives Verified 06/07/21 12:08 pioglitazone [From Actos] Allergy Rash/Hives Verified 06/07/21 12:08 pentazocine [From Talwin] AdvReac Vomiting Verified 06/07/21 12:08 Review of Systems ROS Statement: Those systems with pertinent positive or pertinent negative responses have been documented in the HPI. ROS Other: All systems not noted in ROS Statement are negative. Past Medical History Past Medical History: CVA/TIA, Diabetes Mellitus, Hypertension, Thyroid Disorder History of Any Multi-Drug Resistant Organisms: None Reported Past Surgical History: Appendectomy, Cholecystectomy, Hysterectomy Additional Past Surgical History / Comment(s): D&C, liver transplant Past Anesthesia/Blood Transfusion Reactions: No Reported Reaction Past Psychological History: No Psychological Hx Reported Smoking Status: Never smoker Past Alcohol Use History: None Reported Past Drug Use History: None Reported - Past Family History Mother Family Medical History: Liver Disease General Exam Limitations: no limitations General appearance: alert, in no apparent distress Head exam: Present: atraumatic, normocephalic, normal inspection Eye exam: Present: normal appearance, PERRL, EOMI. Absent: scleral icterus, conjunctival injection, periorbital swelling ENT exam: Present: normal exam, mucous membranes moist Neck exam: Present: normal inspection. Absent: tenderness, meningismus, lymphadenopathy Respiratory exam: Present: normal lung sounds bilaterally. Absent: respiratory distress, wheezes, rales, rhonchi, stridor Cardiovascular Exam: Present: regular rate, normal rhythm, normal heart sounds. Absent: systolic murmur, diastolic murmur, rubs, gallop, clicks GI/Abdominal exam: Present: soft, normal bowel sounds. Absent: distended, tenderness, guarding, rebound, rigid Extremities exam: Present: normal inspection, full ROM, normal capillary refill. Absent: tenderness, pedal edema, joint swelling, calf tenderness Back exam: Present: normal inspection Neurological exam: Present: alert, oriented X3, CN II-XII intact Psychiatric exam: Present: normal affect, normal mood Skin exam: Present: warm, dry, intact, normal color. Absent: rash Course Vital Signs 02/15/24 11:09 Temperature 98.4 F Pulse Rate 80 Respiratory 16 Rate Blood Pressure 159/71 O2 Sat by Pulse 98 Oximetry Medical Decision Making - Medical Decision Making Was pt. sent in by a medical professional or institution (JAIME Guillen, WORKFORCE MANAGEMENT CONSULTANT, urgent care, hospital, or skilled nursing...) When possible be specific @ -Was advised by urgent care to report to the emergency department due to positive urine culture of Pseudomonas and urinary symptoms persisting after antibiotic treatment. Did you speak to anyone other than the patient for history (EMS, parent, family, police, friend...)? What history was obtained from this source @ -No Did you review nursing and triage notes (agree or disagree)? Why? @ -I reviewed and agree with nursing and triage notes Were old charts reviewed (outside hosp., previous admission, EMS record, old EKG, old radiological studies, urgent care reports/EKG's, skilled nursing records)? Report findings @ -No old charts were reviewed Differential Diagnosis (chest pain, altered mental status, abdominal pain women, abdominal pain men, vaginal bleeding, weakness, fever, dyspnea, syncope, headache, dizziness, GI bleed, back pain, seizure, CVA, palpatations, mental health, musculoskeletal)? @ -Differential Abdominal Pain Women: Appendicitis, Cholecystitis, diverticulosis, ischemic bowel, pancreatitis, hepatitis, UTI, gastroenteritis, AAA, incarcerated hernia, bowel obstruction, constipation, inflammatory bowel, hepatitis, peptic ulcer disease, splenic infarction, perforated viscus, vulvitis, ovarian torsion, PID, kidney stone, placenta abruption, this is not meant to be an all-inclusive list EKG interpreted by me (3pts min.). @ -none X-rays interpreted by me (1pt min.). @ -None done CT interpreted by me (1pt min.). @ -None done U/S interpreted by me (1pt. min.). @ -None done What testing was considered but not performed or refused? (CT, X-rays, U/S, labs)? Why? @ -None What meds were considered but not given or refused? Why? @ -None Did you discuss the management of the patient with other professionals (professionals i.e. , PA, WORKFORCE MANAGEMENT CONSULTANT, lab, RT, psych nurse, social work case manager, sap bw developer, teacher, control systems drafting officer, social work case manager)? Give summary @ -[facility] to admission for the patient due to the positive urine culture of Pseudomonas and urinary tract infection with history of liver transplant on cyclosporine. Patient is excepted for admission will start on IV pip-tazo pending urine culture here. Was smoking cessation discussed for >3mins.? @ -No Was critical care preformed (if so, how long)? @ -No Were there social determinants of health that impacted care today? How? (Homelessness, low income, unemployed, alcoholism, drug addiction, transportation, low edu. Level, literacy, decrease access to med. care, nursing home, rehab)? @ -No Was there de-escalation of care discussed even if they declined (Discuss DNR or withdrawal of care, Hospice)? DNR status @ -No What co-morbidities impacted this encounter? (DM, HTN, Smoking, COPD, CAD, Cancer, CVA, ARF, Chemo, Hep., AIDS, mental health diagnosis, sleep apnea, morbid obesity)? @ -None Was patient admitted / discharged? Hospital course, mention meds given and route, prescriptions, significant lab abnormalities, going to OR and other pertinent info. @ -78-year-old female with concern for urinary tract infection. In addition there is no abdominal pain, patient is resting comfortably and vitals are within normal limits. she has clinical signs of dehydration and is provided with a liter fluid bolus pending labs and urinalysis. Patient did agree with this plan. CBC unremarkable, CMP reveals signs of mild dehydration with a hy ponatremia of 134, elevated BUN of 31 and creatinine 1.47. As compared to previous BUN/creatinine mildly elevated however no signs concerning for acute kidney injury. Lactic acid nonelevated at 1.3. UA remarkable for infection including large leukocyte esterase, red blood cells, white blood cells and white blood cell clumps. Patient will be started on pip-tazo with susceptibility to Pseudomonas which was grown in culture at urgent care. Patient is excepted to internal medicine for further evaluation. Case discussed with Dr. Robert. Undiagnosed new problem with uncertain prognosis? @ -No Drug Therapy requiring intensive monitoring for toxicity (Heparin, Nitro, Insulin, Cardizem)? @ -No Were any procedures done? @ -No Diagnosis/symptom? @ -Urine tract infection, Pseudomonas colonization Acute, or Chronic, or Acute on Chronic? @ -Acute Uncomplicated (without systemic symptoms) or Complicated (systemic symptoms)? @ -uncomplicated Side effects of treatment? @ -No Exacerbation, Progression, or Severe Exacerbation? @ -No Poses a threat to life or bodily function? How? (Chest pain, USA, CA, pneumonia, PE, COPD, DKA, ARF, appy, cholecystitis, CVA, Diverticulitis, Homicidal, Suicidal, threat to staff... and all critical care pts) @ -No - Lab Data Result diagrams: 02/15/24 12:21 02/15/24 12:21 Lab Results 02/15/24 02/15/24 02/15/24 Range/Units 12:21 12:21 12:21 WBC 10.0 (3.8-10.6) k/uL RBC 4.11 (3.80-5.40) m/uL Hgb 11.0 L (11.4-16.0) gm/dL Hct 32.5 L (34.0-46.0) % MCV 78.9 L (80.0-100.0) fL MCH 26.8 (25.0-35.0) pg MCHC 34.0 (31.0-37.0) g/dL RDW 14.7 (11.5-15.5) % Plt Count 316 (150-450) k/uL MPV 7.4 Neutrophils % 73 % Lymphocytes % 19 % Monocytes % 5 % Eosinophils % 1 % Basophils % 0 % Neutrophils # 7.3 (1.3-7.7) k/uL Lymphocytes # 1.9 (1.0-4.8) k/uL Monocytes # 0.5 (0-1.0) k/uL Eosinophils # 0.1 (0-0.7) k/uL Basophils # 0.0 (0-0.2) k/uL Sodium 134 L (137-145) mmol/L Potassium 4.9 (3.5-5.1) mmol/L Chloride 100 (98-107) mmol/L Carbon Dioxide 27 (22-30) mmol/L Anion Gap 7 mmol/L BUN 31 H (7-17) mg/dL Creatinine 1.47 H (0.52-1.04) mg/dL Est GFR (CKD-EPI)AfAm 39 (>60 ml/min/1.73 sqM) Est GFR (CKD-EPI)NonAf 34 (>60 ml/min/1.73 sqM) Glucose 123 H (74-99) mg/dL Plasma Lactic Acid Paul 1.3 (0.7-2.0) mmol/L Calcium 9.5 (8.4-10.2) mg/dL Total Bilirubin 0.6 (0.2-1.3) mg/dL AST 32 (14-36) U/L ALT 19 (4-34) U/L Alkaline Phosphatase 33 L (38-126) U/L Total Protein 7.3 (6.3-8.2) g/dL Albumin 4.3 (3.5-5.0) g/dL Urine Color Urine Appearance (Clear) Urine pH (5.0-8.0) Ur Specific [place] (1.001-1.035) Urine Protein (Negative) Urine Glucose (UA) (Negative) Urine Ketones (Negative) Urine Blood (Negative) Urine Nitrite (Negative) Urine Bilirubin (Negative) Urine Urobilinogen (<2.0) mg/dL Ur Leukocyte Esterase (Negative) Urine RBC (0-5) /hpf Urine WBC (0-5) /hpf Urine WBC Clumps (None) /hpf Urine Bacteria (None) /hpf 02/15/24 Range/Units 12:37 WBC (3.8-10.6) k/uL RBC (3.80-5.40) m/uL Hgb (11.4-16.0) gm/dL Hct (34.0-46.0) % MCV (80.0-100.0) fL MCH (25.0-35.0) pg MCHC (31.0-37.0) g/dL RDW (11.5-15.5) % Plt Count (150-450) k/uL MPV Neutrophils % % Lymphocytes % % Monocytes % % Eosinophils % % Basophils % % Neutrophils # (1.3-7.7) k/uL Lymphocytes # (1.0-4.8) k/uL Monocytes # (0-1.0) k/uL Eosinophils # (0-0.7) k/uL Basophils # (0-0.2) k/uL Sodium (137-145) mmol/L Potassium (3.5-5.1) mmol/L Chloride (98-107) mmol/L Carbon Dioxide (22-30) mmol/L Anion Gap mmol/L BUN (7-17) mg/dL Creatinine (0.52-1.04) mg/dL Est GFR (CKD-EPI)AfAm (>60 ml/min/1.73 sqM) Est GFR (CKD-EPI)NonAf (>60 ml/min/1.73 sqM) Glucose (74-99) mg/dL Plasma Lactic Acid Paul (0.7-2.0) mmol/L Calcium (8.4-10.2) mg/dL Total Bilirubin (0.2-1.3) mg/dL AST (14-36) U/L ALT (4-34) U/L Alkaline Phosphatase (38-126) U/L Total Protein (6.3-8.2) g/dL Albumin (3.5-5.0) g/dL Urine Color Light Yellow Urine Appearance Cloudy H (Clear) Urine pH 7.0 (5.0-8.0) Ur Specific [place] 1.015 (1.001-1.035) Urine Protein Trace H (Negative) Urine Glucose (UA) Negative (Negative) Urine Ketones Negative (Negative) Urine Blood Small H (Negative) Urine Nitrite Negative (Negative) Urine Bilirubin Negative (Negative) Urine Urobilinogen <2.0 (<2.0) mg/dL Ur Leukocyte Esterase Large H (Negative) Urine RBC 37 H (0-5) /hpf Urine WBC >182 H (0-5) /hpf Urine WBC Clumps Occasional H (None) /hpf Urine Bacteria Rare H (None) /hpf Disposition Clinical Impression: UTI (urinary tract infection), Pseudomonas aeruginosa infection Disposition: ADMITTED IP TO THIS [facility] Condition: Good Is patient prescribed a controlled substance at d/c from ED?: No Referrals: Dinesh Leal MD [Primary Care Provider] - 1-2 days Decision to Admit Reason: Admit from EC Decision Date: 02/15/24 Decision Time: 14:58
[2024-02-15 12:26] LABS: Basophils % (A) 0 %; Eosinophils # (A) 0.1 k/uL (0-0.7); Eosinophils % (A) 1 %; HCT 32.5 % (34.0-46.0); Lymphocytes # (A) 1.9 k/uL (1.0-4.8); Lymphocytes % (A) 19 %; MCH 26.8 pg (25.0-35.0); MCV 78.9 fL (80.0-100.0); Mean Platelet Volume 7.4; Monocytes # (A) 0.5 k/uL (0-1.0); Monocytes % (A) 5 %; Neutrophils # (A) 7.3 k/uL (1.3-7.7); Neutrophils % (A) 73 %; Platelet Count 316 k/uL (150-450); RBC 4.11 m/uL (3.80-5.40); RDW 14.7 % (11.5-15.5)
[2024-02-15 12:34] LABS: ALT 19 U/L (4-34); AST 32 U/L (14-36); African American GFR (CKD) 39 (>60 ml/min/1.73 sqM); Albumin 4.3 g/dL (3.5-5.0); Alkaline Phosphatase 33 U/L (38-126); Anion Gap 7 mmol/L; Blood Urea Nitrogen 31 mg/dL (7-17); Calcium 9.5 mg/dL (8.4-10.2); Carbon Dioxide 27 mmol/L (22-30); Chloride 100 mmol/L (98-107); Glucose 123 mg/dL (74-99); Non-African American GFR(CKD) 34 (>60 ml/min/1.73 sqM); Potassium 4.9 mmol/L (3.5-5.1); Sodium 134 mmol/L (137-145); Total Bilirubin 0.6 mg/dL (0.2-1.3); Total Protein 7.3 g/dL (6.3-8.2)
[2024-02-15] MEDS: SODIUM CHLORIDE 0.9% 500 ML 500 ML IV STA (12:51)
[2024-02-15 14:22] LABS: Appearance,Urine Cloudy (Clear); Bacteria,Urine Rare /hpf; Bilirubin,Urine Negative (Negative); Blood,Urine Small (Negative); Color,Urine Light Yellow; Glucose,Urine (UA) Negative (Negative); Ketones,Urine Negative (Negative); Leukocyte Esterase,Urine Large (Negative); Nitrite,Urine Negative (Negative); Protein,Urine Trace (Negative); RBC,Urine 37 /hpf (0-5); Specific Gravity,Urine 1.015 (1.001-1.035); Urobilinogen,Urine <2.0 mg/dL (<2.0); WBC,Urine >182 /hpf (0-5)
[2024-02-15] MEDS ORDERED: NALOXONE 0.4 MG/ML 1 ML VIAL IV PRN (14:59)
[2024-02-15] MEDS: PIPERACILLIN-TAZOBACTAM 3.375 GM in SODIUM CHLORIDE 0.9% 100 ML IVPB SCH (16:02)
[2024-02-15] MEDS ORDERED: ACETAMINOPHEN TAB 500 MG TAB PO PRN (16:57)
[2024-02-15 17:26] LABS: Glucose,Whole Blood 128 mg/dL (70-110)
[2024-02-15] MEDS: INSULIN REGULAR 100 UNIT/ML VIAL (IM/SQ) SQ SCH (17:57)
[2024-02-15 21:31] LABS: Glucose,Whole Blood 99 mg/dL (70-110)
[2024-02-15] MEDS: ATORVASTATIN 40 MG TAB PO SCH (21:53)
[2024-02-15] MEDS: MYCOPHENOLATE SODIUM DR 180 MG TABLET.DR PO SCH (21:53)
[2024-02-15] MEDS: METOPROLOL TARTRATE 50 MG TAB PO SCH (21:53)
--- NOTE | 2024-02-16 01:51 | HP ---
HISTORY AND PHYSICAL CHIEF COMPLAINT: UTI. HISTORY OF PRESENT ILLNESS: This 78-year-old woman with a past medical history of multiple medical problems including liver transplantation about 13 years ago for ALCAZAR and history of recurrent UTIs. Currently, the patient had dysuria. Urine cultures done outpatient which showed Pseudomonas and the patient came to [facility] for further evaluation and treatment. There is no history of any fever, rigors, or chills. The patient was seen at Urgent Care today. The patient also had urgency and dysuria also. PAST MEDICAL HISTORY: Reviewed include liver transplantation. Rest of the chart and rest of the history reviewed. HOME MEDICATIONS: Reviewed include Januvia, doses and other medications also noted but not confirmed yet. ALLERGIES: Iodinated contrast dye. FAMILY HISTORY: No history of liver disease in the family. SOCIAL HISTORY: No smoking. No alcohol. REVIEW OF SYSTEMS: Fourteen-point review is negative except as mentioned earlier. PHYSICAL EXAMINATION: VITAL SIGNS: Pulse 80, blood pressure 159/70, respirations 16. HEENT: Conjunctivae normal. CARDIOVASCULAR SYSTEM: S1, S2. RESPIRATION: Breath sounds diminished at the bases. CHEST: Clear to auscultation. ABDOMEN: Soft, nontender. No mass. LEGS: No edema. NERVOUS SYSTEM: Nonfocal. LABORATORY DATA: WBC 10. Creatinine 1.47. Other labs are noted. ASSESSMENT: 1. Acute urinary tract infection with Pseudomonas aeruginosa. 2. Elevated creatinine with acute renal failure, mild. 3. Hyponatremia. 4. History of liver transplant for nonalcoholic steatohepatitis. 5. Diabetes mellitus type 2. 6. Hypertension. RECOMMENDATIONS AND DISCUSSION: This 78-year-old woman admitted with UTI. I would recommend initiate IV Zosyn at this time. Otherwise, monitor closely and resume the home medications once they are confirmed. Monitor blood pressure closely. The patient is immunosuppressed. Prognosis guarded. Further recommendations to follow. See orders for details and Dr. Leal will follow on Saturday. MMODL / IJN: [id number] /
[2024-02-16 03:21] LABS: Basophils % (A) 0 %; Eosinophils # (A) 0.1 k/uL (0-0.7); Eosinophils % (A) 2 %; HCT 33.3 % (34.0-46.0); Lymphocytes # (A) 2.1 k/uL (1.0-4.8); Lymphocytes % (A) 28 %; MCH 26.3 pg (25.0-35.0); MCV 79.8 fL (80.0-100.0); Mean Platelet Volume 7.6; Monocytes # (A) 0.6 k/uL (0-1.0); Monocytes % (A) 9 %; Neutrophils # (A) 4.2 k/uL (1.3-7.7); Neutrophils % (A) 58 %; Platelet Count 307 k/uL (150-450); RBC 4.18 m/uL (3.80-5.40); WBC 7.2 k/uL (3.8-10.6)
[2024-02-16 03:37] LABS: Prothrombin Time 11.3 sec (10.0-12.5)
[2024-02-16 03:41] LABS: ALT 20 U/L (4-34); AST 34 U/L (14-36); African American GFR (CKD) 41 (>60 ml/min/1.73 sqM); Albumin 4.5 g/dL (3.5-5.0); Albumin/Globulin Ratio 1.4; Alkaline Phosphatase 35 U/L (38-126); Anion Gap 11 mmol/L; Bilirubin,Unconjugated 0.4 mg/dL (0.0-1.1); Blood Urea Nitrogen 30 mg/dL (7-17); Calcium 9.3 mg/dL (8.4-10.2); Carbon Dioxide 25 mmol/L (22-30); Chloride 101 mmol/L (98-107); Globulin 3.2 g/dL; Glucose 91 mg/dL (74-99); Non-African American GFR(CKD) 35 (>60 ml/min/1.73 sqM); Potassium 4.8 mmol/L (3.5-5.1); Sodium 137 mmol/L (137-145); Total Bilirubin 0.7 mg/dL (0.2-1.3); Total Protein 7.7 g/dL (6.3-8.2)
[2024-02-16 05:09] LABS: Glucose,Whole Blood 115 mg/dL (70-110)
[2024-02-16] MEDS: PANTOPRAZOLE 40 MG TABLET PO SCH (06:54)
[2024-02-16] MEDS: LEVOTHYROXINE 50 MCG TAB PO SCH (06:54)
[2024-02-16] MEDS: CALCIUM CARB-VIT D 500 MG-5 MCG TAB PO SCH (08:11)
[2024-02-16] MEDS: CLOPIDOGREL 75 MG TAB PO SCH (08:11)
[2024-02-16] MEDS: FENOFIBRATE 160 MG TAB PO SCH (08:12)
[2024-02-16 12:26] LABS: Glucose,Whole Blood 128 mg/dL (70-110)
[2024-02-16] MEDS: INSULIN DETEMIR (LEVEMIR) 100 UNIT/ML SYR SQ SCH (13:40)
--- NOTE | 2024-02-16 14:34 | P.NPCON ---
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 History of liver transplant 13 years ago for ALCAZAR Patient is admitted to the hospital with complaints of abdominal pain. She has had dysuria. History of repeated urinary tract infections. currently maintained on IV antibiotics. Urine culture is pending. UA suggestive of UTI. Status post fluid bolus in the ER. Blood pressure has not been low. Serum creatinine at 1.4 mg/dL this admission. Previous creatinine 1.3 on 04/23. Patient is maintained on cyclosporine and CellCept for history of liver transplant 13 years ago. Review of Systems as per HPI Past Medical History Past Medical History: CVA/TIA, Diabetes Mellitus, Hypertension, Thyroid Disorder History of Any Multi-Drug Resistant Organisms: None Reported Past Surgical History: Appendectomy, Cholecystectomy, Hysterectomy Additional Past Surgical History / Comment(s): D&C, liver transplant Past Anesthesia/Blood Transfusion Reactions: No Reported Reaction Past Psychological History: No Psychological Hx Reported Smoking Status: Never smoker Past Alcohol Use History: None Reported Past Drug Use History: None Reported - Past Family History Mother Family Medical History: Liver Disease Medications and Allergies Home Medications Medication Instructions Recorded Confirmed Type Acetaminophen Tab [Tylenol] 1,000 mg PO BID PRN 06/01/20 02/15/24 History Clopidogrel [Plavix] 75 mg PO DAILY 06/01/20 02/15/24 History Glucosamine/Chondr De La Garza A Sod [Osteo 2 tab PO DAILY 06/01/20 02/15/24 History Bi-Flex Caplet] Insulin Glargine [Lantus Vial] 35 unit SQ DAILY 06/01/20 02/15/24 History Levothyroxine Sodium [Synthroid] 50 mcg PO DAILY 06/01/20 02/15/24 History Metoprolol Tartrate [Lopressor] 50 mg PO BID 06/01/20 02/15/24 History Mycophenolate Sodium [Mycophenolic 360 mg PO BID 06/01/20 02/15/24 History Acid] Pantoprazole Sodium [Protonix] 40 mg PO AC-BRKFST 06/01/20 02/15/24 History Vit C/E/Zn/Coppr/Lutein/Zeaxan 1 cap PO DAILY 06/01/20 02/15/24 History [Preservision Areds 2 Softgel] lisinopriL [Prinivil] 10 mg PO DAILY 06/01/20 02/15/24 History Insulin Regular, Human [NovoLIN R 5 units SQ AC-TID 06/07/21 02/15/24 History Flexpen] Meclizine [Antivert] 25 mg PO BID 06/07/21 02/15/24 History Atorvastatin [Lipitor] 40 mg PO HS 12/26/21 02/15/24 History Furosemide [Lasix] 20 mg PO DIRECTED PRN 12/26/21 02/15/24 History Zinc Gluconate [Zinc] 100 mg PO DAILY 12/26/21 02/15/24 History Cyclosporine, Modified [Gengraf] 25 mg PO DAILY 12/27/21 02/15/24 History cycloSPORINE, MODIFIED [Neoral] 50 mg PO HS 12/27/21 02/15/24 History Fenofibrate [Lofibra] 160 mg PO DAILY 30 Days #30 tab 12/28/21 02/15/24 Rx Amoxicillin 2,000 mg PO ONETIME PRN 02/15/24 02/15/24 History Balance Of Nature Fruit & Veggie 6 tab PO DAILY 02/15/24 02/15/24 History Balance Of Nature(Unknown) 2 tab PO DAILY 02/15/24 02/15/24 History Calcium W/Vitamin D3 2 tab PO DAILY 02/15/24 02/15/24 History Cephalexin [Keflex] 250 mg PO DIRECTED 02/15/24 02/15/24 History Cranberry [id number] 30,000 mg PO DAILY 02/15/24 02/15/24 History D-Mannose 1200mg 2 cap PO DAILY 02/15/24 02/15/24 History Magnesium [id number] W/Potassium 1 cap PO DAILY 02/15/24 02/15/24 History 450mg Multivit-Minerals/FA/Lycopene 1 tab PO DAILY 02/15/24 02/15/24 History [One-A-Day Men's 50 Plus Tablet] cefUROXime axetiL [Ceftin] 500 mg PO Q12H 02/15/24 02/15/24 History sitaGLIPtin [Januvia] 50 mg PO DIRECTED 02/15/24 02/15/24 History Allergies Allergy/AdvReac Type Severity Reaction Status Date / Time Iodinated Contrast Media Allergy Rash/Hives Verified 02/15/24 16:16 pioglitazone [From Actos] Allergy Rash/Hives Verified 02/15/24 16:16 pentazocine [From Talwin] AdvReac Vomiting Verified 02/15/24 16:16 Physical Exam Vitals: Vital Signs Temp Pulse Pulse Resp BP BP Pulse Ox 02/16/24 07:00 97.9 F 68 17 140/73 97 02/16/24 02:00 97.8 F 72 18 111/72 97 02/15/24 21:51 74 147/67 02/15/24 20:00 98.3 F 74 18 134/66 97 02/15/24 16:41 98.5 F 73 18 123/78 95 02/15/24 16:08 98.5 F 83 18 132/60 97 Intake and Output 02/15/24 02/16/24 02/16/24 22:59 06:59 14:59 Intake Total 540 340 118 Balance 540 340 118 Intake: Intake, IV Titration 100 Amount Piperacillin-Tazobactam 3 100 .375 gm In Sodium Chloride 0.9% 100 ml @ 25 mls/hr IVPB Q8HR [facility] Rx# :[id number] Oral 540 240 118 Other: Voiding Method Toilet Toilet # Voids 2 2 Weight 67.132 kg patient is awake, comfortable, no acute distress. 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 Chronic kidney disease NKF stage IIIa with baseline creatinine most likely around 1.3 mg/dL. Patient follows with nephrology out of [facility]. Renal function appears to be close to baseline. Etiology is likely underlying chronic use of calcineurin inhibitors. 2. UTI maintained on antibiotics. Urine culture is pending. Patient has history of recurrent UTIs. 3. History of liver transplant for ALCAZAR 13 years ago maintained on cyclosporine and CellCept 4. Type 2 diabetes 5. Hypothyroidism Plan: add IV fluids Repeat labs in a.m. Check cyclosporine level in a.m. prior to a.m. dose. Continue with antibiotics. Thank you for the consultation. We will continue to follow the patient with you during her hospitalization.
[2024-02-16 17:29] LABS: Glucose,Whole Blood 126 mg/dL (70-110)
[2024-02-16] MEDS: SODIUM CHLORIDE 0.9% 1,000 ML IV SCH (20:09)
[2024-02-16 20:49] LABS: Glucose,Whole Blood 177 mg/dL (70-110)
--- NOTE | 2024-02-17 02:18 | PN ---
PROGRESS NOTE DATE OF SERVICE: 02/16/2024 SUBJECTIVE: This 78-year-old woman was admitted with UTI with Pseudomonas and immunosuppressed. She is on IV antibiotics. No chest pain, no palpitations. OBJECTIVE: VITAL SIGNS: Pulse 72, blood pressure 111/70, respirations 18. CHEST: Clear to auscultation. CARDIOVASCULAR: S1, S2. ABDOMEN: Soft. NERVOUS SYSTEM: Nonfocal. LABORATORY DATA: Creatinine 1.43, rest of the labs are noted. ASSESSMENT: 1. Acute UTI with Pseudomonas aeruginosa. 2. Elevated creatinine with mild acute renal failure present on admission. 3. Hyponatremia. 4. History of liver transplant for nonalcoholic steatohepatitis. 5. Diabetes mellitus type 2. 6. Immunosuppressed. 7. Hypertension. RECOMMENDATIONS AND DISCUSSION: Recommended to continue current management. Continue with symptomatic treatment. Continue with antibiotics. Otherwise, closely monitor and Dr. Leal will follow. MMODL / IJN: [id number] /
[2024-02-17 03:26] LABS: Basophils % (A) 0 %; Eosinophils # (A) 0.1 k/uL (0-0.7); Eosinophils % (A) 2 %; HCT 30.7 % (34.0-46.0); HGB 10.4 gm/dL (11.4-16.0); Lymphocytes # (A) 1.8 k/uL (1.0-4.8); Lymphocytes % (A) 35 %; MCH 27.2 pg (25.0-35.0); MCHC 33.9 g/dL (31.0-37.0); MCV 80.1 fL (80.0-100.0); Mean Platelet Volume 7.6; Monocytes # (A) 0.5 k/uL (0-1.0); Monocytes % (A) 9 %; Neutrophils # (A) 2.6 k/uL (1.3-7.7); Neutrophils % (A) 51 %; Platelet Count 293 k/uL (150-450); RBC 3.83 m/uL (3.80-5.40); RDW 15.1 % (11.5-15.5); WBC 5.2 k/uL (3.8-10.6)
[2024-02-17 03:31] LABS: African American GFR (CKD) 39 (>60 ml/min/1.73 sqM); Anion Gap 11 mmol/L; Blood Urea Nitrogen 30 mg/dL (7-17); Calcium 8.8 mg/dL (8.4-10.2); Carbon Dioxide 22 mmol/L (22-30); Chloride 100 mmol/L (98-107); Glucose 121 mg/dL (74-99); Non-African American GFR(CKD) 34 (>60 ml/min/1.73 sqM); Potassium 4.4 mmol/L (3.5-5.1); Sodium 133 mmol/L (137-145)
[2024-02-17 06:08] LABS: Glucose,Whole Blood 135 mg/dL (70-110)
[2024-02-17] MEDS: INSULIN DETEMIR (LEVEMIR) 100 UNIT/ML SYR SQ SCH (06:20)
[2024-02-17] MEDS ORDERED: INSULIN DETEMIR (LEVEMIR) 100 UNIT/ML SYR SQ SCH (07:00)
[2024-02-17] MEDS: lisinopriL 10 MG TAB PO SCH (10:36)
[2024-02-17 12:01] LABS: Glucose,Whole Blood 193 mg/dL (70-110)
--- NOTE | 2024-02-17 14:38 | P.PN ---
Subjective patient is seen for follow-up for chronic kidney disease. No significant complaints today. Patient is maintained on IV fluids. Serum creatinine staying at about 1.4 mg/dL. Good urine output with no significant urinary symptoms. Objective - Vital Signs Vital signs: Vital Signs Temp 98.7 F 02/17/24 14:00 Pulse 70 02/17/24 14:00 Resp 18 02/17/24 14:00 BP 129/68 02/17/24 14:00 Pulse Ox 97 02/17/24 14:00 FiO2 Intake & Output 02/16/24 02/17/24 02/17/24 18:59 06:59 18:59 Intake Total 118 118 Balance 118 118 Intake: Oral 118 118 Other: Voiding Method Toilet Toilet # Voids 2 2 - Exam patient is awake, comfortable, distress. Alert oriented 3 She appears euvolemic with no evidence of edema lower extremities. RESIDENTIAL DRIVER exam is grossly intact. - Labs CBC & Chem 7: 02/17/24 02:42 02/17/24 02:42 Labs: Abnormal Lab Results - Last 24 Hours (Table) 02/16/24 02/16/24 02/17/24 Range/Units 17:28 20:46 02:42 Hgb 10.4 L (11.4-16.0) gm/dL Hct 30.7 L (34.0-46.0) % Sodium (137-145) mmol/L BUN (7-17) mg/dL Creatinine (0.52-1.04) mg/dL Glucose (74-99) mg/dL POC Glucose (mg/dL) 126 H 177 H (70-110) mg/dL 02/17/24 02/17/24 02/17/24 Range/Units 02:42 06:07 11:59 Hgb (11.4-16.0) gm/dL Hct (34.0-46.0) % Sodium 133 L (137-145) mmol/L BUN 30 H (7-17) mg/dL Creatinine 1.47 H (0.52-1.04) mg/dL Glucose 121 H (74-99) mg/dL POC Glucose (mg/dL) 135 H 193 H (70-110) mg/dL Microbiology - Last 24 Hours (Table) 02/15/24 12:37 Urine Culture - Final Urine,Clean Catch Assessment and Plan Assessment: 1. Chronic kidney disease NKF stage IIIa with baseline creatinine most likely around 1.3 mg/dL. Patient follows with nephrology out of [facility]. Renal function appears to be close to baseline. Etiology is likely underlying ch ronic use of calcineurin inhibitors. 2. UTI maintained on antibiotics. Urine culture is pending. Patient has history of recurrent UTIs. 3. History of liver transplant for ALCAZAR 13 years ago maintained on cyclosporine and CellCept 4. Type 2 diabetes 5. Hypothyroidism Plan: continue normal saline. Continue with BOLA inhibitor's and current immunosuppressive medications. Follow-up on cyclosporine levels. Patient is stable for discharge from nephrology standpoint. 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
[2024-02-17 16:59] LABS: Glucose,Whole Blood 227 mg/dL (70-110)
[2024-02-17 20:58] LABS: Glucose,Whole Blood 170 mg/dL (70-110)
--- NOTE | 2024-02-17 22:12 | P.CONS ---
History of Present Illness - Reason for Consult Consult date: 02/17/24 Pseudomonas urinary tract infection Requesting physician: Dinesh Leal - Chief Complaint Urinary burning and frequency x few days - History of Present Illness Patient is a 78-year-old female with a past medical history difficult for diabetes mellitus hypertension CVA TIA hypothyroidism history of liver transplant 13 years ago for ALCAZAR on immunosuppressive medication patient also have a history of recurrent UTI patient started having symptoms of urinary burning and frequency for the patient was evaluated at the local urgent care patient did have urine cultures obtained and the patient was started on cefuroxime patient was subsequently contacted as the cultures came back positive with a Pseudomonas that was resistant to cefuroxime and the patient was advised to go to the hospital patient mention she did have worsening of her symptoms while on cefuroxime however denies high-grade fever no suprapubic or flank pain patient denies having any nausea no vomiting and no diarrhea on presentation the hospital the patient was afebrile and no fever have been recorded subsequently patient was not tachycardic hypotensive or hypoxic she did have a white count of 5.2 creatinine was 1.47 UA has been repeated which is positive patient was started on Zosyn infectious disease was consulted for further management of antibiotic therapy Review of Systems Positive point and negatives has been mentioned in the HPI, complete review of systems was performed and all other systems are negative Past Medical History Past Medical History: CVA/TIA, Diabetes Mellitus, Hypertension, Thyroid Disorder History of Any Multi-Drug Resistant Organisms: None Reported Past Surgical History: Appendectomy, Cholecystectomy, Hysterectomy Additional Past Surgical History / Comment(s): D&C, liver transplant Past Anesthesia/Blood Transfusion Reactions: No Reported Reaction Past Psychological History: No Psychological Hx Reported Smoking Status: Never smoker Past Alcohol Use History: None Reported Past Drug Use History: None Reported - Past Family History Mother Family Medical History: Liver Disease Medications and Allergies Home Medications Medication Instructions Recorded Confirmed Type Acetaminophen Tab [Tylenol] 1,000 mg PO BID PRN 06/01/20 02/15/24 History Clopidogrel [Plavix] 75 mg PO DAILY 06/01/20 02/15/24 History Glucosamine/Chondr De La Garza A Sod [Osteo 2 tab PO DAILY 06/01/20 02/15/24 History Bi-Flex Caplet] Insulin Glargine [Lantus Vial] 35 unit SQ DAILY 06/01/20 02/15/24 History Levothyroxine Sodium [Synthroid] 50 mcg PO DAILY 06/01/20 02/15/24 History Metoprolol Tartrate [Lopressor] 50 mg PO BID 06/01/20 02/15/24 History Mycophenolate Sodium [Mycophenolic 360 mg PO BID 06/01/20 02/15/24 History Acid] Pantoprazole Sodium [Protonix] 40 mg PO AC-BRKFST 06/01/20 02/15/24 History Vit C/E/Zn/Coppr/Lutein/Zeaxan 1 cap PO DAILY 06/01/20 02/15/24 History [Preservision Areds 2 Softgel] lisinopriL [Prinivil] 10 mg PO DAILY 06/01/20 02/15/24 History Insulin Regular, Human [NovoLIN R 5 units SQ AC-TID 06/07/21 02/15/24 History Flexpen] Meclizine [Antivert] 25 mg PO BID 06/07/21 02/15/24 History Atorvastatin [Lipitor] 40 mg PO HS 12/26/21 02/15/24 History Furosemide [Lasix] 20 mg PO DIRECTED PRN 12/26/21 02/15/24 History Zinc Gluconate [Zinc] 100 mg PO DAILY 12/26/21 02/15/24 History Cyclosporine, Modified [Gengraf] 25 mg PO DAILY 12/27/21 02/15/24 History cycloSPORINE, MODIFIED [Neoral] 50 mg PO HS 12/27/21 02/15/24 History Fenofibrate [Lofibra] 160 mg PO DAILY 30 Days #30 tab 12/28/21 02/15/24 Rx Amoxicillin 2,000 mg PO ONETIME PRN 02/15/24 02/15/24 History Balance Of Nature Fruit & Veggie 6 tab PO DAILY 02/15/24 02/15/24 History Balance Of Nature(Unknown) 2 tab PO DAILY 02/15/24 02/15/24 History Calcium W/Vitamin D3 2 tab PO DAILY 02/15/24 02/15/24 History Cephalexin [Keflex] 250 mg PO DIRECTED 02/15/24 02/15/24 History Cranberry [id number] 30,000 mg PO DAILY 02/15/24 02/15/24 History D-Mannose 1200mg 2 cap PO DAILY 02/15/24 02/15/24 History Magnesium [id number] W/Potassium 1 cap PO DAILY 02/15/24 02/15/24 History 450mg Multivit-Minerals/FA/Lycopene 1 tab PO DAILY 02/15/24 02/15/24 History [One-A-Day Men's 50 Plus Tablet] cefUROXime axetiL [Ceftin] 500 mg PO Q12H 02/15/24 02/15/24 History sitaGLIPtin [Januvia] 50 mg PO DAILY 02/15/24 02/17/24 History Allergies Allergy/AdvReac Type Severity Reaction Status Date / Time Iodinated Contrast Media Allergy Rash/Hives Verified 02/15/24 16:16 pioglitazone [From Actos] Allergy Rash/Hives Verified 02/15/24 16:16 pentazocine [From Talwin] AdvReac Vomiting Verified 02/15/24 16:16 Physical Exam Vitals: Vital Signs Temp Pulse Resp BP Pulse Ox 02/17/24 07:04 97.6 F 55 L 17 149/65 96 02/17/24 02:34 98.2 F 64 15 144/83 98 02/16/24 19:39 98.2 F 76 15 142/84 96 02/16/24 14:46 97.7 F 70 17 155/80 96 Intake and Output 02/16/24 02/17/24 02/17/24 22:59 06:59 14:59 Other: Voiding Method Toilet Toilet Toilet # Voids 2 2 GENERAL DESCRIPTION: Elderly female lying in bed, no distress. No tachypnea or accessory muscle of respiration use. HEENT: Shows Pallor , no scleral icterus. Oral mucous membrane is dry. No pharyngeal erythema or thrush NECK: Trachea central, no thyromegaly. LUNGS: Unlabored breathing. Clear to auscultation anteriorly. No wheeze or crackle. HEART: S1, S2, regular rate and rhythm. No loud murmur ABDOMEN: Soft, no tenderness , guarding or rigidity, no organomegaly EXTREMITIES: No edema of feet. SKIN: No rash, no masses palpable. NEUROLOGICAL: The patient is awake, alert, oriented x3, mood and affect normal. Results CBC & Chem 7: 02/17/24 02:42 02/17/24 02:42 Labs: Abnormal Lab Results - Last 24 Hours (Table) 02/16/24 02/16/2424 Range/Units 12:24 17:28 20:46 Hgb (11.4-16.0) gm/dL Hct (34.0-46.0) % Sodium (137-145) mmol/L BUN (7-17) mg/dL Creatinine (0.52-1.04) mg/dL Glucose (74-99) mg/dL POC Glucose (mg/dL) 128 H 126 H 177 H (70-110) mg/dL 02/17/24 02/17/24 02/17/24 Range/Units 02:42 02:42 06:07 Hgb 10.4 L (11.4-16.0) gm/dL Hct 30.7 L (34.0-46.0) % Sodium 133 L (137-145) mmol/L BUN 30 H (7-17) mg/dL Creatinine 1.47 H (0.52-1.04) mg/dL Glucose 121 H (74-99) mg/dL POC Glucose (mg/dL) 135 H (70-110) mg/dL Microbiology - Last 24 Hours (Table) 02/15/24 12:37 Urine Culture - Final Urine,Clean Catch Assessment and Plan (1) Pseudomonas aeruginosa infection Current Visit: Yes Status: Acute Code(s): A49.8 - OTHER BACTERIAL INFECTIONS OF UNSPECIFIED SITE SNOMED Code(s): 98886225 (2) UTI (urinary tract infection) Current Visit: Yes Status: Acute Code(s): N39.0 - URINARY TRACT INFECTION, SITE NOT SPECIFIED SNOMED Code(s): 94341249 Plan: 1patient presented to hospital with worsening urinary symptoms of burning and frequency however the patient has significant flank pain and no fever more likely representing cystitis clinically behaving as deep infection such as pyelonephritis patient is immunocompromise because of immunosuppressive medication for the liver transplant 2-patient to continue with the Zosyn while inpatient however patient be able to finish therapy with a short course of oral Cipro on discharge to finish treatment for underlying Pseudomonas UTI We will follow on clinical condition and cultures to further adjust medication if needed Thank you for this consultation we will follow the patient along with you Dictation was produced using [employer] dictation software. please excuse any gra mmatical, word or spelling errors. Time with Patient: Greater than 30
--- NOTE | 2024-02-17 23:37 | P.PN ---
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 on more regular basis she was admitted to the hospital on February 15, 2024 with complaint of dysuria, urine culture was done as an outpatient showed Pseudomonas patient came back to the hospital after seen in the urgent care unit she had more urgency dysuria polyuria and recurrent frequency. Laboratory value on admission shows white blood cell of 10,000 urine was definitely positive culture in progress not complete she was started on Zosyn initially no infectious disease consultation was done with nephrology consultation for stage III chronic kidney disease. Continue current management will consult infectious disease and continue to follow her culture. REVIEW OF SYSTEMS: CONSTITUTIONAL: Well-developed no acute respiratory distress. EYES: No icterus sclerae, no conjunctivitis. EARS, NOSE, MOUTH, THROAT, and FACE: No sore throat, lymphadenopathy, carotid bruits or deformity. RESPIRATORY: No SOB cough or wheezes. CARDIOVASCULAR: No CP, Palpitation, PND, Orthopnea, or angina. GASTROINTESTINAL: No Abd pain, Nausea or vomiting, no Diarrhea or constipation, No GI Bleed, no distention or masses. GENITOURINARY: Frequency urgency and hesitancy. INTEGUMENT/BREAST: Negative for any muscular injury with mild osteoarthritis.. HEMATOLOGIC/LYMPHATIC: Negative for bleed or purpura. MUSCULOSKELTAL: Negative for Myalgia or arthralgia. NEURLOGICAL: No LOC, Sz or syncope, blurred vision dizziness or abnormality.. BEHAVIORAL/PSYCH: Negative. ENDOCRINE: Negative. PHYSICAL EXAMINATION: General Appearance: Alert, cooperative, no distress, appears stated age. Neck HEENT: Supple, no lymphadenopathy, no thyroid enlargement, no carotid bruits. Lungs: Clear to auscultation without crackles or wheezes no rhonchi, no deformity. Chest Wall: Chest wall normal expansion with deep inspiration no tenderness and no deformity was found on exam, no costochondral pain or discomfort. Heart: Regular rate and rhythm, S1, S2 normal, no murmur, rub or gallop. Back: Right lower back pain. Abdomen: Soft, non-tender, bowel sounds active all four quadrants, slight di scomfort in lower abdominal region area and in the flank area no rebound or rigidity. Extremities: Extremities normal, atraumatic, no cyanosis or edema. Pulses: 2+ and symmetric. Skin: Skin color, texture, tugor normal, no rashes or lesions. Neurologic: Alert oriented x3 cranial nerves II through XII intact, no motor deficit, no abnormal balance or gait. ASSESSMENT AND PLAN: _Acute urinary tract infection with failure to outpatient treatment and management mostly Pseudomonas aeruginosa, initiated on Zosyn will continue current treatment till the final culture is back. _Acute kidney injury with chronic kidney disease stage III, continue hydration, continue to see nephrology on regular basis continue aggressive treatment and management. _History of liver transplant: Resume antirejection drugs watch for any toxicity especially with current antibiotics. _Mild hyponatremia: Most likely reactive to UTI continue gentle hydration watch symptoms closely. _Type 2 diabetes: Resume Januvia 50 mg a day, still on Novolin R 5 units AC meals and Lantus 35 units daily. _Hypertension: Continue lisinopril 10 mg a day along with metoprolol titrate 50 mg twice a day. _Hyperlipidemia: Remain on atorvastatin 40 mg daily along with fenofibrate 160 mg a day. _Hypothyroidism: Remain on levothyroxine 50 mcg a day continue medication. _Mild tachycardia and arrhythmia: Remain on metoprolol titrate. _Severe GERD: Remain on pantoprazole 40 mg AC breakfast. CODE STATUS: DO NOT RESUSCITATE. Objective - Vital Signs Vital signs: Vital Signs Temp 98.2 F 02/17/24 02:34 Pulse 64 02/17/24 02:34 Resp 15 02/17/24 02:34 BP 144/83 02/17/24 02:34 Pulse Ox 98 02/17/24 02:34 FiO2 Intake & Output 02/16/24 02/16/24 02/17/24 06:59 18:59 06:59 Intake Total 880 118 Balance 880 118 Intake: Intake, IV Titration 100 Amount Piperacillin-Tazobactam 3 100 .375 gm In Sodium Chloride 0.9% 100 ml @ 25 mls/hr IVPB Q8HR [facility] Rx# :[id number] Oral 780 118 Other: Voiding Method Toilet Toilet # Voids 2 2 2 - Labs CBC & Chem 7: 02/17/24 02:42 02/17/24 02:42 Labs: Abnormal Lab Results - Last 24 Hours (Table) 02/16/24 02/16/24 02/16/24 Range/Units 12:24 17:28 20:46 Hgb (11.4-16.0) gm/dL Hct (34.0-46.0) % Sodium (137-145) mmol/L BUN (7-17) mg/dL Creatinine (0.52-1.04) mg/dL Glucose (74-99) mg/dL POC Glucose (mg/dL) 128 H 126 H 177 H (70-110) mg/dL 02/17/24 02/17/24 02/17/24 Range/Units 02:42 02:42 06:07 Hgb 10.4 L (11.4-16.0) gm/dL Hct 30.7 L (34.0-46.0) % Sodium 133 L (137-145) mmol/L BUN 30 H (7-17) mg/dL Creatinine 1.47 H (0.52-1.04) mg/dL Glucose 121 H (74-99) mg/dL POC Glucose (mg/dL) 135 H (70-110) mg/dL Microbiology - Last 24 Hours (Table) 02/15/24 12:37 Urine Culture - Final Urine,Clean Catch
[2024-02-18 04:10] LABS: Glucose,Whole Blood 101 mg/dL (70-110)
[2024-02-18 06:05] LABS: Glucose,Whole Blood 115 mg/dL (70-110)
[2024-02-18 07:21] LABS: HCT 31.6 % (34.0-46.0); HGB 10.4 gm/dL (11.4-16.0); MCHC 32.8 g/dL (31.0-37.0); MCV 79.2 fL (80.0-100.0); Mean Platelet Volume 7.2; Platelet Count 326 k/uL (150-450); RBC 3.99 m/uL (3.80-5.40); RDW 14.6 % (11.5-15.5); WBC 5.8 k/uL (3.8-10.6)
[2024-02-18 07:26] VITALS: BP 129/74; PULSE 64; RESP 17; TEMP 98.1
[2024-02-18 08:02] LABS: ALT 20 U/L (4-34); AST 37 U/L (14-36); African American GFR (CKD) 46 (>60 ml/min/1.73 sqM); Albumin 4.3 g/dL (3.5-5.0); Albumin/Globulin Ratio 1.6; Alkaline Phosphatase 31 U/L (38-126); Anion Gap 11 mmol/L; Blood Urea Nitrogen 25 mg/dL (7-17); Carbon Dioxide 20 mmol/L (22-30); Chloride 105 mmol/L (98-107); Globulin 2.7 g/dL; Glucose 96 mg/dL (74-99); Non-African American GFR(CKD) 40 (>60 ml/min/1.73 sqM); Potassium 4.6 mmol/L (3.5-5.1); Sodium 136 mmol/L (137-145); Total Bilirubin 0.5 mg/dL (0.2-1.3)
== END 2024-02-18 09:30 | disposition home or self-care (01) | DRG 690 ==
LOC: EC 11:04 → 6NMEDSUR 14:28 → OBSVTOIN 02-16 11:39
PROVIDERS: ADMIT Internal Medicine Geriatric Medicine; ATTEND Internal Medicine Geriatric Medicine
DX: N39.0 Urinary tract infection, site not specified (principal); N17.9 Acute kidney failure, unspecified; E87.1 Hypo-osmolality and hyponatremia; Z94.4 Liver transplant status; B96.5 Pseudomonas (aeruginosa) (mallei) (pseudomallei) as the cause of diseases classified elsewhere; N18.31 Chronic kidney disease, stage 3a; E11.22 Type 2 diabetes mellitus with diabetic chronic kidney disease; Z79.4 Long term (current) use of insulin; Z66 Do not resuscitate; K75.81 Nonalcoholic steatohepatitis (NASH); E03.9 Hypothyroidism, unspecified; I12.9 Hypertensive chronic kidney disease with stage 1 through stage 4 chronic kidney disease, or unspecified chronic kidney disease; R00.0 Tachycardia, unspecified; I49.9 Cardiac arrhythmia, unspecified; K21.9 Gastro-esophageal reflux disease without esophagitis; E78.5 Hyperlipidemia, unspecified; E86.0 Dehydration; Z79.60 Long term (current) use of unspecified immunomodulators and immunosuppressants; Z79.02 Long term (current) use of antithrombotics/antiplatelets; Z79.82 Long term (current) use of aspirin; Z79.84 Long term (current) use of oral hypoglycemic drugs; Z87.440 Personal history of urinary (tract) infections; Z79.890 Hormone replacement therapy; Z79.899 Other long term (current) drug therapy; Z86.73 Personal history of transient ischemic attack (TIA), and cerebral infarction without residual deficits; Z88.8 Allergy status to other drugs, medicaments and biological substances; Z91.041 Radiographic dye allergy status; Z88.5 Allergy status to narcotic agent
CPT/HCPCS: 36415; 80048; 80053; 80158; 81001; 82248; 83605; 84145; 85025; 85027; 85610; 87086; 96361; 96374; 99285

== ENCOUNTER 2024-03-20 08:13 | Day surgery (SDC) | payer MEDICARE, OTHER ==
[2024-03-19 10:28] VITALS: BMI 26.8
[2024-03-20] MEDS: IV FLUID CONTINUATION 1,000 ML IV ONE (08:21)
[2024-03-20] MEDS: LACTATED RINGERS 1,000 ML IV SCH (08:33)
[2024-03-20 08:51] LABS: Glucose,Whole Blood 113 mg/dL (70-110)
[2024-03-20] MEDS ORDERED: PROPOFOL 10 MG/ML 20 ML VIAL IV ONE (09:00)
[2024-03-20] MEDS ORDERED: LIDOCAINE 1% INJ 10MG/ML (20 ML MDV) ONE (09:00)
--- NOTE | 2024-03-20 09:26 | P.PCN ---
Date of Procedure: 03/20/24 Procedure(s) Performed: BRIEF HISTORY: Patient is a 78-year-old pleasant white female scheduled for an elective colonoscopy as a part of evaluation for history of colon polyps. Her last colonoscopy was 5 years ago and according to her she had colon polyps PROCEDURE PERFORMED: Colonoscopy. PREOPERATIVE DIAGNOSIS: History of colon polyps. IV sedation per Anesthesia. PROCEDURE: After informed consent was obtained, the patient, was brought into the endoscopy unit. IV sedation was administered by Anesthesia under continuous monitoring. Digital rectal examination was normal. Initially the Olympus CF-160 flexible video colonoscope was then inserted in the rectum, gradually advanced into the sigmoid colon and further advancement was not possible because of acute angulation in this area. The scope was removed. Colonoscopy centimeters rectum and gradually advanced into the cecum without any difficulty. Careful examination was performed as the scope was gradually being withdrawn. Ileocecal valve and the appendiceal orifice were visualized and appeared normal. Prep was excellent. Mucosa of the cecum, ascending colon, transverse colon, descending colon, sigmoid colon, and rectum appeared normal. Katter sigmoid diverticulosis. Retroflexion was performed in the rectum and no lesions were seen. The patient tolerated the procedure well. 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 Scattered sigmoid diverticulosis. RECOMMENDATIONS: Findings of this examination were discussed with the patient as well as her family.. Is advised to be on high-fiber diet and take fiber supplements on a regular basis.
[2024-03-20 09:40] VITALS: RESP 16; TEMP 97.7
[2024-03-20 10:24] VITALS: BP 147/82; PULSE 59
== END 2024-03-20 10:38 | disposition home or self-care (01) ==
LOC: ORWHC2ENDO 08:13
PROVIDERS: ATTEND Internal Medicine Gastroenterology
DX: Z12.11 Encounter for screening for malignant neoplasm of colon (principal); K57.30 Diverticulosis of large intestine without perforation or abscess without bleeding; I10 Essential (primary) hypertension; E78.5 Hyperlipidemia, unspecified; E11.9 Type 2 diabetes mellitus without complications; E07.9 Disorder of thyroid, unspecified; I67.9 Cerebrovascular disease, unspecified; K52.9 Noninfective gastroenteritis and colitis, unspecified; Z86.010 Personal history of colon polyps; Z79.899 Other long term (current) drug therapy; Z79.4 Long term (current) use of insulin; Z79.84 Long term (current) use of oral hypoglycemic drugs; Z88.5 Allergy status to narcotic agent; Z88.9 Allergy status to unspecified drugs, medicaments and biological substances
CPT/HCPCS: 45378

== ENCOUNTER → 2024-07-02 | Outpatient (CLI) | payer MEDICARE, OTHER ==
--- NOTE | 2024-07-05 04:03 | MM ---
Reason for Exam: Screening (asymptomatic). Last mammogram was performed 1 year(s) and 1 month(s) ago. Patient History: Menarche at age 13. First Full-Term at age 22. Left ovary removed at age 46. Right ovary removed at age 46. Hysterectomy at age 46. Postmenopausal. Patient has history of breast feeding. Other cancer. Estrogen, from age 46 until age 48. Paternal grandmother had breast cancer. Paternal aunt had breast cancer. Maternal grandmother had ovarian cancer, age 34. Mother had ovarian cancer at or over age 50. Risk Values: Shavonne 5 year model risk: 1.5%. NCI Lifetime model risk: 2.8%. Prior Study Comparison: 05/01/2021 Left Diagnostic Mammogram, [facility]. 05/01/2022 Bilateral MG 3D screening mammo w/cad, [facility]. 05/27/2023 Bilateral MG 3D screening mammo w/cad, [facility]. Tissue Density: There are scattered areas of fibroglandular density. Findings: Analyzed By CAD. The pattern is symmetrical. No significant interval change No suspicious groups of microcalcifications, spiculated or lobular masses, architectural distortion or other secondary signs of malignancy are mammographically apparent. Overall Assessment: Benign, BI-RAD 2 Management: Screening Mammogram of both breasts in 1 year. A negative mammogram report should not preclude additional follow up of suspicious palpable abnormalities. Patient should continue monthly self breast exam. A clinical breast exam by your physician is recommended on an annual basis and results should be correlated with mammographic findings. Note on Shavonne scores and lifetime risk: 1. A Shavonne score greater than 3% is considered moderate risk. If this is the case, consider specialist referral to assess eligibility for a risk reducing agent. 2. If overall lifetime risk for the development of breast cancer is 20% or higher, the patient may qualify for future screening with alternating mammogram and breast MRI. [facility], , 07/05/2024 4:00 AM. Electronically signed and approved by: Roger Cortez D.O. Radiologis
== END | disposition home or self-care (01) ==
LOC: RADMAMWWP 09:06
PROVIDERS: ATTEND Internal Medicine Geriatric Medicine
DX: Z12.31 Encounter for screening mammogram for malignant neoplasm of breast (principal); Z78.0 Asymptomatic menopausal state; Z80.3 Family history of malignant neoplasm of breast; Z90.722 Acquired absence of ovaries, bilateral; C56.9 Malignant neoplasm of unspecified ovary; R92.323 Mammographic fibroglandular density, bilateral breasts
CPT/HCPCS: 77063; 77067

== ENCOUNTER → 2024-08-17 | Outpatient (CLI) | payer MEDICARE, OTHER ==
[2024-08-17 15:19] LABS: HCT 33.9 % (37.2-46.3); HGB 10.7 g/dL (12.0-15.0); MCH 24.8 pg (27.0-32.0); MCHC 31.6 g/dL (32.0-37.0); MCV 78.7 FL (80.0-97.0); Mean Platelet Volume 9.6 FL (9.5-12.2); NRBC Per 100 WBC 0 X 10*3/uL (0.00-0.01); Platelet Count 314 X 10*3/uL (140-440); RBC 4.31 X 10*6/uL (4.10-5.20); RDW 14.4 % (11.5-14.5)
[2024-08-17 15:20] LABS: Blood Urea Nitrogen 41.8 mg/dL (9.0-27.0)
[2024-08-17 15:21] LABS: Carbon Dioxide 24.7 mmol/L (21.6-31.8); Chloride 100 mmol/L (96-109); Potassium 4.6 mmol/L (3.5-5.5); Sodium 138 mmol/L (135-145)
== END | disposition home or self-care (01) ==
LOC: LABPAT 08:35
PROVIDERS: ATTEND Internal Medicine
DX: Z01.812 Encounter for preprocedural laboratory examination (principal); R94.39 Abnormal result of other cardiovascular function study; R06.02 Shortness of breath
CPT/HCPCS: 80051; 82565; 84520; 85027

== ENCOUNTER 2024-11-24 12:42 | Day surgery (SDC) | payer MEDICARE, OTHER ==
[2024-11-20 10:09] VITALS: BMI 27.3
[2024-11-24] MEDS: IV FLUID CONTINUATION 1,000 ML IV ONE (12:57)
[2024-11-24 13:09] VITALS: RESP 16; TEMP 99
[2024-11-24 13:09] LABS: Glucose,Whole Blood 69 mg/dL (70-110)
[2024-11-24] MEDS: SODIUM CHLORIDE 0.9% 1,000 ML IV SCH (13:26)
[2024-11-24 13:32] LABS: Glucose,Whole Blood 80 mg/dL (70-110)
[2024-11-24] MEDS: ceFAZolin 2 GM in DEXTROSE 5% IN WATER 50 ML IVPB ONE (14:26)
[2024-11-24] MEDS: LIDOCAINE 1% INJ 10MG/ML (30 ML VIAL-PF) SQ ONE (14:30)
--- NOTE | 2024-11-24 14:58 | P.EPPROC ---
- EP Procedure Note Electrophysiology Procedure Note: Loop monitor implant, Yeboah Primary physicians: [employer] Specialist: Dr. Owens Indication: Atrial fibrillation diagnosis and management Patient was brought to the EP lab in a fasting state. Written informed consent was obtained prior to the procedure. The left pectoral area was prepped and dr chakraborty per protocol. Intravenous antibiotic was administered preoperatively. A subcutaneous Loop monitor was implanted successfully and the wound was closed per protocol. The device was programmed to detect significant richard- arrhythmic and tachy-arrhythmic events, per protocol. Device and programming details: Atrial fibrillation detection
[2024-11-24 15:45] VITALS: BP 162/76; PULSE 68
== END 2024-11-24 15:25 | disposition home or self-care (01) ==
LOC: CATHEP 12:42
PROVIDERS: ATTEND Internal Medicine Clinical Cardiac Electrophysiology
DX: I48.91 Unspecified atrial fibrillation (principal); R55 Syncope and collapse; I25.10 Atherosclerotic heart disease of native coronary artery without angina pectoris; I35.0 Nonrheumatic aortic (valve) stenosis; I34.0 Nonrheumatic mitral (valve) insufficiency; I47.19 Other supraventricular tachycardia; E11.9 Type 2 diabetes mellitus without complications; E78.5 Hyperlipidemia, unspecified; I10 Essential (primary) hypertension; Z86.73 Personal history of transient ischemic attack (TIA), and cerebral infarction without residual deficits; Z94.4 Liver transplant status; Z79.890 Hormone replacement therapy; Z79.4 Long term (current) use of insulin; Z79.02 Long term (current) use of antithrombotics/antiplatelets
CPT/HCPCS: 33285; C1764; J0690; J2003